=== PATIENT | female | born 1940 | race Caucasian/White ===

== ENCOUNTER 2017-02-22 19:09 | Inpatient (IN) | payer MEDICARE, MEDICAID ==
[~2017-02-22] VITALS: Ht 152.4 cm; Wt 56.7 kg
[2017-02-22 19:16] VITALS: BP 152/67
[2017-02-22 20:19] LABS: MEAN CORPUSCULAR HEMOGLOBIN 19.6 PG (27.0-31.0); MEAN CORPUSCULAR HGB CONC 28.9 G/DL (32.0-36.0); MEAN CORPUSCULAR VOLUME 68 FL (80-99); MEAN PLATELET VOLUME 5.4 FL (6.5-10.1); PLATELET COUNT 325 K/UL (150-450); RED BLOOD COUNT 2.85 M/UL (4.20-5.40); RED CELL DISTRIBUTION WIDTH 17.4 % (11.6-14.8)
[2017-02-22 21:02] LABS: INR 1.1 (0.9-1.1); PROTHROMBIN TIME 11.1 SEC (9.30-11.50); TROPONIN I < 0.30 ng/mL (<=0.30)
[2017-02-22 21:05] LABS: ALANINE AMINOTRANSFERASE 6 U/L (3-33); ANION GAP 14 (5-15); ASPARTATE AMINO TRANSFERASE 25 U/L (5-40); CALCIUM 8.6 mg/dL (8.6-10.2); CARBON DIOXIDE 26 mEQ/L (20-30); CHLORIDE 94 mEQ/L (98-107); HEMOLYSIS 37; POTASSIUM 4.4 mEQ/L (3.4-4.9); SODIUM 134 mEQ/L (135-145)
[2017-02-22 21:34] VITALS: BP 149/63
--- NOTE | 2017-02-22 21:37 | Emergency Room Report ---
History of Present Illness General Chief Complaint: Abnormal Labs Source: Medical Record, EMS Present Illness HPI 76-year-old female presents ED for evaluation. Patient was sent from [facility] for low hemoglobin. There have hemoglobin of 4.6. Patient states she feels okay but feels a little tired. Patient states she has had multiple transfusions in the past. Patient states she had a stomach surgery many years ago to fix the problem. Denies any fevers or chills. Denies any chest pain or shortness of breath. Denies any hematemesis. Denies any blood in the stool. No aggravating or relieving factors. Denies any other associated symptoms Allergies: Coded Allergies: LEVOFLOXACIN (Verified Allergy, Unknown, 02/22/17) PENICILLINS (Verified Allergy, Unknown, 02/22/17) SULFA (SULFONAMIDE ANTIBIOTICS) (Verified Allergy, Unknown, 02/22/17) Patient History Past Medical History: HTN, COPD, GERD Past Surgical History: none Pertinent Family History: none Social History: Denies: alcohol use, drug use, smoking Last Menstrual Period: na Now: No Immunizations: UTD Reviewed Nursing Documentation: PMH: Agreed, PSxH: Agreed Nursing Documentation-PMH Past Medical History: No History, Except For Hx Cardiac Problems: Yes - AFIB, CHF Hx Hypertension: Yes Hx COPD: Yes Hx Gastrointestinal Problems: Yes - GERD Hx Neurological Problems: Yes - ENCEPHALOPATHY Review of Systems All Other Systems: negative except mentioned in HPI Physical Exam Vital Signs Date Time Temp Pulse Resp B/P Pulse Ox O2 Delivery O2 Flow Rate FiO2 02/22/17 19:04 98.6 99 20 152/67 99 Room Air Sp02 EP Interpretation: reviewed, normal General Appearance: no apparent distress, alert, GCS 15, non-toxic Head: normocephalic, atraumatic Eyes: bilateral eye PERRL, bilateral eye normal inspection ENT: hearing grossly normal, normal pharynx, no angioedema, normal voice Neck: full range of motion, supple/symm/no masses Respiratory: chest non-tender, lungs clear, normal breath sounds, speaking full sentences Cardiovascular #1: regular rate, rhythm, no edema Cardiovascular #2: 2+ carotid (R), 2+ carotid (L), 2+ radial (R), 2+ radial (L) , 2+ dorsalis pedis (R), 2+ dorsalis pedis (L) Gastrointestinal: normal bowel sounds, non tender, soft, non-distended, no guarding, no rebound Rectal: deferred Genitourinary: normal inspection, no CVA tenderness Musculoskeletal: back normal, gait/station normal, normal range of motion, non- tender Neurologic: alert, oriented x3, responsive, motor strength/tone normal, sensory intact, speech normal Psychiatric: judgement/insight normal, memory normal, mood/affect normal, no suicidal/homicidal ideation Reflexes: 3+ bicep (R), 3+ bicep (L), 3+ tricep (R), 3+ tricep (L), 3+ knee (R) , 3+ knee (L) Skin: normal color, no rash, warm/dry, well hydrated Lymphatic: no adenopathy Medical Decision Making Diagnostic Impression: Primary Impression: Anemia Qualified Codes: D64.9 - Anemia, unspecified ER Course Hospital Course 76-year-old female presents to ED for evaluation of possible anemia, with possible transfusion Differential diagnoses include: anemia requiring transfusion, microcytic anemia , macrocytic anemia, heavy blood loss Clinical course Patient placed on stretcher. After initial history and physical I ordered labs including CBC and type and screen. Labs- hemoglobin/hematocrit 5.6/19.4. Electrolytes okay, no leukocytosis EKG-normal sinus rhythm no acute ischemic changes PRBCs ordered. Case discussed with Dr. Dumont and he agreed to admit the patient to his service Diagnosis - anemia Admitted to telemetry in serious condition Labs Test 02/22/17 19:47 White Blood Count 6.0 K/UL (4.8-10.8) Red Blood Count 2.85 M/UL (4.20-5.40) Hemoglobin 5.6 G/DL (12.0-16.0) Hematocrit 19.4 % (37.0-47.0) Mean Corpuscular Volume 68 FL (80-99) Mean Corpuscular Hemoglobin 19.6 PG (27.0-31.0) Mean Corpuscular Hemoglobin Concent 28.9 G/DL (32.0-36.0) Red Cell Distribution Width 17.4 % (11.6-14.8) Platelet Count 325 K/UL (150-450) Mean Platelet Volume 5.4 FL (6.5-10.1) Neutrophils (%) (Auto) % (45.0-75.0) Lymphocytes (%) (Auto) % (20.0-45.0) Monocytes (%) (Auto) % (1.0-10.0) Eosinophils (%) (Auto) % (0.0-3.0) Basophils (%) (Auto) % (0.0-2.0) Prothrombin Time 11.1 SEC (9.30-11.50) Prothromb Time International Ratio 1.1 (0.9-1.1) Activated Partial Thromboplast Time 27 SEC (23-33) Sodium Level 134 mEQ/L (135-145) Potassium Level 4.4 mEQ/L (3.4-4.9) Chloride Level 94 mEQ/L (98-107) Carbon Dioxide Level 26 mEQ/L (20-30) Anion Gap 14 (5-15) Blood Urea Nitrogen 16 mg/dL (7-23) Creatinine 1.0 mg/dL (0.5-0.9) Estimat Glomerular Filtration Rate mL/min (>60) Glucose Level 116 mg/dL (74-106) Calcium Level 8.6 mg/dL (8.6-10.2) Total Bilirubin 0.2 mg/dL (0.0-1.2) Aspartate Amino Transf (AST/SGOT) 25 U/L (5-40) Alanine Aminotransferase (ALT/SGPT) 6 U/L (3-33) Alkaline Phosphatase 68 U/L (35-104) Creatine Kinase MB 2.0 ng/mL (< 3.8) Troponin I < 0.30 ng/mL (<=0.30) Total Protein 7.0 g/dL (6.6-8.7) Albumin 3.5 g/dL (3.5-5.2) Globulin 3.5 g/dL Albumin/Globulin Ratio 1.0 (1.0-2.7) EKG Diagnostic Results Rate: normal Rhythm: NSR ST Segments: no acute changes ASA given to the pt in ED: No Rhythm Strip Diag. Results EP Interpretation: yes Rhythm: NSR, no PVC's, no ectopy Last Vital Signs Date Time Temp Pulse Resp B/P Pulse Ox O2 Delivery O2 Flow Rate FiO2 02/22/17 19:04 98.6 99 20 152/67 99 Room Air Status: improved Disposition: ADMITTED INPATIENT Condition: Serious Referrals: JA DUMONT (PCP) ZHANG BUITRAGO M.D. February 22, 2017 21:37
[2017-02-22 21:44] LABS: ANISOCYTOSIS 3+; BAND NEUTROPHILS % (MANUAL) 1 % (0-8); BASOPHILS % (MANUAL) 2 % (0-2); EOSINOPHILS % (MANUAL) 2 % (0-3); HYPOCHROMASIA 3+; LYMPHOCYTES % (MANUAL) 39 % (20-45); MICROCYTES 3+; NEUTROPHILS % (MANUAL) 46 % (45-75); PLATELET ESTIMATE ADEQUATE; PLATELET MORPHOLOGY NORMAL; TOTAL CELLS COUNTED 100
[2017-02-22] MEDS ORDERED: PANTOPRAZOLE SO40 MG ORAL (22:38)
[2017-02-22] MEDS ORDERED: CATAPRES0.1 MG ORAL (22:38)
[2017-02-22] MEDS ORDERED: CARAFATE1 G1 ORAL (22:38)
[2017-02-22] MEDS ORDERED: ATROVENT HFA12.9 GM IH (22:38)
[2017-02-22] MEDS ORDERED: PRAVASTATIN SOD40 M1 ORAL (22:38)
[2017-02-22] MEDS ORDERED: Miralax 17gm pkt ORAL PRN (23:15)
[2017-02-22] MEDS ORDERED: DuoNeb 0.5-3(2.5)mg/3ml neb HHN PRN (23:15)
[2017-02-23] VITALS (7 sets, daily range): BP systolic 123–157; BP diastolic 62–73
[2017-02-23] MEDS ORDERED: DiphenhydrAMINE 50mg/ml Inj IVP ONE (00:30)
[2017-02-23] MEDS ORDERED: CARDIZEM60 MG ORAL (01:07)
[2017-02-23] MEDS ORDERED: ASPIR 8181 MG ORAL (01:07)
[2017-02-23] MEDS ORDERED: CLARITIN10 M2 ORAL (01:07)
[2017-02-23] MEDS ORDERED: MUCINEX100 MG PO (01:07)
[2017-02-23] MEDS ORDERED: SPIRIVA18 MCG INH (01:07)
[2017-02-23] MEDS: DuoNeb 0.5-3(2.5)mg/3ml neb HHN SCH ×4 (01:29→20:07)
[2017-02-23] MEDS ORDERED: doxycycline PO (02:15)
[2017-02-23] MEDS ORDERED: DOCUSATE SODIU100 MG ORAL (02:15)
[2017-02-23] MEDS ORDERED: TRAZODONE HCL150 MG ORAL (02:15)
[2017-02-23] MEDS ORDERED: MILK OF MA400 MG/51 ORAL (02:15)
[2017-02-23] MEDS ORDERED: DEPAKOTE125 MG PO (02:15)
[2017-02-23 08:10] LABS: BASOPHILS % (AUTO) 0.7 % (0.0-2.0); EOSINOPHILS % (AUTO) 1.2 % (0.0-3.0); LYMPHOCYTES % (AUTO) 23.8 % (20.0-45.0); MEAN CORPUSCULAR HEMOGLOBIN 24.4 PG (27.0-31.0); MEAN CORPUSCULAR HGB CONC 32.2 G/DL (32.0-36.0); MEAN CORPUSCULAR VOLUME 76 FL (80-99); MEAN PLATELET VOLUME 5.4 FL (6.5-10.1); MONOCYTES % (AUTO) 18.5 % (1.0-10.0); NEUTROPHILS % (AUTO) 55.8 % (45.0-75.0); PLATELET COUNT 307 K/UL (150-450); RED BLOOD COUNT 3.57 M/UL (4.20-5.40); RED CELL DISTRIBUTION WIDTH 21.5 % (11.6-14.8); WHITE BLOOD COUNT 5.9 K/UL (4.8-10.8)
[2017-02-23 08:16] LABS: ANION GAP 9 (5-15); CALCIUM 8.5 mg/dL (8.6-10.2); CARBON DIOXIDE 29 mEQ/L (20-30); CHLORIDE 101 mEQ/L (98-107); HEMOLYSIS 0; LACTATE DEHYDROGENASE 166 U/L (135-230); POTASSIUM 4.2 mEQ/L (3.4-4.9); SODIUM 139 mEQ/L (135-145)
[2017-02-23 08:28] LABS: HEMOLYSIS 2; IRON 25 ug/dL (37-145); TOTAL IRON BINDING CAPACITY 375 ug/dL (250-400)
[2017-02-23 08:48] LABS: FERRITIN 8 ng/mL (13-150)
[2017-02-23] MEDS ORDERED: Docusate 100mg tablet ORAL SCH (09:00)
[2017-02-23] MEDS ORDERED: Sucralfate 1gm tab ORAL SCH (09:00)
[2017-02-23] MEDS: Docusate 100mg cap ORAL SCH ×2 (09:26→21:09)
--- NOTE | 2017-02-23 10:24 | History and Physical ---
History of Present Illness General Date patient seen: February 23, 2017 Time patient seen: 10:24 Reason for Hospitalization: Abnormal Labs Present Illness HPI 76y/o female with pmh of COPD, HTN, GERD, HLD, bipolar d/o who presents with acute anemia. Pt noted to have hgb 4.6 at SNF. Pt feels fatigued, slightly more SOB. Pt has required transfusions in past. She does not think she has a h/o GI bleed. She does not think she has ever had an EGD or colonoscopy before. She has not noted any melena, BRPBR, hematemesis, hematuria, vaginal bleeding. Denies f/c, n/v, d/c, chest pain, abd pain. In ED, pt's hgb 5.6. 2U pRBCs ordered to be transfused. Allergies: Coded Allergies: LEVOFLOXACIN (Verified Allergy, Unknown, 02/22/17) PENICILLINS (Verified Allergy, Unknown, 02/22/17) SULFA (SULFONAMIDE ANTIBIOTICS) (Verified Allergy, Unknown, 02/22/17) Medication History Scheduled Aspirin* (Aspir 81*), 81 MG ORAL DAILY, (Reported) Diltiazem Hcl* (Cardizem*), 60 MG ORAL EVERY 8 HOURS, (Reported) Divalproex Sodium (Depakote), 250 MG PO TID, (Reported) Ferrous Sulfate (Ferrous Sulfate), 325 MG ORAL BID Pantoprazole* (Pantoprazole*), 40 MG ORAL DAILY, (Reported) Pravastatin Sod (Pravastatin Sod), 40 MG ORAL QHS, (Reported) Sucralfate* (Carafate*), 1 GM ORAL THREE TIMES A DAY, (Reported) Tiotropium [place]* (Spiriva*), 2 PUFF INH DAILY, (Reported) Scheduled PRN Clonidine Hcl* (Catapres*), 0.1 MG ORAL EVERY 6 HOURS PRN for For High Blood Pressure, (Reported) Docusate Sodium* (Docusate Sodium*), 100 MG ORAL DAILY PRN for Constipation, ( Reported) Guaifenesin (Mucinex), 600 MG PO Q12HR PRN for congestion, (Reported) Ipratropium [place] (Atrovent Hfa), 1 PUFF IH Q6HR PRN for Shortness of Breath, (Reported) Loratadine (Claritin), 10 MG ORAL DAILY PRN for Itching, (Reported) Magnesium Hydroxide* (Milk Of Magnesia*), 30 ML ORAL DAILY PRN for Constipation, (Reported) Trazodone* (Trazodone*), 25 MG ORAL BEDTIME PRN for insomnia, (Reported) Discontinued Medications [doxycycline], 500 MG PO BID, (Reported) Discontinued Reason: MD discontinued med Patient History History Provided By: Patient, Medical Record, PMD Healthcare decision maker Resuscitation status Advanced Directive on File Past Medical/Surgical History Past Medical/Surgical History: (1) COPD (chronic obstructive pulmonary disease) (2) HLD (hyperlipidemia) (3) GERD (gastroesophageal reflux disease) (4) HTN (hypertension) Family History Family History: Patient reports no known family medical history. Social History Social History: (1) Lives in detention Review of Systems Constitutional: Reports: malaise, weakness Eye: Reports: no symptoms ENT: Reports: no symptoms Respiratory: Reports: shortness of breath Cardiovascular: Reports: no symptoms Gastrointestinal: Reports: no symptoms Genitourinary: Reports: no symptoms Musculoskeletal: Reports: no symptoms Skin: Reports: no symptoms Psychiatric: Reports: no symptoms Neurological: Reports: no symptoms Endocrine: Reports: no symptoms Hematologic/Lymphatic: Reports: no symptoms All Other Systems: negative except mentioned in HPI Physical Exam Physical Exam Narrative General: alert, cooperative, no distress, appears stated age Head: normocephalic, without obvious abnormality, atraumatic Eyes: conjunctivae/corneas clear. PERRL, EOM's intact Throat: lips, mucosa, and tongue normal. MMM Neck: supple, symmetrical, trachea midline, and no JVD Lungs: clear to auscultation bilaterally Heart: regular rate and rhythm, S1, S2 normal, no murmur, click, rub or gallop Abdomen: soft, non-tender, non-distended, bowel sounds normal; no masses or organomegaly Extremities: extremities normal, atraumatic, no cyanosis or edema Pulses: 2+ and symmetric Skin: skin color, texture, turgor normal; no rashes or lesions Neurologic: grossly normal, no focal deficits Last 24 Hour Vital Signs Date Time Temp Pulse Resp B/P Pulse Ox O2 Delivery O2 Flow Rate FiO2 02/23/17 08:00 90 02/23/17 07:42 97.9 98 18 138/73 97 Nasal Cannula 2.0 02/23/17 07:39 78 20 99 Nasal Cannula 2.0 02/23/17 07:33 Nasal Cannula 2.0 02/23/17 07:31 96 Nasal Cannula 2.0 02/23/17 07:29 89 20 96 Nasal Cannula 2.0 02/23/17 06:03 144/63 02/23/17 04:12 97.5 101 20 123/62 98 Room Air 02/23/17 04:00 101 02/23/17 01:38 98 18 99 Nasal Cannula 2.0 02/23/17 01:35 97.0 24 157/65 99 Nasal Cannula 2.0 02/23/17 01:29 103 18 98 Nasal Cannula 2.0 02/23/17 01:28 98 Nasal Cannula 2.0 02/23/17 01:28 Nasal Cannula 2.0 02/23/17 01:28 103 18 Nasal Cannula 2.0 02/23/17 00:52 97.9 94 20 155/68 99 Nasal Cannula 2.0 02/23/17 00:51 97.9 94 20 155/68 99 Nasal Cannula 2.0 02/22/17 21:34 98.6 87 20 149/63 99 Room Air 02/22/17 19:16 98.6 89 20 152/67 99 Room Air 02/22/17 19:04 98.6 99 20 152/67 99 Room Air Intake and Output 02/22/17 02/23/17 19:00 07:00 Intake Total 575 ml Balance 575 ml IV Total 75 ml Blood Product 500 ml # Voids 2 Laboratory Tests Test 02/22/17 19:47 02/23/17 07:15 White Blood Count 6.0 K/UL (4.8-10.8) 5.9 K/UL (4.8-10.8) Red Blood Count 2.85 M/UL (4.20-5.40) L 3.57 M/UL (4.20-5.40) L Hemoglobin 5.6 G/DL (12.0-16.0) *L 8.7 G/DL (12.0-16.0) #L Hematocrit 19.4 % (37.0-47.0) L 27.0 % (37.0-47.0) #L Mean Corpuscular Volume 68 FL (80-99) L 76 FL (80-99) #L Mean Corpuscular Hemoglobin 19.6 PG (27.0-31.0) L 24.4 PG (27.0-31.0) L Mean Corpuscular Hemoglobin Concent 28.9 G/DL (32.0-36.0) L 32.2 G/DL (32.0-36.0) Red Cell Distribution Width 17.4 % (11.6-14.8) H 21.5 % (11.6-14.8) H Platelet Count 325 K/UL (150-450) 307 K/UL (150-450) Mean Platelet Volume 5.4 FL (6.5-10.1) L 5.4 FL (6.5-10.1) L Neutrophils (%) (Auto) % (45.0-75.0) 55.8 % (45.0-75.0) Lymphocytes (%) (Auto) % (20.0-45.0) 23.8 % (20.0-45.0) Monocytes (%) (Auto) % (1.0-10.0) 18.5 % (1.0-10.0) H Eosinophils (%) (Auto) % (0.0-3.0) 1.2 % (0.0-3.0) Basophils (%) (Auto) % (0.0-2.0) 0.7 % (0.0-2.0) Differential Total Cells Counted 100 Neutrophils % (Manual) 46 % (45-75) Lymphocytes % (Manual) 39 % (20-45) Monocytes % (Manual) 10 % (1-10) Eosinophils % (Manual) 2 % (0-3) Basophils % (Manual) 2 % (0-2) Band Neutrophils 1 % (0-8) Platelet Estimate Adequate Platelet Morphology Normal Hypochromasia 3+ Anisocytosis 3+ Microcytosis 3+ Prothrombin Time 11.1 SEC (9.30-11.50) Prothromb Time International Ratio 1.1 (0.9-1.1) Activated Partial Thromboplast Time 27 SEC (23-33) Sodium Level 134 mEQ/L (135-145) L 139 mEQ/L (135-145) Potassium Level 4.4 mEQ/L (3.4-4.9) 4.2 mEQ/L (3.4-4.9) Chloride Level 94 mEQ/L (98-107) L 101 mEQ/L (98-107) Carbon Dioxide Level 26 mEQ/L (20-30) 29 mEQ/L (20-30) Anion Gap 14 (5-15) 9 (5-15) Blood Urea Nitrogen 16 mg/dL (7-23) 18 mg/dL (7-23) Creatinine 1.0 mg/dL (0.5-0.9) H 1.0 mg/dL (0.5-0.9) H Estimat Glomerular Filtration Rate mL/min (>60) mL/min (>60) Glucose Level 116 mg/dL (74-106) H 86 mg/dL (74-106) Calcium Level 8.6 mg/dL (8.6-10.2) 8.5 mg/dL (8.6-10.2) L Total Bilirubin 0.2 mg/dL (0.0-1.2) Aspartate Amino Transf (AST/SGOT) 25 U/L (5-40) Alanine Aminotransferase (ALT/SGPT) 6 U/L (3-33) Alkaline Phosphatase 68 U/L (35-104) Creatine Kinase MB 2.0 ng/mL (< 3.8) Troponin I < 0.30 ng/mL (<=0.30) Total Protein 7.0 g/dL (6.6-8.7) Albumin 3.5 g/dL (3.5-5.2) Globulin 3.5 g/dL Albumin/Globulin Ratio 1.0 (1.0-2.7) Reticulocyte Count Pending Haptoglobin 173 mg/dL (30-200) Magnesium Level 2.0 mg/dL (1.7-2.5) Iron Level 25 ug/dL (37-145) L Total Iron Binding Capacity 375 ug/dL (250-400) Percent Iron Saturation 7 % (15-50) L Unsaturated Iron Binding 350 ug/dL (112-346) H Ferritin 8 ng/mL (13-150) L Lactate Dehydrogenase 166 U/L (135-230) Vitamin B12 Level 983 pg/mL (211-946) H Folate Pending Thyroid Stimulating Hormone (TSH) 3.990 uIU/mL (0.300-4.500) Height (Feet): 5 Height (Inches): 2.00 Weight (Pounds): 125 Medications Current Medications Medications (Trade) Dose Ordered Sig/Oralia Route PRN Reason Start Time Stop Time Status Last Admin Dose Admin Acetaminophen (Tylenol) 650 mg Q4H PRN ORAL Mild Pain (Pain Scale 1-3) 02/22/17 23:15 03/24/17 23:14 Albuterol/ Ipratropium (DuoNeb 0.5-3(2.5)mg/3ml) 3 ml Q4H PRN HHN Shortness of Breath 02/22/17 23:15 02/27/17 23:14 Albuterol/ Ipratropium (DuoNeb 0.5-3(2.5)mg/3ml) 3 ml Q6HRT HHN 02/23/17 01:00 02/28/17 00:59 02/23/17 07:35 Bisacodyl (Dulcolax) 10 mg DAILYPRN PRN RECTAL Constipation 02/22/17 23:15 03/24/17 23:14 Clonidine HCl (Catapres) 0.1 mg EVERY 6 HOURS ORAL 02/23/17 00:00 03/25/17 00:00 02/23/17 06:03 Dextrose (Dextrose 50%) STAT PRN IV Hypoglycemia 02/22/17 23:15 03/24/17 23:14 Docusate Sodium (Colace) 100 mg Q12HR ORAL 02/23/17 09:30 03/25/17 12:59 02/23/17 09:26 Ondansetron HCl (Zofran) 4 mg Q6H PRN IVP Nausea & Vomiting 02/22/17 23:15 03/24/17 23:14 Pantoprazole (Protonix) 40 mg BIAC ORAL 02/23/17 06:30 03/25/17 06:29 02/23/17 06:03 Polyethylene Glycol (Miralax) 17 gm DAILYPRN PRN ORAL Constipation 02/22/17 23:15 03/24/17 23:14 Pravastatin Sodium (Pravachol) 40 mg BEDTIME ORAL 02/23/17 21:00 03/25/17 20:59 Sodium Chloride (0.45% NS 1000ml) 1,000 ml @ 75 mls/hr [id number] IV 02/23/17 00:10 03/25/17 00:09 02/23/17 06:02 Sucralfate (Carafate) 1 gm TWICE A DAY ORAL 02/23/17 09:00 03/25/17 08:59 02/23/17 09:26 Assessment/Plan Problem List: (1) Severe anemia ICD Codes: D64.9 - Anemia, unspecified SNOMED: 162826313 (2) Iron deficiency anemia ICD Codes: D50.9 - Iron deficiency anemia, unspecified SNOMED: 05367733 (3) COPD (chronic obstructive pulmonary disease) ICD Codes: J44.9 - Chronic obstructive pulmonary disease, unspecified SNOMED: 57049693 (4) HTN (hypertension) ICD Codes: I10 - Essential (primary) hypertension SNOMED: 29479344 (5) HLD (hyperlipidemia) ICD Codes: E78.5 - Hyperlipidemia, unspecified SNOMED: 73040401 (6) GERD (gastroesophageal reflux disease) ICD Codes: K21.9 - Gastro-esophageal reflux disease without esophagitis SNOMED: 516571698 Status: stable Assessment/Plan Concern for occult GI bleed Admit inpt Transfuse 2U pRBCs Trend CBC q12h Check FOBT GI consulted, appreciate rec's Plan for EGD/[facility] and then NPO at [facility] Golyteyl prep ordered Start IV venofer given Fe def anemia F/u other anemia labs Cont home meds Pain control, supportive care, bowel regimen DVT Prophylaxis: SCD Code Status: DNR/DNI per [facility] Classification Declaration: Based on this initial evaluation, and depending on the patient's clinical course, I anticipate that this patient will require hospitalization for 2-3 days for severe anemia and close respiratory/ hemodynamic monitoring. Disposition: Once the patient is stable to leave the hospital, I anticipate the patient will likely be discharged to the following environment: back to SNF I spent 70 minutes on this patient's case, and 39 minutes were dedicated to counseling and/or care coordination. Discussed with patient/family, nursing staff, SW/CM, GI regarding clinical status, treatment course, and disposition planning. Time of note may not reflect time of encounter. William Lazar M.D. February 23, 2017 10:24
[2017-02-23 10:30] LABS: PATH BLOOD SMEAR/OMC SENT TO PATHOLOGIST; RETICULOCYTE COUNT 1.3 % (0.0-2.0)
[2017-02-23] MEDS ORDERED: guaiFENesin 600mg tab ORAL PRN (10:30)
--- NOTE | 2017-02-23 11:04 | GI Initial Consult Note ---
Annabelle Ellington NLakshmiPLakshmi 02/23/17 1104: History of Present Illness General Date patient seen: February 23, 2017 Time patient seen: 10:00 Reason for Hospitalization: Abnormal Labs Referring physician: JA DUMONT Reason for Consultation: ANEMIA Present Illness HPI 76-year-old female presents ED for evaluation. Patient was sent from retirement for low hemoglobin. There have hemoglobin of 4.6. Patient states she feels okay but feels a little tired. Patient states she has had multiple transfusions in the past. Patient states she had a stomach surgery many years ago to fix the problem. Denies any fevers or chills. Denies any chest pain or shortness of breath. Denies any hematemesis. Denies any blood in the stool. No aggravating or relieving factors. Denies any other associated symptoms GI CONSULT: HPI noted above. GI consulted for anemia. Pt seen on floor, awake A&Ox3 NAD with no active s/sx of hematemesis or LGIB. Pt presents today with low hemoglobin s/p blood transfusion and iron deficiency. Patient states she's been hospitalized prior for the same reason. Denies any history of colonoscopy, however, states she may of had an upper endoscopy performed. Home Meds Reported Medications [doxycycline] No Conflict Check, 500 MG PO BID 02/23/17 Magnesium Hydroxide* (MILK OF MAGNESIA*) 400 Mg/5 Ml Oral.susp, 30 ML ORAL DAILY Y for Constipation, ML 02/23/17 Docusate Sodium* (DOCUSATE SODIUM*) 100 Mg Capsule, 100 MG ORAL DAILY Y for Constipation, CAP 02/23/17 Trazodone* (TRAZODONE*) 150 Mg Tablet, 25 MG ORAL BEDTIME Y for insomnia, TAB 02/23/17 Divalproex Sodium (DEPAKOTE) 125 Mg Tablet.dr, 250 MG PO TID, TAB 02/23/17 Guaifenesin (MUCINEX) 100 Mg Gran.pack, 600 MG PO Q12HR Y for congestion 02/23/17 Tiotropium Knox* (SPIRIVA*) 18 Mcg Cap.w.dev, 2 PUFF INH DAILY, EA 02/23/17 Diltiazem Hcl* (CARDIZEM*) 60 Mg Tablet, 60 MG ORAL EVERY 8 HOURS, TAB 02/23/17 Loratadine (CLARITIN) 10 Mg Capsule, 10 MG ORAL DAILY Y for Itching, CAP 02/23/17 Aspirin* (ASPIR 81*) 81 Mg Tablet.dr, 81 MG ORAL DAILY, TAB 02/23/17 Pravastatin Sod (PRAVASTATIN SOD) 40 Mg Tablet, 40 MG ORAL QHS, TAB 02/22/17 Pantoprazole* (PANTOPRAZOLE*) 40 Mg Tablet.dr, 40 MG ORAL DAILY, TAB 02/22/17 Clonidine Hcl* (CATAPRES*) 0.1 Mg Tablet, 0.1 MG ORAL EVERY 6 HOURS Y for For High Blood Pressure, TAB SBP >170 02/22/17 Ipratropium Knox (ATROVENT HFA) 12.9 Gm Hfa.aer.ad, 1 PUFF IH Q6HR Y for Shortness of Breath 02/22/17 Sucralfate* (CARAFATE*) 1 Gm Tablet, 1 GM ORAL THREE TIMES A DAY, TAB 02/22/17 Med list reviewed/reconciled: Yes Allergies: Coded Allergies: LEVOFLOXACIN (Verified Allergy, Unknown, 02/22/17) PENICILLINS (Verified Allergy, Unknown, 02/22/17) SULFA (SULFONAMIDE ANTIBIOTICS) (Verified Allergy, Unknown, 02/22/17) Patient History History Provided By: Patient, Medical Record PMH Narrative Past Medical History: HTN, COPD, GERD Past Surgical History: none Pertinent Family History: none Social History: Denies: alcohol use, drug use, smoking Last Menstrual Period: na Now: No Immunizations: UTD Reviewed Nursing Documentation: PMH: Agreed, PSxH: Agreed Nursing Documentation-PMH Past Medical History: No History, Except For Hx Cardiac Problems: Yes - AFIB, CHF Hx Hypertension: Yes Hx COPD: Yes Hx Gastrointestinal Problems: Yes - GERD Hx Neurological Problems: Yes - ENCEPHALOPATHY Social History: Denies: alcohol use, drug use, other, smoking Review of Systems All Other Systems: negative except mentioned in HPI Physical Exam Vital Signs Date Time Temp Pulse Resp B/P Pulse Ox O2 Delivery O2 Flow Rate FiO2 02/22/17 19:04 98.6 99 20 152/67 99 Room Air 02/23/17 00:51 2.0 02/23/17 01:28 28 Sp02 EP Interpretation: reviewed Labs Laboratory Tests Test 02/22/17 19:47 02/23/17 07:15 White Blood Count 6.0 K/UL (4.8-10.8) 5.9 K/UL (4.8-10.8) Red Blood Count 2.85 M/UL (4.20-5.40) L 3.57 M/UL (4.20-5.40) L Hemoglobin 5.6 G/DL (12.0-16.0) *L 8.7 G/DL (12.0-16.0) #L Hematocrit 19.4 % (37.0-47.0) L 27.0 % (37.0-47.0) #L Mean Corpuscular Volume 68 FL (80-99) L 76 FL (80-99) #L Mean Corpuscular Hemoglobin 19.6 PG (27.0-31.0) L 24.4 PG (27.0-31.0) L Mean Corpuscular Hemoglobin Concent 28.9 G/DL (32.0-36.0) L 32.2 G/DL (32.0-36.0) Red Cell Distribution Width 17.4 % (11.6-14.8) H 21.5 % (11.6-14.8) H Platelet Count 325 K/UL (150-450) 307 K/UL (150-450) Mean Platelet Volume 5.4 FL (6.5-10.1) L 5.4 FL (6.5-10.1) L Neutrophils (%) (Auto) % (45.0-75.0) 55.8 % (45.0-75.0) Lymphocytes (%) (Auto) % (20.0-45.0) 23.8 % (20.0-45.0) Monocytes (%) (Auto) % (1.0-10.0) 18.5 % (1.0-10.0) H Eosinophils (%) (Auto) % (0.0-3.0) 1.2 % (0.0-3.0) Basophils (%) (Auto) % (0.0-2.0) 0.7 % (0.0-2.0) Differential Total Cells Counted 100 Neutrophils % (Manual) 46 % (45-75) Lymphocytes % (Manual) 39 % (20-45) Monocytes % (Manual) 10 % (1-10) Eosinophils % (Manual) 2 % (0-3) Basophils % (Manual) 2 % (0-2) Band Neutrophils 1 % (0-8) Platelet Estimate Adequate Platelet Morphology Normal Hypochromasia 3+ Anisocytosis 3+ Microcytosis 3+ Prothrombin Time 11.1 SEC (9.30-11.50) Prothromb Time International Ratio 1.1 (0.9-1.1) Activated Partial Thromboplast Time 27 SEC (23-33) Sodium Level 134 mEQ/L (135-145) L 139 mEQ/L (135-145) Potassium Level 4.4 mEQ/L (3.4-4.9) 4.2 mEQ/L (3.4-4.9) Chloride Level 94 mEQ/L (98-107) L 101 mEQ/L (98-107) Carbon Dioxide Level 26 mEQ/L (20-30) 29 mEQ/L (20-30) Anion Gap 14 (5-15) 9 (5-15) Blood Urea Nitrogen 16 mg/dL (7-23) 18 mg/dL (7-23) Creatinine 1.0 mg/dL (0.5-0.9) H 1.0 mg/dL (0.5-0.9) H Estimat Glomerular Filtration Rate mL/min (>60) mL/min (>60) Glucose Level 116 mg/dL (74-106) H 86 mg/dL (74-106) Calcium Level 8.6 mg/dL (8.6-10.2) 8.5 mg/dL (8.6-10.2) L Total Bilirubin 0.2 mg/dL (0.0-1.2) Aspartate Amino Transf (AST/SGOT) 25 U/L (5-40) Alanine Aminotransferase (ALT/SGPT) 6 U/L (3-33) Alkaline Phosphatase 68 U/L (35-104) Creatine Kinase MB 2.0 ng/mL (< 3.8) Troponin I < 0.30 ng/mL (<=0.30) Total Protein 7.0 g/dL (6.6-8.7) Albumin 3.5 g/dL (3.5-5.2) Globulin 3.5 g/dL Albumin/Globulin Ratio 1.0 (1.0-2.7) Reticulocyte Count 1.3 % (0.0-2.0) Haptoglobin 173 mg/dL (30-200) Magnesium Level 2.0 mg/dL (1.7-2.5) Iron Level 25 ug/dL (37-145) L Total Iron Binding Capacity 375 ug/dL (250-400) Percent Iron Saturation 7 % (15-50) L Unsaturated Iron Binding 350 ug/dL (112-346) H Ferritin 8 ng/mL (13-150) L Lactate Dehydrogenase 166 U/L (135-230) Vitamin B12 Level 983 pg/mL (211-946) H Folate Pending Thyroid Stimulating Hormone (TSH) 3.990 uIU/mL (0.300-4.500) General Appearance: well appearing, no apparent distress, alert Head: normocephalic EENT: normal ENT inspection Neck: supple Respiratory: normal breath sounds, no respiratory distress Cardiovascular: normal peripheral pulses, normal rate, regular rhythm Gastrointestinal: normal inspection, non tender, soft Rectal: deferred Neurologic: normal inspection, alert, oriented x3, responsive Psychiatric: normal inspection, judgement/insight normal, memory normal Skin: normal inspection, normal color, no rash Lymphatic: normal inspection, no adenopathy Current Medications Current Medications Medications (Trade) Dose Ordered Sig/Oralia Route PRN Reason Start Time Stop Time Status Last Admin Dose Admin Acetaminophen (Tylenol) 650 mg Q4H PRN ORAL Mild Pain (Pain Scale 1-3) 02/22/17 23:15 03/24/17 23:14 Albuterol/ Ipratropium (DuoNeb 0.5-3(2.5)mg/3ml) 3 ml Q4H PRN HHN Shortness of Breath 02/22/17 23:15 02/27/17 23:14 Albuterol/ Ipratropium (DuoNeb 0.5-3(2.5)mg/3ml) 3 ml Q6HRT HHN 02/23/17 01:00 02/28/17 00:59 02/23/17 07:35 Aspirin (Ecotrin) 81 mg DAILY ORAL 02/23/17 10:30 03/25/17 10:29 Bisacodyl (Dulcolax) 10 mg DAILYPRN PRN RECTAL Constipation 02/22/17 23:15 03/24/17 23:14 Bisacodyl (Dulcolax) 10 mg ONCE ONCE ORAL 02/23/17 16:00 02/23/17 16:01 UNV Clonidine HCl (Catapres) 0.1 mg EVERY 6 HOURS ORAL 02/23/17 00:00 03/25/17 00:00 02/23/17 06:03 Dextrose (Dextrose 50%) STAT PRN IV Hypoglycemia 02/22/17 23:15 03/24/17 23:14 Diltiazem HCl (Cardizem) 60 mg EVERY 8 HOURS ORAL 02/23/17 14:00 03/25/17 13:59 Divalproex Sodium (Depakote) 250 mg Q8HR ORAL 02/23/17 14:00 03/25/17 13:59 Docusate Sodium (Colace) 100 mg Q12HR ORAL 02/23/17 09:30 03/25/17 12:59 02/23/17 09:26 Guaifenesin (Mucinex) 600 mg BIDPRN PRN ORAL cough, congestion 02/23/17 10:30 03/25/17 10:29 Iron Sucrose/ Sodium Chloride (Venofer/Sodium Chloride) 60 ml @ 240 mls/hr BEDTIME IVPB 02/23/17 21:00 02/27/17 21:14 UNV Ondansetron HCl (Zofran) 4 mg Q6H PRN IVP Nausea & Vomiting 02/22/17 23:15 03/24/17 23:14 Pantoprazole (Protonix) 40 mg BIAC ORAL 02/23/17 06:30 03/25/17 06:29 02/23/17 06:03 Polyethylene Glycol (Miralax) 17 gm DAILYPRN PRN ORAL Constipation 02/22/17 23:15 03/24/17 23:14 Polyethylene Glycol (Miralax) 238 gm ONCE ONCE ORAL 02/23/17 16:00 02/23/17 16:01 UNV Pravastatin Sodium (Pravachol) 40 mg BEDTIME ORAL 02/23/17 21:00 03/25/17 20:59 Sodium Chloride (0.45% NS 1000ml) 1,000 ml @ 75 mls/hr [id number] IV 02/23/17 00:10 03/25/17 00:09 02/23/17 06:02 Sodium Phosphate 133 ml 133 ml ONCE ONCE RECTAL 02/23/17 23:00 02/23/17 23:01 UNV Tiotropium Knox (Spiriva Inhaler) 2 puff DAILY INH 02/23/17 12:00 03/25/17 11:59 Trazodone HCl (Desyrel) 25 mg BEDTIME PRN ORAL insomnia 02/23/17 21:00 03/25/17 20:59 GI: Plan Problems: (1) Iron deficiency (2) Anemia (3) GERD (gastroesophageal reflux disease) (4) CHF (congestive heart failure) (5) HTN (hypertension) Plan EGD/Colonoscopy scheduled for tomorrow. - CLD, NPO @ CT. iron deficiency >> venofer colace cont ppi + carafate Discussed with Dr. Whitehead. Thank you for referring this patient, we will follow. FATUMA WHITEHEAD 02/24/17 1154: History of Present Illness General Reason for Hospitalization: Abnormal Labs Present Illness Home Meds Reported Medications [doxycycline] No Conflict Check, 500 MG PO BID 02/23/17 Magnesium Hydroxide* (MILK OF MAGNESIA*) 400 Mg/5 Ml Oral.susp, 30 ML ORAL DAILY Y for Constipation, ML 02/23/17 Docusate Sodium* (DOCUSATE SODIUM*) 100 Mg Capsule, 100 MG ORAL DAILY Y for Constipation, CAP 02/23/17 Trazodone* (TRAZODONE*) 150 Mg Tablet, 25 MG ORAL BEDTIME Y for insomnia, TAB 02/23/17 Divalproex Sodium (DEPAKOTE) 125 Mg Tablet.dr, 250 MG PO TID, TAB 02/23/17 Guaifenesin (MUCINEX) 100 Mg Gran.pack, 600 MG PO Q12HR Y for congestion 02/23/17 Tiotropium Knox* (SPIRIVA*) 18 Mcg Cap.w.dev, 2 PUFF INH DAILY, EA 02/23/17 Diltiazem Hcl* (CARDIZEM*) 60 Mg Tablet, 60 MG ORAL EVERY 8 HOURS, TAB 02/23/17 Loratadine (CLARITIN) 10 Mg Capsule, 10 MG ORAL DAILY Y for Itching, CAP 02/23/17 Aspirin* (ASPIR 81*) 81 Mg Tablet.dr, 81 MG ORAL DAILY, TAB 02/23/17 Pravastatin Sod (PRAVASTATIN SOD) 40 Mg Tablet, 40 MG ORAL QHS, TAB 02/22/17 Pantoprazole* (PANTOPRAZOLE*) 40 Mg Tablet.dr, 40 MG ORAL DAILY, TAB 02/22/17 Clonidine Hcl* (CATAPRES*) 0.1 Mg Tablet, 0.1 MG ORAL EVERY 6 HOURS Y for For High Blood Pressure, TAB SBP >170 02/22/17 Ipratropium Knox (ATROVENT HFA) 12.9 Gm Hfa.aer.ad, 1 PUFF IH Q6HR Y for Shortness of Breath 02/22/17 Sucralfate* (CARAFATE*) 1 Gm Tablet, 1 GM ORAL THREE TIMES A DAY, TAB 02/22/17 Allergies: Coded Allergies: LEVOFLOXACIN (Verified Allergy, Unknown, 02/22/17) PENICILLINS (Verified Allergy, Unknown, 02/22/17) SULFA (SULFONAMIDE ANTIBIOTICS) (Verified Allergy, Unknown, 02/22/17) GI: Plan Plan The patient was seen and examined at bedside and all new and available data was reviewed in the patients chart. I agree with the above findings, impression and plan. (Patient seen earlier today. Signature stamp does not reflect patient encounter time.). -Annabelle Pressley MD, N.P. February 23, 2017 11:04 FATUMA WHITEHEAD February 24, 2017 11:54
[2017-02-23] MEDS: Aspirin EC 81mg tab ORAL SCH (11:36)
--- NOTE | 2017-02-23 12:38 | Diagnostic Imaging Report ---
Indications: COUGH Technique: PA and lateral chest Findings: Comparison: None Lung symmetrically, but hyperinflated with flattening of the diaphragm. Mildly increased interstitial markings are present throughout both lungs, most prominent in the bases. Linear density right lung base. Cardiac silhouette enlarged. Pulmonary vasculature within normal limits. Mild blunting of both posterior costophrenic sulci. Aortic arch calcified and mildly elongated. Osteophytes lower thoracic spine. Surgical clips upper abdomen. IMPRESSION: Bilateral interstitial prominence, nonspecific, acuity indeterminate. This may all be chronic. An element of pulmonary edema in the setting of congestive heart failure cannot be excluded. Subsegmental atelectasis versus scarring right lung base Cardiomegaly Aortosclerosis and probable chronic hypertensive change Small bibasal pleural effusions not excludable Previous upper abdominal surgery
--- NOTE | 2017-02-23 15:59 | Cardiology Report ---
APPROVED REPORT EKG Measurement Heart [id number] Sinus rhythm with premature supraventricular complexes Otherwise normal ECG
[2017-02-23] MEDS ORDERED: Polyethylene Glycol 238gm bottle ORAL ONE (16:00)
[2017-02-23] MEDS ORDERED: Bisacodyl EC 5mg tab ORAL ONE (16:00)
[2017-02-23] MEDS ORDERED: 1/2 NS 1000ml IV ONE (16:22)
[2017-02-23] MEDS ORDERED: TraZODone HCl 25 mg tablet ORAL PRN (21:00)
[2017-02-23] MEDS: Iron Sucrose 100 MG in NS 55 ML IVPB SCH (21:09)
[2017-02-23] MEDS ORDERED: Fleet's Enema 133ml RECTAL ONE (23:00)
[2017-02-24] VITALS (10 sets, daily range): BP systolic 108–145; BP diastolic 50–72
[2017-02-24] MEDS: DuoNeb 0.5-3(2.5)mg/3ml neb HHN SCH ×4 (01:00→19:29)
[2017-02-24 08:05] LABS: BASOPHILS % (AUTO) 1.9 % (0.0-2.0); EOSINOPHILS % (AUTO) 2.7 % (0.0-3.0); LYMPHOCYTES % (AUTO) 31.9 % (20.0-45.0); MEAN CORPUSCULAR HEMOGLOBIN 21.9 PG (27.0-31.0); MEAN CORPUSCULAR HGB CONC 30.2 G/DL (32.0-36.0); MEAN CORPUSCULAR VOLUME 72 FL (80-99); MEAN PLATELET VOLUME 5.8 FL (6.5-10.1); NEUTROPHILS % (AUTO) 50.5 % (45.0-75.0); PLATELET COUNT 345 K/UL (150-450); RED BLOOD COUNT 3.83 M/UL (4.20-5.40); RED CELL DISTRIBUTION WIDTH 21.8 % (11.6-14.8); WHITE BLOOD COUNT 6.1 K/UL (4.8-10.8)
[2017-02-24 08:33] LABS: ALANINE AMINOTRANSFERASE 6 U/L (3-33); ANION GAP 12 (5-15); ASPARTATE AMINO TRANSFERASE 19 U/L (5-40); CALCIUM 8.5 mg/dL (8.6-10.2); CARBON DIOXIDE 27 mEQ/L (20-30); CHLORIDE 101 mEQ/L (98-107); CREATININE 0.9 mg/dL (0.5-0.9); HEMOLYSIS 3; POTASSIUM 3.9 mEQ/L (3.4-4.9); SODIUM 140 mEQ/L (135-145); TOTAL PROTEIN 6.8 g/dL (6.6-8.7)
[2017-02-24 08:40] LABS: INR 1.1 (0.9-1.1); PROTHROMBIN TIME 10.8 SEC (9.30-11.50)
[2017-02-24] MEDS ORDERED: Propofol 10mg/ml 20ml IV ONE (09:00)
[2017-02-24] MEDS ORDERED: Lidocaine 1% MPF 10mg/ml 5ml ONE (09:00)
[2017-02-24] MEDS: Docusate 100mg cap ORAL SCH ×2 (09:00→21:56)
[2017-02-24] MEDS ORDERED: NS 110ml ONE (09:00)
--- NOTE | 2017-02-24 09:03 | Pre-Procedure Note/Attestation ---
Pre-Procedure Note/Attestation Complete Prior to Procedure Planned Procedure: not applicable Procedure Narrative: egd/colon Indications for Procedure Pre-Operative Diagnosis: anemia Attestation I attest that I discussed the nature of the procedure; its benefits; risks and complications; and alternatives (and the risks and benefits of such alternatives ), prior to the procedure, with the patient (or the patient's legal sales account representative). I attest that, if there was a reasonable possibility of needing a blood transfusion, the patient (or the patient's legal sales account representative) was given the [facility] standardized written summary, pursuant to the [place] Blood Safety Act ([place] Health and Safety Code # 1645, as amended). I attest that I re-evaluated the patient just prior to the surgery and that there has been no change in the patient's H&P, except as documented below: FATUMA WHITEHEAD February 24, 2017 09:03
[2017-02-24] MEDS ORDERED: NS 550ML IV ONE (09:10)
--- NOTE | 2017-02-24 09:30 | Endoscopy Procedure Note ---
Endoscopy Procedure Note Indication for Procedure: anemia Procedures Performed: EGD, colonoscopy Operative Findings/Diagnosis: esophagitis, gastritis, hemorrhoids Specimen: yes Pt Tolerated Procedure Well: Yes Estimated Blood Loss: none Anesthesiologist: emma Anesthesia: MAC Implant(s) used?: No 50 yrs or older w/o bx or poly: Not Applicable 10yrs. F/U not recommended: Not Applicable FATUMA WHITEHEAD February 24, 2017 09:30
--- NOTE | 2017-02-24 10:07 | Anethesia Preoperative Eval ---
Anesthesia Pre-op PMH/ROS General Date of Evaluation: February 24, 2017 Time of Evaluation: 09:00 Anesthesiologist: maria de jesus ASA Score: ASA 3 Mallampati Score Class I : Soft palate, uvula, fauces, pillars visible Class II: Soft palate, uvula, fauces visible Class III: Soft palate, base of uvula visible Class IV: Only hard plate visible Mallampati Classification: Class III Surgeon: alanna Diagnosis: gi bleed Surgical Procedure: egd/colonoscopy Anesthesia History: none Family History: no anesthesia problems Allergies: Coded Allergies: LEVOFLOXACIN (Verified Allergy, Unknown, 02/22/17) PENICILLINS (Verified Allergy, Unknown, 02/22/17) SULFA (SULFONAMIDE ANTIBIOTICS) (Verified Allergy, Unknown, 02/22/17) Medications: see eMAR Past Medical History Cardiovascular: Reports: CAD, HTN, arrhythmia, other - chf Pulmonary: Reports: COPD Gastrointestinal/Genitourinary: Reports: GERD Neurologic/Psychiatric: Denies: CVA, TIA, dementia, depression/anxiety, other Endocrine: Denies: DM, hypothyroidism, other, steroids HEENT: Denies: [place] (L), [place] (R), cataract (L), cataract (R), glaucoma, other Hematology/Immune: Reports: anemia Musculoskeletal/Integumentary: Denies: DDD, DJD, OA, RA, edema, other Anesthesia Pre-op Phys. Exam Physician Exam Last Vital Signs Date Time Temp Pulse Resp B/P Pulse Ox O2 Delivery O2 Flow Rate FiO2 02/24/17 09:50 97.3 74 22 138/64 96 Nasal Cannula 3.0 02/23/17 01:38 28 Constitutional: NAD Neurologic: CN 2-12 intact Cardiovascular: RRR Respiratory: CTA Gastrointestinal: S/NT/ND Airway Exam MO: full ROM: full Teeth: missing Dentures: no lower, no upper Anesthesia Pre-op A/P Labs Hematology Test 02/24/17 06:59 White Blood Count 6.1 K/UL (4.8-10.8) Red Blood Count 3.83 M/UL (4.20-5.40) L Hemoglobin 8.4 G/DL (12.0-16.0) L Hematocrit 27.8 % (37.0-47.0) L Mean Corpuscular Volume 72 FL (80-99) L Mean Corpuscular Hemoglobin 21.9 PG (27.0-31.0) L Mean Corpuscular Hemoglobin Concent 30.2 G/DL (32.0-36.0) L Red Cell Distribution Width 21.8 % (11.6-14.8) H Platelet Count 345 K/UL (150-450) Mean Platelet Volume 5.8 FL (6.5-10.1) L Neutrophils (%) (Auto) 50.5 % (45.0-75.0) Lymphocytes (%) (Auto) 31.9 % (20.0-45.0) Monocytes (%) (Auto) 13.0 % (1.0-10.0) H Eosinophils (%) (Auto) 2.7 % (0.0-3.0) Basophils (%) (Auto) 1.9 % (0.0-2.0) Coagulation Test 02/24/17 06:59 Prothrombin Time 10.8 SEC (9.30-11.50) Prothromb Time International Ratio 1.1 (0.9-1.1) Activated Partial Thromboplast Time 26 SEC (23-33) Chemistry Test 02/24/17 06:59 Sodium Level 140 mEQ/L (135-145) Potassium Level 3.9 mEQ/L (3.4-4.9) Chloride Level 101 mEQ/L (98-107) Carbon Dioxide Level 27 mEQ/L (20-30) Anion Gap 12 (5-15) Blood Urea Nitrogen 11 mg/dL (7-23) Creatinine 0.9 mg/dL (0.5-0.9) Estimat Glomerular Filtration Rate mL/min (>60) Glucose Level 82 mg/dL (74-106) Calcium Level 8.5 mg/dL (8.6-10.2) L Total Bilirubin 0.3 mg/dL (0.0-1.2) Aspartate Amino Transf (AST/SGOT) 19 U/L (5-40) Alanine Aminotransferase (ALT/SGPT) 6 U/L (3-33) Alkaline Phosphatase 68 U/L (35-104) Total Protein 6.8 g/dL (6.6-8.7) Albumin 3.4 g/dL (3.5-5.2) L Globulin 3.4 g/dL Albumin/Globulin Ratio 1.0 (1.0-2.7) Carcinoembryonic Antigen 1.8 ng/mL Studies Pre-op Studies: EKG - sr Risk Assessment & Plan Plan: mac Status Change Before Surgery: No Pre-Antibiotics Drug: none Given Within 1 Hr of Incision: YAQUELIN Covington CRNA February 24, 2017 10:06
--- NOTE | 2017-02-24 10:11 | Immediate Post-Op Evaluation ---
Immediate Post-Op Evalulation Immediate Post-Op Evalulation Procedure: egd/colon Date of Evaluation: February 24, 2017 Time of Evaluation: 09:40 IV Fluids: 300 Blood Pressure Systolic: 130 Blood Pressure Diastolic: 60 Pulse Rate: 78 Respiratory Rate: 14 O2 Sat by Pulse Oximetry: 100 Temperature (Fahrenheit): 97.5 Nausea: No Vomiting: No Complications none Patient Status: awake, reacts Hydration Status: adequate Drug: none Given Within 1 Hr of Incision: YAQUELIN Covington CRNA February 24, 2017 10:11
--- NOTE | 2017-02-24 10:14 | 48 Hour Post Anesthesia Eval ---
Post Anesthesia Evaluation Procedure: egd/colon Date of Evaluation: February 24, 2017 Time of Evaluation: 10:14 Blood Pressure Systolic: 138 0: 68 Pulse Rate: 74 Respiratory Rate: 14 O2 Sat by Pulse Oximetry: 100 Airway: patent Nausea: No Vomiting: No Hydration Status: adequate Mental Status/LOC: patient returned to baseline Post-Anesthesia Complications: none Follow-up care needed: N/A YAQUELIN LIVINGSTON CRNA February 24, 2017 10:14
[2017-02-24] MEDS: Aspirin EC 81mg tab ORAL SCH (10:26)
[2017-02-24] MEDS ORDERED: FERROUS SULFAT325 M2 ORAL (15:22)
[2017-02-24] MEDS ORDERED: 1/2 NS 1000ml IV ONE (15:26)
[2017-02-24] MEDS ORDERED: Tubing IV Secondary IV ONE (15:26)
--- NOTE | 2017-02-24 15:27 | Discharge Summary ---
Discharge Summary Hospital Course Date of Admission February 22, 2017 at 21:29 Date of Discharge 02/24/17 Admitting Diagnosis ANEMIA Reason for Hospitalization: Severe anemia HPI 76y/o female with pmh of COPD, HTN, GERD, HLD, bipolar d/o who presents with acute anemia. Pt noted to have hgb 4.6 at SNF. Pt feels fatigued, slightly more SOB. Pt has required transfusions in past. She does not think she has a h/o GI bleed. She does not think she has ever had an EGD or colonoscopy before. She has not noted any melena, BRPBR, hematemesis, hematuria, vaginal bleeding. Denies f/c, n/v, d/c, chest pain, abd pain. In ED, pt's hgb 5.6. 2U pRBCs ordered to be transfused. Consultations Gastroenterology Procedures EGD and colonoscopy on 02/24/17 - esophagitis, gastritis, hemorrhoids Hospital Course Pt was admitted and given 2U pRBCs. Hgb responded appropriately. Pt was seen by GI and given Fe def anemia there was concern for occult GI bleed. Pt underwent EGD and colonoscopy on 02/24/17 which showed esophagitis, gastritis, and hemorrhoids. Pt should be on PPI daily per GI. Her hgb remained stable. She was treated w/ IV venofer while in hospital and then transitioned on PO iron on discharge. Discharge Medications New Medications: Ferrous Sulfate (Ferrous Sulfate) 325 Mg Tablet. 325 MG ORAL BID for 30 Days, #60 TAB 0 Refills Continued Medications: Aspirin* (Aspir 81*) 81 Mg Tablet. 81 MG ORAL DAILY, TAB Clonidine Hcl* (Catapres*) 0.1 Mg Tablet 0.1 MG ORAL EVERY 6 HOURS PRN for For High Blood Pressure, TAB SBP >170 Diltiazem Hcl* (Cardizem*) 60 Mg Tablet 60 MG ORAL EVERY 8 HOURS, TAB Divalproex Sodium (Depakote) 125 Mg Tablet. 250 MG PO TID, TAB Docusate Sodium* (Docusate Sodium*) 100 Mg Capsule 100 MG ORAL DAILY PRN for Constipation, CAP Guaifenesin (Mucinex) 100 Mg Gran.pack 600 MG PO Q12HR PRN for congestion Ipratropium Harold (Atrovent Hfa) 12.9 Gm Hfa.aer.ad 1 PUFF IH Q6HR PRN for Shortness of Breath Loratadine (Claritin) 10 Mg Capsule 10 MG ORAL DAILY PRN for Itching, CAP Magnesium Hydroxide* (Milk Of Magnesia*) 400 Mg/5 Ml Oral.susp 30 ML ORAL DAILY PRN for Constipation, ML Pantoprazole* (Pantoprazole*) 40 Mg Tablet.dr 40 MG ORAL DAILY, TAB Pravastatin Sod (Pravastatin Sod) 40 Mg Tablet 40 MG ORAL QHS, TAB Sucralfate* (Carafate*) 1 Gm Tablet 1 GM ORAL THREE TIMES A DAY, TAB Tiotropium Harold* (Spiriva*) 18 Mcg Cap.w.dev 2 PUFF INH DAILY, EA Trazodone* (Trazodone*) 150 Mg Tablet 25 MG ORAL BEDTIME PRN for insomnia, TAB Discontinued Medications: [doxycycline] () 500 MG PO BID Discharge Condition Upon Discharge: stable Discharge Disposition Patient was discharged to SNF Discharge Diagnoses: (1) Esophagitis (2) Gastritis (3) Hemorrhoids (4) Severe anemia (5) Iron deficiency anemia William Lazar M.D. February 24, 2017 15:27
--- NOTE | 2017-02-24 19:48 | Procedure Note ---
DATE OF PROCEDURE: 02/24/2017 SURGEON: Karsten Gomez M.D. PROCEDURE: Upper endoscopy with biopsy and colonoscopy. ANESTHESIA: Per Ulysses DELACRUZris. INSTRUMENT: Olympus adult flexible upper endoscope and colonoscope. INDICATION: Anemia. REASON FOR PROCEDURE: The procedure, risks, benefits, and possible consequences, including hemorrhage, aspiration, perforation and infection, and alternative treatments, were explained to the patient/legal guardian by Dr. Karsten Gomez and the patient/legal guardian understood and accepted these risks. PROCEDURE: After informed consent was obtained and the patient was adequately sedated, Olympus upper endoscope was advanced from mouth into the second portion of duodenum and retroflexion was performed in the stomach. The patient has evidence of gastritis. Random biopsy from antrum was obtained to rule out H. pylori infection. The patient also had evidence of peeling of the mucosa in the distal esophagus suggestive of esophagitis. The patient also had evidence of medium-sized hiatal hernia. At this time, the upper endoscope was retrieved and the patient was turned over for colonoscopy. First, rectal exam was performed, which was positive for external and internal hemorrhoids. Then, the scope was advanced from the rectum into the cecum, then subsequently to terminal ileum. Quality of prep was good. The patient had a normal colonoscopy examination. There was no obvious mass, polyp, diverticulosis, or any other pathology seen in this colonoscopy examination. Retroflexion of rectum showed evidence of large internal hemorrhoids. SUMMARY FINDINGS: 1. Gastritis. 2. Hiatal hernia. 3. Esophagitis. 4. Internal and external hemorrhoids. RECOMMENDATIONS: Follow up biopsy and treat accordingly. Plan will be to send the stool for occult blood. If the stool comes back positive, the patient would need a capsule endoscopy, either as inpatient or outpatient. Otherwise follow biopsy results and treat accordingly. I want to thank Dr. Alberts, for this kind referral. Karsten Gomez M.D. DR: EULALIA JOB#: [id number] CC: Zaida Alberts M.D.
[2017-02-24] MEDS: Iron Sucrose 100 MG in NS 55 ML IVPB SCH (21:56)
[2017-02-25] MEDS: DuoNeb 0.5-3(2.5)mg/3ml neb HHN SCH ×3 (01:30→13:03)
[2017-02-25 03:52] VITALS: BP 147/67
[2017-02-25 08:00] VITALS: BP 133/68
[2017-02-25 08:37] LABS: BASOPHILS % (AUTO) 0.7 % (0.0-2.0); EOSINOPHILS % (AUTO) 3.8 % (0.0-3.0); LYMPHOCYTES % (AUTO) 21.6 % (20.0-45.0); MEAN CORPUSCULAR HEMOGLOBIN 22.6 PG (27.0-31.0); MEAN CORPUSCULAR HGB CONC 30.4 G/DL (32.0-36.0); MEAN CORPUSCULAR VOLUME 74 FL (80-99); MONOCYTES % (AUTO) 16.8 % (1.0-10.0); NEUTROPHILS % (AUTO) 57.2 % (45.0-75.0); PLATELET COUNT 329 K/UL (150-450); RED BLOOD COUNT 3.61 M/UL (4.20-5.40); RED CELL DISTRIBUTION WIDTH 22.5 % (11.6-14.8); WHITE BLOOD COUNT 6.4 K/UL (4.8-10.8)
[2017-02-25 08:55] LABS: ANION GAP 11 (5-15); CALCIUM 8.4 mg/dL (8.6-10.2); CARBON DIOXIDE 28 mEQ/L (20-30); CHLORIDE 102 mEQ/L (98-107); CREATININE 0.9 mg/dL (0.5-0.9); HEMOLYSIS 3; POTASSIUM 3.8 mEQ/L (3.4-4.9); SODIUM 141 mEQ/L (135-145)
[2017-02-25] MEDS: Aspirin EC 81mg tab ORAL SCH ×2 (09:21→09:27)
[2017-02-25] MEDS: Docusate 100mg cap ORAL SCH ×2 (09:21→09:27)
[2017-02-25 12:00] VITALS: BP 139/72
[2017-02-25 12:33] VITALS: BP 139/72
--- NOTE | 2017-02-25 14:58 | General Progress Note ---
Assessment/Plan Assessment/Plan GI: Plan Problems: (1) Iron deficiency (2) Anemia (3) GERD (gastroesophageal reflux disease) (4) CHF (congestive heart failure) (5) HTN (hypertension) Plan EGD/Colonoscopy --> gastritis, esophagitis, hemorrhoids iron deficiency >> venofer colace cont ppi + carafate Subjective Allergies: Coded Allergies: LEVOFLOXACIN (Verified Allergy, Unknown, 02/22/17) PENICILLINS (Verified Allergy, Unknown, 02/22/17) SULFA (SULFONAMIDE ANTIBIOTICS) (Verified Allergy, Unknown, 02/22/17) Subjective feels OK no abdominal pain tolerating PO d/w RN Objective Last 24 Hour Vital Signs Date Time Temp Pulse Resp B/P Pulse Ox O2 Delivery O2 Flow Rate FiO2 02/25/17 13:05 86 18 100 Nasal Cannula 3.0 32 02/25/17 13:00 82 18 96 Nasal Cannula 3.0 02/25/17 12:33 139/72 02/25/17 12:00 97.9 71 20 139/72 100 Nasal Cannula 3.0 02/25/17 11:48 75 02/25/17 08:10 90 18 100 Nasal Cannula 3.0 32 02/25/17 08:00 97 Nasal Cannula 3.0 02/25/17 08:00 98.1 82 20 133/68 96 Nasal Cannula 3.0 02/25/17 08:00 Nasal Cannula 3.0 32 02/25/17 08:00 90 18 96 Nasal Cannula 3.0 02/25/17 07:55 85 02/25/17 05:19 85 147/67 02/25/17 05:14 147/67 02/25/17 04:00 85 02/25/17 03:52 98.5 85 18 147/67 94 Room Air 02/25/17 01:30 89 18 100 Nasal Cannula 2.0 02/25/17 01:20 92 18 96 Nasal Cannula 3.0 02/25/17 00:00 70 02/24/17 23:58 108/50 02/24/17 23:52 98.1 68 18 108/50 98 Room Air 02/24/17 21:55 78 143/61 02/24/17 20:17 98.3 78 17 143/61 95 Room Air 02/24/17 20:00 75 02/24/17 19:40 80 18 100 Nasal Cannula 2.0 02/24/17 19:30 85 18 95 Nasal Cannula 3.0 02/24/17 19:29 96 Nasal Cannula 3.0 02/24/17 19:29 Nasal Cannula 3.0 02/24/17 17:33 145/72 02/24/17 16:00 98.2 106 21 145/72 96 Nasal Cannula 2.0 02/24/17 16:00 95 Intake and Output 02/24/17 02/25/17 19:00 07:00 Intake Total 845 ml 788 ml Output Total 500 ml Balance 345 ml 788 ml Intake Oral 520 ml IV Total 325 ml 788 ml Output Urine Total 500 ml Estimated Blood Loss 0 ml # Voids 3 # Bowel Movements 2 Laboratory Tests 02/25/17 06:17: White Blood Count 6.4, Red Blood Count 3.61L, Hemoglobin 8.2L, Hematocrit 26.8L , Mean Corpuscular Volume 74L, Mean Corpuscular Hemoglobin 22.6L, Mean Corpuscular Hemoglobin Concent 30.4L, Red Cell Distribution Width 22.5H, Platelet Count 329, Mean Platelet Volume 6.0L, Neutrophils (%) (Auto) 57.2, Lymphocytes (%) (Auto) 21.6, Monocytes (%) (Auto) 16.8H, Eosinophils (%) (Auto) 3.8H, Basophils (%) (Auto) 0.7, Sodium Level 141, Potassium Level 3.8, Chloride Level 102, Carbon Dioxide Level 28, Anion Gap 11, Blood Urea Nitrogen 16, Creatinine 0.9, Estimat Glomerular Filtration Rate , Glucose Level 87, Calcium Level 8.4L Height (Feet): 5 Height (Inches): 2.00 Weight (Pounds): 125 Objective WDWN NCAT supple CTA RRR Soft ND NT no edema non focal WANDA BARNES February 25, 2017 14:58
== END 2017-02-25 13:33 | disposition home or self-care (01) | DRG 812 ==
LOC: EDBD 19:09 → EMR 19:40 → 2E 21:29 → EDBEDREQ 21:53
PROC: 30233N1 Transfusion of Nonautologous Red Blood Cells into Peripheral Vein, Percutaneous Approach (ICD-10-PCS; principal; 2017-02-23)
PROC: 0DJD8ZZ Inspection of Lower Intestinal Tract, Via Natural or Artificial Opening Endoscopic (ICD-10-PCS; 2017-02-24 09:09)
PROC: 0DB68ZX Excision of Stomach, Via Natural or Artificial Opening Endoscopic, Diagnostic (ICD-10-PCS; 2017-02-24 09:09)
DX: D50.9 Iron deficiency anemia, unspecified (principal); I50.9 Heart failure, unspecified; K20.9 Esophagitis, unspecified; K29.70 Gastritis, unspecified, without bleeding; Z88.1 Allergy status to other antibiotic agents; Z88.0 Allergy status to penicillin; Z88.2 Allergy status to sulfonamides; K21.9 Gastro-esophageal reflux disease without esophagitis; K44.9 Diaphragmatic hernia without obstruction or gangrene; K64.8 Other hemorrhoids; K64.4 Residual hemorrhoidal skin tags; Z66 Do not resuscitate
CPT/HCPCS: 36415; 71020; 80048; 80053; 82378; 82553; 82607; 82728; 82746; 83010; 83540; 83550; 83615; 83735; 84443; 84484; 85007; 85025; 85044; 85060; 85610; 85730; 86850; 86900; 86901; 86920; 93005; 94003; 94150; 94640; 94664; 94760; J7620

== ENCOUNTER 2018-01-08 11:45 | Inpatient (IN) | payer MEDICARE, MEDICAID ==
[~2018-01-08] VITALS: Ht 162.6 cm; Wt 65.8 kg
[~2018-01-08 11:45] MED LIST: ASPIR 8181 MG ORAL; ATROVENT HFA12.9 GM IH; CARAFATE1 G1 ORAL; CARDIZEM60 MG ORAL; CATAPRES0.1 MG ORAL; CLARITIN10 M2 ORAL; DEPAKOTE125 MG PO; DOCUSATE SODIU100 MG ORAL; FERROUS SULFAT325 M2 ORAL; MILK OF MA400 MG/51 ORAL; MUCINEX100 MG PO; PANTOPRAZOLE SO40 MG ORAL; PRAVASTATIN SOD40 M1 ORAL; SPIRIVA18 MCG INH; TRAZODONE HCL150 MG ORAL; doxycycline PO
[2018-01-08] MEDS ORDERED: Vancomycin 1.5gm/D5W 250ml 250 ML IVPB ONE (12:15)
[2018-01-08] MEDS ORDERED: Azithromycin 500 MG in D5W 275 ML IVPB ONE (12:15)
[2018-01-08 12:45] VITALS: BP 125/55
[2018-01-08] MEDS ORDERED: Azithromycin 500mg Inj IV ONE (13:14)
[2018-01-08 13:30] LABS: BASOPHILS % (AUTO) 1.1 % (0.0-2.0); EOSINOPHILS % (AUTO) 2.4 % (0.0-3.0); HEMATOCRIT 34.4 % (37.0-47.0); LYMPHOCYTES % (AUTO) 28.9 % (20.0-45.0); MEAN CORPUSCULAR VOLUME 88 FL (80-99); MONOCYTES % (AUTO) 13.4 % (1.0-10.0); NEUTROPHILS % (AUTO) 54.1 % (45.0-75.0); PLATELET COUNT 248 K/UL (150-450); RED CELL DISTRIBUTION WIDTH 20.2 % (11.6-14.8); WHITE BLOOD COUNT 7.6 K/UL (4.8-10.8)
[2018-01-08 13:40] LABS: ANION GAP 5 mmol/L (5-15); BLOOD UREA NITROGEN 21 mg/dL (7-18); CALCIUM 8.6 MG/DL (8.5-10.1); CARBON DIOXIDE 31 MMOL/L (21-32); CHLORIDE 100 MMOL/L (98-107); CREATININE 0.9 MG/DL (0.55-1.30); SODIUM 136 MMOL/L (136-145)
[2018-01-08 13:45] VITALS: BP 130/76
[2018-01-08 13:56] LABS: ALANINE AMINOTRANSFERASE 16 U/L (12-78); ALBUMIN 2.7 G/DL (3.4-5.0); ALBUMIN/GLOBULIN RATIO 0.5 (1.0-2.7); ALKALINE PHOSPHATASE 86 U/L (46-116); ASPARTATE AMINO TRANSFERASE 21 U/L (15-37); BILIRUBIN,TOTAL 0.4 MG/DL (0.2-1.0); CKMB 0.5 NG/ML (0.0-3.6); CREATINE KINASE 48 U/L (26-308)
[2018-01-08] MEDS ORDERED: ATORVASTATIN CA40 MG ORAL (14:11)
--- NOTE | 2018-01-08 16:04 | Diagnostic Imaging Report ---
Indication: Shortness of breath Technique: One view of the chest Comparison: 02/23/2017 Findings: 3.3 x 3.3 cm mass is now evident in the left lung apex. The remainder the lungs and pleural spaces are clear. Semilunar opacities over both hemidiaphragms probably represent lobulation of the hemidiaphragms, although retrodiaphragmatic masses are not completely excludable on either side. Heart size is normal. The remainder the lungs and pleural spaces are clear. Incidentally noted are cholecystectomy clips Impression: 3.3 x 3.3 cm mass in the left lung apex. Possibility of neoplasm should be considered. Further evaluation with chest CT is recommended. Bilateral basilar semilunar opacities, probably just represent lobulations of either diaphragm, but as these are not visible on the previous study this also raises concern for tumor. No acute process otherwise Findings discussed by phone with Dr. Harris in the emergency room at the time of interpretation
[2018-01-08 16:21] VITALS: BP 101/72
--- NOTE | 2018-01-08 16:53 | Emergency Room Report ---
History of Present Illness General Chief Complaint: Skin Rash/Abscess Source: Patient Present Illness HPI Patient is a 77-year-old female who presented after increased left buttock pain and swelling. Patient gradual onset of symptoms over the past few days. Patient had prior history of diabetes. Patient was noted to be somewhat confused. Patient was sent from group home. Patient states that she stays in a homeless snf. Allergies: Coded Allergies: LEVOFLOXACIN (Verified Allergy, Unknown, 02/22/17) PENICILLINS (Verified Allergy, Unknown, 02/22/17) SULFA (SULFONAMIDE ANTIBIOTICS) (Verified Allergy, Unknown, 02/22/17) Patient History Past Medical History: see triage record Reviewed Nursing Documentation: PMH: Agreed, PSxH: Agreed Nursing Documentation-PMH Hx Cardiac Problems: Yes - AFIB Hx Hypertension: Yes Hx COPD: Yes Hx Cancer: No Hx Gastrointestinal Problems: Yes Hx Neurological Problems: Yes - ENCEPHALOPATHY Review of Systems All Other Systems: limited - by mental status Physical Exam Vital Signs Date Time Temp Pulse Resp B/P (MAP) Pulse Ox O2 Delivery O2 Flow Rate FiO2 01/08/18 11:51 18 125/55 01/08/18 12:45 98.1 98.1 Sp02 EP Interpretation: reviewed, normal General Appearance: normal inspection, well appearing, no apparent distress, alert, Chronically Ill Head: atraumatic ENT: normal ENT inspection, hearing grossly normal, normal voice Neck: normal inspection, full range of motion, supple, no bony tend Respiratory: normal inspection, lungs clear, normal breath sounds, no respiratory distress, no retraction, no wheezing Cardiovascular #1: regular rate, rhythm, no edema Gastrointestinal: normal inspection, normal bowel sounds, non tender, soft, no guarding, no hernia Genitourinary: no CVA tenderness Musculoskeletal: normal inspection, back normal, normal range of motion Neurologic: normal inspection, alert, responsive, speech normal Psychiatric: normal inspection, judgement/insight normal, mood/affect normal Skin: other - fluctuance area to left buttock and perineum Medical Decision Making Diagnostic Impression: Primary Impression: Left buttock abscess ER Course Patient presented for skin rash. Differential diagnosis included was not limited to abscess, cellulitis, folliculitis, Fourniere's gangrene. Because of complexity of patient's case laboratory testing and imaging studies were ordered. A testing showed normal white blood count. Chest x-ray one view read by radiology showed right upper lobe nodular lesion and possible nodular lesions near the right lower diaphragm. Dr. Donnelly was contacted for for inpatient management. was contacted for general surgery consult. Labs Test 01/08/18 13:06 White Blood Count 7.6 K/UL (4.8-10.8) Red Blood Count 3.90 M/UL (4.20-5.40) Hemoglobin 11.0 G/DL (12.0-16.0) Hematocrit 34.4 % (37.0-47.0) Mean Corpuscular Volume 88 FL (80-99) Mean Corpuscular Hemoglobin 28.1 PG (27.0-31.0) Mean Corpuscular Hemoglobin Concent 31.9 G/DL (32.0-36.0) Red Cell Distribution Width 20.2 % (11.6-14.8) Platelet Count 248 K/UL (150-450) Mean Platelet Volume 6.4 FL (6.5-10.1) Neutrophils (%) (Auto) 54.1 % (45.0-75.0) Lymphocytes (%) (Auto) 28.9 % (20.0-45.0) Monocytes (%) (Auto) 13.4 % (1.0-10.0) Eosinophils (%) (Auto) 2.4 % (0.0-3.0) Basophils (%) (Auto) 1.1 % (0.0-2.0) Prothrombin Time 10.4 SEC (9.30-11.50) Prothromb Time International Ratio 1.0 (0.9-1.1) Activated Partial Thromboplast Time 32 SEC (23-33) Sodium Level 136 MMOL/L (136-145) Potassium Level 4.0 MMOL/L (3.5-5.1) Chloride Level 100 MMOL/L (98-107) Carbon Dioxide Level 31 MMOL/L (21-32) Anion Gap 5 mmol/L (5-15) Blood Urea Nitrogen 21 mg/dL (7-18) Creatinine 0.9 MG/DL (0.55-1.30) Estimat Glomerular Filtration Rate mL/min (>60) Glucose Level 84 MG/DL (74-106) Lactic Acid Level 0.70 mmol/L (0.66-2.22) Calcium Level 8.6 MG/DL (8.5-10.1) Total Bilirubin 0.4 MG/DL (0.2-1.0) Aspartate Amino Transf (AST/SGOT) 21 U/L (15-37) Alanine Aminotransferase (ALT/SGPT) 16 U/L (12-78) Alkaline Phosphatase 86 U/L (46-116) Total Creatine Kinase 48 U/L (26-308) Creatine Kinase MB 0.5 NG/ML (0.0-3.6) Creatine Kinase MB Relative Index 1.0 Troponin I 0.040 ng/mL (0.000-0.056) Total Protein 8.0 G/DL (6.4-8.2) Albumin 2.7 G/DL (3.4-5.0) Globulin 5.3 g/dL Albumin/Globulin Ratio 0.5 (1.0-2.7) Last Vital Signs Date Time Temp Pulse Resp B/P (MAP) Pulse Ox O2 Delivery O2 Flow Rate FiO2 01/08/18 16:21 98.1 18 101/72 98.1 Status: unchanged Disposition: ADMITTED INPATIENT Condition: Serious Referrals: JA DUMONT (PCP) Ritchie Harris Jan 08, 2018 16:53
[2018-01-08] MEDS ORDERED: TraZODone 50mg tab ORAL PRN (18:15)
[2018-01-08] MEDS ORDERED: Acetaminophen 650 MG SUPP RECTAL PRN ×2 (18:15)
--- NOTE | 2018-01-08 18:17 | History and Physical ---
History of Present Illness General Date patient seen: Jan 08, 2018 Time patient seen: 18:17 Reason for Hospitalization: Abscess Present Illness HPI 77y/o male with pmh of HTN, HLD, GERD, COPD, bipolar d/o, dementia who presents with increased L buttock pain, swelling and drainage. Pt with gradual onset of symptoms over the past few days. Pt is poor historian. She states she first noticed itching to area and then pain. Pt resides in SNF. She states normally able to ambulate with FWW. Notes some subjective fevers/chills. Denies n/v, d/c , chest pain, SOB, abd pain, dysuria. In ED, surgery was consulted given concern for abscess. Pt was given vanco and ampicillin in ED. CXR showed incidiental 3.3 x 3.3 cm mass in the left lung apex. Allergies: Coded Allergies: LEVOFLOXACIN (Verified Allergy, Unknown, 02/22/17) PENICILLINS (Verified Allergy, Unknown, 02/22/17) SULFA (SULFONAMIDE ANTIBIOTICS) (Verified Allergy, Unknown, 02/22/17) Medication History Scheduled Aspirin* (Aspir 81*), 81 MG ORAL DAILY, (Reported) Atorvastatin Calcium* (Atorvastatin Calcium*), 80 MG ORAL BEDTIME, (Reported) Diltiazem Hcl* (Cardizem*), 60 MG ORAL EVERY 8 HOURS, (Reported) Divalproex Sodium (Depakote), 250 MG PO TID, (Reported) Ferrous Sulfate (Ferrous Sulfate), 325 MG ORAL BID Pantoprazole* (Pantoprazole*), 40 MG ORAL DAILY, (Reported) Pravastatin Sod (Pravastatin Sod), 40 MG ORAL QHS, (Reported) Sucralfate* (Carafate*), 1 GM ORAL THREE TIMES A DAY, (Reported) Tiotropium [place]* (Spiriva*), 2 PUFF INH DAILY, (Reported) Scheduled PRN Clonidine Hcl* (Catapres*), 0.1 MG ORAL EVERY 6 HOURS PRN for For High Blood Pressure, (Reported) Docusate Sodium* (Docusate Sodium*), 100 MG ORAL DAILY PRN for Constipation, ( Reported) Guaifenesin (Mucinex), 600 MG PO Q12HR PRN for congestion, (Reported) Ipratropium [place] (Atrovent Hfa), 1 PUFF IH Q6HR PRN for Shortness of Breath, (Reported) Loratadine (Claritin), 10 MG ORAL DAILY PRN for Itching, (Reported) Magnesium Hydroxide* (Milk Of Magnesia*), 30 ML ORAL DAILY PRN for Constipation, (Reported) Trazodone* (Trazodone*), 25 MG ORAL BEDTIME PRN for insomnia, (Reported) Patient History History Provided By: Patient, Medical Record, PMD Healthcare decision maker Resuscitation status Advanced Directive on File Past Medical/Surgical History Past Medical/Surgical History: (1) Bipolar disorder (2) Dementia (3) HTN (hypertension) (4) Gastritis (5) Esophagitis (6) CHF (congestive heart failure) (7) GERD (gastroesophageal reflux disease) (8) Hemorrhoids (9) HLD (hyperlipidemia) Family History Family History: Patient reports no known family medical history. Social History Social History: (1) Lives in detention Review of Systems Constitutional: Reports: chills, fever, weakness Eye: Reports: no symptoms ENT: Reports: no symptoms Respiratory: Reports: no symptoms Cardiovascular: Reports: no symptoms Gastrointestinal: Reports: no symptoms Genitourinary: Reports: pain Musculoskeletal: Reports: no symptoms Skin: Reports: no symptoms Psychiatric: Reports: no symptoms Neurological: Reports: no symptoms Endocrine: Reports: no symptoms Hematologic/Lymphatic: Reports: no symptoms Physical Exam Physical Exam Narrative General: alert, cooperative, no distress, appears stated age Head: normocephalic, without obvious abnormality, atraumatic Eyes: conjunctivae/corneas clear. PERRL, EOM's intact Throat: lips, mucosa, and tongue normal. MMM Neck: supple, symmetrical, trachea midline, and no JVD Lungs: clear to auscultation bilaterally Heart: regular rate and rhythm, S1, S2 normal, no murmur, click, rub or gallop Abdomen: soft, non-tender, non-distended, bowel sounds normal Extremities: extremities normal, atraumatic, no cyanosis or edema Pulses: 2+ and symmetric Skin: +cellulitis and possible abscess on the left side of the perineum anterior to the anus and the inferior to the labia major. Neurologic: grossly normal, no focal deficits Last 24 Hour Vital Signs Date Time Temp Pulse Resp B/P (MAP) Pulse Ox O2 Delivery O2 Flow Rate FiO2 01/08/18 16:21 98.1 18 101/72 98.1 01/08/18 13:45 98.1 18 130/76 98.1 01/08/18 12:45 98.1 18 125/55 98.1 01/08/18 11:51 18 125/55 Laboratory Tests Test 01/08/18 13:06 White Blood Count 7.6 K/UL (4.8-10.8) Red Blood Count 3.90 M/UL (4.20-5.40) L Hemoglobin 11.0 G/DL (12.0-16.0) L Hematocrit 34.4 % (37.0-47.0) L Mean Corpuscular Volume 88 FL (80-99) Mean Corpuscular Hemoglobin 28.1 PG (27.0-31.0) Mean Corpuscular Hemoglobin Concent 31.9 G/DL (32.0-36.0) L Red Cell Distribution Width 20.2 % (11.6-14.8) H Platelet Count 248 K/UL (150-450) Mean Platelet Volume 6.4 FL (6.5-10.1) L Neutrophils (%) (Auto) 54.1 % (45.0-75.0) Lymphocytes (%) (Auto) 28.9 % (20.0-45.0) Monocytes (%) (Auto) 13.4 % (1.0-10.0) H Eosinophils (%) (Auto) 2.4 % (0.0-3.0) Basophils (%) (Auto) 1.1 % (0.0-2.0) Prothrombin Time 10.4 SEC (9.30-11.50) Prothromb Time International Ratio 1.0 (0.9-1.1) Activated Partial Thromboplast Time 32 SEC (23-33) Sodium Level 136 MMOL/L (136-145) Potassium Level 4.0 MMOL/L (3.5-5.1) Chloride Level 100 MMOL/L (98-107) Carbon Dioxide Level 31 MMOL/L (21-32) Anion Gap 5 mmol/L (5-15) Blood Urea Nitrogen 21 mg/dL (7-18) H Creatinine 0.9 MG/DL (0.55-1.30) Estimat Glomerular Filtration Rate mL/min (>60) Glucose Level 84 MG/DL (74-106) Lactic Acid Level 0.70 mmol/L (0.66-2.22) Calcium Level 8.6 MG/DL (8.5-10.1) Total Bilirubin 0.4 MG/DL (0.2-1.0) Aspartate Amino Transf (AST/SGOT) 21 U/L (15-37) Alanine Aminotransferase (ALT/SGPT) 16 U/L (12-78) Alkaline Phosphatase 86 U/L (46-116) Total Creatine Kinase 48 U/L (26-308) Creatine Kinase MB 0.5 NG/ML (0.0-3.6) Creatine Kinase MB Relative Index 1.0 Troponin I 0.040 ng/mL (0.000-0.056) Total Protein 8.0 G/DL (6.4-8.2) Albumin 2.7 G/DL (3.4-5.0) L Globulin 5.3 g/dL Albumin/Globulin Ratio 0.5 (1.0-2.7) L Height (Feet): 5 Height (Inches): 4.00 Weight (Pounds): 145 Assessment/Plan Problem List: (1) Left buttock abscess ICD Codes: L02.31 - Cutaneous abscess of buttock SNOMED: 65492912 (2) Lung mass ICD Codes: R91.8 - Other nonspecific abnormal finding of lung field SNOMED: 309182110 (3) COPD (chronic obstructive pulmonary disease) ICD Codes: J44.9 - Chronic obstructive pulmonary disease, unspecified SNOMED: 62333979 (4) HLD (hyperlipidemia) ICD Codes: E78.5 - Hyperlipidemia, unspecified SNOMED: 83049856 (5) Anemia of chronic disease ICD Codes: D63.8 - Anemia in other chronic diseases classified elsewhere SNOMED: 452661573 (6) Bipolar disorder ICD Codes: F31.9 - Bipolar disorder, unspecified SNOMED: 21983820 (7) Dementia ICD Codes: F03.90 - Unspecified dementia without behavioral disturbance SNOMED: 93345344 Status: stable Assessment/Plan Admit inpt Surgery and ID consulted Empiric vanco, aztreonam, flagyl for broad-coverage per ID F/u cultures Will likely need I&D Pulm consulted given lung mass on CXR Check CT chest w/ contrast Cont SNF meds Pain control, bowel regimen Supportive care DVT Prophylaxis: SCD, HSQ Code Status: DNR/DNI Hospital Classification Declaration: Based on this initial evaluation, and depending on the patient's clinical course, I anticipate that this patient will require hospitalization for 2-3 days for abscess, lung mass and close respiratory/hemodynamic monitoring. Disposition: Once the patient is stable to leave the hospital, I anticipate the patient will likely be discharged to the following environment: back to SNF I spent 71 minutes on this patient's case, and >50% was dedicated to counseling and/or care coordination. Discussed with patient/family, nursing staff, SW/CM, ID, surgery, pulm regarding clinical status, treatment course, and disposition planning. Time of note may not reflect time of encounter. William Lazar M.D. Jan 08, 2018 18:17
[2018-01-08] MEDS ORDERED: Albuterol/Ipratropium 3ml neb HHN PRN (18:45)
[2018-01-08 20:00] VITALS: BP 132/65
--- NOTE | 2018-01-08 20:30 | Consultation ---
DATE OF CONSULTATION: 01/08/2018 REQUESTING PHYSICIAN: ER physician. REASON FOR CONSULTATION: Rule out abscess, left perineum. HISTORY OF PRESENTING ILLNESS: This is a 77-year-old female who was transferred from [facility] for pain and swelling at the left side of the perineum, apparently it has been going on for a few days. She stated that she had mainly itching and she had a low-grade fever but no chills. She denies any previous history of similar episodes. PAST MEDICAL HISTORY: She denies asthma but she has a history of COPD and she uses an inhaler. She denies diabetes and even high blood pressure. She has a history of coronary artery disease. She has stated that she has had angioplasty with stent placement. PAST SURGICAL HISTORY: 1. Angioplasty with stent placement. 2. Cholecystectomy. 3. Hysterectomy. MEDICATIONS: Please see the medicine reconciliation form. ALLERGIES: She claims to be allergic to penicillin, Levaquin, and sulfa. SOCIAL HISTORY: The patient is a 77-year-old female, , mother of one child. She claims that she quit smoking and drinking a few years ago. She has been in the [facility]. REVIEW OF SYSTEMS: Noncontributory. PHYSICAL EXAMINATION: GENERAL: The patient appeared to be a well-developed and well-nourished, 77-year-old, white female, in no acute distress. HEENT: Head is normocephalic and atraumatic. Eyes, pupils are equal, round, and reactive to light. Mouth is clear. NECK: There is no palpable thyromegaly or adenopathy. CHEST: Clear to auscultation and percussion. HEART: There is no gallop or murmur. S1 and S2 are within normal limits. ABDOMEN: She has a scar of the long right subcostal incision. She has a scar of the transverse suprapubic incision. Abdomen is soft and flat, not tender. There is no palpable organomegaly. Bowel sounds are audible. Perineum, she has a cellulitis and possible abscess on the left side of the perineum anterior to the anus and the inferior to the labia major. EXTREMITIES: Within normal limits. ASSESSMENT: Cellulitis of the perineum, rule out abscess. PLAN: At this time, the patient requires IV antibiotics and I took liberty of ordering an ultrasound of the perineum and if the condition does not improve she will required incision and drainage of the area. Frank Lim M.D. DR: Dieter JOB#: [id number] CC:
[2018-01-08] MEDS ORDERED: Miralax 17gm pkt ORAL PRN (21:00)
[2018-01-08] MEDS: Heparin 5000 units/ml inj SUBQ SCH (21:55)
[2018-01-08] MEDS: dilTIAZem HCl 60mg tab ORAL SCH (21:57)
--- NOTE | 2018-01-08 21:57 | Infectious Diseases Prog Note ---
Assessment/Plan Assessment/Plan Full consult to followL A) 1) left perineum/buttock cellulitis abscess 2) pmh noted 3) multiple abx allergies noted P) 1) vancomycin, aztreonam and flagyl - patient at risk for anaerobes based on location of cellulitis/?abscess 2) check ultrasound, surgery f/u 3) continue tx per Dr. Thomas 4) thank you Subjective Allergies: Coded Allergies: LEVOFLOXACIN (Verified Allergy, Unknown, 02/22/17) PENICILLINS (Verified Allergy, Unknown, 02/22/17) SULFA (SULFONAMIDE ANTIBIOTICS) (Verified Allergy, Unknown, 02/22/17) Objective Vital Signs Last 24 Hour Vital Signs Date Time Temp Pulse Resp B/P (MAP) Pulse Ox O2 Delivery O2 Flow Rate FiO2 01/08/18 19:32 98.1 18 101/72 98.1 01/08/18 16:21 98.1 18 101/72 98.1 01/08/18 13:45 98.1 18 130/76 98.1 01/08/18 12:45 98.1 18 125/55 98.1 01/08/18 11:51 18 125/55 Height (Feet): 5 Height (Inches): 4.00 Weight (Pounds): 145 Laboratory Tests Test 01/08/18 13:06 White Blood Count 7.6 K/UL (4.8-10.8) Red Blood Count 3.90 M/UL (4.20-5.40) L Hemoglobin 11.0 G/DL (12.0-16.0) L Hematocrit 34.4 % (37.0-47.0) L Mean Corpuscular Volume 88 FL (80-99) Mean Corpuscular Hemoglobin 28.1 PG (27.0-31.0) Mean Corpuscular Hemoglobin Concent 31.9 G/DL (32.0-36.0) L Red Cell Distribution Width 20.2 % (11.6-14.8) H Platelet Count 248 K/UL (150-450) Mean Platelet Volume 6.4 FL (6.5-10.1) L Neutrophils (%) (Auto) 54.1 % (45.0-75.0) Lymphocytes (%) (Auto) 28.9 % (20.0-45.0) Monocytes (%) (Auto) 13.4 % (1.0-10.0) H Eosinophils (%) (Auto) 2.4 % (0.0-3.0) Basophils (%) (Auto) 1.1 % (0.0-2.0) Prothrombin Time 10.4 SEC (9.30-11.50) Prothromb Time International Ratio 1.0 (0.9-1.1) Activated Partial Thromboplast Time 32 SEC (23-33) Sodium Level 136 MMOL/L (136-145) Potassium Level 4.0 MMOL/L (3.5-5.1) Chloride Level 100 MMOL/L (98-107) Carbon Dioxide Level 31 MMOL/L (21-32) Anion Gap 5 mmol/L (5-15) Blood Urea Nitrogen 21 mg/dL (7-18) H Creatinine 0.9 MG/DL (0.55-1.30) Estimat Glomerular Filtration Rate mL/min (>60) Glucose Level 84 MG/DL (74-106) Lactic Acid Level 0.70 mmol/L (0.66-2.22) Calcium Level 8.6 MG/DL (8.5-10.1) Total Bilirubin 0.4 MG/DL (0.2-1.0) Aspartate Amino Transf (AST/SGOT) 21 U/L (15-37) Alanine Aminotransferase (ALT/SGPT) 16 U/L (12-78) Alkaline Phosphatase 86 U/L (46-116) Total Creatine Kinase 48 U/L (26-308) Creatine Kinase MB 0.5 NG/ML (0.0-3.6) Creatine Kinase MB Relative Index 1.0 Troponin I 0.040 ng/mL (0.000-0.056) Total Protein 8.0 G/DL (6.4-8.2) Albumin 2.7 G/DL (3.4-5.0) L Globulin 5.3 g/dL Albumin/Globulin Ratio 0.5 (1.0-2.7) L Current Medications Medications (Trade) Dose Ordered Sig/Oralia Route PRN Reason Start Time Stop Time Status Last Admin Dose Admin Acetaminophen (Tylenol) 650 mg Q4H PRN ORAL Mild Pain (Pain Scale 1-3) 01/08/18 18:15 02/07/18 18:14 Acetaminophen (Tylenol) 650 mg Q4H PRN ORAL T>100.5 01/08/18 18:15 02/07/18 18:14 Acetaminophen (Tylenol) 650 mg Q4H PRN RECTAL Mild Pain (Pain Scale 1-3) 01/08/18 18:15 02/07/18 18:14 Acetaminophen (Tylenol) 650 mg Q4H PRN RECTAL fever 01/08/18 18:15 02/07/18 18:14 Albuterol/ Ipratropium (Albuterol/ Ipratropium) 3 ml Q4H PRN HHN sob, wheezing 01/08/18 18:45 01/13/18 18:44 Aspirin (Ecotrin) 81 mg DAILY ORAL 01/09/18 09:00 02/08/18 08:59 Atorvastatin Calcium (Lipitor) 80 mg BEDTIME ORAL 01/08/18 21:00 02/07/18 20:59 Bisacodyl (Dulcolax) 10 mg HSPRN PRN RECTAL Constipation 01/08/18 21:00 02/07/18 20:59 Clonidine HCl (Catapres Tab) 0.1 mg Q6H PRN ORAL SBP > 160mmHg 01/08/18 18:15 02/07/18 18:14 Dextrose (Dextrose 50%) STAT PRN IV Hypoglycemia 01/08/18 18:15 02/07/18 18:14 Diltiazem HCl (Cardizem) 60 mg EVERY 8 HOURS ORAL 01/08/18 22:00 02/07/18 21:59 Divalproex Sodium (Depakote) 250 mg Q8HR ORAL 01/08/18 22:00 02/07/18 21:59 Docusate Sodium (Colace) 100 mg EVERY 12 HOURS ORAL 01/08/18 21:00 02/07/18 20:59 Heparin Sodium (Porcine) (Heparin 5000 units/ml) 5,000 units EVERY 12 HOURS SUBQ 01/08/18 21:00 02/07/18 20:59 Ondansetron HCl (Zofran) 4 mg Q6H PRN IVP Nausea & Vomiting 01/08/18 18:15 02/07/18 18:14 Pantoprazole (Protonix) 40 mg DAILY ORAL 01/09/18 09:00 02/08/18 08:59 Polyethylene Glycol (Miralax) 17 gm HSPRN PRN ORAL Constipation 01/08/18 21:00 02/07/18 20:59 Pravastatin Sodium (Pravachol) 40 mg QHS ORAL 01/08/18 21:00 02/07/18 20:59 Sucralfate (Carafate) 1 gm THREE TIMES A DAY ORAL 01/09/18 09:00 02/08/18 08:59 Tiotropium [place] (Spiriva Inhaler) 2 puff DAILY INH 01/09/18 09:00 02/08/18 08:59 Trazodone HCl (Desyrel) 25 mg HSPRN PRN ORAL insomnia 01/08/18 18:15 02/07/18 18:14 Vancomycin HCl (Vanco rx to dose) 1 ea DAILY PRN MISC Per rx protocol 01/08/18 18:15 02/07/18 18:14 Vancomycin HCl 500 mg/Dextrose 110 ml @ 110 mls/hr Q12H IVPB 01/08/18 23:00 01/13/18 22:59 HIREN VAZ Jan 08, 2018 21:57
[2018-01-08] MEDS: Atorvastatin 80mg tab ORAL SCH (22:00)
[2018-01-08] MEDS: Docusate 100mg cap ORAL SCH (22:00)
[2018-01-08] MEDS: Vancomycin 500mg/D5W 110ml IVPB SCH ×2 (23:00)
[2018-01-08] MEDS: Aztreonam Inj 1 GM in D5W 55 ML IVPB SCH (23:46)
[2018-01-09] VITALS: BP 143/89
[2018-01-09 04:00] VITALS: BP 112/59
[2018-01-09] MEDS: Aztreonam Inj 1 GM in D5W 55 ML IVPB SCH ×3 (05:17→22:00)
[2018-01-09] MEDS: dilTIAZem HCl 60mg tab ORAL SCH ×3 (06:53→21:14)
[2018-01-09] MEDS: Docusate 100mg cap ORAL SCH ×2 (07:52→21:13)
[2018-01-09] MEDS: Aspirin EC 81mg tab ORAL SCH (07:52)
[2018-01-09] MEDS: Heparin 5000 units/ml inj SUBQ SCH ×2 (07:55→21:17)
[2018-01-09 08:09] LABS: BASOPHILS % (AUTO) 1.3 % (0.0-2.0); EOSINOPHILS % (AUTO) 4.1 % (0.0-3.0); HEMATOCRIT 32.9 % (37.0-47.0); HEMOGLOBIN 10.6 G/DL (12.0-16.0); LYMPHOCYTES % (AUTO) 37.5 % (20.0-45.0); MEAN CORPUSCULAR VOLUME 88 FL (80-99); MONOCYTES % (AUTO) 14.7 % (1.0-10.0); NEUTROPHILS % (AUTO) 42.4 % (45.0-75.0); PLATELET COUNT 240 K/UL (150-450); RED BLOOD COUNT 3.76 M/UL (4.20-5.40); RED CELL DISTRIBUTION WIDTH 19.7 % (11.6-14.8)
[2018-01-09 08:23] LABS: ANION GAP 5 mmol/L (5-15); BLOOD UREA NITROGEN 21 mg/dL (7-18); CALCIUM 8.5 MG/DL (8.5-10.1); CARBON DIOXIDE 32 MMOL/L (21-32); CHLORIDE 106 MMOL/L (98-107); CREATININE 0.9 MG/DL (0.55-1.30); POTASSIUM 3.9 MMOL/L (3.5-5.1); SODIUM 143 MMOL/L (136-145)
[2018-01-09 08:45] VITALS: BP 138/78
[2018-01-09] MEDS: Sucralfate 1gm tab ORAL SCH ×3 (09:00→17:39)
[2018-01-09] MEDS: Vancomycin 500mg/D5W 110ml IVPB SCH ×4 (11:49→23:00)
[2018-01-09 12:15] VITALS: BP 139/67
--- NOTE | 2018-01-09 12:30 | Diagnostic Imaging Report ---
Clinical Indication: Shortness of breath, left lung mass on recent chest radiograph Technique: IV administration nonionic contrast. Spiral acquisition obtained through the chest. Multiplanar reconstructions generated. Total dose length product 593.1 mGycm. CTDIvol(s) 17.67 mGy. Dose reduction achieved using automated exposure control Comparison: Reference made to chest radiograph dated 01/08/2018 Findings: In the left lung apex, there is a spiculated mass with lobulated margins which measures 3.4 cm transverse by 2.4 cm AP by 2.9 cm craniocaudad. The superior aspect of this abuts the pleural surface. No basilar masses to correspond to abnormalities described on recent chest radiograph demonstrated. However, there is a 6 mm soft tissue nodule at the right lung base immediately adjacent to the basilar pleural surface, image 43 series 7. There are faint 2 mm subpleural opacity is seen in the anterolateral right upper lobe, image 16 series 7. Irregular 4 mm opacity is seen in the left costophrenic sulcus, image 44 series 7. No other masses, nodules demonstrated. No infiltrates. No effusions. Lungs are diffusely mildly hyperinflated. There are scattered faint bullae. Ill-defined soft tissue fullness in the left hilar region may indicate adenopathy. There is mediastinal adenopathy, mainly in the form of conglomerate aortopulmonary window nodes. The aggregate of nodes measures 5.4 x 1.5 cm, and individual discrete nodes cannot demonstrated. No paratracheal adenopathy is demonstrated. A 13 mm low-attenuation nodule is seen in the right thyroid lower pole. No axillary or chest wall mass or adenopathy. The bones are unremarkable except for degenerative changes of the thoracic spine. Limited views of the upper abdomen demonstrate cholecystectomy clips. There is bilateral adrenal fullness without discrete nodule. Impression: 3.4 x 2.4 x 2.9 cm spiculated mass in the left lung apex, abutting the pleural surface superiorly. Appearance highly suspicious for primary pulmonary malignancy, corresponds to finding described on recent chest radiograph Soft tissue fullness in the left hilar region is nonspecific, could indicate metastatic adenopathy. Mediastinal adenopathy, predominantly in the form of aortopulmonary window/prevascular space nodes, is suspicious for metastatic adenopathy 6 mm soft tissue nodule at the right lung base is nonspecific, could represent primary metastatic neoplasm or could be a benign postinflammatory or other nodule Other small subpleural opacities as described, most likely postinflammatory Evidence of COPD Limited findings as noted, including degenerative spondylosis, evidence of prior cholecystectomy The CT scanner at [facility] is accredited by the [employer] and the scans are performed using protocols designed to limit radiation exposure to as low as reasonably achievable to attain images of sufficient resolution adequate for diagnostic evaluation.
--- NOTE | 2018-01-09 12:53 | Consultation ---
History of Present Illness General Date patient seen: Jan 09, 2018 Chief Complaint: Skin Rash/Abscess Present Illness HPI 77-year-old female who presented after increased left buttock pain and swelling. Patient was sent from [facility]. she had an abnormal cxr with RUL mass. I was asked to evaluate this finding. I ordered a CT of chest, which showed a mass in RUL with hilar nodes. Pt agreed with CT guided biopsy. Allergies: Coded Allergies: LEVOFLOXACIN (Verified Allergy, Unknown, 02/22/17) PENICILLINS (Verified Allergy, Unknown, 02/22/17) SULFA (SULFONAMIDE ANTIBIOTICS) (Verified Allergy, Unknown, 02/22/17) Medication History Scheduled Aspirin* (Aspir 81*), 81 MG ORAL DAILY, (Reported) Atorvastatin Calcium* (Atorvastatin Calcium*), 80 MG ORAL BEDTIME, (Reported) Diltiazem Hcl* (Cardizem*), 60 MG ORAL EVERY 8 HOURS, (Reported) Divalproex Sodium (Depakote), 250 MG PO TID, (Reported) Ferrous Sulfate (Ferrous Sulfate), 325 MG ORAL BID Pantoprazole* (Pantoprazole*), 40 MG ORAL DAILY, (Reported) Pravastatin Sod (Pravastatin Sod), 40 MG ORAL QHS, (Reported) Sucralfate* (Carafate*), 1 GM ORAL THREE TIMES A DAY, (Reported) Tiotropium Jackson* (Spiriva*), 2 PUFF INH DAILY, (Reported) Scheduled PRN Clonidine Hcl* (Catapres*), 0.1 MG ORAL EVERY 6 HOURS PRN for For High Blood Pressure, (Reported) Docusate Sodium* (Docusate Sodium*), 100 MG ORAL DAILY PRN for Constipation, ( Reported) Guaifenesin (Mucinex), 600 MG PO Q12HR PRN for congestion, (Reported) Ipratropium Jackson (Atrovent Hfa), 1 PUFF IH Q6HR PRN for Shortness of Breath, (Reported) Loratadine (Claritin), 10 MG ORAL DAILY PRN for Itching, (Reported) Magnesium Hydroxide* (Milk Of Magnesia*), 30 ML ORAL DAILY PRN for Constipation, (Reported) Trazodone* (Trazodone*), 25 MG ORAL BEDTIME PRN for insomnia, (Reported) Patient History Healthcare decision maker Resuscitation status Advanced Directive on File No Past Medical/Surgical History Past Medical/Surgical History: (1) Advanced dementia (2) Lives in halfway (3) Iron deficiency anemia (4) COPD (chronic obstructive pulmonary disease) Review of Systems All Other Systems: negative except mentioned in HPI Physical Exam General Appearance: WD/WN Lines, tubes and drains: peripheral HEENT: normocephalic, atraumatic, mucous membranes moist Neck: non-tender, supple, abnormal alignment Respiratory/Chest: chest wall non-tender, lungs clear, normal breath sounds Cardiovascular/Chest: normal peripheral pulses, normal rate, no JVD Abdomen: normal bowel sounds, non tender, no organomegaly Genitourinary/Rectal: normal genital exam Extremities: normal range of motion, normal inspection Skin Exam: normal pigmentation 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 II-XII grossly normal Lymphatic: anterior cervical Last 24 Hour Vital Signs Date Time Temp Pulse Resp B/P (MAP) Pulse Ox O2 Delivery O2 Flow Rate FiO2 01/09/18 12:15 98.0 97 20 139/67 94 Room Air 98.0 01/09/18 10:19 80 16 97 Room Air 21 01/09/18 10:19 80 16 Room Air 21 01/09/18 08:45 98.0 105 20 138/78 94 Room Air 98.0 01/09/18 07:40 102 01/09/18 06:53 98 112/59 01/09/18 04:00 121 01/09/18 04:00 98.0 98 20 112/59 94 Room Air 98.0 01/09/18 00:00 114 01/09/18 00:00 97.2 118 20 143/89 98 Room Air 97.2 01/08/18 21:57 118 142/77 01/08/18 20:00 104 01/08/18 20:00 98.6 114 20 132/65 98 Room Air 98.6 01/08/18 19:32 98.1 18 101/72 98.1 01/08/18 16:21 98.1 18 101/72 98.1 01/08/18 13:45 98.1 18 130/76 98.1 01/08/18 12:45 98.1 18 125/55 98.1 Intake and Output 01/08/18 01/09/18 19:00 07:00 Intake Total 0 ml Balance 0 ml Intake Oral 0 ml # Voids 6 Laboratory Tests Test 01/08/18 13:06 01/09/18 07:10 White Blood Count 7.6 K/UL (4.8-10.8) 6.0 K/UL (4.8-10.8) Red Blood Count 3.90 M/UL (4.20-5.40) L 3.76 M/UL (4.20-5.40) L Hemoglobin 11.0 G/DL (12.0-16.0) L 10.6 G/DL (12.0-16.0) L Hematocrit 34.4 % (37.0-47.0) L 32.9 % (37.0-47.0) L Mean Corpuscular Volume 88 FL (80-99) 88 FL (80-99) Mean Corpuscular Hemoglobin 28.1 PG (27.0-31.0) 28.1 PG (27.0-31.0) Mean Corpuscular Hemoglobin Concent 31.9 G/DL (32.0-36.0) L 32.1 G/DL (32.0-36.0) Red Cell Distribution Width 20.2 % (11.6-14.8) H 19.7 % (11.6-14.8) H Platelet Count 248 K/UL (150-450) 240 K/UL (150-450) Mean Platelet Volume 6.4 FL (6.5-10.1) L 6.5 FL (6.5-10.1) Neutrophils (%) (Auto) 54.1 % (45.0-75.0) 42.4 % (45.0-75.0) L Lymphocytes (%) (Auto) 28.9 % (20.0-45.0) 37.5 % (20.0-45.0) Monocytes (%) (Auto) 13.4 % (1.0-10.0) H 14.7 % (1.0-10.0) H Eosinophils (%) (Auto) 2.4 % (0.0-3.0) 4.1 % (0.0-3.0) H Basophils (%) (Auto) 1.1 % (0.0-2.0) 1.3 % (0.0-2.0) Prothrombin Time 10.4 SEC (9.30-11.50) Prothromb Time International Ratio 1.0 (0.9-1.1) Activated Partial Thromboplast Time 32 SEC (23-33) Sodium Level 136 MMOL/L (136-145) 143 MMOL/L (136-145) Potassium Level 4.0 MMOL/L (3.5-5.1) 3.9 MMOL/L (3.5-5.1) Chloride Level 100 MMOL/L (98-107) 106 MMOL/L (98-107) Carbon Dioxide Level 31 MMOL/L (21-32) 32 MMOL/L (21-32) Anion Gap 5 mmol/L (5-15) 5 mmol/L (5-15) Blood Urea Nitrogen 21 mg/dL (7-18) H 21 mg/dL (7-18) H Creatinine 0.9 MG/DL (0.55-1.30) 0.9 MG/DL (0.55-1.30) Estimat Glomerular Filtration Rate mL/min (>60) mL/min (>60) Glucose Level 84 MG/DL (74-106) 93 MG/DL (74-106) Lactic Acid Level 0.70 mmol/L (0.66-2.22) Calcium Level 8.6 MG/DL (8.5-10.1) 8.5 MG/DL (8.5-10.1) Total Bilirubin 0.4 MG/DL (0.2-1.0) Aspartate Amino Transf (AST/SGOT) 21 U/L (15-37) Alanine Aminotransferase (ALT/SGPT) 16 U/L (12-78) Alkaline Phosphatase 86 U/L (46-116) Total Creatine Kinase 48 U/L (26-308) Creatine Kinase MB 0.5 NG/ML (0.0-3.6) Creatine Kinase MB Relative Index 1.0 Troponin I 0.040 ng/mL (0.000-0.056) Total Protein 8.0 G/DL (6.4-8.2) Albumin 2.7 G/DL (3.4-5.0) L Globulin 5.3 g/dL Albumin/Globulin Ratio 0.5 (1.0-2.7) L Height (Feet): 5 Height (Inches): 4.00 Weight (Pounds): 145 Medications Current Medications Medications (Trade) Dose Ordered Sig/Oralia Route PRN Reason Start Time Stop Time Status Last Admin Dose Admin Acetaminophen (Tylenol) 650 mg Q4H PRN ORAL Mild Pain (Pain Scale 1-3) 01/08/18 18:15 02/07/18 18:14 Acetaminophen (Tylenol) 650 mg Q4H PRN ORAL T>100.5 01/08/18 18:15 02/07/18 18:14 Acetaminophen (Tylenol) 650 mg Q4H PRN RECTAL Mild Pain (Pain Scale 1-3) 01/08/18 18:15 02/07/18 18:14 Acetaminophen (Tylenol) 650 mg Q4H PRN RECTAL fever 01/08/18 18:15 02/07/18 18:14 Albuterol/ Ipratropium (Albuterol/ Ipratropium) 3 ml Q4H PRN HHN sob, wheezing 01/08/18 18:45 01/13/18 18:44 Aspirin (Ecotrin) 81 mg DAILY ORAL 01/09/18 09:00 02/08/18 08:59 01/09/18 07:52 Atorvastatin Calcium (Lipitor) 80 mg BEDTIME ORAL 01/08/18 21:00 02/07/18 20:59 01/08/18 22:00 Aztreonam 1 gm/ Dextrose 55 ml @ 110 mls/hr Q8HR IVPB 01/08/18 23:00 01/15/18 22:59 01/09/18 05:17 Bisacodyl (Dulcolax) 10 mg HSPRN PRN RECTAL Constipation 01/08/18 21:00 02/07/18 20:59 Clonidine HCl (Catapres Tab) 0.1 mg Q6H PRN ORAL SBP > 160mmHg 01/08/18 18:15 02/07/18 18:14 Dextrose (Dextrose 50%) STAT PRN IV Hypoglycemia 01/08/18 18:15 02/07/18 18:14 Diltiazem HCl (Cardizem) 60 mg EVERY 8 HOURS ORAL 01/08/18 22:00 02/07/18 21:59 01/09/18 06:53 Divalproex Sodium (Depakote) 250 mg Q8HR ORAL 01/08/18 22:00 02/07/18 21:59 01/09/18 06:52 Docusate Sodium (Colace) 100 mg EVERY 12 HOURS ORAL 01/08/18 21:00 02/07/18 20:59 01/09/18 07:52 Heparin Sodium (Porcine) (Heparin 5000 units/ml) 5,000 units EVERY 12 HOURS SUBQ 01/08/18 21:00 02/07/18 20:59 01/08/18 21:55 Metronidazole 100 ml @ 100 mls/hr Q8HR IVPB 01/08/18 23:30 01/15/18 23:29 01/09/18 06:21 Ondansetron HCl (Zofran) 4 mg Q6H PRN IVP Nausea & Vomiting 01/08/18 18:15 02/07/18 18:14 Pantoprazole (Protonix) 40 mg DAILY ORAL 01/09/18 09:00 02/08/18 08:59 01/09/18 07:52 Polyethylene Glycol (Miralax) 17 gm HSPRN PRN ORAL Constipation 01/08/18 21:00 02/07/18 20:59 Pravastatin Sodium (Pravachol) 40 mg QHS ORAL 01/08/18 21:00 02/07/18 20:59 01/08/18 21:59 Sucralfate (Carafate) 1 gm THREE TIMES A DAY ORAL 01/09/18 09:00 02/08/18 08:59 01/09/18 09:00 Tiotropium Jackson (Spiriva Inhaler) 2 puff DAILY INH 01/09/18 09:00 02/08/18 08:59 01/09/18 10:19 Trazodone HCl (Desyrel) 25 mg HSPRN PRN ORAL insomnia 01/08/18 18:15 02/07/18 18:14 Vancomycin HCl (Vanco rx to dose) 1 ea DAILY PRN MISC Per rx protocol 01/08/18 18:15 02/07/18 18:14 Vancomycin HCl 500 mg/Dextrose 110 ml @ 110 mls/hr Q12H IVPB 01/08/18 23:00 01/13/18 22:59 01/09/18 11:49 Assessment/Plan Problem List: (1) Lung mass ICD Codes: R91.8 - Other nonspecific abnormal finding of lung field SNOMED: 774964609 (2) HTN (hypertension) ICD Codes: I10 - Essential (primary) hypertension SNOMED: 31365598 (3) Left buttock abscess ICD Codes: L02.31 - Cutaneous abscess of buttock SNOMED: 56281944 (4) COPD (chronic obstructive pulmonary disease) ICD Codes: J44.9 - Chronic obstructive pulmonary disease, unspecified SNOMED: 28348640 Assessment/Plan ct guided biopsy respiratory Rx symptomatic treatment monitor BP Radha Strong MD Jan 09, 2018 12:53
--- NOTE | 2018-01-09 13:49 | Diagnostic Imaging Report ---
Indication: Pain, palpable abnormality left inner buttock/perineal area Technique: Grayscale and duplex images of area of clinical concern in the right buttock Comparison: none Findings: Superficial irregular hypoechoic collection is seen in the left inner buttock inferiorly, measures 3 x 1.4 x 1.4 cm. It is avascular centrally, demonstrates only minimal if any peripheral hypervascularity. There is edema of the surrounding fat. Impression: Hypoechoic 3 x 1.4 x 1.4 cm collection within the superficial fat of the left inner buttock/perineal region. This most likely represents a small superficial abscess
[2018-01-09 16:00] VITALS: BP 120/72
--- NOTE | 2018-01-09 16:52 | Infectious Diseases Prog Note ---
Assessment/Plan Assessment/Plan Full consult to followL A) 1) left perineum/buttock cellulitis and abscess, abscess seen on us 2) ? lung ca, pmh noted 3) multiple abx allergies noted P) 1) vancomycin, aztreonam and flagyl - patient at risk for anaerobes based on location of cellulitis/?abscess 2) surgery f/u 3) continue tx per Dr. Thomas 4) watch labs Subjective Constitutional: Reports: fatigue, Denies: fever Respiratory: Denies: shortness of breath Cardiovascular: Denies: chest pain Gastrointestinal/Abdominal: Denies: nausea, vomiting, diarrhea Allergies: Coded Allergies: LEVOFLOXACIN (Verified Allergy, Unknown, 02/22/17) PENICILLINS (Verified Allergy, Unknown, 02/22/17) SULFA (SULFONAMIDE ANTIBIOTICS) (Verified Allergy, Unknown, 02/22/17) Objective Vital Signs Last 24 Hour Vital Signs Date Time Temp Pulse Resp B/P (MAP) Pulse Ox O2 Delivery O2 Flow Rate FiO2 01/09/18 13:32 97 139/67 01/09/18 12:15 98.0 97 20 139/67 94 Room Air 98.0 01/09/18 10:19 80 16 97 Room Air 21 01/09/18 10:19 80 16 Room Air 21 01/09/18 08:45 98.0 105 20 138/78 94 Room Air 98.0 01/09/18 07:40 102 01/09/18 06:53 98 112/59 01/09/18 04:00 121 01/09/18 04:00 98.0 98 20 112/59 94 Room Air 98.0 01/09/18 00:00 114 01/09/18 00:00 97.2 118 20 143/89 98 Room Air 97.2 01/08/18 21:57 118 142/77 01/08/18 20:00 104 01/08/18 20:00 98.6 114 20 132/65 98 Room Air 98.6 01/08/18 19:32 98.1 18 101/72 98.1 Height (Feet): 5 Height (Inches): 4.00 Weight (Pounds): 145 HEENT: normocephalic, atraumatic, anicteric Respiratory/Chest: lungs clear, normal breath sounds, no respiratory distress Cardiovascular: normal rate, regular rhythm Abdomen: soft, non tender, no organomegaly, non distended Laboratory Tests Test 01/09/18 07:10 White Blood Count 6.0 K/UL (4.8-10.8) Red Blood Count 3.76 M/UL (4.20-5.40) L Hemoglobin 10.6 G/DL (12.0-16.0) L Hematocrit 32.9 % (37.0-47.0) L Mean Corpuscular Volume 88 FL (80-99) Mean Corpuscular Hemoglobin 28.1 PG (27.0-31.0) Mean Corpuscular Hemoglobin Concent 32.1 G/DL (32.0-36.0) Red Cell Distribution Width 19.7 % (11.6-14.8) H Platelet Count 240 K/UL (150-450) Mean Platelet Volume 6.5 FL (6.5-10.1) Neutrophils (%) (Auto) 42.4 % (45.0-75.0) L Lymphocytes (%) (Auto) 37.5 % (20.0-45.0) Monocytes (%) (Auto) 14.7 % (1.0-10.0) H Eosinophils (%) (Auto) 4.1 % (0.0-3.0) H Basophils (%) (Auto) 1.3 % (0.0-2.0) Sodium Level 143 MMOL/L (136-145) Potassium Level 3.9 MMOL/L (3.5-5.1) Chloride Level 106 MMOL/L (98-107) Carbon Dioxide Level 32 MMOL/L (21-32) Anion Gap 5 mmol/L (5-15) Blood Urea Nitrogen 21 mg/dL (7-18) H Creatinine 0.9 MG/DL (0.55-1.30) Estimat Glomerular Filtration Rate mL/min (>60) Glucose Level 93 MG/DL (74-106) Calcium Level 8.5 MG/DL (8.5-10.1) Current Medications Medications (Trade) Dose Ordered Sig/Oralia Route PRN Reason Start Time Stop Time Status Last Admin Dose Admin Acetaminophen (Tylenol) 650 mg Q4H PRN ORAL Mild Pain (Pain Scale 1-3) 01/08/18 18:15 02/07/18 18:14 Acetaminophen (Tylenol) 650 mg Q4H PRN ORAL T>100.5 01/08/18 18:15 02/07/18 18:14 Acetaminophen (Tylenol) 650 mg Q4H PRN RECTAL Mild Pain (Pain Scale 1-3) 01/08/18 18:15 02/07/18 18:14 Acetaminophen (Tylenol) 650 mg Q4H PRN RECTAL fever 01/08/18 18:15 02/07/18 18:14 Albuterol/ Ipratropium (Albuterol/ Ipratropium) 3 ml Q4H PRN HHN sob, wheezing 01/08/18 18:45 01/13/18 18:44 Aspirin (Ecotrin) 81 mg DAILY ORAL 01/09/18 09:00 02/08/18 08:59 01/09/18 07:52 Atorvastatin Calcium (Lipitor) 80 mg BEDTIME ORAL 01/08/18 21:00 02/07/18 20:59 01/08/18 22:00 Aztreonam 1 gm/ Dextrose 55 ml @ 110 mls/hr Q8HR IVPB 01/08/18 23:00 01/15/18 22:59 01/09/18 14:48 Bisacodyl (Dulcolax) 10 mg HSPRN PRN RECTAL Constipation 01/08/18 21:00 02/07/18 20:59 Clonidine HCl (Catapres Tab) 0.1 mg Q6H PRN ORAL SBP > 160mmHg 01/08/18 18:15 02/07/18 18:14 Dextrose (Dextrose 50%) STAT PRN IV Hypoglycemia 01/08/18 18:15 02/07/18 18:14 Diltiazem HCl (Cardizem) 60 mg EVERY 8 HOURS ORAL 01/08/18 22:00 02/07/18 21:59 01/09/18 13:32 Divalproex Sodium (Depakote) 250 mg Q8HR ORAL 01/08/18 22:00 02/07/18 21:59 01/09/18 13:32 Docusate Sodium (Colace) 100 mg EVERY 12 HOURS ORAL 01/08/18 21:00 02/07/18 20:59 01/09/18 07:52 Heparin Sodium (Porcine) (Heparin 5000 units/ml) 5,000 units EVERY 12 HOURS SUBQ 01/08/18 21:00 02/07/18 20:59 01/08/18 21:55 Metronidazole 100 ml @ 100 mls/hr Q8HR IVPB 01/08/18 23:30 01/15/18 23:29 01/09/18 13:32 Ondansetron HCl (Zofran) 4 mg Q6H PRN IVP Nausea & Vomiting 01/08/18 18:15 02/07/18 18:14 Pantoprazole (Protonix) 40 mg DAILY ORAL 01/09/18 09:00 02/08/18 08:59 01/09/18 07:52 Polyethylene Glycol (Miralax) 17 gm HSPRN PRN ORAL Constipation 01/08/18 21:00 02/07/18 20:59 Pravastatin Sodium (Pravachol) 40 mg QHS ORAL 01/08/18 21:00 02/07/18 20:59 01/08/18 21:59 Sucralfate (Carafate) 1 gm THREE TIMES A DAY ORAL 01/09/18 09:00 02/08/18 08:59 01/09/18 13:32 Tiotropium Reading (Spiriva Inhaler) 2 puff DAILY INH 01/09/18 09:00 02/08/18 08:59 01/09/18 10:19 Trazodone HCl (Desyrel) 25 mg HSPRN PRN ORAL insomnia 01/08/18 18:15 02/07/18 18:14 Vancomycin HCl (Vanco rx to dose) 1 ea DAILY PRN MISC Per rx protocol 01/08/18 18:15 02/07/18 18:14 Vancomycin HCl 500 mg/Dextrose 110 ml @ 110 mls/hr Q12H IVPB 01/08/18 23:00 01/13/18 22:59 01/09/18 11:49 HIREN VAZ 20, 2018 16:51
--- NOTE | 2018-01-09 16:58 | General Surgery Progress Note ---
General Surgery-Progress Note Subjective Symptoms: pain same Objective Last 24 Hour Vital Signs Date Time Temp Pulse Resp B/P (MAP) Pulse Ox O2 Delivery O2 Flow Rate FiO2 01/09/18 13:32 97 139/67 01/09/18 12:15 98.0 97 20 139/67 94 Room Air 98.0 01/09/18 10:19 80 16 97 Room Air 21 01/09/18 10:19 80 16 Room Air 21 01/09/18 08:45 98.0 105 20 138/78 94 Room Air 98.0 01/09/18 07:40 102 01/09/18 06:53 98 112/59 01/09/18 04:00 121 01/09/18 04:00 98.0 98 20 112/59 94 Room Air 98.0 01/09/18 00:00 114 01/09/18 00:00 97.2 118 20 143/89 98 Room Air 97.2 01/08/18 21:57 118 142/77 01/08/18 20:00 104 01/08/18 20:00 98.6 114 20 132/65 98 Room Air 98.6 01/08/18 19:32 98.1 18 101/72 98.1 I&O Intake and Output 01/08/18 01/09/18 19:00 07:00 Intake Total 0 ml Balance 0 ml Intake Oral 0 ml # Voids 6 Respiratory: clear Abdomen: soft, flat Extremities: other - left perineum abscess has localized more Laboratory Tests Test 01/09/18 07:10 White Blood Count 6.0 K/UL (4.8-10.8) Red Blood Count 3.76 M/UL (4.20-5.40) L Hemoglobin 10.6 G/DL (12.0-16.0) L Hematocrit 32.9 % (37.0-47.0) L Mean Corpuscular Volume 88 FL (80-99) Mean Corpuscular Hemoglobin 28.1 PG (27.0-31.0) Mean Corpuscular Hemoglobin Concent 32.1 G/DL (32.0-36.0) Red Cell Distribution Width 19.7 % (11.6-14.8) H Platelet Count 240 K/UL (150-450) Mean Platelet Volume 6.5 FL (6.5-10.1) Neutrophils (%) (Auto) 42.4 % (45.0-75.0) L Lymphocytes (%) (Auto) 37.5 % (20.0-45.0) Monocytes (%) (Auto) 14.7 % (1.0-10.0) H Eosinophils (%) (Auto) 4.1 % (0.0-3.0) H Basophils (%) (Auto) 1.3 % (0.0-2.0) Sodium Level 143 MMOL/L (136-145) Potassium Level 3.9 MMOL/L (3.5-5.1) Chloride Level 106 MMOL/L (98-107) Carbon Dioxide Level 32 MMOL/L (21-32) Anion Gap 5 mmol/L (5-15) Blood Urea Nitrogen 21 mg/dL (7-18) H Creatinine 0.9 MG/DL (0.55-1.30) Estimat Glomerular Filtration Rate mL/min (>60) Glucose Level 93 MG/DL (74-106) Calcium Level 8.5 MG/DL (8.5-10.1) Assessment Additional Comments abscess of left perineum Plan Additional Comments scheduled for I&D tomorrow L[facility] Jan 09, 2018 16:58
--- NOTE | 2018-01-09 18:38 | Cardiology Report ---
APPROVED REPORT EKG Measurement Heart [id number] Normal sinus rhythm Minimal voltage criteria for LVH, may be normal variant Borderline ECG
[2018-01-09 20:03] VITALS: BP 146/80
--- NOTE | 2018-01-09 20:21 | Consultation ---
History of Present Illness General Date patient seen: Jan 08, 2018 Chief Complaint: Skin Rash/Abscess Present Illness HPI 77-year-old female with hx of mdd and mmp who presented after increased left buttock pain and swelling. the pt is having depressed mood and has been taking trazadone and depakote. the pt has cognitive impairment the pt has no si/hi Allergies: Coded Allergies: LEVOFLOXACIN (Verified Allergy, Unknown, 02/22/17) PENICILLINS (Verified Allergy, Unknown, 02/22/17) SULFA (SULFONAMIDE ANTIBIOTICS) (Verified Allergy, Unknown, 02/22/17) Medication History Scheduled Aspirin* (Aspir 81*), 81 MG ORAL DAILY, (Reported) Atorvastatin Calcium* (Atorvastatin Calcium*), 80 MG ORAL BEDTIME, (Reported) Diltiazem Hcl* (Cardizem*), 60 MG ORAL EVERY 8 HOURS, (Reported) Divalproex Sodium (Depakote), 250 MG PO TID, (Reported) Ferrous Sulfate (Ferrous Sulfate), 325 MG ORAL BID Pantoprazole* (Pantoprazole*), 40 MG ORAL DAILY, (Reported) Pravastatin Sod (Pravastatin Sod), 40 MG ORAL QHS, (Reported) Sucralfate* (Carafate*), 1 GM ORAL THREE TIMES A DAY, (Reported) Tiotropium [facility]* (Spiriva*), 2 PUFF INH DAILY, (Reported) Scheduled PRN Clonidine Hcl* (Catapres*), 0.1 MG ORAL EVERY 6 HOURS PRN for For High Blood Pressure, (Reported) Docusate Sodium* (Docusate Sodium*), 100 MG ORAL DAILY PRN for Constipation, ( Reported) Guaifenesin (Mucinex), 600 MG PO Q12HR PRN for congestion, (Reported) Ipratropium [facility] (Atrovent Hfa), 1 PUFF IH Q6HR PRN for Shortness of Breath, (Reported) Loratadine (Claritin), 10 MG ORAL DAILY PRN for Itching, (Reported) Magnesium Hydroxide* (Milk Of Magnesia*), 30 ML ORAL DAILY PRN for Constipation, (Reported) Trazodone* (Trazodone*), 25 MG ORAL BEDTIME PRN for insomnia, (Reported) Patient History Limited by: medical condition History Provided By: Patient, Medical Record, PMD Healthcare decision maker Resuscitation status Advanced Directive on File No Past Medical/Surgical History Past Medical/Surgical History: (1) Iron deficiency (2) CHF (congestive heart failure) (3) GERD (gastroesophageal reflux disease) (4) HLD (hyperlipidemia) (5) Acute on chronic anemia (6) Severe anemia (7) Esophagitis (8) Gastritis (9) Hemorrhoids (10) COPD (chronic obstructive pulmonary disease) (11) Iron deficiency anemia (12) Advanced dementia (13) Lung mass (14) HTN (hypertension) (15) Left buttock abscess Review of Systems Psychiatric: Reports: prior hx, anxiety, depressed feelings, emotional problems Physical Exam General Appearance: no apparent distress, alert Neurologic: alert, oriented x 3, depressed affect Last 24 Hour Vital Signs Date Time Temp Pulse Resp B/P (MAP) Pulse Ox O2 Delivery O2 Flow Rate FiO2 01/09/18 20:03 97.2 116 20 146/80 95 97.2 01/09/18 19:59 88 16 Room Air 21 01/09/18 16:20 97 01/09/18 16:00 98.0 90 20 120/72 94 Room Air 98.0 01/09/18 13:32 97 139/67 01/09/18 12:15 98.0 97 20 139/67 94 Room Air 98.0 01/09/18 11:42 85 01/09/18 10:19 80 16 97 Room Air 21 01/09/18 10:19 80 16 Room Air 21 01/09/18 08:45 98.0 105 20 138/78 94 Room Air 98.0 01/09/18 07:40 102 01/09/18 06:53 98 112/59 01/09/18 04:00 121 01/09/18 04:00 98.0 98 20 112/59 94 Room Air 98.0 01/09/18 00:00 114 01/09/18 00:00 97.2 118 20 143/89 98 Room Air 97.2 01/08/18 21:57 118 142/77 Intake and Output 01/08/18 01/09/18 19:00 07:00 Intake Total 0 ml Balance 0 ml Intake Oral 0 ml # Voids 6 Laboratory Tests Test 01/09/18 07:10 White Blood Count 6.0 K/UL (4.8-10.8) Red Blood Count 3.76 M/UL (4.20-5.40) L Hemoglobin 10.6 G/DL (12.0-16.0) L Hematocrit 32.9 % (37.0-47.0) L Mean Corpuscular Volume 88 FL (80-99) Mean Corpuscular Hemoglobin 28.1 PG (27.0-31.0) Mean Corpuscular Hemoglobin Concent 32.1 G/DL (32.0-36.0) Red Cell Distribution Width 19.7 % (11.6-14.8) H Platelet Count 240 K/UL (150-450) Mean Platelet Volume 6.5 FL (6.5-10.1) Neutrophils (%) (Auto) 42.4 % (45.0-75.0) L Lymphocytes (%) (Auto) 37.5 % (20.0-45.0) Monocytes (%) (Auto) 14.7 % (1.0-10.0) H Eosinophils (%) (Auto) 4.1 % (0.0-3.0) H Basophils (%) (Auto) 1.3 % (0.0-2.0) Sodium Level 143 MMOL/L (136-145) Potassium Level 3.9 MMOL/L (3.5-5.1) Chloride Level 106 MMOL/L (98-107) Carbon Dioxide Level 32 MMOL/L (21-32) Anion Gap 5 mmol/L (5-15) Blood Urea Nitrogen 21 mg/dL (7-18) H Creatinine 0.9 MG/DL (0.55-1.30) Estimat Glomerular Filtration Rate mL/min (>60) Glucose Level 93 MG/DL (74-106) Calcium Level 8.5 MG/DL (8.5-10.1) Height (Feet): 5 Height (Inches): 4.00 Weight (Pounds): 145 Medications Current Medications Medications (Trade) Dose Ordered Sig/Oralia Route PRN Reason Start Time Stop Time Status Last Admin Dose Admin Acetaminophen (Tylenol) 650 mg Q4H PRN ORAL Mild Pain (Pain Scale 1-3) 01/08/18 18:15 02/07/18 18:14 Acetaminophen (Tylenol) 650 mg Q4H PRN ORAL T>100.5 01/08/18 18:15 02/07/18 18:14 Acetaminophen (Tylenol) 650 mg Q4H PRN RECTAL Mild Pain (Pain Scale 1-3) 01/08/18 18:15 02/07/18 18:14 Acetaminophen (Tylenol) 650 mg Q4H PRN RECTAL fever 01/08/18 18:15 02/07/18 18:14 Albuterol/ Ipratropium (Albuterol/ Ipratropium) 3 ml Q4H PRN HHN sob, wheezing 01/08/18 18:45 01/13/18 18:44 Aspirin (Ecotrin) 81 mg DAILY ORAL 01/09/18 09:00 02/08/18 08:59 01/09/18 07:52 Atorvastatin Calcium (Lipitor) 80 mg BEDTIME ORAL 01/08/18 21:00 02/07/18 20:59 01/08/18 22:00 Aztreonam 1 gm/ Dextrose 55 ml @ 110 mls/hr Q8HR IVPB 01/08/18 23:00 01/15/18 22:59 01/09/18 14:48 Bisacodyl (Dulcolax) 10 mg HSPRN PRN RECTAL Constipation 01/08/18 21:00 02/07/18 20:59 Clonidine HCl (Catapres Tab) 0.1 mg Q6H PRN ORAL SBP > 160mmHg 01/08/18 18:15 02/07/18 18:14 Dextrose (Dextrose 50%) STAT PRN IV Hypoglycemia 01/08/18 18:15 02/07/18 18:14 Diltiazem HCl (Cardizem) 60 mg EVERY 8 HOURS ORAL 01/08/18 22:00 02/07/18 21:59 01/09/18 13:32 Divalproex Sodium (Depakote) 250 mg Q8HR ORAL 01/08/18 22:00 02/07/18 21:59 01/09/18 13:32 Docusate Sodium (Colace) 100 mg EVERY 12 HOURS ORAL 01/08/18 21:00 02/07/18 20:59 01/09/18 07:52 Heparin Sodium (Porcine) (Heparin 5000 units/ml) 5,000 units EVERY 12 HOURS SUBQ 01/08/18 21:00 02/07/18 20:59 01/08/18 21:55 Metronidazole 100 ml @ 100 mls/hr Q8HR IVPB 01/08/18 23:30 01/15/18 23:29 01/09/18 13:32 Ondansetron HCl (Zofran) 4 mg Q6H PRN IVP Nausea & Vomiting 01/08/18 18:15 02/07/18 18:14 Pantoprazole (Protonix) 40 mg DAILY ORAL 01/09/18 09:00 02/08/18 08:59 01/09/18 07:52 Polyethylene Glycol (Miralax) 17 gm HSPRN PRN ORAL Constipation 01/08/18 21:00 02/07/18 20:59 Pravastatin Sodium (Pravachol) 40 mg QHS ORAL 01/08/18 21:00 02/07/18 20:59 01/08/18 21:59 Sucralfate (Carafate) 1 gm THREE TIMES A DAY ORAL 01/09/18 09:00 02/08/18 08:59 01/09/18 17:39 Tiotropium [facility] (Spiriva Inhaler) 2 puff DAILY INH 01/09/18 09:00 02/08/18 08:59 01/09/18 10:19 Trazodone HCl (Desyrel) 25 mg HSPRN PRN ORAL insomnia 01/08/18 18:15 02/07/18 18:14 Vancomycin HCl (Vanco rx to dose) 1 ea DAILY PRN MISC Per rx protocol 01/08/18 18:15 02/07/18 18:14 Vancomycin HCl 500 mg/Dextrose 110 ml @ 110 mls/hr Q12H IVPB 01/08/18 23:00 01/13/18 22:59 01/09/18 11:49 Assessment/Plan Status: stable Assessment/Plan mdd anxiety cont trazodone cont Mar Levine M.D. Jan 09, 2018 20:21
--- NOTE | 2018-01-09 20:22 | General Progress Note ---
Assessment/Plan Status: stable Assessment/Plan mdd -cont trazodone -cont Depakote Subjective Date patient seen: Jan 09, 2018 Neurologic/Psychiatric: Reports: anxiety, depressed, emotional problems Allergies: Coded Allergies: LEVOFLOXACIN (Verified Allergy, Unknown, 02/22/17) PENICILLINS (Verified Allergy, Unknown, 02/22/17) SULFA (SULFONAMIDE ANTIBIOTICS) (Verified Allergy, Unknown, 02/22/17) Objective Last 24 Hour Vital Signs Date Time Temp Pulse Resp B/P (MAP) Pulse Ox O2 Delivery O2 Flow Rate FiO2 01/09/18 20:03 97.2 116 20 146/80 95 97.2 01/09/18 19:59 88 16 Room Air 21 01/09/18 16:20 97 01/09/18 16:00 98.0 90 20 120/72 94 Room Air 98.0 01/09/18 13:32 97 139/67 01/09/18 12:15 98.0 97 20 139/67 94 Room Air 98.0 01/09/18 11:42 85 01/09/18 10:19 80 16 97 Room Air 21 01/09/18 10:19 80 16 Room Air 21 01/09/18 08:45 98.0 105 20 138/78 94 Room Air 98.0 01/09/18 07:40 102 01/09/18 06:53 98 112/59 01/09/18 04:00 121 01/09/18 04:00 98.0 98 20 112/59 94 Room Air 98.0 01/09/18 00:00 114 01/09/18 00:00 97.2 118 20 143/89 98 Room Air 97.2 01/08/18 21:57 118 142/77 Intake and Output 01/08/18 01/09/18 19:00 07:00 Intake Total 0 ml Balance 0 ml Intake Oral 0 ml # Voids 6 Laboratory Tests 01/09/18 07:10: White Blood Count 6.0, Red Blood Count 3.76L, Hemoglobin 10.6L, Hematocrit 32.9L , Mean Corpuscular Volume 88, Mean Corpuscular Hemoglobin 28.1, Mean Corpuscular Hemoglobin Concent 32.1, Red Cell Distribution Width 19.7H, Platelet Count 240, Mean Platelet Volume 6.5, Neutrophils (%) (Auto) 42.4L, Lymphocytes (%) (Auto) 37.5, Monocytes (%) (Auto) 14.7H, Eosinophils (%) (Auto) 4.1H, Basophils (%) (Auto) 1.3, Sodium Level 143, Potassium Level 3.9, Chloride Level 106, Carbon Dioxide Level 32, Anion Gap 5, Blood Urea Nitrogen 21H, Creatinine 0.9, Estimat Glomerular Filtration Rate , Glucose Level 93, Calcium Level 8.5 Height (Feet): 5 Height (Inches): 4.00 Weight (Pounds): 145 General Appearance: no apparent distress, alert Neurologic: alert, oriented x 3, responsive, depressed affect Mar Fernandez M.D. Jan 09, 2018 20:22
[2018-01-09] MEDS: Atorvastatin 80mg tab ORAL SCH (21:13)
--- NOTE | 2018-01-09 21:46 | Consultation ---
DATE OF CONSULTATION: 01/09/2018 INFECTIOUS DISEASE CONSULTATION CONSULTING PHYSICIAN: Yoseph Mcnally M.D. ATTENDING PHYSICIAN: Zaida Alberts M.D. REFERRING PHYSICIAN: William Lazar M.D. REASON FOR CONSULTATION: Left buttock/perineal abscess, cellulitis. CHIEF COMPLAINT: The patient's chief complaint coming into the hospital is left buttock pain, abscess, cellulitis. HISTORY OF PRESENT ILLNESS: This is a very pleasant 77-year-old female, who comes in to [facility] with left buttock pain. The patient has multiple drug allergies. The patient ultrasound shows left peroneal/buttock abscess. An Infectious Disease consultation was requested for antibiotic management. The patient was placed on vancomycin, aztreonam, and Flagyl. The patient at risk for both Gram negatives, anaerobes, Streptococcus, and Staph aureus infection. Case was discussed with Dr. Thomas. The patient was seen by Surgery. MAR was noted. Orders were noted. Notes were reviewed. The patient has had symptoms for at least several days. REVIEW OF SYSTEMS: CONSTITUTIONAL: The patient has generalized weakness and fatigue. No fevers, chills, night sweats, or weight loss. HEAD AND NECK: No thrush, dysphagia, sinus tenderness, or change in vision. CARDIAC: No chest pain. GASTROINTESTINAL: No nausea, vomiting, or diarrhea. GENITOURINARY: No dysuria, frequency. PULMONARY: No congestion, shortness of breath, hemoptysis, or secretions. SKIN: No rash or itching. EXTREMITIES: No extremity pain. NEUROLOGIC: No seizures. She came in with left buttock/perineal pain that was severe. No mention of weight loss or night sweats. PAST MEDICAL HISTORY: The patient's past medical history includes history of following. The patient has a past medical history of atrial fibrillation. She has history of hypertension, COPD, history of GI disease, and encephalopathy. The patient is also anemic. She has history of angioplasty and stent placement, history of cholecystectomy, hysterectomy, and history of coronary artery disease. History of hyperlipidemia. ALLERGIES: Include Levaquin, penicillin, and sulfa. SOCIAL HISTORY: Negative for smoking, alcohol, or drug abuse at this time. FAMILY HISTORY: Noncontributory. Negative for exposure to tuberculosis or cancer. MEDICATIONS: Upon reviewing the MAR, she is on the following medications, aspirin, pantoprazole, , vancomycin, aztreonam, Flagyl, diltiazem, Depakote, heparin, Colace, Dulcolax, MiraLAX, Lipitor, albuterol treatments, acetaminophen, Zofran, and trazodone. Outside medication noted and reconciliated. PHYSICAL EXAMINATION: VITAL SIGNS: Temperature is 98.0, pulse rate 70, respiratory rate 20, blood pressure 139/67, and saturation 94%. GENERAL: The patient is alert, no acute distress. HEAD AND NECK: Oral exam, no thrush. Eye exam, no icterus. Normocephalic. No facial droop. No neck stiffness. Neck is supple. HEART: Regular. No obvious gallop or murmur. ABDOMEN: Soft. Positive bowel sounds. Nontender. LUNGS: Clear bilaterally. No rhonchi or rales. SKIN: No rash. MUSCULOSKELETAL: No effusion. Legs are without cellulitis. PERIPHERAL VASCULAR: No cyanosis or gangrene. GENITOURINARY: No [place]. No CVA tenderness. LINES: Line sites without phlebitis. NEUROLOGIC: Intact. Nonfocal. Alert and oriented x3. BUTTOCKS: She had redness, swelling, warmth, and fluctuance. LABORATORY AND DIAGNOSTIC DATA: Laboratory data is as follows, white count 6.0, hemoglobin 10.6. Creatinine is 0.9. Chest x-ray showed lung mass. CT scan of the chest showed lung mass suspicious for speculated highly suspicious for primary pulmonary malignancy. Ultrasound of the hips showed fluid collection in the inner buttock perineal region likely representing abscess. ASSESSMENT AND PLAN: 1. The patient has left buttock/perineal abscess and cellulitis. Continue vancomycin, aztreonam, and Flagyl. Await Surgery followup for possible incision and drainage versus observation on antibiotics. Watch laboratories. Watch creatinine. 2. Possible lung malignancy, primary. 3. Anemia. 4. Atrial fibrillation. 5. Hypertension. 6. CAD. 7. Gastrointestinal disease. 8. Encephalopathy. 9. History of angioplasty and stents. 10. History of cholecystectomy and hysterectomy. 11. Allergies to Levaquin, penicillin, and sulfa. 12. Family history is noncontributory. 13. Social history is negative. 14. Case was discussed with RN. 15. MAR was noted. 16. Continue treatment with primary including Dr. Thomas and consultants. 17. Case was discussed with Dr. Thomas. Yoseph Mcnally M.D. DR: NURIS JOB#: [id number] CC:
--- NOTE | 2018-01-09 22:53 | General Progress Note ---
Assessment/Plan Problem List: (1) Left buttock abscess ICD Codes: L02.31 - Cutaneous abscess of buttock SNOMED: 44950116 (2) Lung mass ICD Codes: R91.8 - Other nonspecific abnormal finding of lung field SNOMED: 707698118 (3) COPD (chronic obstructive pulmonary disease) ICD Codes: J44.9 - Chronic obstructive pulmonary disease, unspecified SNOMED: 58978708 (4) HLD (hyperlipidemia) ICD Codes: E78.5 - Hyperlipidemia, unspecified SNOMED: 50168474 (5) Anemia of chronic disease ICD Codes: D63.8 - Anemia in other chronic diseases classified elsewhere SNOMED: 899672666 (6) Bipolar disorder ICD Codes: F31.9 - Bipolar disorder, unspecified SNOMED: 67315955 (7) Dementia ICD Codes: F03.90 - Unspecified dementia without behavioral disturbance SNOMED: 91637083 Status: stable Assessment/Plan Surgery and ID consulted Plan for I&D tomorrow per surgery, NPO at [facility] Empiric vanco, aztreonam, flagyl for broad-coverage per ID F/u cultures Pulm consulted given lung mass on CXR Check CT chest w/ contrast --> 3.4 x 2.4 x 2.9 cm spiculated mass in the left lung apex, abutting the pleural surface superiorly. Appearance highly suspicious for primary pulmonary malignancy CT guided lung biopsy ordered Heme/onc consulted Cont [facility] meds Pain control, bowel regimen Supportive care DVT Prophylaxis: SCD, HSQ Code Status: DNR/DNI Hospital Classification Declaration: Based on this initial evaluation, and depending on the patient's clinical course, I anticipate that this patient will require hospitalization for 1-2 days for abscess, lung mass and close respiratory/hemodynamic monitoring. Disposition: Once the patient is stable to leave the hospital, I anticipate the patient will likely be discharged to the following environment: back to SNF Discussed with patient/family, nursing staff, SW/CM, ID, surgery, pulm regarding clinical status, treatment course, and disposition planning. D/w pulm re lung mass on CT chest, plan for biopsy. D/w surgery re plan for OR for I&D Time of note may not reflect time of encounter. Subjective Date patient seen: Jan 09, 2018 Time patient seen: 15:00 ROS Limited/Unobtainable: No Constitutional: Reports: no symptoms HEENT: Reports: no symptoms Cardiovascular: Reports: no symptoms Respiratory: Reports: no symptoms Gastrointestinal/Abdominal: Reports: no symptoms Genitourinary: Reports: no symptoms Neurologic/Psychiatric: Reports: no symptoms Endocrine: Reports: no symptoms Allergies: Coded Allergies: LEVOFLOXACIN (Verified Allergy, Unknown, 02/22/17) PENICILLINS (Verified Allergy, Unknown, 02/22/17) SULFA (SULFONAMIDE ANTIBIOTICS) (Verified Allergy, Unknown, 02/22/17) All Systems: reviewed and negative except above Subjective No acute o/n events Afebrile, HDS Pain controlled. Seen by surgery w/ plan for OR tomorrow Objective Last 24 Hour Vital Signs Date Time Temp Pulse Resp B/P (MAP) Pulse Ox O2 Delivery O2 Flow Rate FiO2 01/09/18 21:14 116 146/80 01/09/18 20:03 97.2 116 20 146/80 95 97.2 01/09/18 19:59 88 16 Room Air 21 01/09/18 16:20 97 01/09/18 16:00 98.0 90 20 120/72 94 Room Air 98.0 01/09/18 13:32 97 139/67 01/09/18 12:15 98.0 97 20 139/67 94 Room Air 98.0 01/09/18 11:42 85 01/09/18 10:19 80 16 97 Room Air 21 01/09/18 10:19 80 16 Room Air 21 01/09/18 08:45 98.0 105 20 138/78 94 Room Air 98.0 01/09/18 07:40 102 01/09/18 06:53 98 112/59 01/09/18 04:00 121 01/09/18 04:00 98.0 98 20 112/59 94 Room Air 98.0 01/09/18 00:00 114 01/09/18 00:00 97.2 118 20 143/89 98 Room Air 97.2 Intake and Output 01/08/18 01/09/18 19:00 07:00 Intake Total 0 ml Balance 0 ml Intake Oral 0 ml # Voids 6 Laboratory Tests 01/09/18 07:10: White Blood Count 6.0, Red Blood Count 3.76L, Hemoglobin 10.6L, Hematocrit 32.9L , Mean Corpuscular Volume 88, Mean Corpuscular Hemoglobin 28.1, Mean Corpuscular Hemoglobin Concent 32.1, Red Cell Distribution Width 19.7H, Platelet Count 240, Mean Platelet Volume 6.5, Neutrophils (%) (Auto) 42.4L, Lymphocytes (%) (Auto) 37.5, Monocytes (%) (Auto) 14.7H, Eosinophils (%) (Auto) 4.1H, Basophils (%) (Auto) 1.3, Sodium Level 143, Potassium Level 3.9, Chloride Level 106, Carbon Dioxide Level 32, Anion Gap 5, Blood Urea Nitrogen 21H, Creatinine 0.9, Estimat Glomerular Filtration Rate , Glucose Level 93, Calcium Level 8.5 Height (Feet): 5 Height (Inches): 4.00 Weight (Pounds): 145 Objective General: alert, cooperative, no distress, appears stated age Head: normocephalic, without obvious abnormality, atraumatic Eyes: conjunctivae/corneas clear. PERRL, EOM's intact Throat: lips, mucosa, and tongue normal. MMM Neck: supple, symmetrical, trachea midline, and no JVD Lungs: clear to auscultation bilaterally Heart: regular rate and rhythm, S1, S2 normal, no murmur, click, rub or gallop Abdomen: soft, non-tender, non-distended, bowel sounds normal Extremities: extremities normal, atraumatic, no cyanosis or edema Pulses: 2+ and symmetric Skin: +cellulitis and possible abscess on the left side of the perineum anterior to the anus and the inferior to the labia major. Neurologic: grossly normal, no focal deficits William Lazar M.D. Jan 09, 2018 22:53
[2018-01-10] VITALS (20 sets, daily range): BP systolic 113–148; BP diastolic 56–78
[2018-01-10] MEDS ORDERED: Midazolam 2mg/2ml Inj ONE ×2 (06:00→10:20)
[2018-01-10] MEDS ORDERED: LR 1000ml ONE (06:00)
[2018-01-10] MEDS ORDERED: NS Irrig 1000ml ONE (06:00)
[2018-01-10] MEDS ORDERED: Sterile Water Irrig 1000ml IRRIG ONE (06:00)
[2018-01-10] MEDS ORDERED: fentaNYL 100 mcg/2 mL IV ONE ×2 (06:00→10:20)
[2018-01-10] MEDS ORDERED: Propofol 200mg/20ml IV ONE (06:00)
[2018-01-10] MEDS: Aztreonam Inj 1 GM in D5W 55 ML IVPB SCH ×3 (06:15→15:46)
[2018-01-10] MEDS: dilTIAZem HCl 60mg tab ORAL SCH ×2 (06:39→15:48)
[2018-01-10] MEDS: Docusate 100mg cap ORAL SCH ×2 (08:40→22:14)
[2018-01-10] MEDS: Aspirin EC 81mg tab ORAL SCH (08:40)
[2018-01-10] MEDS: Sucralfate 1gm tab ORAL SCH ×3 (08:40→17:34)
[2018-01-10] MEDS: Heparin 5000 units/ml inj SUBQ SCH ×2 (08:47→22:15)
[2018-01-10 08:48] LABS: BASOPHILS % (AUTO) 0.7 % (0.0-2.0); EOSINOPHILS % (AUTO) 6.8 % (0.0-3.0); HEMOGLOBIN 11.1 G/DL (12.0-16.0); LYMPHOCYTES % (AUTO) 43.4 % (20.0-45.0); MEAN CORPUSCULAR VOLUME 87 FL (80-99); MONOCYTES % (AUTO) 12.4 % (1.0-10.0); NEUTROPHILS % (AUTO) 36.7 % (45.0-75.0); PLATELET COUNT 270 K/UL (150-450); RED BLOOD COUNT 3.89 M/UL (4.20-5.40); RED CELL DISTRIBUTION WIDTH 19.8 % (11.6-14.8); WHITE BLOOD COUNT 5.3 K/UL (4.8-10.8)
[2018-01-10 08:58] LABS: ANION GAP 8 mmol/L (5-15); BLOOD UREA NITROGEN 15 mg/dL (7-18); CARBON DIOXIDE 29 MMOL/L (21-32); CHLORIDE 102 MMOL/L (98-107); CREATININE 0.9 MG/DL (0.55-1.30); POTASSIUM 3.5 MMOL/L (3.5-5.1); SODIUM 139 MMOL/L (136-145)
[2018-01-10 09:23] LABS: CALCIUM 8.6 MG/DL (8.5-10.1)
[2018-01-10] MEDS ORDERED: Lidocaine 1% Plain 30 ml INJ ONE (10:15)
[2018-01-10] MEDS ORDERED: Clindamycin 600mg 0 ML IV ONE (10:20)
--- NOTE | 2018-01-10 11:09 | Anethesia Preoperative Eval ---
Anesthesia Pre-op PMH/ROS General Date of Evaluation: Jan 10, 2018 Anesthesiologist: Ricky ASA Score: ASA 3 Mallampati Score Class I : Soft palate, uvula, fauces, pillars visible Class II: Soft palate, uvula, fauces visible Class III: Soft palate, base of uvula visible Class IV: Only hard plate visible Mallampati Classification: Class III Surgeon: Carina Diagnosis: Left buttocks abscess Surgical Procedure: I&D Left buttocks abscess Anesthesia History: none Family History: no anesthesia problems Allergies: Coded Allergies: LEVOFLOXACIN (Verified Allergy, Unknown, 02/22/17) PENICILLINS (Verified Allergy, Unknown, 02/22/17) SULFA (SULFONAMIDE ANTIBIOTICS) (Verified Allergy, Unknown, 02/22/17) Medications: see eMAR Past Medical History Cardiovascular: Reports: HTN, CAD - s/p stent placement, arrhythmia - afib, other - CHF, Denies: [place], valve dz Pulmonary: Reports: COPD, other - possible lung malignancy, Denies: asthma, MALINI Gastrointestinal/Genitourinary: Reports: GERD, Denies: CRI, ESRD, other Neurologic/Psychiatric: Reports: other - Bipolar, Denies: dementia, CVA, depression/anxiety, TIA Endocrine: Denies: DM, hypothyroidism, steroids, other HEENT: Denies: cataract (L), cataract (R), glaucoma, NOORVIK (L), NOORVIK (R), other Hematology/Immune: Reports: anemia, Denies: DVT, bleeding disorder, other Musculoskeletal/Integumentary: Denies: OA, RA, DJD, DDD, edema, other PSxH Narrative: kody, TERI Anesthesia Pre-op Phys. Exam Physician Exam Last Vital Signs Date Time Temp Pulse Resp B/P (MAP) Pulse Ox O2 Delivery O2 Flow Rate FiO2 01/10/18 08:58 89 20 96 Nasal Cannula 2.0 28 01/10/18 08:00 97.2 114/66 97.2 Constitutional: NAD Cardiovascular: RRR Respiratory: CTA Airway Exam Mallampati Score: Class III MO: limited ROM: full Teeth: missing, intact Anesthesia Pre-op A/P Labs Hematology Test 01/10/18 07:00 White Blood Count 5.3 K/UL (4.8-10.8) Red Blood Count 3.89 M/UL (4.20-5.40) L Hemoglobin 11.1 G/DL (12.0-16.0) L Hematocrit 34.0 % (37.0-47.0) L Mean Corpuscular Volume 87 FL (80-99) Mean Corpuscular Hemoglobin 28.4 PG (27.0-31.0) Mean Corpuscular Hemoglobin Concent 32.6 G/DL (32.0-36.0) Red Cell Distribution Width 19.8 % (11.6-14.8) H Platelet Count 270 K/UL (150-450) Mean Platelet Volume 6.4 FL (6.5-10.1) L Neutrophils (%) (Auto) 36.7 % (45.0-75.0) L Lymphocytes (%) (Auto) 43.4 % (20.0-45.0) Monocytes (%) (Auto) 12.4 % (1.0-10.0) H Eosinophils (%) (Auto) 6.8 % (0.0-3.0) H Basophils (%) (Auto) 0.7 % (0.0-2.0) Chemistry Test 01/10/18 07:00 Sodium Level 139 MMOL/L (136-145) Potassium Level 3.5 MMOL/L (3.5-5.1) Chloride Level 102 MMOL/L (98-107) Carbon Dioxide Level 29 MMOL/L (21-32) Anion Gap 8 mmol/L (5-15) Blood Urea Nitrogen 15 mg/dL (7-18) Creatinine 0.9 MG/DL (0.55-1.30) Estimat Glomerular Filtration Rate mL/min (>60) Glucose Level 84 MG/DL (74-106) Calcium Level 8.6 MG/DL (8.5-10.1) Studies Pre-op Studies: EKG - nsr Risk Assessment & Plan Assessment: ASA IV Plan: GA Status Change Before Surgery: No Pre-Antibiotics Drug: DARLIN ELLIS M.D. Jan 10, 2018 11:09
--- NOTE | 2018-01-10 11:40 | Pre-Procedure Note/Attestation ---
Pre-Procedure Note/Attestation Complete Prior to Procedure Planned Procedure: left Procedure Narrative: CT guided lung biopsy Indications for Procedure Pre-Operative Diagnosis: L lung mass Attestation I attest that I discussed the nature of the procedure; its benefits; risks and complications; and alternatives (and the risks and benefits of such alternatives ), prior to the procedure, with the patient (or the patient's legal dermatology sales representative). I attest that, if there was a reasonable possibility of needing a blood transfusion, the patient (or the patient's legal dermatology sales representative) was given the [facility] standardized written summary, pursuant to the Duy Adore Blood Safety Act ([place] Health and Safety Code # 1645, as amended). I attest that I re-evaluated the patient just prior to the surgery and that there has been no change in the patient's H&P, except as documented below: DANA DIAMOND M.D. Jan 10, 2018 11:40
--- NOTE | 2018-01-10 11:45 | Brief Operative Note ---
Immediate Post Operative Note Operative Note Pre-op Diagnosis: L lung mass Procedure: CT guided lung bx Post-op Diagnosis: same as pre-op Findings: consistent w/pre-op dx studies Surgeon: Wen DIAMOND Anesthesia: local Specimen: yes - 2 18 G cores Complications: none Condition: stable Fluids: none Implant(s) used?: No DANA DIAMOND M.D. Jan 10, 2018 11:45
[2018-01-10] MEDS ORDERED: Bupivacaine 0.25% Inj 30ml INJ ONE (12:34)
[2018-01-10] MEDS ORDERED: Bupivacaine 0.5% Inj 30 ml vial INJ ONE (12:34)
[2018-01-10] MEDS ORDERED: Bacitracin 50000 Units Vial ONE (12:34)
[2018-01-10] MEDS ORDERED: NeoSporin Gu Irrig 1ml Amp IRRIG ONE (12:34)
[2018-01-10] MEDS ORDERED: Lidocaine 1% 10mg/ml/Epi 0.005mg/ml 30ml vial INJ ONE (12:35)
--- NOTE | 2018-01-10 12:37 | Pre-Procedure Note/Attestation ---
Pre-Procedure Note/Attestation Complete Prior to Procedure Planned Procedure: left Procedure Narrative: I&D Abscess left perineum Indications for Procedure Pre-Operative Diagnosis: Abscess of left perineum Attestation I attest that I discussed the nature of the procedure; its benefits; risks and complications; and alternatives (and the risks and benefits of such alternatives ), prior to the procedure, with the patient (or the patient's legal architectural representative). I attest that, if there was a reasonable possibility of needing a blood transfusion, the patient (or the patient's legal architectural representative) was given the [facility] standardized written summary, pursuant to the Duy Adore Blood Safety Act ([place] Health and Safety Code # 1645, as amended). I attest that I re-evaluated the patient just prior to the surgery and that there has been no change in the patient's H&P, except as documented below: LANE MAYNARD Jan 10, 2018 12:36
--- NOTE | 2018-01-10 12:54 | Brief Operative Note ---
Immediate Post Operative Note Operative Note Pre-op Diagnosis: Abscess of left perineum Post-op Diagnosis: the same Post-op Diagnosis: same as pre-op Surgeon: MD Trung Bss Solution Architect: none Anesthesiologist: Dr. García Anesthesia: MAC Specimen: none Complications: none Condition: stable Fluids: Per anesthesiologist Estimated Blood Loss: minimal Packing: betadine soaked sponge Implant(s) used?: No LANE MAYNARD Jan 10, 2018 12:54
--- NOTE | 2018-01-10 12:58 | Diagnostic Imaging Report ---
Indication: Status post lung biopsy, cough Technique: One view of the chest Comparison: 01/08/2018 Findings: Left apical lung mass is again demonstrated. There is questionably a small lucency at the lung apex outlined by slightly denser lung which could indicate a tiny apical pneumothorax. The remainder the left lung is well-expanded. No new infiltrates. The heart is borderline enlarged. The pleural spaces are clear. Impression: Equivocal tiny apical left pneumothorax status post lung biopsy. Patient is scheduled for repeat imaging in 4 hours Other findings as noted
--- NOTE | 2018-01-10 13:08 | Immediate Post-Op Evaluation ---
Immediate Post-Op Evalulation Immediate Post-Op Evalulation Procedure: I&D Perineum Date of Evaluation: Jan 10, 2018 Time of Evaluation: 13:08 IV Fluids: 200 Blood Products: 0 Estimated Blood Loss: 0 Urinary Output: 0 Blood Pressure Systolic: 121 Blood Pressure Diastolic: 62 Pulse Rate: 74 Respiratory Rate: 16 O2 Sat by Pulse Oximetry: 100 Temperature (Fahrenheit): 97.5 Pain Score (1-10): 0 Nausea: No Vomiting: No Complications 0 Patient Status: awake, reacts, patent, none Hydration Status: adequate Drug: On floor Given Within 1 Hr of Incision: Yes DARLIN EVANS M.D. Jan 10, 2018 13:07
--- NOTE | 2018-01-10 13:59 | Diagnostic Imaging Report ---
Indication: Status post lung biopsy Technique: One view of the chest Comparison: One half hours earlier Findings: Left apical lung mass again demonstrated. Equivocal apical lucency could represent a tiny pneumothorax, if real. This is unchanged from previous exam. The left hemidiaphragm is somewhat obscured, and there may be some atelectasis at the left lung base. There are lungs and pleural spaces are clear. Heart size is normal. The aorta is tortuous and ectatic Impression: Equivocal tiny left apical pneumothorax; unchanged over one and a half hours if real
--- NOTE | 2018-01-10 14:18 | Pulmonology Progress Note ---
Assessment/Plan Problems: (1) Lung mass (2) HTN (hypertension) (3) Left buttock abscess (4) COPD (chronic obstructive pulmonary disease) Assessment/Plan s/p lung biopsy small pneumothorax f/u biopsy results symptomatic treatment respiratory treatment med/surg DNR is appropriate. Subjective ROS Limited/Unobtainable: No Constitutional: Reports: no symptoms HEENT: Repors: no symptoms Allergies: Coded Allergies: LEVOFLOXACIN (Verified Allergy, Unknown, 02/22/17) PENICILLINS (Verified Allergy, Unknown, 02/22/17) SULFA (SULFONAMIDE ANTIBIOTICS) (Verified Allergy, Unknown, 02/22/17) Objective Last 24 Hour Vital Signs Date Time Temp Pulse Resp B/P (MAP) Pulse Ox O2 Delivery O2 Flow Rate FiO2 01/10/18 13:15 75 18 128/62 100 Simple Mask 6.0 01/10/18 13:10 76 15 113/61 100 Simple Mask 6.0 01/10/18 13:07 207.5 74 16 100 01/10/18 13:03 97.5 74 16 121/62 99 Simple Mask 6.0 97.5 01/10/18 11:35 82 18 133/78 99 Nasal Cannula 2.0 01/10/18 11:30 85 18 148/75 99 Nasal Cannula 2.0 01/10/18 11:25 80 18 143/67 100 Nasal Cannula 2.0 01/10/18 10:29 81 16 01/10/18 08:58 89 20 96 Nasal Cannula 2.0 28 01/10/18 08:55 89 20 95 Nasal Cannula 2.0 28 01/10/18 08:00 97.2 87 20 114/66 97 Room Air 97.2 01/10/18 08:00 79 01/10/18 07:29 Nasal Cannula 2.0 28 01/10/18 07:29 96 Nasal Cannula 2.0 28 01/10/18 07:27 68 18 Nasal Cannula 2.0 28 01/10/18 06:39 85 119/58 01/10/18 04:00 97.7 83 16 119/58 99 Room Air 97.7 01/10/18 04:00 85 01/10/18 00:00 97.9 85 20 121/56 98 Room Air 97.9 01/10/18 00:00 83 01/09/18 21:14 116 146/80 01/09/18 20:03 97.2 116 20 146/80 95 97.2 01/09/18 20:00 94 01/09/18 19:59 88 16 Room Air 21 01/09/18 16:20 97 01/09/18 16:00 98.0 90 20 120/72 94 Room Air 98.0 Intake and Output 01/09/18 01/10/18 19:00 07:00 Intake Total 1050 ml 240 ml Balance 1050 ml 240 ml Intake Oral 740 ml 240 ml IV Total 310 ml # Voids 2 2 # Bowel Movements 2 General Appearance: WD/WN HEENT: normocephalic Respiratory/Chest: chest wall non-tender, no respiratory distress Breasts: no masses Cardiovascular: normal rate Abdomen: normal bowel sounds, soft, non tender Extremities: no clubbing Skin: no rash Neurologic/Psychiatric: doctor of chiropractic II-XII grossly normal Microbiology Date/Time Source Procedure Growth Status 01/08/18 13:10 Blood Blood Culture - Preliminary NO GROWTH AFTER 24 HOURS Resulted 01/08/18 13:06 Blood Blood Culture - Preliminary NO GROWTH AFTER 24 HOURS Resulted Laboratory Tests 01/10/18 07:00: White Blood Count 5.3, Red Blood Count 3.89L, Hemoglobin 11.1L, Hematocrit 34.0L , Mean Corpuscular Volume 87, Mean Corpuscular Hemoglobin 28.4, Mean Corpuscular Hemoglobin Concent 32.6, Red Cell Distribution Width 19.8H, Platelet Count 270, Mean Platelet Volume 6.4L, Neutrophils (%) (Auto) 36.7L, Lymphocytes (%) (Auto) 43.4, Monocytes (%) (Auto) 12.4H, Eosinophils (%) (Auto) 6.8H, Basophils (%) (Auto) 0.7, Sodium Level 139, Potassium Level 3.5, Chloride Level 102, Carbon Dioxide Level 29, Anion Gap 8, Blood Urea Nitrogen 15, Creatinine 0.9, Estimat Glomerular Filtration Rate , Glucose Level 84, Calcium Level 8.6 Current Medications Medications (Trade) Dose Ordered Sig/Oralia Route PRN Reason Start Time Stop Time Status Last Admin Dose Admin Acetaminophen (Tylenol) 650 mg Q4H PRN ORAL Mild Pain (Pain Scale 1-3) 01/08/18 18:15 02/07/18 18:14 Acetaminophen (Tylenol) 650 mg Q4H PRN ORAL T>100.5 01/08/18 18:15 02/07/18 18:14 Acetaminophen (Tylenol) 650 mg Q4H PRN RECTAL Mild Pain (Pain Scale 1-3) 01/08/18 18:15 02/07/18 18:14 Acetaminophen (Tylenol) 650 mg Q4H PRN RECTAL fever 01/08/18 18:15 02/07/18 18:14 Albuterol/ Ipratropium (Albuterol/ Ipratropium) 3 ml Q4H PRN HHN sob, wheezing 01/08/18 18:45 01/13/18 18:44 Aspirin (Ecotrin) 81 mg DAILY ORAL 01/09/18 09:00 02/08/18 08:59 01/10/18 08:40 Atorvastatin Calcium (Lipitor) 80 mg BEDTIME ORAL 01/08/18 21:00 02/07/18 20:59 01/09/18 21:13 Aztreonam 1 gm/ Dextrose 55 ml @ 110 mls/hr Q8HR IVPB 01/08/18 23:00 01/15/18 22:59 01/10/18 06:15 Bisacodyl (Dulcolax) 10 mg HSPRN PRN RECTAL Constipation 01/08/18 21:00 02/07/18 20:59 Clonidine HCl (Catapres Tab) 0.1 mg Q6H PRN ORAL SBP > 160mmHg 01/08/18 18:15 02/07/18 18:14 Dextrose (Dextrose 50%) STAT PRN IV Hypoglycemia 01/08/18 18:15 02/07/18 18:14 Diltiazem HCl (Cardizem) 60 mg EVERY 8 HOURS ORAL 01/08/18 22:00 02/07/18 21:59 01/10/18 06:39 Divalproex Sodium (Depakote) 250 mg Q8HR ORAL 01/08/18 22:00 02/07/18 21:59 01/10/18 06:39 Docusate Sodium (Colace) 100 mg EVERY 12 HOURS ORAL 01/08/18 21:00 02/07/18 20:59 01/10/18 08:40 Heparin Sodium (Porcine) (Heparin 5000 units/ml) 5,000 units EVERY 12 HOURS SUBQ 01/08/18 21:00 02/07/18 20:59 01/09/18 21:17 Metronidazole 100 ml @ 100 mls/hr Q8HR IVPB 01/08/18 23:30 01/15/18 23:29 01/09/18 22:00 Ondansetron HCl (Zofran) 4 mg Q6H PRN IVP Nausea & Vomiting 01/08/18 18:15 02/07/18 18:14 Pantoprazole (Protonix) 40 mg DAILY ORAL 01/09/18 09:00 02/08/18 08:59 01/10/18 08:39 Polyethylene Glycol (Miralax) 17 gm HSPRN PRN ORAL Constipation 01/08/18 21:00 02/07/18 20:59 Pravastatin Sodium (Pravachol) 40 mg QHS ORAL 01/08/18 21:00 02/07/18 20:59 01/09/18 21:14 Sucralfate (Carafate) 1 gm THREE TIMES A DAY ORAL 01/09/18 09:00 02/08/18 08:59 01/10/18 08:40 Tiotropium Spencer (Spiriva Inhaler) 2 puff DAILY INH 01/09/18 09:00 02/08/18 08:59 01/10/18 08:55 Trazodone HCl (Desyrel) 25 mg HSPRN PRN ORAL insomnia 01/08/18 18:15 02/07/18 18:14 Vancomycin HCl (Vanco rx to dose) 1 ea DAILY PRN MISC Per rx protocol 01/08/18 18:15 02/07/18 18:14 Vancomycin HCl 500 mg/Dextrose 110 ml @ 110 mls/hr Q12H IVPB 01/08/18 23:00 01/13/18 22:59 01/09/18 23:00 Radha Strong MD Jan 10, 2018 14:18
[2018-01-10] MEDS ORDERED: metroNIDAZOLE 500mg tab ORAL SCH (15:00)
--- NOTE | 2018-01-10 16:27 | General Progress Note ---
Assessment/Plan Problem List: (1) Left buttock abscess ICD Codes: L02.31 - Cutaneous abscess of buttock SNOMED: 27867771 (2) Lung mass ICD Codes: R91.8 - Other nonspecific abnormal finding of lung field SNOMED: 391746548 (3) Small left apical pneumothorax Assessment & Plan: following CT guided lung biopsy on 01/10/18 (4) COPD (chronic obstructive pulmonary disease) ICD Codes: J44.9 - Chronic obstructive pulmonary disease, unspecified SNOMED: 86619795 (5) HLD (hyperlipidemia) ICD Codes: E78.5 - Hyperlipidemia, unspecified SNOMED: 22383853 (6) Anemia of chronic disease ICD Codes: D63.8 - Anemia in other chronic diseases classified elsewhere SNOMED: 620215302 (7) Bipolar disorder ICD Codes: F31.9 - Bipolar disorder, unspecified SNOMED: 17550519 (8) Dementia ICD Codes: F03.90 - Unspecified dementia without behavioral disturbance SNOMED: 72495401 Status: stable Assessment/Plan Surgery and ID consulted Plan for I&D tomorrow per surgery, NPO at [place] Empiric vanco, aztreonam, flagyl for broad-coverage per ID F/u cultures Pulm consulted given lung mass on CXR Check CT chest w/ contrast --> 3.4 x 2.4 x 2.9 cm spiculated mass in the left lung apex, abutting the pleural surface superiorly. Appearance highly suspicious for primary pulmonary malignancy s/p CT guided lung biopsy on 01/10/18 --> procedure complicated by small L apical pneumothorax Monitor CXR O2 as needed F/u pathology from biopsy Pt states if cancer has spread, would want comfort measures Heme/onc consulted Cont SNF meds Pain control, bowel regimen Supportive care DVT Prophylaxis: SCD, HSQ Code Status: DNR/DNI Hospital Classification Declaration: Based on this initial evaluation, and depending on the patient's clinical course, I anticipate that this patient will require hospitalization for 1-2 days for abscess, lung mass and close respiratory/hemodynamic monitoring. Disposition: Once the patient is stable to leave the hospital, I anticipate the patient will likely be discharged to the following environment: back to SNF Discussed with patient/family, nursing staff, SW/CM, ID, surgery, pulm regarding clinical status, treatment course, and disposition planning. D/w pulm re lung mass on CT chest, biopsy, pneumothorax. D/w surgery re I&D of abscess today Time of note may not reflect time of encounter. Subjective Date patient seen: Jan 10, 2018 Time patient seen: 16:22 ROS Limited/Unobtainable: No Constitutional: Reports: no symptoms HEENT: Reports: no symptoms Cardiovascular: Reports: no symptoms Respiratory: Reports: no symptoms Gastrointestinal/Abdominal: Reports: no symptoms Genitourinary: Reports: no symptoms Neurologic/Psychiatric: Reports: no symptoms Endocrine: Reports: no symptoms Hematologic/Lymphatic: Reports: no symptoms Allergies: Coded Allergies: LEVOFLOXACIN (Verified Allergy, Unknown, 02/22/17) PENICILLINS (Verified Allergy, Unknown, 02/22/17) SULFA (SULFONAMIDE ANTIBIOTICS) (Verified Allergy, Unknown, 02/22/17) Subjective No acute o/n events Afebrile, HDS s/p CT guided lung biopsy today s/p I&D of abscess of L perineum today POD#0 Pain controlled. Objective Last 24 Hour Vital Signs Date Time Temp Pulse Resp B/P (MAP) Pulse Ox O2 Delivery O2 Flow Rate FiO2 01/10/18 15:49 73 15 136/63 96 Nasal Cannula 3.0 01/10/18 15:48 79 145/65 01/10/18 15:00 97.5 71 17 134/59 98 Nasal Cannula 3.0 97.5 01/10/18 14:30 97.8 70 18 123/63 100 Nasal Cannula 3.0 97.8 01/10/18 14:28 74 18 138/58 100 Nasal Cannula 3.0 01/10/18 14:15 69 17 144/64 100 Nasal Cannula 3.0 01/10/18 14:00 70 14 126/62 100 Nasal Cannula 3.0 01/10/18 13:45 68 16 127/64 100 Simple Mask 6.0 01/10/18 13:30 70 15 122/63 100 Simple Mask 6.0 01/10/18 13:15 75 18 128/62 100 Simple Mask 6.0 01/10/18 13:10 76 15 113/61 100 Simple Mask 6.0 01/10/18 13:07 207.5 74 16 100 01/10/18 13:03 97.5 74 16 121/62 99 Simple Mask 6.0 97.5 01/10/18 11:35 82 18 133/78 99 Nasal Cannula 2.0 01/10/18 11:30 85 18 148/75 99 Nasal Cannula 2.0 01/10/18 11:25 80 18 143/67 100 Nasal Cannula 2.0 01/10/18 10:29 81 16 01/10/18 08:58 89 20 96 Nasal Cannula 2.0 28 01/10/18 08:55 89 20 95 Nasal Cannula 2.0 28 01/10/18 08:00 97.2 87 20 114/66 97 Room Air 97.2 01/10/18 08:00 79 01/10/18 07:29 Nasal Cannula 2.0 28 01/10/18 07:29 96 Nasal Cannula 2.0 28 01/10/18 07:27 68 18 Nasal Cannula 2.0 28 01/10/18 06:39 85 119/58 01/10/18 04:00 97.7 83 16 119/58 99 Room Air 97.7 01/10/18 04:00 85 01/10/18 00:00 97.9 85 20 121/56 98 Room Air 97.9 01/10/18 00:00 83 01/09/18 21:14 116 146/80 01/09/18 20:03 97.2 116 20 146/80 95 97.2 01/09/18 20:00 94 01/09/18 19:59 88 16 Room Air 21 Intake and Output 01/09/18 01/10/18 19:00 07:00 Intake Total 1050 ml 240 ml Balance 1050 ml 240 ml Intake Oral 740 ml 240 ml IV Total 310 ml # Voids 2 2 # Bowel Movements 2 Laboratory Tests 01/10/18 07:00: White Blood Count 5.3, Red Blood Count 3.89L, Hemoglobin 11.1L, Hematocrit 34.0L , Mean Corpuscular Volume 87, Mean Corpuscular Hemoglobin 28.4, Mean Corpuscular Hemoglobin Concent 32.6, Red Cell Distribution Width 19.8H, Platelet Count 270, Mean Platelet Volume 6.4L, Neutrophils (%) (Auto) 36.7L, Lymphocytes (%) (Auto) 43.4, Monocytes (%) (Auto) 12.4H, Eosinophils (%) (Auto) 6.8H, Basophils (%) (Auto) 0.7, Sodium Level 139, Potassium Level 3.5, Chloride Level 102, Carbon Dioxide Level 29, Anion Gap 8, Blood Urea Nitrogen 15, Creatinine 0.9, Estimat Glomerular Filtration Rate , Glucose Level 84, Calcium Level 8.6 Height (Feet): 5 Height (Inches): 4.00 Weight (Pounds): 145 Objective General: alert, cooperative, no distress, appears stated age Head: normocephalic, without obvious abnormality, atraumatic Eyes: conjunctivae/corneas clear. PERRL, EOM's intact Throat: lips, mucosa, and tongue normal. MMM Neck: supple, symmetrical, trachea midline, and no JVD Lungs: clear to auscultation bilaterally Heart: regular rate and rhythm, S1, S2 normal, no murmur, click, rub or gallop Abdomen: soft, non-tender, non-distended, bowel sounds normal Extremities: extremities normal, atraumatic, no cyanosis or edema Pulses: 2+ and symmetric Skin: Dressing c/d/i Neurologic: grossly normal, no focal deficits William Lazar M.D. Jan 10, 2018 16:27
[2018-01-10] MEDS ORDERED: Vancomycin 500mg/D5W 110ml IVPB SCH ×2 (17:00)
--- NOTE | 2018-01-10 19:46 | Operative Note - Dictated ---
DATE OF OPERATION: 01/10/2018 PREOPERATIVE DIAGNOSIS: Abscess of the left perineum. POSTOPERATIVE DIAGNOSIS: Abscess of the left perineum. OPERATION: Incision and drainage of the abscess. COMPLICATIONS: None. SURGEON: Frank Lim M.D. TANNING DRUM OPERATOR: None. ANESTHESIA: Local with MAC. ANESTHESIOLOGIST: Allyn García MD INDICATION: This is a 77-year-old female, who presented with pain and swelling on the left side of perineum for about a week. Physical examination showed severe erythema, swelling, and tenderness at the left perineum. Ultrasound showed small abscess in this area. The patient was admitted to the hospital and was started on IV antibiotics. The condition gradually improved and apparently, it has drained spontaneously. At this time, she has been scheduled for I and D of this abscess. DESCRIPTION OF PROCEDURE: The patient was placed supine on the operating table, and after IV sedation, the perineum was properly prepped and draped. The opening of the abscess at the left of the perineum was probed with a clamp. A large cavity was entered. There was a very small amount of pus left, which was drained. The cavity was incised and then, it was unroofed with removing the skin and subcutaneous tissue. The bleeding points were controlled. The cavity was irrigated with antibiotic solution and then it was packed with a Betadine-soaked sponge. The patient tolerated the procedure very well and was transferred to recovery room in stable condition. The sponge and needle count correct. Estimated blood loss 2 mL. Condition of the patient at the end of the procedure is stable. Frank Lim M.D. DR: ALESHIA JOB#: [id number] CC:
[2018-01-10] MEDS: Atorvastatin 80mg tab ORAL SCH (22:14)
--- NOTE | 2018-01-10 22:50 | General Progress Note ---
Assessment/Plan Assessment/Plan mdd -cont trazodone -cont Depakote Subjective Date patient seen: Jan 10, 2018 Neurologic/Psychiatric: Reports: anxiety, depressed, emotional problems Allergies: Coded Allergies: LEVOFLOXACIN (Verified Allergy, Unknown, 02/22/17) PENICILLINS (Verified Allergy, Unknown, 02/22/17) SULFA (SULFONAMIDE ANTIBIOTICS) (Verified Allergy, Unknown, 02/22/17) Objective Last 24 Hour Vital Signs Date Time Temp Pulse Resp B/P (MAP) Pulse Ox O2 Delivery O2 Flow Rate FiO2 01/10/18 21:16 Nasal Cannula 2.0 28 01/10/18 21:15 69 18 Nasal Cannula 2.0 28 01/10/18 21:15 97 Nasal Cannula 2.0 28 01/10/18 20:00 97.9 82 21 146/65 99 Nasal Cannula 3.0 97.9 01/10/18 16:00 97.3 79 17 145/68 100 Nasal Cannula 3.0 97.3 01/10/18 15:49 73 15 136/63 96 Nasal Cannula 3.0 01/10/18 15:48 79 145/65 01/10/18 15:00 97.5 71 17 134/59 98 Nasal Cannula 3.0 97.5 01/10/18 14:30 97.8 70 18 123/63 100 Nasal Cannula 3.0 97.8 01/10/18 14:28 74 18 138/58 100 Nasal Cannula 3.0 01/10/18 14:15 69 17 144/64 100 Nasal Cannula 3.0 01/10/18 14:00 70 14 126/62 100 Nasal Cannula 3.0 01/10/18 13:45 68 16 127/64 100 Simple Mask 6.0 01/10/18 13:30 70 15 122/63 100 Simple Mask 6.0 01/10/18 13:15 75 18 128/62 100 Simple Mask 6.0 01/10/18 13:10 76 15 113/61 100 Simple Mask 6.0 01/10/18 13:07 207.5 74 16 100 01/10/18 13:03 97.5 74 16 121/62 99 Simple Mask 6.0 97.5 01/10/18 11:35 82 18 133/78 99 Nasal Cannula 2.0 01/10/18 11:30 85 18 148/75 99 Nasal Cannula 2.0 01/10/18 11:25 80 18 143/67 100 Nasal Cannula 2.0 01/10/18 10:29 81 16 01/10/18 08:58 89 20 96 Nasal Cannula 2.0 28 01/10/18 08:55 89 20 95 Nasal Cannula 2.0 28 01/10/18 08:00 97.2 87 20 114/66 97 Room Air 97.2 01/10/18 08:00 79 01/10/18 07:29 Nasal Cannula 2.0 28 01/10/18 07:29 96 Nasal Cannula 2.0 28 01/10/18 07:27 68 18 Nasal Cannula 2.0 28 01/10/18 06:39 85 119/58 01/10/18 04:00 97.7 83 16 119/58 99 Room Air 97.7 01/10/18 04:00 85 01/10/18 00:00 97.9 85 20 121/56 98 Room Air 97.9 01/10/18 00:00 83 Intake and Output 01/09/18 01/10/18 19:00 07:00 Intake Total 1050 ml 240 ml Balance 1050 ml 240 ml Intake Oral 740 ml 240 ml IV Total 310 ml # Voids 2 2 # Bowel Movements 2 Laboratory Tests 01/10/18 07:00: White Blood Count 5.3, Red Blood Count 3.89L, Hemoglobin 11.1L, Hematocrit 34.0L , Mean Corpuscular Volume 87, Mean Corpuscular Hemoglobin 28.4, Mean Corpuscular Hemoglobin Concent 32.6, Red Cell Distribution Width 19.8H, Platelet Count 270, Mean Platelet Volume 6.4L, Neutrophils (%) (Auto) 36.7L, Lymphocytes (%) (Auto) 43.4, Monocytes (%) (Auto) 12.4H, Eosinophils (%) (Auto) 6.8H, Basophils (%) (Auto) 0.7, Sodium Level 139, Potassium Level 3.5, Chloride Level 102, Carbon Dioxide Level 29, Anion Gap 8, Blood Urea Nitrogen 15, Creatinine 0.9, Estimat Glomerular Filtration Rate , Glucose Level 84, Calcium Level 8.6 Height (Feet): 5 Height (Inches): 4.00 Weight (Pounds): 145 General Appearance: no apparent distress, alert Mar Fernandez M.D. Jan 10, 2018 22:50
[2018-01-11] VITALS: BP 133/52
--- NOTE | 2018-01-11 01:01 | Consultation ---
DATE OF CONSULTATION: 01/10/2018 HEMATOLOGY/ONCOLOGY CONSULTATION CONSULTING PHYSICIAN: Cleveland Guan M.D. REQUESTING PHYSICIANS: 1. William Lazar M.D. 2. Zaida Alberts M.D. REASON FOR CONSULTATION: Evaluation of lung mass. IDENTIFICATION DATA: Dear Dr. Thomas and Dr. Alberts, The patient is a pleasant 77-year-old female with past medical history significant for schizophrenia as well as left buttock and perineal abscess, at this time presents to the hospital complaining of cellulitis. She has multiple drug allergies. Ultrasound showed perineum and buttocks abscess. She has been started on broad-spectrum antibiotics with aztreonam and Flagyl, at risk for gram negatives, noted to have a 3 x 4 cm mass in the lungs. Hematology/Oncology Service was consulted for potential evaluation and treatment and further care. PAST MEDICAL HISTORY: , hypertension, COPD, GERD, dementia, and bipolar. PAST SURGICAL HISTORY: None reported. MEDICATIONS: Aspirin, diltiazem, valproic acid, ferrous sulfate . ALLERGIES: Levofloxacin, penicillin, and sulfa. SOCIAL HISTORY: She lives in a half-way. No alcohol, tobacco, or illicit drug use. REVIEW OF SYSTEMS: CONSTITUTIONAL: No fevers, chills, or night sweats. SKIN: No rashes, bumps, or itching. HEENT: No headache, hearing or vision changes. BREASTS: No lumps, pain, or discharge. PULMONARY: No cough, sputum, or shortness of breath. GASTROINTESTINAL: No nausea, vomiting, or diarrhea. GENITOURINARY: No dysuria, frequency, or urgency. MUSCULOSKELETAL: No joint swelling, muscle pain, or trauma. PHYSICAL EXAMINATION: VITAL SIGNS: Reviewed. GENERAL: No distress. PULMONARY: Decreased breath sounds. CARDIOVASCULAR: Regular rate. No S3 or S4. ABDOMEN: Soft, nontender, and nondistended. EXTREMITIES: No cyanosis, swelling, or edema noted. LABORATORY DATA: WBC 5.3, hemoglobin 11.1, hematocrit 34, and platelet count 270,000. BUN 15 and creatinine 0.9. Albumin 2.7. Pathology from 02/28/2017 gastric antrum biopsy showed gastritis. From 02/23/2017, peripheral blood smear showed severe microcytic hypochromic anemia. ASSESSMENT AND RECOMMENDATIONS: 1. A 3.4 x 3 x 3 spiculated left lung mass abutting the pleural superior surface, highly suspicious for malignancy. 2. Potential soft tissue fullness in the left hilar region. At this time, the patient is status post lung biopsy with a small pneumothorax, has been seen by Dr. Strong. Procedure performed today. 3. Anemia of chronic disease. Continue to closely monitor for improvement. Currently stable. Hemoglobin at approximately 10 to 11. 4. Right buttocks abscess. Currently is on antibiotics, broad spectrum. Monitor per surgical team. 5. Bipolar disorder. Psychiatry Service evaluation. 6. Multiple antibiotic allergies have been noted. I appreciate the consultation. Cleveland Guan M.D. DR: RAJ JOB#: [id number] CC:
[2018-01-11] MEDS ORDERED: Acetaminophen 650 MG SUPP RECTAL PRN ×2 (02:15)
[2018-01-11] MEDS ORDERED: Albuterol/Ipratropium 3ml neb HHN PRN (02:45)
[2018-01-11 04:00] VITALS: BP 141/80
[2018-01-11] MEDS: Vancomycin 500 MG in D5W 110 ML IVPB SCH ×2 (05:00→20:25)
[2018-01-11] MEDS: metroNIDAZOLE 500mg tab ORAL SCH ×3 (06:00→21:11)
[2018-01-11] MEDS: dilTIAZem HCl 60mg tab ORAL SCH ×3 (06:00→21:10)
[2018-01-11] MEDS: Aztreonam Inj 1 GM in D5W 55 ML IVPB SCH ×4 (06:00→22:23)
[2018-01-11 08:09] LABS: BASOPHILS % (AUTO) 0.7 % (0.0-2.0); EOSINOPHILS % (AUTO) 4.7 % (0.0-3.0); HEMATOCRIT 36.4 % (37.0-47.0); HEMOGLOBIN 11.6 G/DL (12.0-16.0); LYMPHOCYTES % (AUTO) 29.6 % (20.0-45.0); MEAN CORPUSCULAR VOLUME 88 FL (80-99); NEUTROPHILS % (AUTO) 53.9 % (45.0-75.0); PLATELET COUNT 284 K/UL (150-450); RED BLOOD COUNT 4.14 M/UL (4.20-5.40); RED CELL DISTRIBUTION WIDTH 19.5 % (11.6-14.8); WHITE BLOOD COUNT 4.6 K/UL (4.8-10.8)
[2018-01-11 08:15] VITALS: BP 151/86
[2018-01-11 08:57] LABS: ALANINE AMINOTRANSFERASE 18 U/L (12-78); ALBUMIN 2.5 G/DL (3.4-5.0); ALBUMIN/GLOBULIN RATIO 0.5 (1.0-2.7); ALKALINE PHOSPHATASE 80 U/L (46-116); ANION GAP 9 mmol/L (5-15); ASPARTATE AMINO TRANSFERASE 31 U/L (15-37); BILIRUBIN,TOTAL 0.3 MG/DL (0.2-1.0); BLOOD UREA NITROGEN 18 mg/dL (7-18); CALCIUM 8.4 MG/DL (8.5-10.1); CARBON DIOXIDE 27 MMOL/L (21-32); CHLORIDE 102 MMOL/L (98-107); POTASSIUM 3.5 MMOL/L (3.5-5.1); SODIUM 138 MMOL/L (136-145)
[2018-01-11] MEDS: Aspirin EC 81mg tab ORAL SCH (09:57)
[2018-01-11] MEDS: Sucralfate 1gm tab ORAL SCH ×3 (09:57→18:29)
[2018-01-11] MEDS: Docusate 100mg cap ORAL SCH ×2 (09:58→20:26)
[2018-01-11] MEDS: Heparin 5000 units/ml inj SUBQ SCH ×2 (09:59→20:30)
[2018-01-11 11:40] VITALS: BP 135/70
--- NOTE | 2018-01-11 11:42 | Diagnostic Imaging Report ---
Indication: Dyspnea Technique: One view of the chest Comparison: 01/10/2018 Findings: Interim increase in size of previously suspected left apical pneumothorax, although still small. No new infiltrates. Lungs and pleural spaces remain clear other than the left upper lobe mass. Impression: Interim increase in size of previously suspected left apical post-biopsy pneumothorax. Recommend short interval follow-up radiographs Findings discussed by phone with Dr. Thomas at the time of interpretation
--- NOTE | 2018-01-11 14:03 | Diagnostic Imaging Report ---
Indication: Cough Technique: One view of the chest Comparison: 5 hours earlier Findings: Small left apical pneumothorax is somewhat more clearly delineated on the current exam as compared to prior exam. Allowing for differences slight differences in positioning degree of inspiration, pneumothorax is probably unchanged in size. Left apical lung nodule is again demonstrated. The remaining lungs and pleural spaces are clear Impression: Probably unchanged small left apical pneumothorax. Recommend follow-up radiograph in the morning Findings discussed by phone with Dr. Thomas at the time of interpretation
--- NOTE | 2018-01-11 14:28 | Infectious Diseases Prog Note ---
Assessment/Plan Assessment/Plan ASSESSMENT AND PLAN: 1. The patient has left buttock/perineal abscess and cellulitis. - s/p I/D - check wound culture - vancomycin, aztreonam and flagyl 2. Possible lung malignancy, primary, pneumothorax on chest x-ray - per primary and hem/onc 3. Anemia. 4. Atrial fibrillation. 5. Hypertension. 6. CAD. 7. Gastrointestinal disease. 8. Encephalopathy. 9. History of angioplasty and stents. 10. History of cholecystectomy and hysterectomy. 11. Allergies to Levaquin, penicillin, and sulfa. 12. Family history is noncontributory. 13. Social history is negative. 14. Case was discussed with RN. 15. MAR was noted. 16. Continue treatment with primary including Dr. Thomas and consultants. 17. Case was discussed with Dr. Thomas. Subjective Constitutional: Denies: fever HEENT: Denies: congestion Respiratory: Denies: shortness of breath Cardiovascular: Denies: chest pain Gastrointestinal/Abdominal: Denies: nausea, vomiting, diarrhea Genitourinary: Reports: other - no garrett; Denies: dysuria, hematuria, frequency Neurologic: Denies: headache Psychiatric: Denies: depression Skin: Denies: rash Hematologic: Denies: bleeding Musculoskeletal: Denies: pain Allergies: Coded Allergies: LEVOFLOXACIN (Verified Allergy, Unknown, 02/22/17) PENICILLINS (Verified Allergy, Unknown, 02/22/17) SULFA (SULFONAMIDE ANTIBIOTICS) (Verified Allergy, Unknown, 02/22/17) Objective Vital Signs Last 24 Hour Vital Signs Date Time Temp Pulse Resp B/P (MAP) Pulse Ox O2 Delivery O2 Flow Rate FiO2 01/11/18 13:30 86 20 96 Nasal Cannula 2.0 28 01/11/18 13:30 86 15 96 Nasal Cannula 2.0 28 01/11/18 11:40 98.4 91 18 135/70 97 Room Air 98.4 01/11/18 09:00 Nasal Cannula 01/11/18 09:00 Nasal Cannula 01/11/18 08:15 98.0 99 19 151/86 97 Room Air 98.0 01/11/18 07:42 86 19 Nasal Cannula 2.0 28 01/11/18 07:42 96 2.0 28 01/11/18 07:42 Nasal Cannula 2.0 28 01/11/18 04:00 98.4 104 20 141/80 92 Nasal Cannula 2.0 98.4 01/11/18 00:00 96.8 82 19 133/52 98 Nasal Cannula 96.8 01/10/18 21:16 Nasal Cannula 2.0 28 01/10/18 21:15 69 18 Nasal Cannula 2.0 28 01/10/18 21:15 97 Nasal Cannula 2.0 28 01/10/18 20:00 97.9 82 21 146/65 99 Nasal Cannula 3.0 97.9 01/10/18 16:00 97.3 79 17 145/68 100 Nasal Cannula 3.0 97.3 01/10/18 15:49 73 15 136/63 96 Nasal Cannula 3.0 01/10/18 15:48 79 145/65 01/10/18 15:00 97.5 71 17 134/59 98 Nasal Cannula 3.0 97.5 01/10/18 14:30 97.8 70 18 123/63 100 Nasal Cannula 3.0 97.8 01/10/18 14:28 74 18 138/58 100 Nasal Cannula 3.0 Height (Feet): 5 Height (Inches): 4.00 Weight (Pounds): 145 General Appearance: no acute distress HEENT: normocephalic, atraumatic, anicteric, mucous membranes moist Respiratory/Chest: lungs clear, normal breath sounds, no respiratory distress, no accessory muscle use Cardiovascular: normal rate, regular rhythm, no gallop/murmur, no JVD Abdomen: normal bowel sounds, soft, non tender, no organomegaly, non distended Genitourinary: other - no garrett, no cva pain Extremities: no cyanosis Skin: no rash 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 Recommend follow- up radiograph in the morning Findings discussed by phone with Dr. Thomas at the time of interpretation Microbiology Date/Time Source Procedure Growth Status 01/08/18 13:10 Blood Blood Culture - Preliminary NO GROWTH AFTER 48 HOURS Resulted Laboratory Tests Test 01/11/18 06:30 White Blood Count 4.6 K/UL (4.8-10.8) L Red Blood Count 4.14 M/UL (4.20-5.40) L Hemoglobin 11.6 G/DL (12.0-16.0) L Hematocrit 36.4 % (37.0-47.0) L Mean Corpuscular Volume 88 FL (80-99) Mean Corpuscular Hemoglobin 28.0 PG (27.0-31.0) Mean Corpuscular Hemoglobin Concent 31.9 G/DL (32.0-36.0) L Red Cell Distribution Width 19.5 % (11.6-14.8) H Platelet Count 284 K/UL (150-450) Mean Platelet Volume 6.1 FL (6.5-10.1) L Neutrophils (%) (Auto) 53.9 % (45.0-75.0) Lymphocytes (%) (Auto) 29.6 % (20.0-45.0) Monocytes (%) (Auto) 11.0 % (1.0-10.0) H Eosinophils (%) (Auto) 4.7 % (0.0-3.0) H Basophils (%) (Auto) 0.7 % (0.0-2.0) Sodium Level 138 MMOL/L (136-145) Potassium Level 3.5 MMOL/L (3.5-5.1) Chloride Level 102 MMOL/L (98-107) Carbon Dioxide Level 27 MMOL/L (21-32) Anion Gap 9 mmol/L (5-15) Blood Urea Nitrogen 18 mg/dL (7-18) Creatinine 1.0 MG/DL (0.55-1.30) Estimat Glomerular Filtration Rate mL/min (>60) Glucose Level 96 MG/DL (74-106) Calcium Level 8.4 MG/DL (8.5-10.1) L Total Bilirubin 0.3 MG/DL (0.2-1.0) Aspartate Amino Transf (AST/SGOT) 31 U/L (15-37) Alanine Aminotransferase (ALT/SGPT) 18 U/L (12-78) Alkaline Phosphatase 80 U/L (46-116) Pro-B-Type Natriuretic Peptide 1470 pg/mL (0-125) H Total Protein 7.8 G/DL (6.4-8.2) Albumin 2.5 G/DL (3.4-5.0) L Globulin 5.3 g/dL Albumin/Globulin Ratio 0.5 (1.0-2.7) L Current Medications Medications (Trade) Dose Ordered Sig/Oralia Route PRN Reason Start Time Stop Time Status Last Admin Dose Admin Acetaminophen (Tylenol) 650 mg Q4H PRN ORAL Mild Pain (Pain Scale 1-3) 01/11/18 02:15 02/07/18 18:14 Acetaminophen (Tylenol) 650 mg Q4H PRN ORAL T>100.5 01/11/18 02:15 02/07/18 18:14 Acetaminophen (Tylenol) 650 mg Q4H PRN RECTAL Mild Pain (Pain Scale 1-3) 01/11/18 02:15 02/07/18 18:14 Acetaminophen (Tylenol) 650 mg Q4H PRN RECTAL fever 01/11/18 02:15 02/07/18 18:14 Albuterol/ Ipratropium (Albuterol/ Ipratropium) 3 ml Q4H PRN HHN sob, wheezing 01/11/18 02:45 01/13/18 18:44 Aspirin (Ecotrin) 81 mg DAILY ORAL 01/11/18 09:00 02/08/18 08:59 01/11/18 09:57 Atorvastatin Calcium (Lipitor) 80 mg BEDTIME ORAL 01/11/18 21:00 02/07/18 20:59 Aztreonam 1 gm/ Dextrose 55 ml @ 110 mls/hr Q8HR IVPB 01/11/18 06:00 01/15/18 22:59 Bisacodyl (Dulcolax) 10 mg HSPRN PRN RECTAL Constipation 01/11/18 21:00 02/07/18 20:59 Clonidine HCl (Catapres Tab) 0.1 mg Q6H PRN ORAL SBP > 160mmHg 01/11/18 00:15 02/07/18 18:14 Dextrose (Dextrose 50%) STAT PRN IV Hypoglycemia 01/11/18 18:15 02/07/18 18:14 Diltiazem HCl (Cardizem) 60 mg EVERY 8 HOURS ORAL 01/11/18 06:00 02/07/18 21:59 Divalproex Sodium (Depakote) 250 mg Q8HR ORAL 01/11/18 06:00 02/07/18 21:59 Docusate Sodium (Colace) 100 mg EVERY 12 HOURS ORAL 01/11/18 09:00 02/07/18 20:59 01/11/18 09:58 Heparin Sodium (Porcine) (Heparin 5000 units/ml) 5,000 units EVERY 12 HOURS SUBQ 01/11/18 09:00 02/07/18 20:59 01/11/18 09:59 Metronidazole (Flagyl) 500 mg Q8HR ORAL 01/11/18 06:00 01/17/18 14:59 Ondansetron HCl (Zofran) 4 mg Q6H PRN IVP Nausea & Vomiting 01/11/18 00:15 02/07/18 18:14 Pantoprazole (Protonix) 40 mg DAILY ORAL 01/11/18 09:00 02/08/18 08:59 01/11/18 09:57 Polyethylene Glycol (Miralax) 17 gm HSPRN PRN ORAL Constipation 01/11/18 21:00 02/07/18 20:59 Pravastatin Sodium (Pravachol) 40 mg QHS ORAL 01/11/18 21:00 02/07/18 20:59 Sucralfate (Carafate) 1 gm THREE TIMES A DAY ORAL 01/11/18 09:00 02/08/18 08:59 01/11/18 09:57 Tiotropium [place] (Spiriva Inhaler) 2 puff DAILY INH 01/11/18 09:00 02/08/18 08:59 01/11/18 13:30 Trazodone HCl (Desyrel) 25 mg HSPRN PRN ORAL insomnia 01/11/18 18:15 02/07/18 18:14 Vancomycin HCl (Vanco rx to dose) 1 ea DAILY PRN MISC Per rx protocol 01/11/18 09:00 02/07/18 18:14 Vancomycin HCl 500 mg/Dextrose 110 ml @ 110 mls/hr Q12H IVPB 01/11/18 05:00 01/15/18 16:59 HIREN VAZ Jan 11, 2018 14:28
--- NOTE | 2018-01-11 16:10 | General Progress Note ---
Assessment/Plan Problem List: (1) Left buttock abscess ICD Codes: L02.31 - Cutaneous abscess of buttock SNOMED: 16794896 (2) Pneumothorax after biopsy Assessment & Plan: Small apical L pneumothorax after CT guided lung biopsy on ICD Codes: J95.811 - Postprocedural pneumothorax SNOMED: 70884910, 41208329 (3) Lung mass ICD Codes: R91.8 - Other nonspecific abnormal finding of lung field SNOMED: 521662119 (4) COPD (chronic obstructive pulmonary disease) ICD Codes: J44.9 - Chronic obstructive pulmonary disease, unspecified SNOMED: 60486290 (5) HLD (hyperlipidemia) ICD Codes: E78.5 - Hyperlipidemia, unspecified SNOMED: 58975802 (6) Anemia of chronic disease ICD Codes: D63.8 - Anemia in other chronic diseases classified elsewhere SNOMED: 002134485 (7) Bipolar disorder ICD Codes: F31.9 - Bipolar disorder, unspecified SNOMED: 71141532 (8) Dementia ICD Codes: F03.90 - Unspecified dementia without behavioral disturbance SNOMED: 21320167 Status: stable Assessment/Plan Surgery and ID consulted s/p I&D on 01/10/18 F/u OR cultures Empiric vanco, aztreonam, flagyl for broad-coverage per ID Pulm consulted given lung mass on CXR Check CT chest w/ contrast --> 3.4 x 2.4 x 2.9 cm spiculated mass in the left lung apex, abutting the pleural surface superiorly. Appearance highly suspicious for primary pulmonary malignancy s/p CT guided lung biopsy on 01/10/18 --> procedure complicated by small L apical pneumothorax Monitor CXR --> slightly worsening of pneumothorax on CXR this AM. Repeat CXR later this afternoon and again in AM. Per radiologist, it is not big enough for chest tube. Monitor O2 requirements O2 as needed F/u pathology from lug biopsy Pt states if cancer has spread, would want comfort measures Heme/onc consulted Cont SNF meds Pain control, bowel regimen Supportive care DVT Prophylaxis: SCD, HSQ Code Status: DNR/DNI Hospital Classification Declaration: Based on this initial evaluation, and depending on the patient's clinical course, I anticipate that this patient will require hospitalization for 1-2 days for abscess, lung mass and close respiratory/hemodynamic monitoring. Disposition: Once the patient is stable to leave the hospital, I anticipate the patient will likely be discharged to the following environment: back to SNF Discussed with patient/family, nursing staff, SW/CM, ID, surgery, pulm regarding clinical status, treatment course, and disposition planning. D/w pulm re lung mass on CT chest, biopsy, pneumothorax. D/w ID re abx. D/w pulm re worsening CXR, pneumothorax Time of note may not reflect time of encounter. Subjective Date patient seen: Jan 11, 2018 Time patient seen: 16:05 ROS Limited/Unobtainable: No Constitutional: Reports: no symptoms HEENT: Reports: no symptoms Cardiovascular: Reports: no symptoms Respiratory: Reports: no symptoms Gastrointestinal/Abdominal: Reports: no symptoms Genitourinary: Reports: no symptoms Neurologic/Psychiatric: Reports: no symptoms Endocrine: Reports: no symptoms Hematologic/Lymphatic: Reports: no symptoms Allergies: Coded Allergies: LEVOFLOXACIN (Verified Allergy, Unknown, 02/22/17) PENICILLINS (Verified Allergy, Unknown, 02/22/17) SULFA (SULFONAMIDE ANTIBIOTICS) (Verified Allergy, Unknown, 02/22/17) Subjective No acute o/n events Afebrile, HDS s/p CT guided lung biopsy yesterday --> complicated by small L apical pneumothorax s/p I&D of abscess of L perineum yesterday POD#1 CXR this AM shows slight worsening of pneumothorax O2 requirements stable, on 2L O2 Pain controlled. Denies f/c, n/v, d/c, chest pain, SOB, abd pain Objective Last 24 Hour Vital Signs Date Time Temp Pulse Resp B/P (MAP) Pulse Ox O2 Delivery O2 Flow Rate FiO2 01/11/18 15:36 86 135/70 01/11/18 13:30 86 20 96 Nasal Cannula 2.0 28 01/11/18 13:30 86 15 96 Nasal Cannula 2.0 28 01/11/18 11:40 98.4 91 18 135/70 97 Room Air 98.4 01/11/18 09:00 Nasal Cannula 01/11/18 09:00 Nasal Cannula 01/11/18 08:15 98.0 99 19 151/86 97 Room Air 98.0 01/11/18 07:42 86 19 Nasal Cannula 2.0 28 01/11/18 07:42 96 2.0 28 01/11/18 07:42 Nasal Cannula 2.0 28 01/11/18 04:00 98.4 104 20 141/80 92 Nasal Cannula 2.0 98.4 01/11/18 00:00 96.8 82 19 133/52 98 Nasal Cannula 96.8 01/10/18 21:16 Nasal Cannula 2.0 28 01/10/18 21:15 69 18 Nasal Cannula 2.0 28 01/10/18 21:15 97 Nasal Cannula 2.0 28 01/10/18 20:00 97.9 82 21 146/65 99 Nasal Cannula 3.0 97.9 Intake and Output 01/10/18 01/11/18 19:00 07:00 Intake Total 380 ml 150 ml Balance 380 ml 150 ml Intake Oral 180 ml IV Total 200 ml Tube Feeding 150 ml # Voids 1 2 Laboratory Tests 01/11/18 06:30: White Blood Count 4.6L, Red Blood Count 4.14L, Hemoglobin 11.6L, Hematocrit 36.4L, Mean Corpuscular Volume 88, Mean Corpuscular Hemoglobin 28.0, Mean Corpuscular Hemoglobin Concent 31.9L, Red Cell Distribution Width 19.5H, Platelet Count 284, Mean Platelet Volume 6.1L, Neutrophils (%) (Auto) 53.9, Lymphocytes (%) (Auto) 29.6, Monocytes (%) (Auto) 11.0H, Eosinophils (%) (Auto) 4.7H, Basophils (%) (Auto) 0.7, Sodium Level 138, Potassium Level 3.5, Chloride Level 102, Carbon Dioxide Level 27, Anion Gap 9, Blood Urea Nitrogen 18, Creatinine 1.0, Estimat Glomerular Filtration Rate , Glucose Level 96, Calcium Level 8.4L, Total Bilirubin 0.3, Aspartate Amino Transf (AST/SGOT) 31, Alanine Aminotransferase (ALT/SGPT) 18, Alkaline Phosphatase 80, Pro-B-Type Natriuretic Peptide 1470H, Total Protein 7.8, Albumin 2.5L, Globulin 5.3, Albumin/Globulin Ratio 0.5L Height (Feet): 5 Height (Inches): 4.00 Weight (Pounds): 145 Objective General: alert, cooperative, no distress, appears stated age Head: normocephalic, without obvious abnormality, atraumatic Eyes: conjunctivae/corneas clear. PERRL, EOM's intact Throat: lips, mucosa, and tongue normal. MMM Neck: supple, symmetrical, trachea midline, and no JVD Lungs: clear to auscultation bilaterally Heart: regular rate and rhythm, S1, S2 normal, no murmur, click, rub or gallop Abdomen: soft, non-tender, non-distended, bowel sounds normal Extremities: extremities normal, atraumatic, no cyanosis or edema Pulses: 2+ and symmetric Skin: Dressing c/d/i Neurologic: grossly normal, no focal deficits William Lazar M.D. Jan 11, 2018 16:10
[2018-01-11 16:13] VITALS: BP 130/84
--- NOTE | 2018-01-11 16:16 | Pulmonology Progress Note ---
Assessment/Plan Problems: (1) Lung mass (2) HTN (hypertension) (3) Left buttock abscess (4) COPD (chronic obstructive pulmonary disease) Assessment/Plan s/p lung biopsy small pneumothorax f/u biopsy results symptomatic treatment respiratory treatment med/surg DNR is appropriate. Subjective ROS Limited/Unobtainable: Yes Allergies: Coded Allergies: LEVOFLOXACIN (Verified Allergy, Unknown, 02/22/17) PENICILLINS (Verified Allergy, Unknown, 02/22/17) SULFA (SULFONAMIDE ANTIBIOTICS) (Verified Allergy, Unknown, 02/22/17) Objective Last 24 Hour Vital Signs Date Time Temp Pulse Resp B/P (MAP) Pulse Ox O2 Delivery O2 Flow Rate FiO2 01/11/18 16:13 98.6 74 19 130/84 Room Air 98.6 01/11/18 15:36 86 135/70 01/11/18 13:30 86 20 96 Nasal Cannula 2.0 28 01/11/18 13:30 86 15 96 Nasal Cannula 2.0 28 01/11/18 11:40 98.4 91 18 135/70 97 Room Air 98.4 01/11/18 09:00 Nasal Cannula 01/11/18 09:00 Nasal Cannula 01/11/18 08:15 98.0 99 19 151/86 97 Room Air 98.0 01/11/18 07:42 86 19 Nasal Cannula 2.0 28 01/11/18 07:42 96 2.0 28 01/11/18 07:42 Nasal Cannula 2.0 28 01/11/18 04:00 98.4 104 20 141/80 92 Nasal Cannula 2.0 98.4 01/11/18 00:00 96.8 82 19 133/52 98 Nasal Cannula 96.8 01/10/18 21:16 Nasal Cannula 2.0 28 01/10/18 21:15 69 18 Nasal Cannula 2.0 28 01/10/18 21:15 97 Nasal Cannula 2.0 28 01/10/18 20:00 97.9 82 21 146/65 99 Nasal Cannula 3.0 97.9 Intake and Output 01/10/18 01/11/18 19:00 07:00 Intake Total 380 ml 150 ml Balance 380 ml 150 ml Intake Oral 180 ml IV Total 200 ml Tube Feeding 150 ml # Voids 1 2 Objective General Appearance: WD/WN Lines, tubes and drains: peripheral HEENT: normocephalic, atraumatic Neck: non-tender, normal alignment Respiratory/Chest: chest wall non-tender, lungs clear, normal breath sounds Breasts: no masses Cardiovascular/Chest: normal peripheral pulses, normal rate, no JVD Abdomen: normal bowel sounds, non tender Genitourinary/Rectal: normal genital exam Extremities: normal range of motion, non-tender Skin Exam: normal pigmentation, warm/dry Laboratory Tests 01/11/18 06:30: White Blood Count 4.6L, Red Blood Count 4.14L, Hemoglobin 11.6L, Hematocrit 36.4L, Mean Corpuscular Volume 88, Mean Corpuscular Hemoglobin 28.0, Mean Corpuscular Hemoglobin Concent 31.9L, Red Cell Distribution Width 19.5H, Platelet Count 284, Mean Platelet Volume 6.1L, Neutrophils (%) (Auto) 53.9, Lymphocytes (%) (Auto) 29.6, Monocytes (%) (Auto) 11.0H, Eosinophils (%) (Auto) 4.7H, Basophils (%) (Auto) 0.7, Sodium Level 138, Potassium Level 3.5, Chloride Level 102, Carbon Dioxide Level 27, Anion Gap 9, Blood Urea Nitrogen 18, Creatinine 1.0, Estimat Glomerular Filtration Rate , Glucose Level 96, Calcium Level 8.4L, Total Bilirubin 0.3, Aspartate Amino Transf (AST/SGOT) 31, Alanine Aminotransferase (ALT/SGPT) 18, Alkaline Phosphatase 80, Pro-B-Type Natriuretic Peptide 1470H, Total Protein 7.8, Albumin 2.5L, Globulin 5.3, Albumin/Globulin Ratio 0.5L Current Medications Medications (Trade) Dose Ordered Sig/Oralia Route PRN Reason Start Time Stop Time Status Last Admin Dose Admin Acetaminophen (Tylenol) 650 mg Q4H PRN ORAL Mild Pain (Pain Scale 1-3) 01/11/18 02:15 02/07/18 18:14 Acetaminophen (Tylenol) 650 mg Q4H PRN ORAL T>100.5 01/11/18 02:15 02/07/18 18:14 Acetaminophen (Tylenol) 650 mg Q4H PRN RECTAL Mild Pain (Pain Scale 1-3) 01/11/18 02:15 02/07/18 18:14 Acetaminophen (Tylenol) 650 mg Q4H PRN RECTAL fever 01/11/18 02:15 02/07/18 18:14 Albuterol/ Ipratropium (Albuterol/ Ipratropium) 3 ml Q4H PRN HHN sob, wheezing 01/11/18 02:45 01/13/18 18:44 Aspirin (Ecotrin) 81 mg DAILY ORAL 01/11/18 09:00 02/08/18 08:59 01/11/18 09:57 Atorvastatin Calcium (Lipitor) 80 mg BEDTIME ORAL 01/11/18 21:00 02/07/18 20:59 Aztreonam 1 gm/ Dextrose 55 ml @ 110 mls/hr Q8HR IVPB 01/11/18 06:00 01/15/18 22:59 01/11/18 15:33 Bisacodyl (Dulcolax) 10 mg HSPRN PRN RECTAL Constipation 01/11/18 21:00 02/07/18 20:59 Clonidine HCl (Catapres Tab) 0.1 mg Q6H PRN ORAL SBP > 160mmHg 01/11/18 00:15 02/07/18 18:14 Dextrose (Dextrose 50%) STAT PRN IV Hypoglycemia 01/11/18 18:15 02/07/18 18:14 Diltiazem HCl (Cardizem) 60 mg EVERY 8 HOURS ORAL 01/11/18 06:00 02/07/18 21:59 01/11/18 15:36 Divalproex Sodium (Depakote) 250 mg Q8HR ORAL 01/11/18 06:00 02/07/18 21:59 01/11/18 15:32 Docusate Sodium (Colace) 100 mg EVERY 12 HOURS ORAL 01/11/18 09:00 02/07/18 20:59 01/11/18 09:58 Heparin Sodium (Porcine) (Heparin 5000 units/ml) 5,000 units EVERY 12 HOURS SUBQ 01/11/18 09:00 02/07/18 20:59 01/11/18 09:59 Metronidazole (Flagyl) 500 mg Q8HR ORAL 01/11/18 06:00 01/17/18 14:59 01/11/18 15:32 Ondansetron HCl (Zofran) 4 mg Q6H PRN IVP Nausea & Vomiting 01/11/18 00:15 02/07/18 18:14 Pantoprazole (Protonix) 40 mg DAILY ORAL 01/11/18 09:00 02/08/18 08:59 01/11/18 09:57 Polyethylene Glycol (Miralax) 17 gm HSPRN PRN ORAL Constipation 01/11/18 21:00 02/07/18 20:59 Pravastatin Sodium (Pravachol) 40 mg QHS ORAL 01/11/18 21:00 02/07/18 20:59 Sucralfate (Carafate) 1 gm THREE TIMES A DAY ORAL 01/11/18 09:00 02/08/18 08:59 01/11/18 15:32 Tiotropium [place] (Spiriva Inhaler) 2 puff DAILY INH 01/11/18 09:00 02/08/18 08:59 01/11/18 13:30 Trazodone HCl (Desyrel) 25 mg HSPRN PRN ORAL insomnia 01/11/18 18:15 02/07/18 18:14 Vancomycin HCl (Vanco rx to dose) 1 ea DAILY PRN MISC Per rx protocol 01/11/18 09:00 02/07/18 18:14 Vancomycin HCl 500 mg/Dextrose 110 ml @ 110 mls/hr Q12H IVPB 01/11/18 05:00 01/15/18 16:59 Radha Strong MD Jan 11, 2018 16:16
[2018-01-11] MEDS ORDERED: TraZODone 50mg tab ORAL PRN (18:15)
[2018-01-11] MEDS ORDERED: Morphine Sulfate 2mg/ml Inj IVP PRN (19:15)
[2018-01-11 20:00] VITALS: BP 132/53
[2018-01-11] MEDS: Betadine 4oz Bottle TOPIC SCH (20:00)
[2018-01-11] MEDS: Atorvastatin 80mg tab ORAL SCH (20:28)
[2018-01-11] MEDS ORDERED: Miralax 17gm pkt ORAL PRN (21:00)
--- NOTE | 2018-01-11 21:37 | General Progress Note ---
Assessment/Plan Assessment/Plan mdd -cont trazodone -cont Depakote Subjective Allergies: Coded Allergies: LEVOFLOXACIN (Verified Allergy, Unknown, 02/22/17) PENICILLINS (Verified Allergy, Unknown, 02/22/17) SULFA (SULFONAMIDE ANTIBIOTICS) (Verified Allergy, Unknown, 02/22/17) Objective Last 24 Hour Vital Signs Date Time Temp Pulse Resp B/P (MAP) Pulse Ox O2 Delivery O2 Flow Rate FiO2 01/11/18 21:10 84 132/53 01/11/18 20:11 98 2.0 28 01/11/18 20:11 84 18 Nasal Cannula 2.0 28 01/11/18 20:11 Nasal Cannula 2.0 28 01/11/18 20:00 98.1 88 20 132/53 98 98.1 01/11/18 16:13 98.6 74 19 130/84 Room Air 98.6 01/11/18 15:36 86 135/70 01/11/18 13:30 86 20 96 Nasal Cannula 2.0 28 01/11/18 13:30 86 15 96 Nasal Cannula 2.0 28 01/11/18 11:40 98.4 91 18 135/70 97 Room Air 98.4 01/11/18 09:00 Nasal Cannula 01/11/18 09:00 Nasal Cannula 01/11/18 08:15 98.0 99 19 151/86 97 Room Air 98.0 01/11/18 07:42 86 19 Nasal Cannula 2.0 28 01/11/18 07:42 96 2.0 28 01/11/18 07:42 Nasal Cannula 2.0 28 01/11/18 04:00 98.4 104 20 141/80 92 Nasal Cannula 2.0 98.4 01/11/18 00:00 96.8 82 19 133/52 98 Nasal Cannula 96.8 Intake and Output 01/10/18 01/11/18 19:00 07:00 Intake Total 380 ml 150 ml Balance 380 ml 150 ml Intake Oral 180 ml IV Total 200 ml Tube Feeding 150 ml # Voids 1 2 Laboratory Tests 01/11/18 06:30: White Blood Count 4.6L, Red Blood Count 4.14L, Hemoglobin 11.6L, Hematocrit 36.4L, Mean Corpuscular Volume 88, Mean Corpuscular Hemoglobin 28.0, Mean Corpuscular Hemoglobin Concent 31.9L, Red Cell Distribution Width 19.5H, Platelet Count 284, Mean Platelet Volume 6.1L, Neutrophils (%) (Auto) 53.9, Lymphocytes (%) (Auto) 29.6, Monocytes (%) (Auto) 11.0H, Eosinophils (%) (Auto) 4.7H, Basophils (%) (Auto) 0.7, Sodium Level 138, Potassium Level 3.5, Chloride Level 102, Carbon Dioxide Level 27, Anion Gap 9, Blood Urea Nitrogen 18, Creatinine 1.0, Estimat Glomerular Filtration Rate , Glucose Level 96, Calcium Level 8.4L, Total Bilirubin 0.3, Aspartate Amino Transf (AST/SGOT) 31, Alanine Aminotransferase (ALT/SGPT) 18, Alkaline Phosphatase 80, Pro-B-Type Natriuretic Peptide 1470H, Total Protein 7.8, Albumin 2.5L, Globulin 5.3, Albumin/Globulin Ratio 0.5L 01/11/18 16:55: Vancomycin Level Trough 11.7 Height (Feet): 5 Height (Inches): 4.00 Weight (Pounds): 145 Mar Fernandez M.D. Jan 11, 2018 21:37
[2018-01-12] VITALS: BP 139/72
[2018-01-12 04:00] VITALS: BP 120/54
[2018-01-12] MEDS: Vancomycin 500 MG in D5W 110 ML IVPB SCH ×2 (04:35→17:41)
[2018-01-12] MEDS: dilTIAZem HCl 60mg tab ORAL SCH ×3 (05:35→21:22)
[2018-01-12] MEDS: Aztreonam Inj 1 GM in D5W 55 ML IVPB SCH ×3 (05:36→21:21)
[2018-01-12] MEDS: metroNIDAZOLE 500mg tab ORAL SCH ×3 (05:36→21:21)
[2018-01-12 07:52] LABS: BASOPHILS % (AUTO) 0.7 % (0.0-2.0); EOSINOPHILS % (AUTO) 4.5 % (0.0-3.0); HEMATOCRIT 32.2 % (37.0-47.0); HEMOGLOBIN 10.4 G/DL (12.0-16.0); LYMPHOCYTES % (AUTO) 42.9 % (20.0-45.0); MEAN CORPUSCULAR VOLUME 88 FL (80-99); MONOCYTES % (AUTO) 14.2 % (1.0-10.0); NEUTROPHILS % (AUTO) 37.8 % (45.0-75.0); PLATELET COUNT 266 K/UL (150-450); RED BLOOD COUNT 3.68 M/UL (4.20-5.40); RED CELL DISTRIBUTION WIDTH 19.5 % (11.6-14.8); WHITE BLOOD COUNT 5.2 K/UL (4.8-10.8)
[2018-01-12 08:00] VITALS: BP 118/41
[2018-01-12 08:19] LABS: ALANINE AMINOTRANSFERASE 20 U/L (12-78); ALBUMIN 2.4 G/DL (3.4-5.0); ALBUMIN/GLOBULIN RATIO 0.5 (1.0-2.7); ALKALINE PHOSPHATASE 75 U/L (46-116); ANION GAP 7 mmol/L (5-15); ASPARTATE AMINO TRANSFERASE 37 U/L (15-37); BILIRUBIN,TOTAL 0.3 MG/DL (0.2-1.0); BLOOD UREA NITROGEN 17 mg/dL (7-18); CALCIUM 8.4 MG/DL (8.5-10.1); CARBON DIOXIDE 29 MMOL/L (21-32); CHLORIDE 103 MMOL/L (98-107); CREATININE 1.1 MG/DL (0.55-1.30); POTASSIUM 4.1 MMOL/L (3.5-5.1); SODIUM 139 MMOL/L (136-145)
--- NOTE | 2018-01-12 08:26 | Pulmonology Progress Note ---
Assessment/Plan Assessment/Plan ASSESSMENT Lung mass s/p lung biopsy small PNT COPD L perineum abscess s/p I&D L perineum abscess 01/10 HTN MDD anemia of chronic disease PLAN OF CARE [facility] floor CT chest + speculated mass L lung apex, highly suspicious for malignancy s/p lung biopsy CXR postbiopsy with small PNT fup wit daily CXR, CXR today , 01/12, with decrease in size of previously demonstrated small left apical post biopsy pneumothorax, over one day O2 HHN prn Fup with biopsy results onco follows Abx ID and surgery follow wound care BP management with Cardizem continue ASA statin bowel regimen pain management supportive care DVT GI prophylaxis DNR/DNI status case discussed and evaluated by supervising physician Subjective Allergies: Coded Allergies: LEVOFLOXACIN (Verified Allergy, Unknown, 02/22/17) PENICILLINS (Verified Allergy, Unknown, 02/22/17) SULFA (SULFONAMIDE ANTIBIOTICS) (Verified Allergy, Unknown, 02/22/17) Subjective no signs of resp distress on O2 via NC sat stable Objective Last 24 Hour Vital Signs Date Time Temp Pulse Resp B/P (MAP) Pulse Ox O2 Delivery O2 Flow Rate FiO2 01/12/18 05:35 86 120/54 01/12/18 04:00 97.7 86 20 120/54 89 97.7 01/12/18 00:00 98.1 91 18 139/72 93 98.1 01/11/18 21:10 84 132/53 01/11/18 20:11 98 2.0 28 01/11/18 20:11 84 18 Nasal Cannula 2.0 28 01/11/18 20:11 Nasal Cannula 2.0 28 01/11/18 20:00 98.1 88 20 132/53 98 98.1 01/11/18 16:13 98.6 74 19 130/84 Room Air 98.6 01/11/18 15:36 86 135/70 01/11/18 13:30 86 20 96 Nasal Cannula 2.0 28 01/11/18 13:30 86 15 96 Nasal Cannula 2.0 28 01/11/18 11:40 98.4 91 18 135/70 97 Room Air 98.4 01/11/18 09:00 Nasal Cannula 01/11/18 09:00 Nasal Cannula Intake and Output 01/11/18 01/12/18 19:00 07:00 # Voids 5 3 # Bowel Movements 3 General Appearance: no acute distress HEENT: normocephalic, atraumatic, anicteric, mucous membranes moist Respiratory/Chest: no respiratory distress, no accessory muscle use, decreased breath sounds Cardiovascular: normal rate, no JVD Abdomen: normal bowel sounds, soft, non tender, non distended Extremities: no edema, pedal pulses normal Skin: other - left perineum dressing C/D/I Neurologic/Psychiatric: alert, responsive Musculoskeletal: atrophy - BLE Laboratory Tests 01/11/18 16:55: Vancomycin Level Trough 11.7 01/12/18 06:15: White Blood Count 5.2, Red Blood Count 3.68L, Hemoglobin 10.4L, Hematocrit 32.2L , Mean Corpuscular Volume 88, Mean Corpuscular Hemoglobin 28.3, Mean Corpuscular Hemoglobin Concent 32.3, Red Cell Distribution Width 19.5H, Platelet Count 266, Mean Platelet Volume 6.1L, Neutrophils (%) (Auto) 37.8L, Lymphocytes (%) (Auto) 42.9, Monocytes (%) (Auto) 14.2H, Eosinophils (%) (Auto) 4.5H, Basophils (%) (Auto) 0.7, Sodium Level 139, Potassium Level 4.1, Chloride Level 103, Carbon Dioxide Level 29, Anion Gap 7, Blood Urea Nitrogen 17, Creatinine 1.1, Estimat Glomerular Filtration Rate , Glucose Level 86, Calcium Level 8.4L, Total Bilirubin 0.3, Aspartate Amino Transf (AST/SGOT) 37, Alanine Aminotransferase (ALT/SGPT) 20, Alkaline Phosphatase 75, Pro-B-Type Natriuretic Peptide 2361H, Total Protein 7.6, Albumin 2.4L, Globulin 5.2, Albumin/Globulin Ratio 0.5L Current Medications Medications (Trade) Dose Ordered Sig/Oralia Route PRN Reason Start Time Stop Time Status Last Admin Dose Admin Acetaminophen (Tylenol) 650 mg Q4H PRN ORAL Mild Pain (Pain Scale 1-3) 01/11/18 02:15 02/07/18 18:14 Acetaminophen (Tylenol) 650 mg Q4H PRN ORAL T>100.5 01/11/18 02:15 02/07/18 18:14 Acetaminophen (Tylenol) 650 mg Q4H PRN RECTAL Mild Pain (Pain Scale 1-3) 01/11/18 02:15 02/07/18 18:14 Acetaminophen (Tylenol) 650 mg Q4H PRN RECTAL fever 01/11/18 02:15 02/07/18 18:14 Albuterol/ Ipratropium (Albuterol/ Ipratropium) 3 ml Q4H PRN HHN sob, wheezing 01/11/18 02:45 01/13/18 18:44 Aspirin (Ecotrin) 81 mg DAILY ORAL 01/11/18 09:00 02/08/18 08:59 01/11/18 09:57 Atorvastatin Calcium (Lipitor) 80 mg BEDTIME ORAL 01/11/18 21:00 02/07/18 20:59 01/11/18 20:28 Aztreonam 1 gm/ Dextrose 55 ml @ 110 mls/hr Q8HR IVPB 01/11/18 06:00 01/15/18 22:59 01/12/18 05:36 Bisacodyl (Dulcolax) 10 mg HSPRN PRN RECTAL Constipation 01/11/18 21:00 02/07/18 20:59 Clonidine HCl (Catapres Tab) 0.1 mg Q6H PRN ORAL SBP > 160mmHg 01/11/18 00:15 02/07/18 18:14 Dextrose (Dextrose 50%) STAT PRN IV Hypoglycemia 01/11/18 18:15 02/07/18 18:14 Diltiazem HCl (Cardizem) 60 mg EVERY 8 HOURS ORAL 01/11/18 06:00 02/07/18 21:59 01/12/18 05:35 Divalproex Sodium (Depakote) 250 mg Q8HR ORAL 01/11/18 06:00 02/07/18 21:59 01/12/18 05:36 Docusate Sodium (Colace) 100 mg EVERY 12 HOURS ORAL 01/11/18 09:00 02/07/18 20:59 01/11/18 20:26 Heparin Sodium (Porcine) (Heparin 5000 units/ml) 5,000 units EVERY 12 HOURS SUBQ 01/11/18 09:00 02/07/18 20:59 01/11/18 20:30 Metronidazole (Flagyl) 500 mg Q8HR ORAL 01/11/18 06:00 01/17/18 14:59 01/12/18 05:36 Morphine Sulfate (Morphine Sulfate) 2 mg DAILYPRN PRN IVP Severe Pain due to Dressing Ch 01/11/18 19:15 01/18/18 19:14 Ondansetron HCl (Zofran) 4 mg Q6H PRN IVP Nausea & Vomiting 01/11/18 00:15 02/07/18 18:14 Pantoprazole (Protonix) 40 mg DAILY ORAL 01/11/18 09:00 02/08/18 08:59 01/11/18 09:57 Polyethylene Glycol (Miralax) 17 gm HSPRN PRN ORAL Constipation 01/11/18 21:00 02/07/18 20:59 Povidone Iodine (Betadine Sofiya) 1 applic DAILY@2000 TOPIC 01/11/18 20:00 02/10/18 19:59 Pravastatin Sodium (Pravachol) 40 mg QHS ORAL 01/11/18 21:00 02/07/18 20:59 01/11/18 21:10 Sucralfate (Carafate) 1 gm THREE TIMES A DAY ORAL 01/11/18 09:00 02/08/18 08:59 01/11/18 18:29 Tiotropium [place] (Spiriva Inhaler) 2 puff DAILY INH 01/11/18 09:00 02/08/18 08:59 01/11/18 13:30 Trazodone HCl (Desyrel) 25 mg HSPRN PRN ORAL insomnia 01/11/18 18:15 02/07/18 18:14 Vancomycin HCl (Vanco rx to dose) 1 ea DAILY PRN MISC Per rx protocol 01/11/18 09:00 02/07/18 18:14 Vancomycin HCl 500 mg/Dextrose 110 ml @ 110 mls/hr Q12H IVPB 01/11/18 05:00 01/15/18 16:59 01/12/18 04:35 Abdirizak Ding)Dunia NP Jan 12, 2018 08:26
[2018-01-12] MEDS: Sucralfate 1gm tab ORAL SCH ×3 (08:44→17:43)
[2018-01-12] MEDS: Docusate 100mg cap ORAL SCH ×2 (08:44→20:07)
[2018-01-12] MEDS: Aspirin EC 81mg tab ORAL SCH (08:44)
[2018-01-12] MEDS: Heparin 5000 units/ml inj SUBQ SCH ×2 (08:45→20:09)
--- NOTE | 2018-01-12 09:56 | Diagnostic Imaging Report ---
Indication: Dyspnea Technique: One view of the chest Comparison: 01/11/2018 Findings: Previously demonstrated left apical pneumothorax appears smaller. Left upper lobe lung mass remains. The remainder the lungs and pleural spaces are clear. The heart size is upper limits of normal Impression: Interim decrease in size of previously demonstrated small left apical post biopsy pneumothorax, over one day Other findings as noted
[2018-01-12 12:00] VITALS: BP 131/68
[2018-01-12] MEDS ORDERED: Albuterol/Ipratropium 3ml neb HHN PRN (14:45)
--- NOTE | 2018-01-12 15:03 | General Progress Note ---
Assessment/Plan Problem List: (1) Left buttock abscess ICD Codes: L02.31 - Cutaneous abscess of buttock SNOMED: 35334454 (2) Pneumothorax after biopsy Assessment & Plan: Small apical L pneumothorax after CT guided lung biopsy on ICD Codes: J95.811 - Postprocedural pneumothorax SNOMED: 32312041, 34556826 (3) Lung mass ICD Codes: R91.8 - Other nonspecific abnormal finding of lung field SNOMED: 515895183 (4) COPD (chronic obstructive pulmonary disease) ICD Codes: J44.9 - Chronic obstructive pulmonary disease, unspecified SNOMED: 83437745 (5) HLD (hyperlipidemia) ICD Codes: E78.5 - Hyperlipidemia, unspecified SNOMED: 39653312 (6) Anemia of chronic disease ICD Codes: D63.8 - Anemia in other chronic diseases classified elsewhere SNOMED: 572728297 (7) Bipolar disorder ICD Codes: F31.9 - Bipolar disorder, unspecified SNOMED: 43524555 (8) Dementia ICD Codes: F03.90 - Unspecified dementia without behavioral disturbance SNOMED: 26040579 Status: stable Assessment/Plan Surgery and ID consulted s/p I&D on 01/10/18 F/u OR cultures Empiric vanco, aztreonam, flagyl for broad-coverage per ID --> clindamycin 300mg QID on d/c to complete 7d course Pulm consulted given lung mass on CXR Check CT chest w/ contrast --> 3.4 x 2.4 x 2.9 cm spiculated mass in the left lung apex, abutting the pleural surface superiorly. Appearance highly suspicious for primary pulmonary malignancy s/p CT guided lung biopsy on 01/10/18 --> procedure complicated by small L apical pneumothorax Monitor CXR --> slightly worsening of pneumothorax on CXR this AM. Repeat CXR later this afternoon and again in AM. Per radiologist, it is not big enough for chest tube. Monitor O2 requirements O2 as needed F/u pathology from lug biopsy Pt states if cancer has spread, would want comfort measures Heme/onc consulted Cont SNF meds Pain control, bowel regimen Supportive care DC likely tomorrow per pulm if CXR stable or w/ continued improvement DVT Prophylaxis: SCD, HSQ Code Status: DNR/DNI Hospital Classification Declaration: Based on this initial evaluation, and depending on the patient's clinical course, I anticipate that this patient will require hospitalization for 1-2 days for abscess, lung mass and close respiratory/hemodynamic monitoring. Disposition: Once the patient is stable to leave the hospital, I anticipate the patient will likely be discharged to the following environment: back to SNF Discussed with patient/family, nursing staff, SW/CM, ID, surgery, pulm regarding clinical status, treatment course, and disposition planning. D/w pulm re lung mass on CT chest, biopsy, pneumothorax. D/w ID re abx. D/w pulm re CXR, pneumothorax Time of note may not reflect time of encounter. Subjective Date patient seen: Jan 12, 2018 Time patient seen: 15:03 ROS Limited/Unobtainable: No Constitutional: Reports: no symptoms HEENT: Reports: no symptoms Cardiovascular: Reports: no symptoms Respiratory: Reports: no symptoms Gastrointestinal/Abdominal: Reports: no symptoms Genitourinary: Reports: no symptoms Neurologic/Psychiatric: Reports: no symptoms Endocrine: Reports: no symptoms Hematologic/Lymphatic: Reports: no symptoms Allergies: Coded Allergies: LEVOFLOXACIN (Verified Allergy, Unknown, 02/22/17) PENICILLINS (Verified Allergy, Unknown, 02/22/17) SULFA (SULFONAMIDE ANTIBIOTICS) (Verified Allergy, Unknown, 02/22/17) Subjective No acute o/n events Afebrile, HDS s/p CT guided lung biopsy on 01/10 --> complicated by small L apical pneumothorax s/p I&D of abscess of L perineum POD#2 CXR this AM shows decrease in size of pneumothorax Pain controlled. Denies f/c, n/v, d/c, chest pain, SOB, abd pain Objective Last 24 Hour Vital Signs Date Time Temp Pulse Resp B/P (MAP) Pulse Ox O2 Delivery O2 Flow Rate FiO2 01/12/18 14:09 84 135/90 01/12/18 12:00 97.9 85 18 131/68 97 Nasal Cannula 2.0 97.9 01/12/18 09:16 84 16 97 Nasal Cannula 2.0 28 01/12/18 09:15 Nasal Cannula 2.0 28 01/12/18 09:15 84 16 Nasal Cannula 2.0 28 01/12/18 09:15 97 2.0 28 01/12/18 09:14 84 16 97 Nasal Cannula 2.0 28 01/12/18 08:00 98.2 75 18 118/41 95 Nasal Cannula 2.0 98.2 01/12/18 05:35 86 120/54 01/12/18 04:00 97.7 86 20 120/54 89 97.7 01/12/18 00:00 98.1 91 18 139/72 93 98.1 01/11/18 21:10 84 132/53 01/11/18 20:11 98 2.0 28 01/11/18 20:11 84 18 Nasal Cannula 2.0 28 01/11/18 20:11 Nasal Cannula 2.0 28 01/11/18 20:00 98.1 88 20 132/53 98 98.1 01/11/18 16:13 98.6 74 19 130/84 Room Air 98.6 01/11/18 15:36 86 135/70 Intake and Output 01/11/18 01/12/18 19:00 07:00 # Voids 5 3 # Bowel Movements 3 Laboratory Tests 01/11/18 16:55: Vancomycin Level Trough 11.7 01/12/18 06:15: White Blood Count 5.2, Red Blood Count 3.68L, Hemoglobin 10.4L, Hematocrit 32.2L , Mean Corpuscular Volume 88, Mean Corpuscular Hemoglobin 28.3, Mean Corpuscular Hemoglobin Concent 32.3, Red Cell Distribution Width 19.5H, Platelet Count 266, Mean Platelet Volume 6.1L, Neutrophils (%) (Auto) 37.8L, Lymphocytes (%) (Auto) 42.9, Monocytes (%) (Auto) 14.2H, Eosinophils (%) (Auto) 4.5H, Basophils (%) (Auto) 0.7, Sodium Level 139, Potassium Level 4.1, Chloride Level 103, Carbon Dioxide Level 29, Anion Gap 7, Blood Urea Nitrogen 17, Creatinine 1.1, Estimat Glomerular Filtration Rate , Glucose Level 86, Calcium Level 8.4L, Total Bilirubin 0.3, Aspartate Amino Transf (AST/SGOT) 37, Alanine Aminotransferase (ALT/SGPT) 20, Alkaline Phosphatase 75, Pro-B-Type Natriuretic Peptide 2361H, Total Protein 7.6, Albumin 2.4L, Globulin 5.2, Albumin/Globulin Ratio 0.5L Height (Feet): 5 Height (Inches): 4.00 Weight (Pounds): 145 Objective General: alert, cooperative, no distress, appears stated age Head: normocephalic, without obvious abnormality, atraumatic Eyes: conjunctivae/corneas clear. PERRL, EOM's intact Throat: lips, mucosa, and tongue normal. MMM Neck: supple, symmetrical, trachea midline, and no JVD Lungs: clear to auscultation bilaterally Heart: regular rate and rhythm, S1, S2 normal, no murmur, click, rub or gallop Abdomen: soft, non-tender, non-distended, bowel sounds normal Extremities: extremities normal, atraumatic, no cyanosis or edema Pulses: 2+ and symmetric Skin: Dressing c/d/i Neurologic: grossly normal, no focal deficits William Lazar M.D. Jan 12, 2018 15:03
--- NOTE | 2018-01-12 15:08 | General Progress Note ---
Assessment/Plan Assessment/Plan mdd -cont trazodone -cont Depakote Subjective Neurologic/Psychiatric: Reports: anxiety, depressed, emotional problems Allergies: Coded Allergies: LEVOFLOXACIN (Verified Allergy, Unknown, 02/22/17) PENICILLINS (Verified Allergy, Unknown, 02/22/17) SULFA (SULFONAMIDE ANTIBIOTICS) (Verified Allergy, Unknown, 02/22/17) Objective Last 24 Hour Vital Signs Date Time Temp Pulse Resp B/P (MAP) Pulse Ox O2 Delivery O2 Flow Rate FiO2 01/12/18 14:09 84 135/90 01/12/18 12:00 97.9 85 18 131/68 97 Nasal Cannula 2.0 97.9 01/12/18 09:16 84 16 97 Nasal Cannula 2.0 28 01/12/18 09:15 Nasal Cannula 2.0 28 01/12/18 09:15 84 16 Nasal Cannula 2.0 28 01/12/18 09:15 97 2.0 28 01/12/18 09:14 84 16 97 Nasal Cannula 2.0 28 01/12/18 08:00 98.2 75 18 118/41 95 Nasal Cannula 2.0 98.2 01/12/18 05:35 86 120/54 01/12/18 04:00 97.7 86 20 120/54 89 97.7 01/12/18 00:00 98.1 91 18 139/72 93 98.1 01/11/18 21:10 84 132/53 01/11/18 20:11 98 2.0 28 01/11/18 20:11 84 18 Nasal Cannula 2.0 28 01/11/18 20:11 Nasal Cannula 2.0 28 01/11/18 20:00 98.1 88 20 132/53 98 98.1 01/11/18 16:13 98.6 74 19 130/84 Room Air 98.6 01/11/18 15:36 86 135/70 Intake and Output 01/11/18 01/12/18 19:00 07:00 # Voids 5 3 # Bowel Movements 3 Laboratory Tests 01/11/18 16:55: Vancomycin Level Trough 11.7 01/12/18 06:15: White Blood Count 5.2, Red Blood Count 3.68L, Hemoglobin 10.4L, Hematocrit 32.2L , Mean Corpuscular Volume 88, Mean Corpuscular Hemoglobin 28.3, Mean Corpuscular Hemoglobin Concent 32.3, Red Cell Distribution Width 19.5H, Platelet Count 266, Mean Platelet Volume 6.1L, Neutrophils (%) (Auto) 37.8L, Lymphocytes (%) (Auto) 42.9, Monocytes (%) (Auto) 14.2H, Eosinophils (%) (Auto) 4.5H, Basophils (%) (Auto) 0.7, Sodium Level 139, Potassium Level 4.1, Chloride Level 103, Carbon Dioxide Level 29, Anion Gap 7, Blood Urea Nitrogen 17, Creatinine 1.1, Estimat Glomerular Filtration Rate , Glucose Level 86, Calcium Level 8.4L, Total Bilirubin 0.3, Aspartate Amino Transf (AST/SGOT) 37, Alanine Aminotransferase (ALT/SGPT) 20, Alkaline Phosphatase 75, Pro-B-Type Natriuretic Peptide 2361H, Total Protein 7.6, Albumin 2.4L, Globulin 5.2, Albumin/Globulin Ratio 0.5L Height (Feet): 5 Height (Inches): 4.00 Weight (Pounds): 145 General Appearance: WD/WN, no apparent distress Mar Fernandez M.D. Jan 12, 2018 15:08
--- NOTE | 2018-01-12 15:39 | Infectious Diseases Prog Note ---
Assessment/Plan Assessment/Plan ASSESSMENT AND PLAN: 1. The patient has left buttock/perineal abscess and cellulitis. - s/p I/D, clinically stable - check wound culture - vancomycin, aztreonam and flagyl - can discharge on oral clindamycin 300 mg po qid x 4 days - d/w Dr. Thomas 2. Possible lung malignancy, primary, pneumothorax on chest x-ray - per primary and hem/onc 3. Anemia. 4. Atrial fibrillation. 5. Hypertension. 6. CAD. 7. Gastrointestinal disease. 8. Encephalopathy. 9. History of angioplasty and stents. 10. History of cholecystectomy and hysterectomy. 11. Allergies to Levaquin, penicillin, and sulfa. 12. Family history is noncontributory. 13. Social history is negative. 14. Case was discussed with RN. 15. MAR was noted. 16. Continue treatment with primary including Dr. Thomas and consultants. 17. Case was discussed with Dr. Thomas. Subjective Constitutional: Denies: fever HEENT: Denies: congestion Respiratory: Denies: shortness of breath Cardiovascular: Denies: chest pain Gastrointestinal/Abdominal: Denies: nausea, vomiting, diarrhea Genitourinary: Reports: other - no garrett Neurologic: Denies: headache Psychiatric: Denies: depression Skin: Denies: rash Hematologic: Denies: bleeding Musculoskeletal: Denies: pain Allergies: Coded Allergies: LEVOFLOXACIN (Verified Allergy, Unknown, 02/22/17) PENICILLINS (Verified Allergy, Unknown, 02/22/17) SULFA (SULFONAMIDE ANTIBIOTICS) (Verified Allergy, Unknown, 02/22/17) Objective Vital Signs Last 24 Hour Vital Signs Date Time Temp Pulse Resp B/P (MAP) Pulse Ox O2 Delivery O2 Flow Rate FiO2 01/12/18 14:09 84 135/90 01/12/18 12:00 97.9 85 18 131/68 97 Nasal Cannula 2.0 97.9 01/12/18 09:16 84 16 97 Nasal Cannula 2.0 28 01/12/18 09:15 Nasal Cannula 2.0 28 01/12/18 09:15 84 16 Nasal Cannula 2.0 28 01/12/18 09:15 97 2.0 28 01/12/18 09:14 84 16 97 Nasal Cannula 2.0 28 01/12/18 08:00 98.2 75 18 118/41 95 Nasal Cannula 2.0 98.2 01/12/18 05:35 86 120/54 01/12/18 04:00 97.7 86 20 120/54 89 97.7 01/12/18 00:00 98.1 91 18 139/72 93 98.1 01/11/18 21:10 84 132/53 01/11/18 20:11 98 2.0 28 01/11/18 20:11 84 18 Nasal Cannula 2.0 28 01/11/18 20:11 Nasal Cannula 2.0 28 01/11/18 20:00 98.1 88 20 132/53 98 98.1 01/11/18 16:13 98.6 74 19 130/84 Room Air 98.6 Height (Feet): 5 Height (Inches): 4.00 Weight (Pounds): 145 General Appearance: no acute distress HEENT: normocephalic, atraumatic, anicteric, mucous membranes moist Respiratory/Chest: lungs clear, normal breath sounds, no respiratory distress, no accessory muscle use Cardiovascular: normal rate, regular rhythm, no gallop/murmur, no JVD Abdomen: normal bowel sounds, soft, non tender, no organomegaly, non distended Genitourinary: other - no garrett Extremities: no cyanosis Skin: no rash, other - left buttock abscess/wound drained, no cellulitis 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 Recommend follow- up radiograph in the morning Findings discussed by phone with Dr. Thomas at the time of interpretation Microbiology Date/Time Source Procedure Growth Status 01/08/18 13:10 Blood Blood Culture - Preliminary NO GROWTH AFTER 72 HOURS Resulted Laboratory Tests Test 01/11/18 16:55 01/12/18 06:15 Vancomycin Level Trough 11.7 ug/mL (5.0-12.0) White Blood Count 5.2 K/UL (4.8-10.8) Red Blood Count 3.68 M/UL (4.20-5.40) L Hemoglobin 10.4 G/DL (12.0-16.0) L Hematocrit 32.2 % (37.0-47.0) L Mean Corpuscular Volume 88 FL (80-99) Mean Corpuscular Hemoglobin 28.3 PG (27.0-31.0) Mean Corpuscular Hemoglobin Concent 32.3 G/DL (32.0-36.0) Red Cell Distribution Width 19.5 % (11.6-14.8) H Platelet Count 266 K/UL (150-450) Mean Platelet Volume 6.1 FL (6.5-10.1) L Neutrophils (%) (Auto) 37.8 % (45.0-75.0) L Lymphocytes (%) (Auto) 42.9 % (20.0-45.0) Monocytes (%) (Auto) 14.2 % (1.0-10.0) H Eosinophils (%) (Auto) 4.5 % (0.0-3.0) H Basophils (%) (Auto) 0.7 % (0.0-2.0) Sodium Level 139 MMOL/L (136-145) Potassium Level 4.1 MMOL/L (3.5-5.1) Chloride Level 103 MMOL/L (98-107) Carbon Dioxide Level 29 MMOL/L (21-32) Anion Gap 7 mmol/L (5-15) Blood Urea Nitrogen 17 mg/dL (7-18) Creatinine 1.1 MG/DL (0.55-1.30) Estimat Glomerular Filtration Rate mL/min (>60) Glucose Level 86 MG/DL (74-106) Calcium Level 8.4 MG/DL (8.5-10.1) L Total Bilirubin 0.3 MG/DL (0.2-1.0) Aspartate Amino Transf (AST/SGOT) 37 U/L (15-37) Alanine Aminotransferase (ALT/SGPT) 20 U/L (12-78) Alkaline Phosphatase 75 U/L (46-116) Pro-B-Type Natriuretic Peptide 2361 pg/mL (0-125) H Total Protein 7.6 G/DL (6.4-8.2) Albumin 2.4 G/DL (3.4-5.0) L Globulin 5.2 g/dL Albumin/Globulin Ratio 0.5 (1.0-2.7) L Current Medications Medications (Trade) Dose Ordered Sig/Oralia Route PRN Reason Start Time Stop Time Status Last Admin Dose Admin Acetaminophen (Tylenol) 650 mg Q4H PRN ORAL Mild Pain (Pain Scale 1-3) 01/11/18 02:15 02/07/18 18:14 Acetaminophen (Tylenol) 650 mg Q4H PRN ORAL T>100.5 01/11/18 02:15 02/07/18 18:14 Acetaminophen (Tylenol) 650 mg Q4H PRN RECTAL Mild Pain (Pain Scale 1-3) 01/11/18 02:15 02/07/18 18:14 Acetaminophen (Tylenol) 650 mg Q4H PRN RECTAL fever 01/11/18 02:15 02/07/18 18:14 Albuterol/ Ipratropium (Albuterol/ Ipratropium) 3 ml Q4H PRN HHN sob, wheezing 01/12/18 14:45 01/14/18 14:45 Aspirin (Ecotrin) 81 mg DAILY ORAL 01/11/18 09:00 02/08/18 08:59 01/12/18 08:44 Atorvastatin Calcium (Lipitor) 80 mg BEDTIME ORAL 01/11/18 21:00 02/07/18 20:59 01/11/18 20:28 Aztreonam 1 gm/ Dextrose 55 ml @ 110 mls/hr Q8HR IVPB 01/11/18 06:00 01/15/18 22:59 01/12/18 14:11 Bisacodyl (Dulcolax) 10 mg HSPRN PRN RECTAL Constipation 01/11/18 21:00 02/07/18 20:59 Clonidine HCl (Catapres Tab) 0.1 mg Q6H PRN ORAL SBP > 160mmHg 01/11/18 00:15 02/07/18 18:14 Dextrose (Dextrose 50%) STAT PRN IV Hypoglycemia 01/11/18 18:15 02/07/18 18:14 Diltiazem HCl (Cardizem) 60 mg EVERY 8 HOURS ORAL 01/11/18 06:00 02/07/18 21:59 01/12/18 14:09 Divalproex Sodium (Depakote) 250 mg Q8HR ORAL 01/11/18 06:00 02/07/18 21:59 01/12/18 14:09 Docusate Sodium (Colace) 100 mg EVERY 12 HOURS ORAL 01/11/18 09:00 02/07/18 20:59 01/12/18 08:44 Heparin Sodium (Porcine) (Heparin 5000 units/ml) 5,000 units EVERY 12 HOURS SUBQ 01/11/18 09:00 02/07/18 20:59 01/12/18 08:45 Metronidazole (Flagyl) 500 mg Q8HR ORAL 01/11/18 06:00 01/17/18 14:59 01/12/18 14:09 Morphine Sulfate (Morphine Sulfate) 2 mg DAILYPRN PRN IVP Severe Pain due to Dressing Ch 01/11/18 19:15 01/18/18 19:14 Ondansetron HCl (Zofran) 4 mg Q6H PRN IVP Nausea & Vomiting 01/11/18 00:15 02/07/18 18:14 Pantoprazole (Protonix) 40 mg DAILY ORAL 01/11/18 09:00 02/08/18 08:59 01/12/18 08:44 Polyethylene Glycol (Miralax) 17 gm HSPRN PRN ORAL Constipation 01/11/18 21:00 02/07/18 20:59 Povidone Iodine (Betadine Sofiya) 1 applic DAILY@2000 TOPIC 01/11/18 20:00 02/10/18 19:59 Pravastatin Sodium (Pravachol) 40 mg QHS ORAL 01/11/18 21:00 02/07/18 20:59 01/11/18 21:10 Sucralfate (Carafate) 1 gm THREE TIMES A DAY ORAL 01/11/18 09:00 02/08/18 08:59 01/12/18 14:09 Tiotropium [place] (Spiriva Inhaler) 2 puff DAILY INH 01/11/18 09:00 02/08/18 08:59 01/12/18 09:13 Trazodone HCl (Desyrel) 25 mg HSPRN PRN ORAL insomnia 01/11/18 18:15 02/07/18 18:14 Vancomycin HCl (Vanco rx to dose) 1 ea DAILY PRN MISC Per rx protocol 01/11/18 09:00 02/07/18 18:14 Vancomycin HCl 500 mg/Dextrose 110 ml @ 110 mls/hr Q12H IVPB 01/11/18 05:00 01/15/18 16:59 01/12/18 04:35 HIREN VAZ Jan 12, 2018 15:39
[2018-01-12 16:00] VITALS: BP 139/79
[2018-01-12] MEDS ORDERED: CLINDAMYCIN HC300 MG ORAL (17:51)
[2018-01-12 20:00] VITALS: BP 149/74
[2018-01-12] MEDS: Atorvastatin 80mg tab ORAL SCH (20:05)
[2018-01-12] MEDS: Betadine 4oz Bottle TOPIC SCH (20:08)
--- NOTE | 2018-01-12 23:56 | General Progress Note ---
Assessment/Plan Assessment/Plan 1. A 3.4 x 3 x 3 spiculated left lung mass abutting the pleural superior surface , highly suspicious for malignancy. 2. Potential soft tissue fullness in the left hilar region. --> At this time, the patient is status post lung biopsy with a small pneumothorax, has been seen by Dr. Strong. --> Procedure performed today. 3. Anemia of chronic disease. --> Continue to closely monitor for improvement. --> Currently stable. Hemoglobin at approximately 10 to 11. 4. Right buttocks abscess. --> Currently is on antibiotics, broad spectrum. --> Monitor per surgical team. 5. Bipolar disorder. Psychiatry Service evaluation. 6. Multiple antibiotic allergies have been noted. Subjective Date patient seen: Jan 11, 2018 Constitutional: Denies: no symptoms, chills, diaphoresis, fever, malaise, weakness, other HEENT: Denies: no symptoms, eye pain, blurred vision, tearing, double vision, ear pain, ear discharge, nose pain, nose congestion, throat pain, throat swelling, mouth pain, mouth swelling, other Cardiovascular: Denies: no symptoms, chest pain, edema, irregular heart rate, lightheadedness, palpitations, syncope, other Respiratory: Denies: no symptoms, cough, orthopnea, shortness of breath, SOB with excertion, SOB at rest, sputum, stridor, wheezing, other Gastrointestinal/Abdominal: Denies: no symptoms, abdomen distended, abdominal pain, black stools, tarry stools, blood in stool, constipated, diarrhea, difficulty swallowing, nausea, poor appetite, poor fluid intake, rectal bleeding , vomiting, other Genitourinary: Denies: no symptoms, burning, discharge, frequency, flank pain, hematuria, incontinence, pain, urgency, other Neurologic/Psychiatric: Denies: no symptoms, anxiety, depressed, emotional problems, headache, numbness, paresthesia, pre-existing deficit, seizure, tingling, tremors, weakness, other Hematologic/Lymphatic: Reports: anemia Allergies: Coded Allergies: LEVOFLOXACIN (Verified Allergy, Unknown, 02/22/17) PENICILLINS (Verified Allergy, Unknown, 02/22/17) SULFA (SULFONAMIDE ANTIBIOTICS) (Verified Allergy, Unknown, 02/22/17) Subjective On antibiotics. H/H stable Objective Last 24 Hour Vital Signs Date Time Temp Pulse Resp B/P (MAP) Pulse Ox O2 Delivery O2 Flow Rate FiO2 01/12/18 21:22 78 149/74 01/12/18 20:00 98.1 78 21 149/74 97 Nasal Cannula 2.0 98.1 01/12/18 19:41 97 2.0 28 01/12/18 19:41 Nasal Cannula 2.0 28 01/12/18 19:41 75 18 Nasal Cannula 2.0 28 01/12/18 16:00 97.7 93 18 139/79 95 Nasal Cannula 2.0 97.7 01/12/18 14:09 84 135/90 01/12/18 12:00 97.9 85 18 131/68 97 Nasal Cannula 2.0 97.9 01/12/18 09:16 84 16 97 Nasal Cannula 2.0 28 01/12/18 09:15 Nasal Cannula 2.0 28 01/12/18 09:15 84 16 Nasal Cannula 2.0 28 01/12/18 09:15 97 2.0 28 01/12/18 09:14 84 16 97 Nasal Cannula 2.0 28 01/12/18 08:00 98.2 75 18 118/41 95 Nasal Cannula 2.0 98.2 01/12/18 05:35 86 120/54 01/12/18 04:00 97.7 86 20 120/54 89 97.7 01/12/18 00:00 98.1 91 18 139/72 93 98.1 Intake and Output 01/11/18 01/12/18 19:00 07:00 # Voids 5 3 # Bowel Movements 3 Laboratory Tests 01/12/18 06:15: White Blood Count 5.2, Red Blood Count 3.68L, Hemoglobin 10.4L, Hematocrit 32.2L , Mean Corpuscular Volume 88, Mean Corpuscular Hemoglobin 28.3, Mean Corpuscular Hemoglobin Concent 32.3, Red Cell Distribution Width 19.5H, Platelet Count 266, Mean Platelet Volume 6.1L, Neutrophils (%) (Auto) 37.8L, Lymphocytes (%) (Auto) 42.9, Monocytes (%) (Auto) 14.2H, Eosinophils (%) (Auto) 4.5H, Basophils (%) (Auto) 0.7, Sodium Level 139, Potassium Level 4.1, Chloride Level 103, Carbon Dioxide Level 29, Anion Gap 7, Blood Urea Nitrogen 17, Creatinine 1.1, Estimat Glomerular Filtration Rate , Glucose Level 86, Calcium Level 8.4L, Total Bilirubin 0.3, Aspartate Amino Transf (AST/SGOT) 37, Alanine Aminotransferase (ALT/SGPT) 20, Alkaline Phosphatase 75, Pro-B-Type Natriuretic Peptide 2361H, Total Protein 7.6, Albumin 2.4L, Globulin 5.2, Albumin/Globulin Ratio 0.5L Height (Feet): 5 Height (Inches): 4.00 Weight (Pounds): 145 Respiratory/Chest: decreased breath sounds Abdomen: soft Edema: trace edema Clevelnad Guan MD Jan 12, 2018 23:56
--- NOTE | 2018-01-12 23:58 | General Progress Note ---
Assessment/Plan Assessment/Plan 1. A 3.4 x 3 x 3 spiculated left lung mass abutting the pleural superior surface , highly suspicious for malignancy. 2. Potential soft tissue fullness in the left hilar region. --> At this time, the patient is status post lung biopsy with a small pneumothorax, has been seen by Dr. Strong. --> Procedure performed today. 3. Anemia of chronic disease. --> Continue to closely monitor for improvement. --> Currently stable. Hemoglobin at approximately 10 to 11. --> Blood transfusion not required at this time 4. Right buttocks abscess. --> Currently is on antibiotics, broad spectrum. --> Monitor per surgical team. 5. Bipolar disorder. Psychiatry Service evaluation. 6. Multiple antibiotic allergies have been noted. Subjective Date patient seen: Jan 12, 2018 Constitutional: Denies: no symptoms, chills, diaphoresis, fever, malaise, weakness, other HEENT: Denies: no symptoms, eye pain, blurred vision, tearing, double vision, ear pain, ear discharge, nose pain, nose congestion, throat pain, throat swelling, mouth pain, mouth swelling, other Cardiovascular: Denies: no symptoms, chest pain, edema, irregular heart rate, lightheadedness, palpitations, syncope, other Respiratory: Denies: no symptoms, cough, orthopnea, shortness of breath, SOB with excertion, SOB at rest, sputum, stridor, wheezing, other Gastrointestinal/Abdominal: Denies: no symptoms, abdomen distended, abdominal pain, black stools, tarry stools, blood in stool, constipated, diarrhea, difficulty swallowing, nausea, poor appetite, poor fluid intake, rectal bleeding , vomiting, other Genitourinary: Denies: no symptoms, burning, discharge, frequency, flank pain, hematuria, incontinence, pain, urgency, other Neurologic/Psychiatric: Denies: no symptoms, anxiety, depressed, emotional problems, headache, numbness, paresthesia, pre-existing deficit, seizure, tingling, tremors, weakness, other Hematologic/Lymphatic: Reports: anemia Allergies: Coded Allergies: LEVOFLOXACIN (Verified Allergy, Unknown, 02/22/17) PENICILLINS (Verified Allergy, Unknown, 02/22/17) SULFA (SULFONAMIDE ANTIBIOTICS) (Verified Allergy, Unknown, 02/22/17) Subjective On antibiotics. H/H stable. NAD. No fever Objective Last 24 Hour Vital Signs Date Time Temp Pulse Resp B/P (MAP) Pulse Ox O2 Delivery O2 Flow Rate FiO2 01/12/18 21:22 78 149/74 01/12/18 20:00 98.1 78 21 149/74 97 Nasal Cannula 2.0 98.1 01/12/18 19:41 97 2.0 28 01/12/18 19:41 Nasal Cannula 2.0 28 01/12/18 19:41 75 18 Nasal Cannula 2.0 28 01/12/18 16:00 97.7 93 18 139/79 95 Nasal Cannula 2.0 97.7 01/12/18 14:09 84 135/90 01/12/18 12:00 97.9 85 18 131/68 97 Nasal Cannula 2.0 97.9 01/12/18 09:16 84 16 97 Nasal Cannula 2.0 28 01/12/18 09:15 Nasal Cannula 2.0 28 01/12/18 09:15 84 16 Nasal Cannula 2.0 28 01/12/18 09:15 97 2.0 28 01/12/18 09:14 84 16 97 Nasal Cannula 2.0 28 01/12/18 08:00 98.2 75 18 118/41 95 Nasal Cannula 2.0 98.2 01/12/18 05:35 86 120/54 01/12/18 04:00 97.7 86 20 120/54 89 97.7 01/12/18 00:00 98.1 91 18 139/72 93 98.1 Intake and Output 01/11/18 01/12/18 19:00 07:00 # Voids 5 3 # Bowel Movements 3 Laboratory Tests 01/12/18 06:15: White Blood Count 5.2, Red Blood Count 3.68L, Hemoglobin 10.4L, Hematocrit 32.2L , Mean Corpuscular Volume 88, Mean Corpuscular Hemoglobin 28.3, Mean Corpuscular Hemoglobin Concent 32.3, Red Cell Distribution Width 19.5H, Platelet Count 266, Mean Platelet Volume 6.1L, Neutrophils (%) (Auto) 37.8L, Lymphocytes (%) (Auto) 42.9, Monocytes (%) (Auto) 14.2H, Eosinophils (%) (Auto) 4.5H, Basophils (%) (Auto) 0.7, Sodium Level 139, Potassium Level 4.1, Chloride Level 103, Carbon Dioxide Level 29, Anion Gap 7, Blood Urea Nitrogen 17, Creatinine 1.1, Estimat Glomerular Filtration Rate , Glucose Level 86, Calcium Level 8.4L, Total Bilirubin 0.3, Aspartate Amino Transf (AST/SGOT) 37, Alanine Aminotransferase (ALT/SGPT) 20, Alkaline Phosphatase 75, Pro-B-Type Natriuretic Peptide 2361H, Total Protein 7.6, Albumin 2.4L, Globulin 5.2, Albumin/Globulin Ratio 0.5L Height (Feet): 5 Height (Inches): 4.00 Weight (Pounds): 145 General Appearance: no apparent distress Respiratory/Chest: decreased breath sounds Abdomen: soft [place] Guan MD Jan 12, 2018 23:58
[2018-01-13] VITALS: BP 138/77
[2018-01-13 04:00] VITALS: BP 133/68
[2018-01-13] MEDS: Vancomycin 500 MG in D5W 110 ML IVPB SCH (04:48)
[2018-01-13] MEDS: Aztreonam Inj 1 GM in D5W 55 ML IVPB SCH ×2 (05:50→13:50)
[2018-01-13] MEDS: dilTIAZem HCl 60mg tab ORAL SCH ×2 (05:50→13:49)
[2018-01-13] MEDS: metroNIDAZOLE 500mg tab ORAL SCH ×2 (05:51→13:49)
[2018-01-13 07:57] LABS: BASOPHILS % (AUTO) 0.9 % (0.0-2.0); EOSINOPHILS % (AUTO) 5.3 % (0.0-3.0); HEMATOCRIT 30.1 % (37.0-47.0); HEMOGLOBIN 9.6 G/DL (12.0-16.0); MEAN CORPUSCULAR VOLUME 88 FL (80-99); MONOCYTES % (AUTO) 16.2 % (1.0-10.0); NEUTROPHILS % (AUTO) 39.7 % (45.0-75.0); PLATELET COUNT 261 K/UL (150-450); RED BLOOD COUNT 3.41 M/UL (4.20-5.40); RED CELL DISTRIBUTION WIDTH 19.3 % (11.6-14.8); WHITE BLOOD COUNT 5.1 K/UL (4.8-10.8)
[2018-01-13 08:00] VITALS: BP 117/69
[2018-01-13 08:12] LABS: ANION GAP 4 mmol/L (5-15); BLOOD UREA NITROGEN 21 mg/dL (7-18); CALCIUM 8.1 MG/DL (8.5-10.1); CARBON DIOXIDE 32 MMOL/L (21-32); CHLORIDE 106 MMOL/L (98-107); CREATININE 1.1 MG/DL (0.55-1.30); POTASSIUM 3.9 MMOL/L (3.5-5.1); SODIUM 141 MMOL/L (136-145)
[2018-01-13] MEDS: Aspirin EC 81mg tab ORAL SCH (09:27)
[2018-01-13] MEDS: Sucralfate 1gm tab ORAL SCH ×2 (09:27→13:49)
[2018-01-13] MEDS: Docusate 100mg cap ORAL SCH (09:27)
[2018-01-13] MEDS: Heparin 5000 units/ml inj SUBQ SCH (09:29)
--- NOTE | 2018-01-13 10:18 | Diagnostic Imaging Report ---
Indication: Shortness of breath Technique: XRAY Chest 1v Comparison: 01/12/2018 Findings: Cardiomediastinal silhouette is stable. There is again a mass in the left apex with small left apical pneumothorax. Osseous structures are stable. Impression: Stable small left apical pneumothorax. Stable left upper lobe mass.
--- NOTE | 2018-01-13 11:55 | Pulmonology Progress Note ---
Assessment/Plan Assessment/Plan ASSESSMENT Lung mass s/p lung biopsy small PNT COPD L perineum abscess s/p I&D L perineum abscess 01/10 HTN MDD anemia of chronic disease PLAN OF CARE MS floor CT chest + speculated mass L lung apex, highly suspicious for malignancy s/p lung biopsy CXR post biopsy with small PNT fup wit daily CXR, CXR 01/12, with decrease in size of previously demonstrated small left apical post biopsy pneumothorax, over one day CXR 01/13 with stable small left apical pneumothorax. Stable left upper lobe mass. O2 HHN prn Fup with biopsy results onco follows Abx ID and surgery follow wound care BP management with Cardizem continue ASA statin bowel regimen pain management supportive care DVT GI prophylaxis DNR/DNI status patient can be dc from pulm standpoint today no signs of resp distress CXR stable fup with lung biopsy results case discussed and evaluated by supervising physician Subjective Allergies: Coded Allergies: LEVOFLOXACIN (Verified Allergy, Unknown, 02/22/17) PENICILLINS (Verified Allergy, Unknown, 02/22/17) SULFA (SULFONAMIDE ANTIBIOTICS) (Verified Allergy, Unknown, 02/22/17) Subjective no signs of resp distress on O2 via NC sat stable Objective Last 24 Hour Vital Signs Date Time Temp Pulse Resp B/P (MAP) Pulse Ox O2 Delivery O2 Flow Rate FiO2 01/13/18 09:16 73 16 97 Nasal Cannula 2.0 28 01/13/18 09:10 75 18 Nasal Cannula 2.0 28 01/13/18 09:10 98 2.0 28 01/13/18 09:10 75 16 98 Nasal Cannula 2.0 28 01/13/18 09:10 Nasal Cannula 2.0 28 01/13/18 08:00 98.2 83 20 117/69 95 Nasal Cannula 2.0 98.2 01/13/18 05:50 81 133/68 01/13/18 04:00 98.2 81 20 133/68 96 Nasal Cannula 2.0 98.2 01/13/18 00:00 97.7 81 18 138/77 95 Nasal Cannula 2.0 97.7 01/12/18 21:22 78 149/74 01/12/18 20:00 98.1 78 21 149/74 97 Nasal Cannula 2.0 98.1 01/12/18 19:41 97 2.0 28 01/12/18 19:41 Nasal Cannula 2.0 28 01/12/18 19:41 75 18 Nasal Cannula 2.0 28 01/12/18 16:00 97.7 93 18 139/79 95 Nasal Cannula 2.0 97.7 01/12/18 14:09 84 135/90 01/12/18 12:00 97.9 85 18 131/68 97 Nasal Cannula 2.0 97.9 Intake and Output 01/12/18 01/13/18 19:00 07:00 Intake Total 1040 ml 420 ml Balance 1040 ml 420 ml Intake Oral 1040 ml 200 ml IV Total 220 ml # Voids 2 2 Objective General Appearance: no acute distress HEENT: normocephalic, atraumatic, anicteric, mucous membranes moist Respiratory/Chest: no respiratory distress, no accessory muscle use, decreased breath sounds Cardiovascular: normal rate, no JVD Abdomen: normal bowel sounds, soft, non tender, non distended Extremities: no edema, pedal pulses normal Skin: other - left perineum dressing C/D/I Neurologic/Psychiatric: alert, responsive Musculoskeletal: atrophy - BLE Laboratory Tests 01/13/18 06:22: White Blood Count 5.1, Red Blood Count 3.41L, Hemoglobin 9.6L, Hematocrit 30.1L , Mean Corpuscular Volume 88, Mean Corpuscular Hemoglobin 28.3, Mean Corpuscular Hemoglobin Concent 32.1, Red Cell Distribution Width 19.3H, Platelet Count 261, Mean Platelet Volume 6.5, Neutrophils (%) (Auto) 39.7L, Lymphocytes (%) (Auto) 38.0, Monocytes (%) (Auto) 16.2H, Eosinophils (%) (Auto) 5.3H, Basophils (%) (Auto) 0.9, Sodium Level 141, Potassium Level 3.9, Chloride Level 106, Carbon Dioxide Level 32, Anion Gap 4L, Blood Urea Nitrogen 21H, Creatinine 1.1, Estimat Glomerular Filtration Rate , Glucose Level 100, Calcium Level 8.1L Current Medications Medications (Trade) Dose Ordered Sig/Oralia Route PRN Reason Start Time Stop Time Status Last Admin Dose Admin Acetaminophen (Tylenol) 650 mg Q4H PRN ORAL Mild Pain (Pain Scale 1-3) 01/11/18 02:15 02/07/18 18:14 Acetaminophen (Tylenol) 650 mg Q4H PRN ORAL T>100.5 01/11/18 02:15 02/07/18 18:14 Acetaminophen (Tylenol) 650 mg Q4H PRN RECTAL Mild Pain (Pain Scale 1-3) 01/11/18 02:15 02/07/18 18:14 Acetaminophen (Tylenol) 650 mg Q4H PRN RECTAL fever 01/11/18 02:15 02/07/18 18:14 Albuterol/ Ipratropium (Albuterol/ Ipratropium) 3 ml Q4H PRN HHN sob, wheezing 01/12/18 14:45 01/14/18 14:45 Aspirin (Ecotrin) 81 mg DAILY ORAL 01/11/18 09:00 02/08/18 08:59 01/13/18 09:27 Atorvastatin Calcium (Lipitor) 80 mg BEDTIME ORAL 01/11/18 21:00 02/07/18 20:59 01/12/18 20:05 Aztreonam 1 gm/ Dextrose 55 ml @ 110 mls/hr Q8HR IVPB 01/11/18 06:00 01/15/18 22:59 01/13/18 05:50 Bisacodyl (Dulcolax) 10 mg HSPRN PRN RECTAL Constipation 01/11/18 21:00 02/07/18 20:59 Clonidine HCl (Catapres Tab) 0.1 mg Q6H PRN ORAL SBP > 160mmHg 01/11/18 00:15 02/07/18 18:14 Dextrose (Dextrose 50%) STAT PRN IV Hypoglycemia 01/11/18 18:15 02/07/18 18:14 Diltiazem HCl (Cardizem) 60 mg EVERY 8 HOURS ORAL 01/11/18 06:00 02/07/18 21:59 01/13/18 05:50 Divalproex Sodium (Depakote) 250 mg Q8HR ORAL 01/11/18 06:00 02/07/18 21:59 01/13/18 05:50 Docusate Sodium (Colace) 100 mg EVERY 12 HOURS ORAL 01/11/18 09:00 02/07/18 20:59 01/13/18 09:27 Heparin Sodium (Porcine) (Heparin 5000 units/ml) 5,000 units EVERY 12 HOURS SUBQ 01/11/18 09:00 02/07/18 20:59 01/13/18 09:29 Metronidazole (Flagyl) 500 mg Q8HR ORAL 01/11/18 06:00 01/17/18 14:59 01/13/18 05:51 Morphine Sulfate (Morphine Sulfate) 2 mg DAILYPRN PRN IVP Severe Pain due to Dressing Ch 01/11/18 19:15 01/18/18 19:14 Ondansetron HCl (Zofran) 4 mg Q6H PRN IVP Nausea & Vomiting 01/11/18 00:15 02/07/18 18:14 Pantoprazole (Protonix) 40 mg DAILY ORAL 01/11/18 09:00 02/08/18 08:59 01/13/18 09:27 Polyethylene Glycol (Miralax) 17 gm HSPRN PRN ORAL Constipation 01/11/18 21:00 02/07/18 20:59 Povidone Iodine (Betadine Sofiya) 1 applic DAILY@2000 TOPIC 01/11/18 20:00 02/10/18 19:59 01/12/18 20:08 Pravastatin Sodium (Pravachol) 40 mg QHS ORAL 01/11/18 21:00 02/07/18 20:59 01/12/18 20:06 Sucralfate (Carafate) 1 gm THREE TIMES A DAY ORAL 01/11/18 09:00 02/08/18 08:59 01/13/18 09:27 Tiotropium [place] (Spiriva Inhaler) 2 puff DAILY INH 01/11/18 09:00 02/08/18 08:59 01/13/18 09:28 Trazodone HCl (Desyrel) 25 mg HSPRN PRN ORAL insomnia 01/11/18 18:15 02/07/18 18:14 Vancomycin HCl (Vanco rx to dose) 1 ea DAILY PRN MISC Per rx protocol 01/11/18 09:00 02/07/18 18:14 Vancomycin HCl 500 mg/Dextrose 110 ml @ 110 mls/hr Q12H IVPB 01/11/18 05:00 01/15/18 16:59 01/13/18 04:48 Dunia Reveles NP ([facility]) Jan 13, 2018 11:55
[2018-01-13 12:00] VITALS: BP 157/76
--- NOTE | 2018-01-13 13:17 | Discharge Instructions ---
Discharge Instructions Discharge Instructions Follow up with: F/u with electrical electronics engineers, Dr. Strong, and oncologist, Dr. Guan, in 2 wk For Congestive Heart Failure Reminder Report to your physician any weight gain of 5 pounds or more in one week. Priya Grace N.P. Jan 13, 2018 13:17
[2018-01-13 16:00] VITALS: BP 135/75
--- NOTE | 2018-01-13 16:47 | Infectious Diseases Prog Note ---
Assessment/Plan Assessment/Plan ASSESSMENT AND PLAN: 1. The patient has left buttock/perineal abscess and cellulitis. - s/p I/D, clinically stable - check wound culture - not done - vancomycin, aztreonam and flagyl - can discharge on oral clindamycin 300 mg po qid x 3 days - d/w Dr. Thomas 2. Possible lung malignancy, primary, pneumothorax on chest x-ray - per primary and hem/onc 3. Anemia. 4. Atrial fibrillation. 5. Hypertension. 6. CAD. 7. Gastrointestinal disease. 8. Encephalopathy. 9. History of angioplasty and stents. 10. History of cholecystectomy and hysterectomy. 11. Allergies to Levaquin, penicillin, and sulfa. 12. Family history is noncontributory. 13. Social history is negative. 14. Case was discussed with RN. 15. MAR was noted. 16. Continue treatment with primary including Dr. Thomas and consultants. 17. Case was discussed with Dr. Thomas. Subjective Constitutional: Denies: fever HEENT: Denies: congestion Respiratory: Denies: shortness of breath Cardiovascular: Denies: chest pain Gastrointestinal/Abdominal: Denies: nausea, vomiting, diarrhea Genitourinary: Denies: hematuria, other Neurologic: Denies: headache Psychiatric: Denies: depression Skin: Denies: rash Hematologic: Denies: bleeding Musculoskeletal: Denies: pain Allergies: Coded Allergies: LEVOFLOXACIN (Verified Allergy, Unknown, 02/22/17) PENICILLINS (Verified Allergy, Unknown, 02/22/17) SULFA (SULFONAMIDE ANTIBIOTICS) (Verified Allergy, Unknown, 02/22/17) Objective Vital Signs Last 24 Hour Vital Signs Date Time Temp Pulse Resp B/P (MAP) Pulse Ox O2 Delivery O2 Flow Rate FiO2 01/13/18 13:49 116 157/76 01/13/18 12:00 97.3 116 19 157/76 95 Nasal Cannula 2.0 97.3 01/13/18 09:16 73 16 97 Nasal Cannula 2.0 28 01/13/18 09:10 75 18 Nasal Cannula 2.0 28 01/13/18 09:10 98 2.0 28 01/13/18 09:10 75 16 98 Nasal Cannula 2.0 28 01/13/18 09:10 Nasal Cannula 2.0 28 01/13/18 08:00 98.2 83 20 117/69 95 Nasal Cannula 2.0 98.2 01/13/18 05:50 81 133/68 01/13/18 04:00 98.2 81 20 133/68 96 Nasal Cannula 2.0 98.2 01/13/18 00:00 97.7 81 18 138/77 95 Nasal Cannula 2.0 97.7 01/12/18 21:22 78 149/74 01/12/18 20:00 98.1 78 21 149/74 97 Nasal Cannula 2.0 98.1 01/12/18 19:41 97 2.0 28 01/12/18 19:41 Nasal Cannula 2.0 28 01/12/18 19:41 75 18 Nasal Cannula 2.0 28 Height (Feet): 5 Height (Inches): 4.00 Weight (Pounds): 145 General Appearance: no acute distress HEENT: normocephalic, atraumatic, anicteric, mucous membranes moist Respiratory/Chest: lungs clear, normal breath sounds, no respiratory distress, no accessory muscle use Cardiovascular: normal rate, regular rhythm, no gallop/murmur, no JVD Abdomen: normal bowel sounds, soft, non tender, no organomegaly, non distended Genitourinary: other - no garrett Extremities: no cyanosis Skin: no rash Neurologic/Psychiatric: shochet II-XII grossly normal, alert, oriented x 3, responsive Lymphatic: no neck adenopathy Musculoskeletal: no effusion Objective chest x-ray - 12/14 - Impression: Probably unchanged small left apical pneumothorax. Recommend follow- up radiograph in the morning Findings discussed by phone with Dr. Thomas at the time of interpretation Microbiology Date/Time Source Procedure Growth Status 01/08/18 13:10 Blood Blood Culture - Preliminary NO GROWTH AFTER 4 DAYS Resulted Laboratory Tests Test 01/13/18 06:22 White Blood Count 5.1 K/UL (4.8-10.8) Red Blood Count 3.41 M/UL (4.20-5.40) L Hemoglobin 9.6 G/DL (12.0-16.0) L Hematocrit 30.1 % (37.0-47.0) L Mean Corpuscular Volume 88 FL (80-99) Mean Corpuscular Hemoglobin 28.3 PG (27.0-31.0) Mean Corpuscular Hemoglobin Concent 32.1 G/DL (32.0-36.0) Red Cell Distribution Width 19.3 % (11.6-14.8) H Platelet Count 261 K/UL (150-450) Mean Platelet Volume 6.5 FL (6.5-10.1) Neutrophils (%) (Auto) 39.7 % (45.0-75.0) L Lymphocytes (%) (Auto) 38.0 % (20.0-45.0) Monocytes (%) (Auto) 16.2 % (1.0-10.0) H Eosinophils (%) (Auto) 5.3 % (0.0-3.0) H Basophils (%) (Auto) 0.9 % (0.0-2.0) Sodium Level 141 MMOL/L (136-145) Potassium Level 3.9 MMOL/L (3.5-5.1) Chloride Level 106 MMOL/L (98-107) Carbon Dioxide Level 32 MMOL/L (21-32) Anion Gap 4 mmol/L (5-15) L Blood Urea Nitrogen 21 mg/dL (7-18) H Creatinine 1.1 MG/DL (0.55-1.30) Estimat Glomerular Filtration Rate mL/min (>60) Glucose Level 100 MG/DL (74-106) Calcium Level 8.1 MG/DL (8.5-10.1) L Current Medications Medications (Trade) Dose Ordered Sig/Oralia Route PRN Reason Start Time Stop Time Status Last Admin Dose Admin Acetaminophen (Tylenol) 650 mg Q4H PRN ORAL Mild Pain (Pain Scale 1-3) 01/11/18 02:15 02/07/18 18:14 Acetaminophen (Tylenol) 650 mg Q4H PRN ORAL T>100.5 01/11/18 02:15 02/07/18 18:14 Acetaminophen (Tylenol) 650 mg Q4H PRN RECTAL Mild Pain (Pain Scale 1-3) 01/11/18 02:15 02/07/18 18:14 Acetaminophen (Tylenol) 650 mg Q4H PRN RECTAL fever 01/11/18 02:15 02/07/18 18:14 Albuterol/ Ipratropium (Albuterol/ Ipratropium) 3 ml Q4H PRN HHN sob, wheezing 01/12/18 14:45 01/14/18 14:45 Aspirin (Ecotrin) 81 mg DAILY ORAL 01/11/18 09:00 02/08/18 08:59 01/13/18 09:27 Atorvastatin Calcium (Lipitor) 80 mg BEDTIME ORAL 01/11/18 21:00 02/07/18 20:59 01/12/18 20:05 Aztreonam 1 gm/ Dextrose 55 ml @ 110 mls/hr Q8HR IVPB 01/11/18 06:00 01/15/18 22:59 01/13/18 13:50 Bisacodyl (Dulcolax) 10 mg HSPRN PRN RECTAL Constipation 01/11/18 21:00 02/07/18 20:59 Clonidine HCl (Catapres Tab) 0.1 mg Q6H PRN ORAL SBP > 160mmHg 01/11/18 00:15 02/07/18 18:14 Dextrose (Dextrose 50%) STAT PRN IV Hypoglycemia 01/11/18 18:15 02/07/18 18:14 Diltiazem HCl (Cardizem) 60 mg EVERY 8 HOURS ORAL 01/11/18 06:00 02/07/18 21:59 01/13/18 13:49 Divalproex Sodium (Depakote) 250 mg Q8HR ORAL 01/11/18 06:00 02/07/18 21:59 01/13/18 13:49 Docusate Sodium (Colace) 100 mg EVERY 12 HOURS ORAL 01/11/18 09:00 02/07/18 20:59 01/13/18 09:27 Heparin Sodium (Porcine) (Heparin 5000 units/ml) 5,000 units EVERY 12 HOURS SUBQ 01/11/18 09:00 02/07/18 20:59 01/13/18 09:29 Metronidazole (Flagyl) 500 mg Q8HR ORAL 01/11/18 06:00 01/17/18 14:59 01/13/18 13:49 Morphine Sulfate (Morphine Sulfate) 2 mg DAILYPRN PRN IVP Severe Pain due to Dressing Ch 01/11/18 19:15 01/18/18 19:14 Ondansetron HCl (Zofran) 4 mg Q6H PRN IVP Nausea & Vomiting 01/11/18 00:15 02/07/18 18:14 Pantoprazole (Protonix) 40 mg DAILY ORAL 01/11/18 09:00 02/08/18 08:59 01/13/18 09:27 Polyethylene Glycol (Miralax) 17 gm HSPRN PRN ORAL Constipation 01/11/18 21:00 02/07/18 20:59 Povidone Iodine (Betadine Sofiya) 1 applic DAILY@2000 TOPIC 01/11/18 20:00 02/10/18 19:59 01/12/18 20:08 Pravastatin Sodium (Pravachol) 40 mg QHS ORAL 01/11/18 21:00 02/07/18 20:59 01/12/18 20:06 Sucralfate (Carafate) 1 gm THREE TIMES A DAY ORAL 01/11/18 09:00 02/08/18 08:59 01/13/18 13:49 Tiotropium [place] (Spiriva Inhaler) 2 puff DAILY INH 01/11/18 09:00 02/08/18 08:59 01/13/18 09:28 Trazodone HCl (Desyrel) 25 mg HSPRN PRN ORAL insomnia 01/11/18 18:15 02/07/18 18:14 Vancomycin HCl (Vanco rx to dose) 1 ea DAILY PRN MISC Per rx protocol 01/11/18 09:00 02/07/18 18:14 Vancomycin HCl 500 mg/Dextrose 110 ml @ 110 mls/hr Q12H IVPB 01/11/18 05:00 01/15/18 16:59 01/13/18 04:48 HIREN VAZ Jan 13, 2018 16:47
[2018-01-13] MEDS ORDERED: Tubing IV Secondary IV ONE (17:07)
[2018-01-13] MEDS ORDERED: NS 500ML ONE (17:07)
--- NOTE | 2018-01-13 23:24 | General Progress Note ---
Assessment/Plan Assessment/Plan 1. A 3.4 x 3 x 3 spiculated left lung mass abutting the pleural superior surface , highly suspicious for malignancy. 2. Potential soft tissue fullness in the left hilar region. --> At this time, the patient is status post lung biopsy with a small pneumothorax, has been seen by Dr. Strong. --> Procedure performed today. 3. Anemia of chronic disease. --> Continue to closely monitor for improvement. --> Currently stable. Hemoglobin at approximately 10 to 11. --> Blood transfusion not required at this time 4. Right buttocks abscess. --> Currently is on antibiotics, broad spectrum. --> Monitor per surgical team. 5. Bipolar disorder. Psychiatry Service evaluation. 6. Multiple antibiotic allergies have been noted. Subjective Date patient seen: Jan 13, 2018 Constitutional: Denies: no symptoms, chills, diaphoresis, fever, malaise, weakness, other HEENT: Denies: no symptoms, eye pain, blurred vision, tearing, double vision, ear pain, ear discharge, nose pain, nose congestion, throat pain, throat swelling, mouth pain, mouth swelling, other Cardiovascular: Denies: no symptoms, chest pain, edema, irregular heart rate, lightheadedness, palpitations, syncope, other Respiratory: Denies: no symptoms, cough, orthopnea, shortness of breath, SOB with excertion, SOB at rest, sputum, stridor, wheezing, other Gastrointestinal/Abdominal: Denies: no symptoms, abdomen distended, abdominal pain, black stools, tarry stools, blood in stool, constipated, diarrhea, difficulty swallowing, nausea, poor appetite, poor fluid intake, rectal bleeding , vomiting, other Genitourinary: Denies: no symptoms, burning, discharge, frequency, flank pain, hematuria, incontinence, pain, urgency, other Neurologic/Psychiatric: Denies: no symptoms, anxiety, depressed, emotional problems, headache, numbness, paresthesia, pre-existing deficit, seizure, tingling, tremors, weakness, other Hematologic/Lymphatic: Reports: anemia Allergies: Coded Allergies: LEVOFLOXACIN (Verified Allergy, Unknown, 02/22/17) PENICILLINS (Verified Allergy, Unknown, 02/22/17) SULFA (SULFONAMIDE ANTIBIOTICS) (Verified Allergy, Unknown, 02/22/17) Subjective On antibiotics. H/H stable. Pending discharge. Objective Last 24 Hour Vital Signs Date Time Temp Pulse Resp B/P (MAP) Pulse Ox O2 Delivery O2 Flow Rate FiO2 01/13/18 16:00 98.6 82 20 135/75 96 Nasal Cannula 2.0 98.6 01/13/18 13:49 116 157/76 01/13/18 12:00 97.3 116 19 157/76 95 Nasal Cannula 2.0 97.3 01/13/18 09:16 73 16 97 Nasal Cannula 2.0 28 01/13/18 09:10 75 18 Nasal Cannula 2.0 28 01/13/18 09:10 98 2.0 28 01/13/18 09:10 75 16 98 Nasal Cannula 2.0 28 01/13/18 09:10 Nasal Cannula 2.0 28 01/13/18 08:00 98.2 83 20 117/69 95 Nasal Cannula 2.0 98.2 01/13/18 05:50 81 133/68 01/13/18 04:00 98.2 81 20 133/68 96 Nasal Cannula 2.0 98.2 01/13/18 00:00 97.7 81 18 138/77 95 Nasal Cannula 2.0 97.7 Intake and Output 01/12/18 01/13/18 19:00 07:00 Intake Total 1040 ml 420 ml Balance 1040 ml 420 ml Intake Oral 1040 ml 200 ml IV Total 220 ml # Voids 2 2 Laboratory Tests 01/13/18 06:22: White Blood Count 5.1, Red Blood Count 3.41L, Hemoglobin 9.6L, Hematocrit 30.1L , Mean Corpuscular Volume 88, Mean Corpuscular Hemoglobin 28.3, Mean Corpuscular Hemoglobin Concent 32.1, Red Cell Distribution Width 19.3H, Platelet Count 261, Mean Platelet Volume 6.5, Neutrophils (%) (Auto) 39.7L, Lymphocytes (%) (Auto) 38.0, Monocytes (%) (Auto) 16.2H, Eosinophils (%) (Auto) 5.3H, Basophils (%) (Auto) 0.9, Sodium Level 141, Potassium Level 3.9, Chloride Level 106, Carbon Dioxide Level 32, Anion Gap 4L, Blood Urea Nitrogen 21H, Creatinine 1.1, Estimat Glomerular Filtration Rate , Glucose Level 100, Calcium Level 8.1L Height (Feet): 5 Height (Inches): 4.00 Weight (Pounds): 145 General Appearance: no apparent distress Respiratory/Chest: lungs clear Abdomen: soft Cleveland Guan MD Jan 13, 2018 23:24
--- NOTE | 2018-01-15 00:15 | Discharge Summary ---
Discharge Summary Hospital Course Date of Admission Jan 08, 2018 at 13:20 Date of Discharge Jan 13, 2018 at 17:08 Admitting Diagnosis L buttock abscess Reason for Hospitalization: left buttock abscess and lung mass HPI Caroline Pereira is a 77 year old female who was admitted on Jan 08, 2018 at 13: 20 for Left Buttock Abcess 77y/o male with pmh of HTN, HLD, GERD, COPD, bipolar d/o, dementia who presents with increased L buttock pain, swelling and drainage. Pt with gradual onset of symptoms over the past few days. Pt is poor historian. She states she first noticed itching to area and then pain. Pt resides in SNF. She states normally able to ambulate with FWW. Notes some subjective fevers/chills. Denies n/v, d/c, chest pain, SOB, abd pain, dysuria. In ED, surgery was consulted given concern for abscess. Pt was given vanco and ampicillin in ED. CXR showed incidiental 3.3 x 3.3 cm mass in the left lung apex. Consultations General surgery Infectious diseases Pulmonology Oncology Procedures s/p I&D Hospital Course Patient was admitted for left buttock abscess. General surgery was consulted and patient underwent an I&D on 01/10/18. Cultures were followed up on and ID was consulted. Patient was started on empiric vancomycin, aztreonam, flagyl for broad coverage. Patient was subsequently switched to clindamycin 300mg PO QID. on CXR, lung mass to the left lung apex was seen. Pulmonology and oncology were consulted. CT chest with contrast showed a 3.4 X 2.4 X 2.9 cm spiculated mass in the left lung apex, abutting the pleural surface superiorly. Appearance is highly suspicious for primary pulmonary malignancy. Patient then underwent a CT guided lung biopsy on 01/10/18 and procedure was complicated by a small left apical pneumothorax. Repeat CXR the next day did show worsening of pneumothorax but per radiologist, it was not big enough for a chest tube. Another CXR showed stable, small pneumothorax and a subsequent CXR showed stable, small pneumothorax. Patient did not require more oxygen than her usual and patient was afebrile and hemodynamically stable prior to discharge. Patient was advised to follow up with oncologist and pulmonology within 1 week. Pathology will be followed up on as outpatient per oncologist. Patient was discharged on clindamycin 300mg PO QID for another 4 days. Discharge Medications New Medications: Clindamycin Hcl (Clindamycin Hcl) 300 Mg Capsule 300 MG ORAL FOUR TIMES A DAY for 4 Days, #16 CAP Continued Medications: Aspirin* (Aspir 81*) 81 Mg Tablet.dr 81 MG ORAL DAILY, TAB (This prescription has been renewed) Atorvastatin Calcium* (Atorvastatin Calcium*) 40 Mg Tablet 80 MG ORAL BEDTIME, TAB (This prescription has been renewed) Clonidine Hcl* (Catapres*) 0.1 Mg Tablet 0.1 MG ORAL EVERY 6 HOURS PRN for For High Blood Pressure, TAB SBP >170 Diltiazem Hcl* (Cardizem*) 60 Mg Tablet 60 MG ORAL EVERY 8 HOURS, TAB Divalproex Sodium (Depakote) 125 Mg Tablet.dr 250 MG PO TID, TAB (This prescription has been renewed) Docusate Sodium* (Docusate Sodium*) 100 Mg Capsule 100 MG ORAL DAILY PRN for Constipation, CAP (This prescription has been renewed) Ferrous Sulfate (Ferrous Sulfate) 325 Mg Tablet.dr 325 MG ORAL BID for 30 Days, #60 TAB 0 Refills Guaifenesin (Mucinex) 100 Mg Gran.pack 600 MG PO Q12HR PRN for congestion Ipratropium Omro (Atrovent Hfa) 12.9 Gm Hfa.aer.ad 1 PUFF IH Q6HR PRN for Shortness of Breath Loratadine (Claritin) 10 Mg Capsule 10 MG ORAL DAILY PRN for Itching, CAP Magnesium Hydroxide* (Milk Of Magnesia*) 400 Mg/5 Ml Oral.susp 30 ML ORAL DAILY PRN for Constipation, ML (This prescription has been renewed) Pantoprazole* (Pantoprazole*) 40 Mg Tablet.dr 40 MG ORAL DAILY, TAB (This prescription has been renewed) Pravastatin Sod (Pravastatin Sod) 40 Mg Tablet 40 MG ORAL QHS, TAB Sucralfate* (Carafate*) 1 Gm Tablet 1 GM ORAL THREE TIMES A DAY, TAB Tiotropium Omro* (Spiriva*) 18 Mcg Cap.w.dev 2 PUFF INH DAILY, EA Trazodone* (Trazodone*) 150 Mg Tablet 25 MG ORAL BEDTIME PRN for insomnia, TAB (This prescription has been renewed) Discharge Condition Upon Discharge: stable Discharge Disposition Patient was discharged to SNF Discharge Diagnoses: (1) COPD (chronic obstructive pulmonary disease) (2) Iron deficiency anemia (3) Advanced dementia (4) Lung mass (5) HTN (hypertension) (6) Esophagitis (7) Iron deficiency (8) Gastritis (9) CHF (congestive heart failure) (10) HLD (hyperlipidemia) (11) GERD (gastroesophageal reflux disease) (12) Pneumothorax after biopsy (13) Small left apical pneumothorax (14) Anemia of chronic disease (15) Dementia (16) Bipolar disorder (17) Severe anemia (18) Acute on chronic anemia (19) Hemorrhoids Discharge Instructions Discharge Instructions Follow up with: F/u with server engineer, Dr. Strong, and oncologist, Dr. Guan, in 2 wk Priya Grace N.P. Jan 15, 2018 00:15
--- NOTE | 2018-01-15 08:09 | Diagnostic Imaging Report ---
Indication: Left lung mass Technique: Informed consent obtained prior to commencement of the procedure. Prior imaging studies reviewed. Procedure timeout performed. Localizing acquisitions obtained through the chest with the patient prone. Multiplanar reconstructions were generated. Intended puncture site was sterilely prepped and draped. Local anesthesia with lidocaine. Under CT guidance, a 17-gauge guide needle was directed to the periphery of the targeted mass. Adequate position confirmed with CT. Subsequently, 2 needle passes made into the targeted mass using a 20-gauge automated biopsy gun. Specimens placed in formalin, sent to pathology for analysis. Patient immediately turned supine in order to prevent pneumothorax, and a completion image obtained through the chest. The patient tolerated the procedure well, without immediate complication. Total dose length product 1542 mGycm. CTDIvol(s) 25, 18, 19, 21, 21, 22, 17 mGy. Radiation dose was minimized using automated exposure control Comparison: 01/09/2018 Findings: As above. Completion image demonstrates a small amount of parenchymal hemorrhage anterior to the targeted lesion, but no pneumothorax Impression: Biopsy of left apical lung mass, as described Per discussion with pathologist, pathologic findings reveal squamous cell carcinoma. This is concordant with imaging findings The CT scanner at [facility] is accredited by the [employer] and the scans are performed using protocols designed to limit radiation exposure to as low as reasonably achievable to attain images of sufficient resolution adequate for diagnostic evaluation.
--- NOTE | 2018-01-15 18:28 | General Progress Note ---
Assessment/Plan Assessment/Plan mdd -cont trazodone -cont Depakote Subjective Date patient seen: Jan 15, 2018 Neurologic/Psychiatric: Reports: depressed, emotional problems Allergies: Coded Allergies: LEVOFLOXACIN (Verified Allergy, Unknown, 02/22/17) PENICILLINS (Verified Allergy, Unknown, 02/22/17) SULFA (SULFONAMIDE ANTIBIOTICS) (Verified Allergy, Unknown, 02/22/17) Objective Height (Feet): 5 Height (Inches): 4.00 Weight (Pounds): 145 General Appearance: no apparent distress, alert Neurologic: depressed affect Mar Fernandez M.D. Jan 15, 2018 18:28
== END 2018-01-13 17:08 | DRG 580 ==
LOC: EDUNIT# 11:45 → EDBD 11:45 → EDBEDREQ 12:16 → EMR 12:19 → 2E 13:20 → EDBEDREQ 18:15 → 2E 19:06 → 4E 01-10 22:51
PROC: 0J9B0ZZ Drainage of Perineum Subcutaneous Tissue and Fascia, Open Approach (ICD-10-PCS; principal; 2018-01-08)
PROC: 0BBL3ZX Excision of Left Lung, Percutaneous Approach, Diagnostic (ICD-10-PCS; 2018-01-10)
DX: L02.215 Cutaneous abscess of perineum (principal); J93.83 Other pneumothorax; F03.90 Unspecified dementia, unspecified severity, without behavioral disturbance, psychotic disturbance, mood disturbance, and anxiety; C34.92 Malignant neoplasm of unspecified part of left bronchus or lung; J44.9 Chronic obstructive pulmonary disease, unspecified; I10 Essential (primary) hypertension; D63.8 Anemia in other chronic diseases classified elsewhere; F31.9 Bipolar disorder, unspecified; D50.9 Iron deficiency anemia, unspecified; K20.9 Esophagitis, unspecified; K64.9 Unspecified hemorrhoids; I25.10 Atherosclerotic heart disease of native coronary artery without angina pectoris; Z95.5 Presence of coronary angioplasty implant and graft; Z88.1 Allergy status to other antibiotic agents; Z88.0 Allergy status to penicillin; Z88.2 Allergy status to sulfonamides; E78.5 Hyperlipidemia, unspecified; Z90.49 Acquired absence of other specified parts of digestive tract
CPT/HCPCS: 36415; 71045; 71260; 80048; 80053; 80202; 82550; 82553; 83605; 83880; 84484; 85025; 85610; 85730; 87040; 93005; 94003; 94150; 94640; 94664; 94760; 99285; A4246; J2250; S0077

== ENCOUNTER 2018-05-01 11:12 | Outpatient (CLI) | payer MEDICARE, MEDICAID ==
[~2018-05-01 11:12] MED LIST changes: +ATORVASTATIN CA40 MG ORAL; +CLINDAMYCIN HC300 MG ORAL
--- NOTE | 2018-05-02 09:13 | GI Initial Consult Note ---
History of Present Illness General Date patient seen: May 01, 2018 Time patient seen: 08:47 Referring physician: CARLOS Reason for Consultation: ANEMIA Present Illness HPI 78-year-old female referred by Dr. Alberts for evaluation of anemia and FOBT positive. The patient has a history of chronic anemia. She had a previous admission to [facility] last year for severe anemia with low hemoglobin of 4.6 with multiople transfusions in the past. States she had a stomach surgery many years ago to fix the problem, possible partial colectomy. Denies any fevers or chills. Denies any chest pain or shortness of breath. Denies any hematemesis. Denies any blood in the stool. No aggravating or relieving factors. Denies any other associated symptoms. Patient denies any s/sx of active bleed. Also has history of iron deficiency. The patient had EGD/colonoscopy performed here last year, see summary below. Home Meds Active Scripts Clindamycin Hcl (CLINDAMYCIN HCL) 300 Mg Capsule, 300 MG ORAL FOUR TIMES A DAY for 4 Days, #16 CAP Prov:William Lazar M.D. 01/12/18 Ferrous Sulfate (FERROUS SULFATE) 325 Mg Tablet., 325 MG ORAL BID for 30 Days , #60 TAB 0 Refills Prov:William Lazar M.D. 02/24/17 Reported Medications Atorvastatin Calcium* (ATORVASTATIN CALCIUM*) 40 Mg Tablet, 80 MG ORAL BEDTIME, TAB 01/08/18 Magnesium Hydroxide* (MILK OF MAGNESIA*) 400 Mg/5 Ml Oral.susp, 30 ML ORAL DAILY PRN for Constipation, ML 02/23/17 Docusate Sodium* (DOCUSATE SODIUM*) 100 Mg Capsule, 100 MG ORAL DAILY PRN for Constipation, CAP 02/23/17 Trazodone* (TRAZODONE*) 150 Mg Tablet, 25 MG ORAL BEDTIME PRN for insomnia, TAB 02/23/17 Divalproex Sodium (DEPAKOTE) 125 Mg Tablet.dr, 250 MG PO TID, TAB 02/23/17 Guaifenesin (MUCINEX) 100 Mg Gran.pack, 600 MG PO Q12HR PRN for congestion 02/23/17 Tiotropium Crescent* (SPIRIVA*) 18 Mcg Cap.w.dev, 2 PUFF INH DAILY, EA 02/23/17 Diltiazem Hcl* (CARDIZEM*) 60 Mg Tablet, 60 MG ORAL EVERY 8 HOURS, TAB 02/23/17 Loratadine (CLARITIN) 10 Mg Capsule, 10 MG ORAL DAILY PRN for Itching, CAP 02/23/17 Aspirin* (ASPIR 81*) 81 Mg Tablet.dr, 81 MG ORAL DAILY, TAB 02/23/17 Pravastatin Sod (PRAVASTATIN SOD) 40 Mg Tablet, 40 MG ORAL QHS, TAB 02/22/17 Pantoprazole* (PANTOPRAZOLE*) 40 Mg Tablet.dr, 40 MG ORAL DAILY, TAB 02/22/17 Clonidine Hcl* (CATAPRES*) 0.1 Mg Tablet, 0.1 MG ORAL EVERY 6 HOURS PRN for For High Blood Pressure, TAB SBP >170 02/22/17 Ipratropium Crescent (ATROVENT HFA) 12.9 Gm Hfa.aer.ad, 1 PUFF IH Q6HR PRN for Shortness of Breath 02/22/17 Sucralfate* (CARAFATE*) 1 Gm Tablet, 1 GM ORAL THREE TIMES A DAY, TAB 02/22/17 Med list reviewed/reconciled: Yes Allergies: Coded Allergies: LEVOFLOXACIN (Verified Allergy, Unknown, 02/22/17) PENICILLINS (Verified Allergy, Unknown, 02/22/17) SULFA (SULFONAMIDE ANTIBIOTICS) (Verified Allergy, Unknown, 02/22/17) Patient History History Provided By: Patient, Medical Record PMH Narrative History Provided By: Patient, Medical Record PMH Narrative Past Medical History: HTN, COPD, GERD Past Surgical History: none Pertinent Family History: none Social History: Denies: alcohol use, drug use, smoking Last Menstrual Period: na Now: No Immunizations: UTD Reviewed Nursing Documentation: PMH: Agreed, PSxH: Agreed Nursing Documentation-PMH Past Medical History: No History, Except For Hx Cardiac Problems: Yes - AFIB, CHF Hx Hypertension: Yes Hx COPD: Yes Hx Gastrointestinal Problems: Yes - GERD Hx Neurological Problems: Yes - ENCEPHALOPATHY Social History: Denies: alcohol use, drug use, other, smoking DATE OF PROCEDURE: 02/24/2017 SURGEON: Karsten Gomez M.D. SUMMARY FINDINGS: 1. Gastritis. 2. Hiatal hernia. 3. Esophagitis. 4. Internal and external hemorrhoids. Social History: Denies: smoking, alcohol use, drug use, other Review of Systems All Other Systems: negative except mentioned in HPI Physical Exam T 97.9 BP 139/59 P 84 92 RA WT 133 lbs Sp02 EP Interpretation: reviewed, normal General Appearance: well appearing, no apparent distress, alert Head: normocephalic EENT: PERRL/EOMI, normal ENT inspection Neck: supple Respiratory: normal breath sounds, no respiratory distress Cardiovascular: normal rate Gastrointestinal: normal inspection, non tender, soft, normal bowel sounds, non -distended Rectal: deferred Genitourinary: no CVA tenderness Musculoskeletal: normal inspection, back normal Neurologic: normal inspection, alert, oriented x3, responsive Psychiatric: normal inspection, judgement/insight normal, memory normal Skin: normal inspection, normal color, no rash, warm/dry, palpation normal, well hydrated Lymphatic: normal inspection, no adenopathy GI: Plan Problems: (1) Hemorrhoids (2) Anemia of chronic disease (3) Iron deficiency anemia (4) Esophagitis (5) Gastritis Plan DATE OF PROCEDURE: 02/24/2017 SURGEON: Karsten Gomez M.D. SUMMARY FINDINGS: 1. Gastritis. 2. Hiatal hernia. 3. Esophagitis. 4. Internal and external hemorrhoids. defer EGD/colonoscopy given recent procedure, SBCE scheduled for 05/08/18. - Miralax prep, CLD, NPO @ [facility] instructions given to halfway. Seen with Dr. Gomez. Thank you for this patient referral. The patient was seen and examined at bedside and all new and available data was reviewed in the patients chart. I agree with the above findings, impression and plan. (Patient seen earlier today. Signature stamp does not reflect patient encounter time.). - MD Rakel Tan,[facility] LASER TECHNICIAN May 02, 2018 09:13
[2018-05-03 14:59] VITALS: BP 139/59
== END 2018-05-01 13:12 | disposition home or self-care (01) ==
LOC: PAN 11:12
DX: D64.9 Anemia, unspecified (principal); K64.9 Unspecified hemorrhoids; K29.70 Gastritis, unspecified, without bleeding; K44.9 Diaphragmatic hernia without obstruction or gangrene; Z79.82 Long term (current) use of aspirin; Z88.0 Allergy status to penicillin; Z88.2 Allergy status to sulfonamides; I10 Essential (primary) hypertension; J44.9 Chronic obstructive pulmonary disease, unspecified; K21.0 Gastro-esophageal reflux disease with esophagitis; I50.9 Heart failure, unspecified
CPT/HCPCS: 99213

== ENCOUNTER 2018-05-08 11:00 | Outpatient (CLI) | payer MEDICARE, MEDICAID ==
[2018-05-08 13:20] VITALS: BP 151/64
--- NOTE | 2018-05-09 08:57 | GI Progress Note ---
Assessment/Plan Problems: (1) Lives in correction ICD Codes: Z59.3 - Problems related to living in residential institution SNOMED: 717283275 (2) Hemorrhoids ICD Codes: K64.9 - Unspecified hemorrhoids SNOMED: 39342541 (3) Iron deficiency anemia ICD Codes: D50.9 - Iron deficiency anemia, unspecified SNOMED: 02385310 (4) Gastritis ICD Codes: K29.70 - Gastritis, unspecified, without bleeding SNOMED: 2497038 (5) Anemia of chronic disease ICD Codes: D63.8 - Anemia in other chronic diseases classified elsewhere SNOMED: 807453103 Status: stable Status Narrative Discussed with Dr. Gomez. Assessment/Plan SBCE today. RTC tomorrow for equipment return. Subjective Gastrointestinal/Abdominal: Reports: no symptoms Objective Last 24 Hour Vital Signs Date Time Temp Pulse Resp B/P (MAP) Pulse Ox O2 Delivery O2 Flow Rate FiO2 05/08/18 13:20 97.6 61 16 151/64 99 97.6 General Appearance: WD/WN, no apparent distress, alert Cardiovascular: normal rate Respiratory/Chest: normal breath sounds, no respiratory distress Abdominal Exam: normal bowel sounds, non tender, soft Extremities: normal range of motion, non-tender Opal Ellington WORKING SUPERVISOR May 09, 2018 08:57
--- NOTE | 2018-06-13 16:47 | Procedure Note ---
DATE OF PROCEDURE: 05/08/2018 SURGEON: Karsten Gomez M.D. PROCEDURE: Capsule endoscopy. INDICATION: Anemia. The procedure, risks, benefits, and possible consequences, including hemorrhage, aspiration, perforation and infection, and alternative treatments, were explained to the patient/legal guardian by Dr. Karsten Gomez and the patient/legal guardian understood and accepted these risks. DESCRIPTION OF PROCEDURE: The patient swallowed the capsule. Capsule spent roughly about over 2 hours in the small intestine. There is no evidence of any active small intestinal bleeding or source for anemia. There may be one or two very scattered small AVMs, but I doubt that is not the source for anemia. The patient had one area at about 23 minutes and 13 seconds that seems to might be a tattoo in that area because the submucosa looks blue and somebody had injection of a tattoo. We have to ask the patient if she had an enteroscopy in the past and tattooing. Again at this time, there is no obvious otherwise any other finding. SUMMARY OF FINDINGS: 1. A few small AVMs are unlikely to be the source of the GI bleeding or anemia. 2. An area at 23 minutes and 13 seconds of tattooing of submucosa, possibly from prior enteroscopy, otherwise normal capsule endoscopy examination. RECOMMENDATIONS: The patient needs to follow in the office for further workup of anemia. Karsten Gomez M.D. DR: Miladys JOB#: [id number] CC:
== END 2018-05-08 11:32 | disposition home or self-care (01) ==
LOC: PAN 11:00
DX: K64.9 Unspecified hemorrhoids (principal); D50.9 Iron deficiency anemia, unspecified; K29.70 Gastritis, unspecified, without bleeding; D63.8 Anemia in other chronic diseases classified elsewhere

== ENCOUNTER 2018-06-21 14:12 | Outpatient (CLI) | payer MEDICARE, MEDICAID ==
[2018-06-21 14:26] VITALS: BP 135/62
--- NOTE | 2018-06-21 14:35 | GI Progress Note ---
Assessment/Plan Problems: (1) Hemorrhoids ICD Codes: K64.9 - Unspecified hemorrhoids SNOMED: 85707222 (2) Iron deficiency anemia ICD Codes: D50.9 - Iron deficiency anemia, unspecified SNOMED: 69364104 (3) Gastritis ICD Codes: K29.70 - Gastritis, unspecified, without bleeding SNOMED: 3419564 (4) Anemia of chronic disease ICD Codes: D63.8 - Anemia in other chronic diseases classified elsewhere SNOMED: 303942884 (5) Esophagitis ICD Codes: K20.9 - Esophagitis, unspecified SNOMED: 97518565 (6) Iron deficiency ICD Codes: E61.1 - Iron deficiency SNOMED: 42183701 Status: stable Status Narrative Discussed with Dr. Gomez. Assessment/Plan SBCE reviewed >> unremarkable RTC prn The patient was seen and examined at bedside and all new and available data was reviewed in the patients chart. I agree with the above findings, impression and plan. (Patient seen earlier today. Signature stamp does not reflect patient encounter time.). - Karsten Gomez MD Subjective Gastrointestinal/Abdominal: Reports: no symptoms Objective Last 24 Hour Vital Signs Date Time Temp Pulse Resp B/P (MAP) Pulse Ox O2 Delivery O2 Flow Rate FiO2 06/21/18 14:26 97.6 83 16 135/62 100 97.6 General Appearance: WD/WN, no apparent distress, alert Cardiovascular: normal rate Respiratory/Chest: normal breath sounds, no respiratory distress Abdominal Exam: normal bowel sounds, non tender, soft Extremities: normal range of motion, non-tender Opal Ellington IMMUNOLOGY SPECIALIST Jun 21, 2018 14:35
[2018-06-21] MEDS ORDERED: MELATONIN3 MG ORAL (14:38)
[2018-06-21] MEDS ORDERED: Mylanta PO (14:38)
[2018-06-21] MEDS ORDERED: ACETAMINOPHEN325 M1 ORAL (14:38)
[2018-06-21] MEDS ORDERED: DUONEB 0.5-3(2.53 ML HHN (14:38)
[2018-06-21] MEDS ORDERED: SPIRIVA18 MCG INH (14:38)
[2018-06-21] MEDS ORDERED: ARTIFICIAL TEAR15 ML BOTH EYES (14:38)
[2018-06-21] MEDS ORDERED: NITROSTAT0.4 M1 SL (14:38)
[2018-06-21] MEDS ORDERED: DIVALPROEX PO (14:38)
== END 2018-06-21 14:42 | disposition home or self-care (01) ==
LOC: PAN 14:12
DX: K64.9 Unspecified hemorrhoids (principal); D50.9 Iron deficiency anemia, unspecified; K29.70 Gastritis, unspecified, without bleeding; D63.8 Anemia in other chronic diseases classified elsewhere; K20.9 Esophagitis, unspecified; E61.1 Iron deficiency
CPT/HCPCS: G0463

== ENCOUNTER 2018-07-19 21:14 | Inpatient (IN) | payer MEDICARE, MEDICAID ==
[~2018-07-19] VITALS: Ht 157.5 cm; Wt 52.2 kg
[~2018-07-19 21:14] MED LIST changes: +ACETAMINOPHEN325 M1 ORAL; +ARTIFICIAL TEAR15 ML BOTH EYES; +DIVALPROEX PO; +DUONEB 0.5-3(2.53 ML HHN; +MELATONIN3 MG ORAL; +Mylanta PO; +NITROSTAT0.4 M1 SL
[2018-07-19] MEDS ORDERED: Sodium Chloride 500ML 500 ML IV ONE (21:28)
[2018-07-19 21:35] VITALS: BP 150/85
--- NOTE | 2018-07-19 22:07 | Emergency Room Report ---
History of Present Illness General Chief Complaint: Abnormal Labs Source: Patient, EMS Present Illness HPI Patient presents from nursing facility with reports of elevated troponin Patient herself has some confusion regarding why she was here When asked regarding her presentation she reports that she thinks she might have passed out At this time denies any chest pain or shortness of breath and eyes any back or flank pain denies any vomiting or diarrhea Contact was made with this the nursing facility They do confirm that the patient had a syncopal episode prior to the blood work being obtained Allergies: Coded Allergies: LEVOFLOXACIN (Verified Allergy, Unknown, 02/22/17) PENICILLINS (Verified Allergy, Unknown, 02/22/17) SULFA (SULFONAMIDE ANTIBIOTICS) (Verified Allergy, Unknown, 02/22/17) Patient History Past Medical History: see triage record Pertinent Family History: none Now: No Reviewed Nursing Documentation: PMH: Agreed; PSxH: Agreed Nursing Documentation-PMH Past Medical History: No History, Except For Hx Hypertension: Yes Hx COPD: Yes Hx Cancer: No Hx Gastrointestinal Problems: Yes - GERD, Gastrotitis Hx Neurological Problems: No Review of Systems All Other Systems: negative except mentioned in HPI Physical Exam Vital Signs Date Time Temp Pulse Resp B/P (MAP) Pulse Ox O2 Delivery O2 Flow Rate FiO2 07/19/18 21:12 98.0 103 20 150/85 98 Nasal Cannula 3.0 98.1 Sp02 EP Interpretation: reviewed, normal General Appearance: no apparent distress Head: normocephalic, atraumatic Eyes: bilateral eye PERRL, bilateral eye EOMI ENT: hearing grossly normal, normal pharynx Neck: supple, thyroid normal, no meningismus Respiratory: crackles - Bilateral lobes mildly tachypneic initially Cardiovascular #1: regular rate, rhythm, no edema Gastrointestinal: non tender, soft Musculoskeletal: normal inspection Neurologic: alert, responsive Skin: normal color, no rash Lymphatic: no adenopathy Medical Decision Making Diagnostic Impression: Primary Impression: Syncope ER Course Patient is a fairly complex patient with multiple differential to consideration including but not limited to cardiac cardiopulmonary and vascular emergencies patient's EKG is normal X-ray does not show any acute pathology Patient has blood work obtained, troponin is mildly elevated And patient admitted for further inpatient care Labs Test 07/19/18 22:14 White Blood Count 5.5 K/UL (4.8-10.8) Red Blood Count 3.74 M/UL (4.20-5.40) Hemoglobin 10.5 G/DL (12.0-16.0) Hematocrit 32.9 % (37.0-47.0) Mean Corpuscular Volume 88 FL (80-99) Mean Corpuscular Hemoglobin 28.1 PG (27.0-31.0) Mean Corpuscular Hemoglobin Concent 31.9 G/DL (32.0-36.0) Red Cell Distribution Width 16.0 % (11.6-14.8) Platelet Count 248 K/UL (150-450) Mean Platelet Volume 5.4 FL (6.5-10.1) Neutrophils (%) (Auto) 48.4 % (45.0-75.0) Lymphocytes (%) (Auto) 33.0 % (20.0-45.0) Monocytes (%) (Auto) 13.1 % (1.0-10.0) Eosinophils (%) (Auto) 3.7 % (0.0-3.0) Basophils (%) (Auto) 1.8 % (0.0-2.0) Sodium Level 136 MMOL/L (136-145) Potassium Level 4.2 MMOL/L (3.5-5.1) Chloride Level 101 MMOL/L (98-107) Carbon Dioxide Level 30 MMOL/L (21-32) Anion Gap 5 mmol/L (5-15) Blood Urea Nitrogen 27 mg/dL (7-18) Creatinine 1.0 MG/DL (0.55-1.30) Estimat Glomerular Filtration Rate mL/min (>60) Glucose Level 106 MG/DL (74-106) Calcium Level 8.9 MG/DL (8.5-10.1) Total Bilirubin 0.4 MG/DL (0.2-1.0) Aspartate Amino Transf (AST/SGOT) 25 U/L (15-37) Alanine Aminotransferase (ALT/SGPT) 14 U/L (12-78) Alkaline Phosphatase 100 U/L (46-116) Total Creatine Kinase 81 U/L (26-308) Creatine Kinase MB 1.2 NG/ML (0.0-3.6) Creatine Kinase MB Relative Index 1.4 Troponin I 0.044 ng/mL (0.000-0.056) Pro-B-Type Natriuretic Peptide 1647 pg/mL (0-125) Total Protein 8.2 G/DL (6.4-8.2) Albumin 2.9 G/DL (3.4-5.0) Globulin 5.3 g/dL Albumin/Globulin Ratio 0.5 (1.0-2.7) EKG Diagnostic Results Rate: normal Rhythm: NSR ST Segments: no acute changes Rhythm Strip Diag. Results EP Interpretation: yes Rate: 66 Rhythm: NSR Chest X-Ray Diagnostic Results Chest X-Ray Diagnostic Results : Chest X-Ray Ordered: Yes # of Views/Limited/Complete: 1 View Indication: Chest Pain EP Interpretation: Yes Interpretation: no consolidation, no effusion, no pneumothorax Impression: No acute disease Electronically Signed by: Boogie Kumar DO Last Vital Signs Date Time Temp Pulse Resp B/P (MAP) Pulse Ox O2 Delivery O2 Flow Rate FiO2 07/19/18 21:12 98.0 103 20 150/85 98 Nasal Cannula 3.0 98.1 Status: improved Disposition: ADMITTED INPATIENT Condition: Serious Referrals: Zaida Alberts MD (PCP) Boogie Kumar DO Jul 19, 2018 22:07
[2018-07-19 22:22] LABS: BASOPHILS % (AUTO) 1.8 % (0.0-2.0); EOSINOPHILS % (AUTO) 3.7 % (0.0-3.0); HEMATOCRIT 32.9 % (37.0-47.0); HEMOGLOBIN 10.5 G/DL (12.0-16.0); MEAN CORPUSCULAR VOLUME 88 FL (80-99); MONOCYTES % (AUTO) 13.1 % (1.0-10.0); NEUTROPHILS % (AUTO) 48.4 % (45.0-75.0); PLATELET COUNT 248 K/UL (150-450); RED BLOOD COUNT 3.74 M/UL (4.20-5.40); WHITE BLOOD COUNT 5.5 K/UL (4.8-10.8)
[2018-07-19 22:38] LABS: ANION GAP 5 mmol/L (5-15); BLOOD UREA NITROGEN 27 mg/dL (7-18); CALCIUM 8.9 MG/DL (8.5-10.1); CARBON DIOXIDE 30 MMOL/L (21-32); CHLORIDE 101 MMOL/L (98-107); POTASSIUM 4.2 MMOL/L (3.5-5.1); SODIUM 136 MMOL/L (136-145)
[2018-07-19 22:39] VITALS: BP 161/82
[2018-07-19 22:45] LABS: ALANINE AMINOTRANSFERASE 14 U/L (12-78); ALBUMIN 2.9 G/DL (3.4-5.0); ALBUMIN/GLOBULIN RATIO 0.5 (1.0-2.7); ALKALINE PHOSPHATASE 100 U/L (46-116); ASPARTATE AMINO TRANSFERASE 25 U/L (15-37); BILIRUBIN,TOTAL 0.4 MG/DL (0.2-1.0); CKMB 1.2 NG/ML (0.0-3.6); CREATINE KINASE 81 U/L (26-308)
[2018-07-19 23:52] VITALS: BP 144/63
[2018-07-20] VITALS: BP 152/87
[2018-07-20] MEDS ORDERED: Nitroglycerin Subl 0.4mg tab SL PRN (01:15)
[2018-07-20] MEDS ORDERED: Artificial Tears 1.4% Op Soln BOTH EYES PRN (01:15)
[2018-07-20] MEDS ORDERED: Milk of Magnesia 30ml Ud ORAL PRN (01:15)
[2018-07-20] MEDS ORDERED: Docusate 100mg cap ORAL PRN (01:15)
[2018-07-20 04:00] VITALS: BP 136/72
[2018-07-20] MEDS: dilTIAZem HCl 60mg tab ORAL SCH ×3 (06:08→20:48)
--- NOTE | 2018-07-20 06:12 | Consultation ---
Consult Note Consult Note HEMATOLOGY/ONCOLOGY CONSULTATION CONSULTING PHYSICIAN: Cleveland Guan M.D. DOS: 07/20/2018 REQUESTING PHYSICIANS: 1. William Lazar M.D. 2. Zaida Alberts M.D. REASON FOR CONSULTATION: Evaluation of lung mass. Anemia IDENTIFICATION DATA: Dear Dr. Thomas and Dr. Alberts, The patient is a pleasant 78-year-old female with past medical history significant for schizophrenia as well as left buttock and perineal abscess hx of rx with ID antibiotics on last admission, at this time presents to the hospital complaining of confusion, ams and elevated trop from SNF. She has multiple drug allergies. Ultrasound showed perineum and buttocks bscess. She has been started on broad-spectrum antibiotics on this admission, noted to have a 3 x 4 cm mass in the lungs and was anemic on last admission. Hematology/ Oncology Service was consulted for potential evaluation and treatment and further care. PAST MEDICAL HISTORY: hypertension, COPD, GERD, dementia, and bipolar. PAST SURGICAL HISTORY: None reported. MEDICATIONS: Aspirin, diltiazem, valproic acid, ferrous sulfate ALLERGIES: Levofloxacin, penicillin, and sulfa. SOCIAL HISTORY: She lives in a long-term. No alcohol, tobacco, or illicit drug use. REVIEW OF SYSTEMS: CONSTITUTIONAL: No fevers, chills, or night sweats. SKIN: No rashes, bumps, or itching. HEENT: No headache, hearing or vision changes. BREASTS: No lumps, pain, or discharge. PULMONARY: No cough, sputum, or shortness of breath. GASTROINTESTINAL: No nausea, vomiting, or diarrhea. GENITOURINARY: No dysuria, frequency, or urgency. MUSCULOSKELETAL: No joint swelling, muscle pain, or trauma. NEURO: Confusion at times ++ PHYSICAL EXAMINATION: VITAL SIGNS: Reviewed. GENERAL: No distress. Laboratory Tests Test 07/19/18 22:14 White Blood Count 5.5 K/UL (4.8-10.8) Red Blood Count 3.74 M/UL (4.20-5.40) L Hemoglobin 10.5 G/DL (12.0-16.0) L Hematocrit 32.9 % (37.0-47.0) L Mean Corpuscular Volume 88 FL (80-99) Mean Corpuscular Hemoglobin 28.1 PG (27.0-31.0) Mean Corpuscular Hemoglobin Concent 31.9 G/DL (32.0-36.0) L Red Cell Distribution Width 16.0 % (11.6-14.8) H Platelet Count 248 K/UL (150-450) Mean Platelet Volume 5.4 FL (6.5-10.1) L Neutrophils (%) (Auto) 48.4 % (45.0-75.0) Lymphocytes (%) (Auto) 33.0 % (20.0-45.0) Monocytes (%) (Auto) 13.1 % (1.0-10.0) H Eosinophils (%) (Auto) 3.7 % (0.0-3.0) H Basophils (%) (Auto) 1.8 % (0.0-2.0) Sodium Level 136 MMOL/L (136-145) Potassium Level 4.2 MMOL/L (3.5-5.1) Chloride Level 101 MMOL/L (98-107) Carbon Dioxide Level 30 MMOL/L (21-32) Anion Gap 5 mmol/L (5-15) Blood Urea Nitrogen 27 mg/dL (7-18) H Creatinine 1.0 MG/DL (0.55-1.30) Estimat Glomerular Filtration Rate mL/min (>60) Glucose Level 106 MG/DL (74-106) Calcium Level 8.9 MG/DL (8.5-10.1) Total Bilirubin 0.4 MG/DL (0.2-1.0) Aspartate Amino Transf (AST/SGOT) 25 U/L (15-37) Alanine Aminotransferase (ALT/SGPT) 14 U/L (12-78) Alkaline Phosphatase 100 U/L (46-116) Total Creatine Kinase 81 U/L (26-308) Creatine Kinase MB 1.2 NG/ML (0.0-3.6) Creatine Kinase MB Relative Index 1.4 Troponin I 0.044 ng/mL (0.000-0.056) Pro-B-Type Natriuretic Peptide 1647 pg/mL (0-125) H Total Protein 8.2 G/DL (6.4-8.2) Albumin 2.9 G/DL (3.4-5.0) L Globulin 5.3 g/dL Albumin/Globulin Ratio 0.5 (1.0-2.7) L PULMONARY: Decreased breath sounds. CARDIOVASCULAR: Regular rate. No S3 or S4. ABDOMEN: Soft, nontender, and nondistended. EXTREMITIES: No cyanosis, swelling, or edema noted. Assessment/Plan #. A 3.4 x 3 x 3 spiculated left lung mass abutting the pleural superior surface , highly suspicious for malignancy. --> this was noted on the last scan from 12/2017 when I was on the case --> reimage with a new CT scan #. Anemia of chronic disease. --> Continue to closely monitor for improvement. --> Currently stable. Hemoglobin at approximately 10 to 11. --> Blood transfusion not required at this time #. Bed bugs noted ==> may need permetharin if any evidence of scabies --> consider ID consult as needed #. Right buttocks abscess resolved. improved on antibiotics, broad spectrum. --> Monitor per surgical team. #. Bipolar disorder. Psychiatry Service evaluation as needed #. Multiple antibiotic allergies have been noted. Greatly appreciate consultation Cleveland Guan MD Jul 20, 2018 06:12
[2018-07-20] MEDS ORDERED: Isovue-300 100ml vial INJ PRN (06:15)
[2018-07-20] MEDS: Albuterol/Ipratropium 3ml neb HHN SCH ×3 (07:40→19:12)
[2018-07-20 07:54] LABS: BASOPHILS % (AUTO) 2.4 % (0.0-2.0); EOSINOPHILS % (AUTO) 3.2 % (0.0-3.0); HEMATOCRIT 31.1 % (37.0-47.0); HEMOGLOBIN 9.8 G/DL (12.0-16.0); LYMPHOCYTES % (AUTO) 33.1 % (20.0-45.0); MEAN CORPUSCULAR VOLUME 86 FL (80-99); NEUTROPHILS % (AUTO) 49.3 % (45.0-75.0); PLATELET COUNT 310 K/UL (150-450); RED BLOOD COUNT 3.61 M/UL (4.20-5.40); RED CELL DISTRIBUTION WIDTH 16.3 % (11.6-14.8); WHITE BLOOD COUNT 6.1 K/UL (4.8-10.8)
[2018-07-20 08:00] VITALS: BP 130/65
[2018-07-20 08:09] LABS: ANION GAP 4 mmol/L (5-15); BLOOD UREA NITROGEN 21 mg/dL (7-18); CALCIUM 8.6 MG/DL (8.5-10.1); CARBON DIOXIDE 29 MMOL/L (21-32); CHLORIDE 105 MMOL/L (98-107); CREATININE 0.8 MG/DL (0.55-1.30); POTASSIUM 4.1 MMOL/L (3.5-5.1); SODIUM 138 MMOL/L (136-145)
--- NOTE | 2018-07-20 09:04 | Diagnostic Imaging Report ---
Indication: Chest pain Technique: One view of the chest Comparison: 01/13/2018 Findings: Again demonstrated is a left apical lung mass, appearing essentially unchanged allowing for technical differences. The lungs and pleural spaces are otherwise clear. Heart size is normal. Focal prominence in the aortopulmonary window region could indicate lymphadenopathy. Impression: No acute process Left upper lobe lung mass, previously demonstrated to represent a squamous cell carcinoma on biopsy. Suspect aortopulmonary window lymphadenopathy
--- NOTE | 2018-07-20 09:36 | Diagnostic Imaging Report ---
Clinical Indication: Left lung mass Technique: IV administration nonionic contrast. Spiral acquisition obtained through the chest. Multiplanar reconstructions generated. Total dose length product 737.95 mGycm. CTDIvol(s) 18.69 mGy. Dose reduction achieved using automated exposure control Comparison: 01/09/2018 Findings: Interim increase in size of previously demonstrated left apical lung mass, currently 4.4 cm AP by 3.6 cm transverse by 4 cm craniocaudad, previously 3.4 x 2.4 x 2.9. There is also some tissue extending from the main mass toward the hilum along the bronchovascular bundle. There is a 5 mm nodule at the right lung base which appears unchanged. Tiny subpleural right upper lobe nodule previously described is again demonstrated, appears unchanged. Previously demonstrated left costophrenic sulcus nodule is barely visible currently, certainly not increased in size. Linear opacities at the right lung base probably representing areas of atelectasis and scarring. No infiltrates. No other masses are demonstrated. Left hilar adenopathy appears unchanged. There is slightly increased aortopulmonary window lymphadenopathy. The heart size is normal. There is trace pericardial fluid anteriorly. This is slightly increased from the prior exam. No axillary or chest wall mass or adenopathy. Again demonstrated is a 10 mm right lower pole thyroid nodule. No axillary or chest wall mass or adenopathy demonstrated. The included lung apices demonstrate stable bilateral adrenal fullness without discrete nodule. The gallbladder is surgically absent. The bones demonstrate degenerative spondylosis changes Impression: Increased size of previously demonstrated left apical lung mass, as described, since 01/09/2018. This has been biopsied previously, found to represent a squamous cell carcinoma Left hilar and mediastinal lymphadenopathy, slightly increased from prior exam Scattered small pulmonary nodules bilaterally, as detailed above, unchanged compared most likely postinflammatory in nature Slightly increased trace anterior pericardial fluid Stable right lower pole thyroid nodule Other findings as noted, including degenerative spondylosis, prior cholecystectomy The CT scanner at [facility] is accredited by the [employer] and the scans are performed using protocols designed to limit radiation exposure to as low as reasonably achievable to attain images of sufficient resolution adequate for diagnostic evaluation.
[2018-07-20] MEDS: Sucralfate 1gm tab ORAL SCH ×3 (10:37→17:35)
[2018-07-20] MEDS: Aspirin EC 81mg tab ORAL SCH (10:37)
[2018-07-20 12:00] VITALS: BP 130/65
--- NOTE | 2018-07-20 14:06 | History and Physical ---
History of Present Illness General Date patient seen: Jul 20, 2018 Time patient seen: 14:06 Reason for Hospitalization: possible syncopal episode, elevated troponin Present Illness HPI 78y/o female with pmh of HTN, HLD, GERD, COPD, bipolar d/o, dementia, squamous cell carcinoma of lung who presents with possible syncopal episode and elevated troponin. Pt poor historian. She does not remember what happened but thinks she passed out while standing or walking. She denies hitting her head. Per reports, troponin at [facility] was mildly elevated. Denies f/c, n/v, d/c, chest pain, SOB, abd pain, dysuria. PMH: as above FMH: [place] SH: resides at [facility], denies current T/E/D Allergies: Coded Allergies: LEVOFLOXACIN (Verified Allergy, Unknown, 02/22/17) PENICILLINS (Verified Allergy, Unknown, 02/22/17) SULFA (SULFONAMIDE ANTIBIOTICS) (Verified Allergy, Unknown, 02/22/17) Medication History Scheduled Aspirin* (Aspir 81*), 81 MG ORAL DAILY, (Reported) Atorvastatin Calcium* (Atorvastatin Calcium*), 80 MG ORAL BEDTIME, (Reported) Dextran 70/Hypromellose (Artificial Tears Eye Drops*), 2 DROP BOTH EYES PRN, ( Reported) Diltiazem Hcl* (Cardizem*), 60 MG ORAL EVERY 8 HOURS, (Reported) Divalproex Sodium (Depakote), 250 MG PO TID, (Reported) Ferrous Sulfate (Ferrous Sulfate), 325 MG ORAL BID Ipratropium/Albuterol Sulfate (DuoNeb 0.5-3(2.5)mg/3ml), 3 ML HHN Q6HR, ( Reported) Pantoprazole* (Pantoprazole*), 40 MG ORAL DAILY, (Reported) Pravastatin Sod (Pravastatin Sod), 40 MG ORAL QHS, (Reported) Sucralfate* (Carafate*), 1 GM ORAL THREE TIMES A DAY, (Reported) Tiotropium [place]* (Spiriva*), 2 PUFF INH DAILY, (Reported) Tiotropium [place]* (Spiriva*), 2 PUFF INH DAILY, (Reported) [Devalproex Sodium Dr], 250 MG PO TID, (Reported) [Mylanta ], 30 ML PO Q8HR, (Reported) Scheduled PRN Acetaminophen* (Acetaminophen 325MG Tablet*), 650 MG ORAL Q6H PRN for Pain Scale (3-5), (Reported) Clonidine Hcl* (Catapres*), 0.1 MG ORAL EVERY 6 HOURS PRN for For High Blood Pressure, (Reported) Docusate Sodium* (Docusate Sodium*), 100 MG ORAL DAILY PRN for Constipation, ( Reported) Guaifenesin (Mucinex), 600 MG PO Q12HR PRN for congestion, (Reported) Loratadine (Claritin), 10 MG ORAL DAILY PRN for Itching, (Reported) Magnesium Hydroxide* (Milk Of Magnesia*), 30 ML ORAL DAILY PRN for Constipation, (Reported) Melatonin (Melatonin), 3 MG ORAL BEDTIME PRN for Insomnia, (Reported) Nitroglycerin (Nitrostat), 0.4 MG SL Q5M X3 DOSES PRN for CHEST PAIN, (Reported) Patient History History Provided By: Patient, Medical Record, PMD Healthcare decision maker Resuscitation status Do Not Resuscitate Advanced Directive on File No Family History Family History: Patient reports no known family medical history. Review of Systems Constitutional: Reports: no symptoms Eye: Reports: no symptoms ENT: Reports: no symptoms Respiratory: Reports: no symptoms Cardiovascular: Reports: no symptoms Gastrointestinal: Reports: no symptoms Genitourinary: Reports: no symptoms Musculoskeletal: Reports: no symptoms Skin: Reports: no symptoms Psychiatric: Reports: no symptoms Neurological: Reports: syncope Endocrine: Reports: no symptoms Hematologic/Lymphatic: Reports: no symptoms Physical Exam Physical Exam Narrative General: alert, cooperative, no distress, appears stated age Head: normocephalic, without obvious abnormality, atraumatic Eyes: conjunctivae/corneas clear. PERRL, EOM's intact Throat: lips, mucosa, and tongue normal. MMM Neck: supple, symmetrical, trachea midline, and no JVD Lungs: clear to auscultation bilaterally Heart: regular rate and rhythm, S1, S2 normal, no murmur, click, rub or gallop Abdomen: soft, non-tender, non-distended, bowel sounds normal; no masses or organomegaly Extremities: extremities normal, atraumatic, no cyanosis or edema Pulses: 2+ and symmetric Skin: skin color, texture, turgor normal; no rashes or lesions Neurologic: grossly normal, no focal deficits Last 24 Hour Vital Signs Date Time Temp Pulse Resp B/P (MAP) Pulse Ox O2 Delivery O2 Flow Rate FiO2 07/20/18 12:57 82 20 100 Nasal Cannula 3.0 07/20/18 12:45 82 20 98 Nasal Cannula 3.0 07/20/18 09:25 74 18 97 Nasal Cannula 07/20/18 09:22 75 18 97 Nasal Cannula 3.0 07/20/18 07:51 77 18 100 Nasal Cannula 3.0 07/20/18 07:41 76 18 98 Nasal Cannula 3.0 07/20/18 07:40 Nasal Cannula 3.0 07/20/18 07:39 98 Nasal Cannula 3.0 07/20/18 06:08 82 130/60 07/20/18 04:00 98.2 86 22 136/72 (93) 96 98.2 07/20/18 03:45 80 07/20/18 02:06 Nasal Cannula 3.0 07/20/18 01:35 97 Nasal Cannula 3.0 32 07/20/18 01:35 Nasal Cannula 3.0 32 07/20/18 01:29 76 18 Nasal Cannula 3.0 32 07/20/18 00:45 103 07/20/18 00:00 98.3 103 25 152/87 (108) 98 98.3 07/19/18 23:52 98.1 82 24 144/63 100 Nasal Cannula 3.0 98.1 07/19/18 23:52 98.1 82 24 144/63 100 Nasal Cannula 3.0 07/19/18 22:39 81 22 161/82 100 Nasal Cannula 3.0 07/19/18 21:35 98.1 20 150/85 98 Nasal Cannula 3.0 98.1 07/19/18 21:12 98.0 103 20 150/85 98 Nasal Cannula 3.0 98.1 Intake and Output 07/19/18 07/20/18 19:00 07:00 Intake Total 240 ml Balance 240 ml Intake Oral 240 ml # Voids 5 # Bowel Movements 3 Laboratory Tests Test 07/19/18 22:14 07/20/18 06:45 07/20/18 12:05 White Blood Count 5.5 K/UL (4.8-10.8) 6.1 K/UL (4.8-10.8) Red Blood Count 3.74 M/UL (4.20-5.40) L 3.61 M/UL (4.20-5.40) L Hemoglobin 10.5 G/DL (12.0-16.0) L 9.8 G/DL (12.0-16.0) L Hematocrit 32.9 % (37.0-47.0) L 31.1 % (37.0-47.0) L Mean Corpuscular Volume 88 FL (80-99) 86 FL (80-99) Mean Corpuscular Hemoglobin 28.1 PG (27.0-31.0) 27.0 PG (27.0-31.0) Mean Corpuscular Hemoglobin Concent 31.9 G/DL (32.0-36.0) L 31.4 G/DL (32.0-36.0) L Red Cell Distribution Width 16.0 % (11.6-14.8) H 16.3 % (11.6-14.8) H Platelet Count 248 K/UL (150-450) 310 K/UL (150-450) Mean Platelet Volume 5.4 FL (6.5-10.1) L 5.9 FL (6.5-10.1) L Neutrophils (%) (Auto) 48.4 % (45.0-75.0) 49.3 % (45.0-75.0) Lymphocytes (%) (Auto) 33.0 % (20.0-45.0) 33.1 % (20.0-45.0) Monocytes (%) (Auto) 13.1 % (1.0-10.0) H 12.0 % (1.0-10.0) H Eosinophils (%) (Auto) 3.7 % (0.0-3.0) H 3.2 % (0.0-3.0) H Basophils (%) (Auto) 1.8 % (0.0-2.0) 2.4 % (0.0-2.0) H Sodium Level 136 MMOL/L (136-145) 138 MMOL/L (136-145) Potassium Level 4.2 MMOL/L (3.5-5.1) 4.1 MMOL/L (3.5-5.1) Chloride Level 101 MMOL/L (98-107) 105 MMOL/L (98-107) Carbon Dioxide Level 30 MMOL/L (21-32) 29 MMOL/L (21-32) Anion Gap 5 mmol/L (5-15) 4 mmol/L (5-15) L Blood Urea Nitrogen 27 mg/dL (7-18) H 21 mg/dL (7-18) H Creatinine 1.0 MG/DL (0.55-1.30) 0.8 MG/DL (0.55-1.30) Estimat Glomerular Filtration Rate mL/min (>60) mL/min (>60) Glucose Level 106 MG/DL (74-106) 92 MG/DL (74-106) Calcium Level 8.9 MG/DL (8.5-10.1) 8.6 MG/DL (8.5-10.1) Total Bilirubin 0.4 MG/DL (0.2-1.0) Aspartate Amino Transf (AST/SGOT) 25 U/L (15-37) Alanine Aminotransferase (ALT/SGPT) 14 U/L (12-78) Alkaline Phosphatase 100 U/L (46-116) Total Creatine Kinase 81 U/L (26-308) Creatine Kinase MB 1.2 NG/ML (0.0-3.6) Creatine Kinase MB Relative Index 1.4 Troponin I 0.044 ng/mL (0.000-0.056) 0.098 ng/mL (0.000-0.056) 0.084 ng/mL (0.000-0.056) Pro-B-Type Natriuretic Peptide 1647 pg/mL (0-125) H Total Protein 8.2 G/DL (6.4-8.2) Albumin 2.9 G/DL (3.4-5.0) L Globulin 5.3 g/dL Albumin/Globulin Ratio 0.5 (1.0-2.7) L Ferritin 34 NG/ML (8-388) Microbiology Date/Time Source Procedure Growth Status 07/19/18 22:33 Rectal Mucosa Received Height (Feet): 5 Height (Inches): 2.00 Weight (Pounds): 115 Medications Current Medications Medications (Trade) Dose Ordered Sig/Oralia Route PRN Reason Start Time Stop Time Status Last Admin Dose Admin Acetaminophen (Tylenol) 650 mg Q6H PRN ORAL Pain Scale (3-5) 07/20/18 01:15 08/19/18 01:14 Al Hydroxide/Mg Hydroxide (Mylanta) 30 ml Q8HR PRN ORAL Upset Stomach 07/20/18 01:15 08/19/18 01:14 Albuterol/ Ipratropium (Albuterol/ Ipratropium) 3 ml Q6HR HHN 07/20/18 06:00 07/25/18 05:59 07/20/18 12:45 Artificial Tears (Akwa-Tears) 2 drop Q4H PRN BOTH EYES Dry Eyes 07/20/18 01:15 08/19/18 01:14 Aspirin (Ecotrin) 81 mg DAILY ORAL 07/20/18 09:00 08/19/18 08:59 07/20/18 10:37 Atorvastatin Calcium (Lipitor) 80 mg BEDTIME ORAL 07/20/18 21:00 08/19/18 20:59 Clonidine HCl (Catapres Tab) 0.1 mg Q6H PRN ORAL For High Blood Pressure 07/20/18 01:15 08/19/18 01:14 Diltiazem HCl (Cardizem) 60 mg EVERY 8 HOURS ORAL 07/20/18 06:00 08/19/18 05:59 07/20/18 06:08 Docusate Sodium (Colace) 100 mg DAILY PRN ORAL Constipation 07/20/18 01:15 08/19/18 01:14 Ferrous Sulfate (Feosol) 325 mg BID ORAL 07/20/18 09:00 08/19/18 08:59 07/20/18 10:38 Iopamidol (Isovue-300 100ml) 100 ml NOW PRN INJ Radiology Procedure 07/20/18 06:15 07/22/18 06:10 Loratadine (Claritin 10mg) 10 mg DAILY PRN ORAL itching 07/20/18 01:15 08/19/18 01:14 Magnesium Hydroxide (Mom) 30 ml DAILY PRN ORAL Constipation 07/20/18 01:15 08/19/18 01:14 Nitroglycerin (Ntg) 0.4 mg Q5M PRN SL Chest Pain 07/20/18 01:15 08/19/18 01:14 Pantoprazole (Protonix) 40 mg DAILY ORAL 07/20/18 09:00 08/19/18 08:59 07/20/18 10:38 Sucralfate (Carafate) 1 gm THREE TIMES A DAY ORAL 07/20/18 09:00 08/19/18 08:59 07/20/18 10:37 Tiotropium [place] (Spiriva Inhaler) 2 puff DAILY INH 07/20/18 09:00 08/19/18 08:59 07/20/18 09:22 Assessment/Plan Problem List: (1) Syncope ICD Codes: R55 - Syncope and collapse SNOMED: 351096132 (2) Elevated troponin ICD Codes: R74.8 - Abnormal levels of other serum enzymes SNOMED: 297010464, 793967417, 676259766 (3) Squamous cell carcinoma of lung ICD Codes: C34.90 - Malignant neoplasm of unspecified part of unspecified bronchus or lung SNOMED: 716092723, 462236091 (4) HTN (hypertension) ICD Codes: I10 - Essential (primary) hypertension SNOMED: 87535104 (5) HLD (hyperlipidemia) ICD Codes: E78.5 - Hyperlipidemia, unspecified SNOMED: 69435327 (6) Dementia ICD Codes: F03.90 - Unspecified dementia without behavioral disturbance SNOMED: 38942618 (7) Bipolar disorder ICD Codes: F31.9 - Bipolar disorder, unspecified SNOMED: 74260726 (8) Anemia of chronic disease ICD Codes: D63.8 - Anemia in other chronic diseases classified elsewhere SNOMED: 665040554 (9) COPD (chronic obstructive pulmonary disease) ICD Codes: J44.9 - Chronic obstructive pulmonary disease, unspecified SNOMED: 69311208 Status: stable Assessment/Plan # Syncope - unclear history but possibly 2/2 orthostasis vs vasovagal episode - Cardiology consulted - Check TTE - Tele # Elevated troponin - possibly NSTEMI type 2 demand ischemia - Cardiology consulted - Check TTE - Trend Trop/EKG - ASA, statin # COPD - Cont home inhalers # Squamous cell carcinoma of lung - Heme/onc consulted - F/u repeat CT chest per heme/onc - Outpt f/u # HTN - Cont home BP meds # Dementia # Bipolar d/o - Psych consulted - Cont psych meds DVT Prophylaxis: SCD, HSQ Code Status: DNAR per [facility] Classification Declaration: Based on this initial evaluation, and depending on the patient's clinical course, I anticipate that this patient will require hospitalization for 1-3 days for syncope, elevated troponin, and close respiratory/hemodynamic monitoring. Disposition: Once the patient is stable to leave the hospital, I anticipate the patient will likely be discharged to the following environment: back to SNF ( [facility]) I spent 68 minutes on this patient's case, and 35 minutes were dedicated to counseling and/or care coordination. Discussed with patient/family, nursing staff, SW/CM, cardiology regarding clinical status, treatment course, and disposition planning. Time of note may not reflect time of encounter. William Lazar M.D. Jul 20, 2018 14:06
--- NOTE | 2018-07-20 15:21 | Consultation ---
History of Present Illness General Date patient seen: Jul 20, 2018 Chief Complaint: Abnormal Labs Present Illness HPI 8 yo female with hx of mmp presents from nursing facility with reports of elevated troponin.Patient pw confusion and is a poor historian. the pt has impairment of memory concentration and attention. the pt has waxing and waning of consciousness. Allergies: Coded Allergies: LEVOFLOXACIN (Verified Allergy, Unknown, 02/22/17) PENICILLINS (Verified Allergy, Unknown, 02/22/17) SULFA (SULFONAMIDE ANTIBIOTICS) (Verified Allergy, Unknown, 02/22/17) Medication History Scheduled Aspirin* (Aspir 81*), 81 MG ORAL DAILY, (Reported) Atorvastatin Calcium* (Atorvastatin Calcium*), 80 MG ORAL BEDTIME, (Reported) Dextran 70/Hypromellose (Artificial Tears Eye Drops*), 2 DROP BOTH EYES PRN, ( Reported) Diltiazem Hcl* (Cardizem*), 60 MG ORAL EVERY 8 HOURS, (Reported) Divalproex Sodium (Depakote), 250 MG PO TID, (Reported) Ferrous Sulfate (Ferrous Sulfate), 325 MG ORAL BID Ipratropium/Albuterol Sulfate (DuoNeb 0.5-3(2.5)mg/3ml), 3 ML HHN Q6HR, ( Reported) Pantoprazole* (Pantoprazole*), 40 MG ORAL DAILY, (Reported) Pravastatin Sod (Pravastatin Sod), 40 MG ORAL QHS, (Reported) Sucralfate* (Carafate*), 1 GM ORAL THREE TIMES A DAY, (Reported) Tiotropium [place]* (Spiriva*), 2 PUFF INH DAILY, (Reported) Tiotropium [place]* (Spiriva*), 2 PUFF INH DAILY, (Reported) [Devalproex Sodium Dr], 250 MG PO TID, (Reported) [Mylanta ], 30 ML PO Q8HR, (Reported) Scheduled PRN Acetaminophen* (Acetaminophen 325MG Tablet*), 650 MG ORAL Q6H PRN for Pain Scale (3-5), (Reported) Clonidine Hcl* (Catapres*), 0.1 MG ORAL EVERY 6 HOURS PRN for For High Blood Pressure, (Reported) Docusate Sodium* (Docusate Sodium*), 100 MG ORAL DAILY PRN for Constipation, ( Reported) Guaifenesin (Mucinex), 600 MG PO Q12HR PRN for congestion, (Reported) Loratadine (Claritin), 10 MG ORAL DAILY PRN for Itching, (Reported) Magnesium Hydroxide* (Milk Of Magnesia*), 30 ML ORAL DAILY PRN for Constipation, (Reported) Melatonin (Melatonin), 3 MG ORAL BEDTIME PRN for Insomnia, (Reported) Nitroglycerin (Nitrostat), 0.4 MG SL Q5M X3 DOSES PRN for CHEST PAIN, (Reported) Patient History Limited by: medical condition History Provided By: Patient, Medical Record Healthcare decision maker Resuscitation status Do Not Resuscitate Advanced Directive on File No Past Medical/Surgical History Past Medical/Surgical History: (1) COPD (chronic obstructive pulmonary disease) (2) Advanced dementia (3) Lung mass (4) HTN (hypertension) (5) CHF (congestive heart failure) (6) GERD (gastroesophageal reflux disease) (7) HLD (hyperlipidemia) (8) Severe anemia (9) Acute on chronic anemia (10) Bipolar disorder (11) Dementia (12) Small left apical pneumothorax (13) Pneumothorax after biopsy (14) Esophagitis (15) Iron deficiency (16) Anemia of chronic disease (17) Gastritis (18) Iron deficiency anemia (19) Hemorrhoids (20) Syncope (21) Alteration in lab values Review of Systems Psychiatric: Reports: prior hx, anxiety, depressed feelings Physical Exam General Appearance: no apparent distress, alert, confused Last 24 Hour Vital Signs Date Time Temp Pulse Resp B/P (MAP) Pulse Ox O2 Delivery O2 Flow Rate FiO2 07/20/18 14:11 82 130/65 07/20/18 12:57 82 20 100 Nasal Cannula 3.0 07/20/18 12:45 82 20 98 Nasal Cannula 3.0 07/20/18 12:00 73 07/20/18 12:00 98.1 81 20 130/65 (86) 96 98.1 07/20/18 09:25 74 18 97 Nasal Cannula 07/20/18 09:22 75 18 97 Nasal Cannula 3.0 07/20/18 08:00 84 07/20/18 07:51 77 18 100 Nasal Cannula 3.0 07/20/18 07:41 76 18 98 Nasal Cannula 3.0 07/20/18 07:40 Nasal Cannula 3.0 07/20/18 07:39 98 Nasal Cannula 3.0 07/20/18 06:08 82 130/60 07/20/18 04:00 98.2 86 22 136/72 (93) 96 98.2 07/20/18 03:45 80 07/20/18 02:06 Nasal Cannula 3.0 07/20/18 01:35 97 Nasal Cannula 3.0 32 07/20/18 01:35 Nasal Cannula 3.0 32 07/20/18 01:29 76 18 Nasal Cannula 3.0 32 07/20/18 00:45 103 07/20/18 00:00 98.3 103 25 152/87 (108) 98 98.3 07/19/18 23:52 98.1 82 24 144/63 100 Nasal Cannula 3.0 98.1 07/19/18 23:52 98.1 82 24 144/63 100 Nasal Cannula 3.0 07/19/18 22:39 81 22 161/82 100 Nasal Cannula 3.0 07/19/18 21:35 98.1 20 150/85 98 Nasal Cannula 3.0 98.1 07/19/18 21:12 98.0 103 20 150/85 98 Nasal Cannula 3.0 98.1 Intake and Output 07/19/18 07/20/18 19:00 07:00 Intake Total 240 ml Balance 240 ml Intake Oral 240 ml # Voids 5 # Bowel Movements 3 Laboratory Tests Test 07/19/18 22:14 07/20/18 06:45 07/20/18 12:05 White Blood Count 5.5 K/UL (4.8-10.8) 6.1 K/UL (4.8-10.8) Red Blood Count 3.74 M/UL (4.20-5.40) L 3.61 M/UL (4.20-5.40) L Hemoglobin 10.5 G/DL (12.0-16.0) L 9.8 G/DL (12.0-16.0) L Hematocrit 32.9 % (37.0-47.0) L 31.1 % (37.0-47.0) L Mean Corpuscular Volume 88 FL (80-99) 86 FL (80-99) Mean Corpuscular Hemoglobin 28.1 PG (27.0-31.0) 27.0 PG (27.0-31.0) Mean Corpuscular Hemoglobin Concent 31.9 G/DL (32.0-36.0) L 31.4 G/DL (32.0-36.0) L Red Cell Distribution Width 16.0 % (11.6-14.8) H 16.3 % (11.6-14.8) H Platelet Count 248 K/UL (150-450) 310 K/UL (150-450) Mean Platelet Volume 5.4 FL (6.5-10.1) L 5.9 FL (6.5-10.1) L Neutrophils (%) (Auto) 48.4 % (45.0-75.0) 49.3 % (45.0-75.0) Lymphocytes (%) (Auto) 33.0 % (20.0-45.0) 33.1 % (20.0-45.0) Monocytes (%) (Auto) 13.1 % (1.0-10.0) H 12.0 % (1.0-10.0) H Eosinophils (%) (Auto) 3.7 % (0.0-3.0) H 3.2 % (0.0-3.0) H Basophils (%) (Auto) 1.8 % (0.0-2.0) 2.4 % (0.0-2.0) H Sodium Level 136 MMOL/L (136-145) 138 MMOL/L (136-145) Potassium Level 4.2 MMOL/L (3.5-5.1) 4.1 MMOL/L (3.5-5.1) Chloride Level 101 MMOL/L (98-107) 105 MMOL/L (98-107) Carbon Dioxide Level 30 MMOL/L (21-32) 29 MMOL/L (21-32) Anion Gap 5 mmol/L (5-15) 4 mmol/L (5-15) L Blood Urea Nitrogen 27 mg/dL (7-18) H 21 mg/dL (7-18) H Creatinine 1.0 MG/DL (0.55-1.30) 0.8 MG/DL (0.55-1.30) Estimat Glomerular Filtration Rate mL/min (>60) mL/min (>60) Glucose Level 106 MG/DL (74-106) 92 MG/DL (74-106) Calcium Level 8.9 MG/DL (8.5-10.1) 8.6 MG/DL (8.5-10.1) Total Bilirubin 0.4 MG/DL (0.2-1.0) Aspartate Amino Transf (AST/SGOT) 25 U/L (15-37) Alanine Aminotransferase (ALT/SGPT) 14 U/L (12-78) Alkaline Phosphatase 100 U/L (46-116) Total Creatine Kinase 81 U/L (26-308) Creatine Kinase MB 1.2 NG/ML (0.0-3.6) Creatine Kinase MB Relative Index 1.4 Troponin I 0.044 ng/mL (0.000-0.056) 0.098 ng/mL (0.000-0.056) 0.084 ng/mL (0.000-0.056) Pro-B-Type Natriuretic Peptide 1647 pg/mL (0-125) H Total Protein 8.2 G/DL (6.4-8.2) Albumin 2.9 G/DL (3.4-5.0) L Globulin 5.3 g/dL Albumin/Globulin Ratio 0.5 (1.0-2.7) L Ferritin 34 NG/ML (8-388) Microbiology Date/Time Source Procedure Growth Status 07/19/18 22:33 Rectal Mucosa Received Height (Feet): 5 Height (Inches): 2.00 Weight (Pounds): 115 Medications Current Medications Medications (Trade) Dose Ordered Sig/Oralia Route PRN Reason Start Time Stop Time Status Last Admin Dose Admin Acetaminophen (Tylenol) 650 mg Q6H PRN ORAL Pain Scale (3-5) 07/20/18 01:15 08/19/18 01:14 Al Hydroxide/Mg Hydroxide (Mylanta) 30 ml Q8HR PRN ORAL Upset Stomach 07/20/18 01:15 08/19/18 01:14 Albuterol/ Ipratropium (Albuterol/ Ipratropium) 3 ml Q6HR HHN 07/20/18 06:00 07/25/18 05:59 07/20/18 12:45 Artificial Tears (Akwa-Tears) 2 drop Q4H PRN BOTH EYES Dry Eyes 07/20/18 01:15 08/19/18 01:14 Aspirin (Ecotrin) 81 mg DAILY ORAL 07/20/18 09:00 08/19/18 08:59 07/20/18 10:37 Atorvastatin Calcium (Lipitor) 80 mg BEDTIME ORAL 07/20/18 21:00 08/19/18 20:59 Clonidine HCl (Catapres Tab) 0.1 mg Q6H PRN ORAL For High Blood Pressure 07/20/18 01:15 08/19/18 01:14 Diltiazem HCl (Cardizem) 60 mg EVERY 8 HOURS ORAL 07/20/18 06:00 08/19/18 05:59 07/20/18 14:11 Docusate Sodium (Colace) 100 mg DAILY PRN ORAL Constipation 07/20/18 01:15 08/19/18 01:14 Ferrous Sulfate (Feosol) 325 mg BID ORAL 07/20/18 09:00 08/19/18 08:59 07/20/18 10:38 Iopamidol (Isovue-300 100ml) 100 ml NOW PRN INJ Radiology Procedure 07/20/18 06:15 07/22/18 06:10 Loratadine (Claritin 10mg) 10 mg DAILY PRN ORAL itching 07/20/18 01:15 08/19/18 01:14 Magnesium Hydroxide (Mom) 30 ml DAILY PRN ORAL Constipation 07/20/18 01:15 08/19/18 01:14 Nitroglycerin (Ntg) 0.4 mg Q5M PRN SL Chest Pain 07/20/18 01:15 08/19/18 01:14 Pantoprazole (Protonix) 40 mg DAILY ORAL 07/20/18 09:00 08/19/18 08:59 07/20/18 10:38 Sucralfate (Carafate) 1 gm THREE TIMES A DAY ORAL 07/20/18 09:00 08/19/18 08:59 07/20/18 14:11 Tiotropium Dana (Spiriva Inhaler) 2 puff DAILY INH 07/20/18 09:00 08/19/18 08:59 07/20/18 09:22 Assessment/Plan Problem List: (1) Bipolar disorder ICD Codes: F31.9 - Bipolar disorder, unspecified SNOMED: 01412542 (2) Dementia ICD Codes: F03.90 - Unspecified dementia without behavioral disturbance SNOMED: 22546063 Assessment/Plan Depakote 250mg tid provided ro/Mar Kim MD Jul 20, 2018 15:21
[2018-07-20 16:00] VITALS: BP 121/56
--- NOTE | 2018-07-20 17:26 | Consultation ---
History of Present Illness General Date patient seen: Jul 20, 2018 Time patient seen: 17:19 Chief Complaint: Abnormal Labs Present Illness HPI 78 year old female Pt BIBA from [facility] due to elevated troponin level. She currently denies pain. Troponin mildly elevated, no chest pain, Patient unable to give history. Chest x ray wtih Left upper lobe lung mass , previously demonstrated to represent a squamous cell carcinoma on biopsy. Allergies: Coded Allergies: LEVOFLOXACIN (Verified Allergy, Unknown, 02/22/17) PENICILLINS (Verified Allergy, Unknown, 02/22/17) SULFA (SULFONAMIDE ANTIBIOTICS) (Verified Allergy, Unknown, 02/22/17) Medication History Scheduled Aspirin* (Aspir 81*), 81 MG ORAL DAILY, (Reported) Atorvastatin Calcium* (Atorvastatin Calcium*), 80 MG ORAL BEDTIME, (Reported) Dextran 70/Hypromellose (Artificial Tears Eye Drops*), 2 DROP BOTH EYES PRN, ( Reported) Diltiazem Hcl* (Cardizem*), 60 MG ORAL EVERY 8 HOURS, (Reported) Divalproex Sodium (Depakote), 250 MG PO TID, (Reported) Ferrous Sulfate (Ferrous Sulfate), 325 MG ORAL BID Ipratropium/Albuterol Sulfate (DuoNeb 0.5-3(2.5)mg/3ml), 3 ML HHN Q6HR, ( Reported) Pantoprazole* (Pantoprazole*), 40 MG ORAL DAILY, (Reported) Pravastatin Sod (Pravastatin Sod), 40 MG ORAL QHS, (Reported) Sucralfate* (Carafate*), 1 GM ORAL THREE TIMES A DAY, (Reported) Tiotropium [place]* (Spiriva*), 2 PUFF INH DAILY, (Reported) Tiotropium [place]* (Spiriva*), 2 PUFF INH DAILY, (Reported) [Devalproex Sodium Dr], 250 MG PO TID, (Reported) [Mylanta ], 30 ML PO Q8HR, (Reported) Scheduled PRN Acetaminophen* (Acetaminophen 325MG Tablet*), 650 MG ORAL Q6H PRN for Pain Scale (3-5), (Reported) Clonidine Hcl* (Catapres*), 0.1 MG ORAL EVERY 6 HOURS PRN for For High Blood Pressure, (Reported) Docusate Sodium* (Docusate Sodium*), 100 MG ORAL DAILY PRN for Constipation, ( Reported) Guaifenesin (Mucinex), 600 MG PO Q12HR PRN for congestion, (Reported) Loratadine (Claritin), 10 MG ORAL DAILY PRN for Itching, (Reported) Magnesium Hydroxide* (Milk Of Magnesia*), 30 ML ORAL DAILY PRN for Constipation, (Reported) Melatonin (Melatonin), 3 MG ORAL BEDTIME PRN for Insomnia, (Reported) Nitroglycerin (Nitrostat), 0.4 MG SL Q5M X3 DOSES PRN for CHEST PAIN, (Reported) Patient History Healthcare decision maker Resuscitation status Do Not Resuscitate Advanced Directive on File No Review of Systems Constitutional: Reports: no symptoms Eye: Reports: no symptoms ENT: Reports: no symptoms Respiratory: Reports: no symptoms Cardiovascular: Reports: no symptoms Gastrointestinal: Reports: no symptoms Genitourinary: Reports: no symptoms Musculoskeletal: Reports: no symptoms Skin: Reports: no symptoms Psychiatric: Reports: no symptoms Neurological: Reports: no symptoms Endocrine: Reports: no symptoms Hematologic/Lymphatic: Reports: no symptoms Physical Exam General Appearance: no apparent distress, lethargic, confused Lines, tubes and drains: peripheral HEENT: normocephalic, atraumatic, anicteric, mucous membranes moist, PERRL Neck: non-tender, normal alignment, supple, normal inspection Respiratory/Chest: chest wall non-tender, lungs clear, normal breath sounds, no respiratory distress, no accessory muscle use Cardiovascular/Chest: normal peripheral pulses, normal rate, regular rhythm, regularly irregular, no JVD Abdomen: normal bowel sounds, non tender, soft, no organomegaly, no mass Extremities: normal range of motion, non-tender, normal inspection, no calf tenderness Skin Exam: normal pigmentation, warm/dry, cyanotic 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, 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 affect Last 24 Hour Vital Signs Date Time Temp Pulse Resp B/P (MAP) Pulse Ox O2 Delivery O2 Flow Rate FiO2 07/20/18 14:11 82 130/65 07/20/18 12:57 82 20 100 Nasal Cannula 3.0 07/20/18 12:45 82 20 98 Nasal Cannula 3.0 07/20/18 12:00 73 07/20/18 12:00 98.1 81 20 130/65 (86) 96 98.1 07/20/18 09:25 74 18 97 Nasal Cannula 07/20/18 09:22 75 18 97 Nasal Cannula 3.0 07/20/18 08:00 84 07/20/18 07:51 77 18 100 Nasal Cannula 3.0 07/20/18 07:41 76 18 98 Nasal Cannula 3.0 07/20/18 07:40 Nasal Cannula 3.0 07/20/18 07:39 98 Nasal Cannula 3.0 07/20/18 06:08 82 130/60 07/20/18 04:00 98.2 86 22 136/72 (93) 96 98.2 07/20/18 03:45 80 07/20/18 02:06 Nasal Cannula 3.0 07/20/18 01:35 97 Nasal Cannula 3.0 32 07/20/18 01:35 Nasal Cannula 3.0 32 07/20/18 01:29 76 18 Nasal Cannula 3.0 32 07/20/18 00:45 103 07/20/18 00:00 98.3 103 25 152/87 (108) 98 98.3 07/19/18 23:52 98.1 82 24 144/63 100 Nasal Cannula 3.0 98.1 07/19/18 23:52 98.1 82 24 144/63 100 Nasal Cannula 3.0 07/19/18 22:39 81 22 161/82 100 Nasal Cannula 3.0 07/19/18 21:35 98.1 20 150/85 98 Nasal Cannula 3.0 98.1 07/19/18 21:12 98.0 103 20 150/85 98 Nasal Cannula 3.0 98.1 Intake and Output 07/19/18 07/20/18 19:00 07:00 Intake Total 240 ml Balance 240 ml Intake Oral 240 ml # Voids 5 # Bowel Movements 3 Laboratory Tests Test 07/19/18 22:14 07/20/18 06:45 07/20/18 12:05 White Blood Count 5.5 K/UL (4.8-10.8) 6.1 K/UL (4.8-10.8) Red Blood Count 3.74 M/UL (4.20-5.40) L 3.61 M/UL (4.20-5.40) L Hemoglobin 10.5 G/DL (12.0-16.0) L 9.8 G/DL (12.0-16.0) L Hematocrit 32.9 % (37.0-47.0) L 31.1 % (37.0-47.0) L Mean Corpuscular Volume 88 FL (80-99) 86 FL (80-99) Mean Corpuscular Hemoglobin 28.1 PG (27.0-31.0) 27.0 PG (27.0-31.0) Mean Corpuscular Hemoglobin Concent 31.9 G/DL (32.0-36.0) L 31.4 G/DL (32.0-36.0) L Red Cell Distribution Width 16.0 % (11.6-14.8) H 16.3 % (11.6-14.8) H Platelet Count 248 K/UL (150-450) 310 K/UL (150-450) Mean Platelet Volume 5.4 FL (6.5-10.1) L 5.9 FL (6.5-10.1) L Neutrophils (%) (Auto) 48.4 % (45.0-75.0) 49.3 % (45.0-75.0) Lymphocytes (%) (Auto) 33.0 % (20.0-45.0) 33.1 % (20.0-45.0) Monocytes (%) (Auto) 13.1 % (1.0-10.0) H 12.0 % (1.0-10.0) H Eosinophils (%) (Auto) 3.7 % (0.0-3.0) H 3.2 % (0.0-3.0) H Basophils (%) (Auto) 1.8 % (0.0-2.0) 2.4 % (0.0-2.0) H Sodium Level 136 MMOL/L (136-145) 138 MMOL/L (136-145) Potassium Level 4.2 MMOL/L (3.5-5.1) 4.1 MMOL/L (3.5-5.1) Chloride Level 101 MMOL/L (98-107) 105 MMOL/L (98-107) Carbon Dioxide Level 30 MMOL/L (21-32) 29 MMOL/L (21-32) Anion Gap 5 mmol/L (5-15) 4 mmol/L (5-15) L Blood Urea Nitrogen 27 mg/dL (7-18) H 21 mg/dL (7-18) H Creatinine 1.0 MG/DL (0.55-1.30) 0.8 MG/DL (0.55-1.30) Estimat Glomerular Filtration Rate mL/min (>60) mL/min (>60) Glucose Level 106 MG/DL (74-106) 92 MG/DL (74-106) Calcium Level 8.9 MG/DL (8.5-10.1) 8.6 MG/DL (8.5-10.1) Total Bilirubin 0.4 MG/DL (0.2-1.0) Aspartate Amino Transf (AST/SGOT) 25 U/L (15-37) Alanine Aminotransferase (ALT/SGPT) 14 U/L (12-78) Alkaline Phosphatase 100 U/L (46-116) Total Creatine Kinase 81 U/L (26-308) Creatine Kinase MB 1.2 NG/ML (0.0-3.6) Creatine Kinase MB Relative Index 1.4 Troponin I 0.044 ng/mL (0.000-0.056) 0.098 ng/mL (0.000-0.056) 0.084 ng/mL (0.000-0.056) Pro-B-Type Natriuretic Peptide 1647 pg/mL (0-125) H Total Protein 8.2 G/DL (6.4-8.2) Albumin 2.9 G/DL (3.4-5.0) L Globulin 5.3 g/dL Albumin/Globulin Ratio 0.5 (1.0-2.7) L Ferritin 34 NG/ML (8-388) Microbiology Date/Time Source Procedure Growth Status 07/19/18 22:33 Rectal Mucosa Received Height (Feet): 5 Height (Inches): 2.00 Weight (Pounds): 115 Medications Current Medications Medications (Trade) Dose Ordered Sig/Oralia Route PRN Reason Start Time Stop Time Status Last Admin Dose Admin Acetaminophen (Tylenol) 650 mg Q6H PRN ORAL Pain Scale (3-5) 07/20/18 01:15 08/19/18 01:14 Al Hydroxide/Mg Hydroxide (Mylanta) 30 ml Q8HR PRN ORAL Upset Stomach 07/20/18 01:15 08/19/18 01:14 Albuterol/ Ipratropium (Albuterol/ Ipratropium) 3 ml Q6HR HHN 07/20/18 06:00 07/25/18 05:59 07/20/18 12:45 Artificial Tears (Akwa-Tears) 2 drop Q4H PRN BOTH EYES Dry Eyes 07/20/18 01:15 08/19/18 01:14 Aspirin (Ecotrin) 81 mg DAILY ORAL 07/20/18 09:00 08/19/18 08:59 07/20/18 10:37 Atorvastatin Calcium (Lipitor) 80 mg BEDTIME ORAL 07/20/18 21:00 08/19/18 20:59 Clonidine HCl (Catapres Tab) 0.1 mg Q6H PRN ORAL For High Blood Pressure 07/20/18 01:15 08/19/18 01:14 Diltiazem HCl (Cardizem) 60 mg EVERY 8 HOURS ORAL 07/20/18 06:00 08/19/18 05:59 07/20/18 14:11 Docusate Sodium (Colace) 100 mg DAILY PRN ORAL Constipation 07/20/18 01:15 08/19/18 01:14 Ferrous Sulfate (Feosol) 325 mg BID ORAL 07/20/18 09:00 08/19/18 08:59 07/20/18 10:38 Iopamidol (Isovue-300 100ml) 100 ml NOW PRN INJ Radiology Procedure 07/20/18 06:15 07/22/18 06:10 Loratadine (Claritin 10mg) 10 mg DAILY PRN ORAL itching 07/20/18 01:15 08/19/18 01:14 Magnesium Hydroxide (Mom) 30 ml DAILY PRN ORAL Constipation 07/20/18 01:15 08/19/18 01:14 Nitroglycerin (Ntg) 0.4 mg Q5M PRN SL Chest Pain 07/20/18 01:15 08/19/18 01:14 Pantoprazole (Protonix) 40 mg DAILY ORAL 07/20/18 09:00 08/19/18 08:59 07/20/18 10:38 Sucralfate (Carafate) 1 gm THREE TIMES A DAY ORAL 07/20/18 09:00 08/19/18 08:59 07/20/18 14:11 Tiotropium [place] (Spiriva Inhaler) 2 puff DAILY INH 07/20/18 09:00 08/19/18 08:59 07/20/18 09:22 Assessment/Plan Status: stable Assessment/Plan Assessment: 1) COPD (chronic obstructive pulmonary disease) (2) Advanced dementia (3) Lung mass (4) HTN (hypertension) (5) CHF (congestive heart failure) (6) GERD (gastroesophageal reflux disease) (7) HLD (hyperlipidemia) (8) Severe anemia (9) Acute on chronic anemia (10) Bipolar disorder (11) Dementia (12) Small left apical pneumothorax (13) Pneumothorax after biopsy (14) Esophagitis (15) Iron deficiency (16) Anemia of chronic disease (17) Gastritis (18) Iron deficiency anemia (19) Hemorrhoids (20) Syncope (21) Alteration in lab values Plan: -Serial EKG/Troponin -Echocardiogram -Defer cardiac cath at this time -Nitro prn chest pain -Aspirin -Statin -IF troponin continues to rise then 48hr heparin gtt for conservative management -Consider hospice if no consideration of working up/treating lung cancer Link Ballard MD Jul 20, 2018 17:26
[2018-07-20 20:00] VITALS: BP 125/64
[2018-07-20] MEDS: Atorvastatin 80mg tab ORAL SCH (20:48)
[2018-07-21] VITALS (7 sets, daily range): BP systolic 118–143; BP diastolic 66–90
[2018-07-21] MEDS: Albuterol/Ipratropium 3ml neb HHN SCH ×3 (00:06→13:28)
[2018-07-21] MEDS: dilTIAZem HCl 60mg tab ORAL SCH ×3 (06:35→20:54)
[2018-07-21 07:42] LABS: BASOPHILS % (AUTO) 0.4 % (0.0-2.0); EOSINOPHILS % (AUTO) 2.3 % (0.0-3.0); HEMATOCRIT 30.8 % (37.0-47.0); HEMOGLOBIN 9.6 G/DL (12.0-16.0); LYMPHOCYTES % (AUTO) 21.3 % (20.0-45.0); MEAN CORPUSCULAR VOLUME 85 FL (80-99); MONOCYTES % (AUTO) 14.6 % (1.0-10.0); NEUTROPHILS % (AUTO) 61.3 % (45.0-75.0); PLATELET COUNT 320 K/UL (150-450); RED BLOOD COUNT 3.61 M/UL (4.20-5.40); RED CELL DISTRIBUTION WIDTH 16.4 % (11.6-14.8); WHITE BLOOD COUNT 5.3 K/UL (4.8-10.8)
[2018-07-21] MEDS: Aspirin EC 81mg tab ORAL SCH (08:06)
[2018-07-21] MEDS: Sucralfate 1gm tab ORAL SCH ×3 (08:06→17:33)
[2018-07-21 08:07] LABS: ANION GAP 5 mmol/L (5-15); BLOOD UREA NITROGEN 16 mg/dL (7-18); CALCIUM 9.3 MG/DL (8.5-10.1); CARBON DIOXIDE 32 MMOL/L (21-32); CHLORIDE 103 MMOL/L (98-107); CREATININE 0.9 MG/DL (0.55-1.30); POTASSIUM 3.7 MMOL/L (3.5-5.1); SODIUM 139 MMOL/L (136-145)
--- NOTE | 2018-07-21 10:02 | General Progress Note ---
Assessment/Plan Assessment/Plan Assessment/Plan #. 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 Anemia of chronic disease. --> Continue to closely monitor for improvement. --> Currently stable. Hemoglobin at approximately 10 to 11. --> Blood transfusion not required at this time #. Bed bugs noted ==> may need permetharin if any evidence of scabies --> consider ID consult as needed #. Right buttocks abscess resolved. improved on antibiotics, broad spectrum. --> Monitor per surgical team. #. Bipolar disorder. Psychiatry Service evaluation as needed #. Multiple antibiotic allergies have been noted. Greatly appreciate consultation Subjective Constitutional: Denies: no symptoms, chills, diaphoresis, fever, malaise, weakness, other HEENT: Denies: no symptoms, eye pain, blurred vision, tearing, double vision, ear pain, ear discharge, nose pain, nose congestion, throat pain, throat swelling, mouth pain, mouth swelling, other Cardiovascular: Denies: no symptoms, chest pain, edema, irregular heart rate, lightheadedness, palpitations, syncope, other Respiratory: Denies: no symptoms, cough, orthopnea, shortness of breath, SOB with excertion, SOB at rest, sputum, stridor, wheezing, other Genitourinary: Denies: no symptoms, burning, discharge, frequency, flank pain, hematuria, incontinence, pain, urgency, other Neurologic/Psychiatric: Denies: no symptoms, anxiety, depressed, emotional problems, headache, numbness, paresthesia, pre-existing deficit, seizure, tingling, tremors, weakness, other Endocrine: Denies: no symptoms, excessive sweating, flushing, intolerance to cold, intolerance to heat, increased hunger, increased thirst, increased urine, unexplained weight gain, unexplained weight loss, other Hematologic/Lymphatic: Denies: no symptoms, anemia, easy bleeding, easy bruising, other Allergies: Coded Allergies: LEVOFLOXACIN (Verified Allergy, Unknown, 02/22/17) PENICILLINS (Verified Allergy, Unknown, 02/22/17) SULFA (SULFONAMIDE ANTIBIOTICS) (Verified Allergy, Unknown, 02/22/17) Subjective breathing better, expiratory wheezes still addible Objective Last 24 Hour Vital Signs Date Time Temp Pulse Resp B/P (MAP) Pulse Ox O2 Delivery O2 Flow Rate FiO2 07/21/18 09:42 84 18 97 Nasal Cannula 3.0 28 07/21/18 09:39 84 18 98 Nasal Cannula 3.0 07/21/18 09:00 Nasal Cannula 3.0 07/21/18 08:01 96.6 82 18 143/77 (99) 99 96.6 07/21/18 08:00 96.6 82 18 120/68 (85) 99 96.6 07/21/18 07:39 87 18 99 Nasal Cannula 3.0 32 07/21/18 07:32 Nasal Cannula 3.0 32 07/21/18 07:31 98 Nasal Cannula 3.0 32 07/21/18 07:30 89 20 98 Nasal Cannula 3.0 32 07/21/18 06:35 83 118/76 07/21/18 04:00 83 07/21/18 04:00 97.9 92 20 118/76 (90) 99 97.9 07/21/18 00:27 75 20 99 Nasal Cannula 3.0 32 07/21/18 00:08 74 20 98 Nasal Cannula 3.0 32 07/21/18 00:00 97.6 64 18 134/69 (90) 95 97.6 07/21/18 00:00 89 07/20/18 21:00 Nasal Cannula 3.0 07/20/18 20:48 72 121/56 07/20/18 20:00 97.9 83 22 125/64 (84) 99 97.9 07/20/18 20:00 84 07/20/18 19:29 72 20 99 Nasal Cannula 3.0 32 07/20/18 19:16 98 Nasal Cannula 3.0 32 07/20/18 19:16 Nasal Cannula 3.0 32 07/20/18 19:13 70 20 99 Nasal Cannula 3.0 32 07/20/18 16:00 88 07/20/18 16:00 98.4 96 18 121/56 (77) 100 98.4 07/20/18 14:11 82 130/65 07/20/18 12:57 82 20 100 Nasal Cannula 3.0 07/20/18 12:45 82 20 98 Nasal Cannula 3.0 07/20/18 12:00 73 07/20/18 12:00 98.1 81 20 130/65 (86) 96 98.1 Intake and Output 07/20/18 07/21/18 19:00 07:00 Intake Total 560 ml Balance 560 ml Intake Oral 560 ml # Voids 4 2 # Bowel Movements 3 Laboratory Tests 07/20/18 12:05: Troponin I 0.084H 07/21/18 06:40: White Blood Count 5.3, Red Blood Count 3.61L, Hemoglobin 9.6L, Hematocrit 30.8L , Mean Corpuscular Volume 85, Mean Corpuscular Hemoglobin 26.7L, Mean Corpuscular Hemoglobin Concent 31.2L, Red Cell Distribution Width 16.4H, Platelet Count 320, Mean Platelet Volume 6.1L, Neutrophils (%) (Auto) 61.3, Lymphocytes (%) (Auto) 21.3, Monocytes (%) (Auto) 14.6H, Eosinophils (%) (Auto) 2.3, Basophils (%) (Auto) 0.4, Sodium Level 139, Potassium Level 3.7, Chloride Level 103, Carbon Dioxide Level 32, Anion Gap 5, Blood Urea Nitrogen 16, Creatinine 0.9, Estimat Glomerular Filtration Rate , Glucose Level 91, Calcium Level 9.3, Magnesium Level 2.1 Height (Feet): 5 Height (Inches): 2.00 Weight (Pounds): 115 General Appearance: no apparent distress EENT: TMs normal Neck: supple Cardiovascular: regular rhythm Respiratory/Chest: expiratory wheezing Abdomen: non tender Extremities: normal inspection Edema: 1+ Leg (L), 1+ Leg (R) Edema: trace edema Neurologic: oriented x 3 Skin: warm/dry [place] Guan MD Jul 21, 2018 10:02
--- NOTE | 2018-07-21 15:22 | Cardiology Progress Note ---
Assessment/Plan Status: stable Assessment/Plan Assessment: 1) COPD (chronic obstructive pulmonary disease) (2) Advanced dementia (3) Lung mass (4) HTN (hypertension) (5) CHF (congestive heart failure) (6) GERD (gastroesophageal reflux disease) (7) HLD (hyperlipidemia) (8) Severe anemia (9) Acute on chronic anemia (10) Bipolar disorder (11) Dementia (12) Small left apical pneumothorax (13) Pneumothorax after biopsy (14) Esophagitis (15) Iron deficiency (16) Anemia of chronic disease (17) Gastritis (18) Iron deficiency anemia (19) Hemorrhoids (20) Syncope (21) Alteration in lab values Plan: -Serial EKG/Troponin -Echocardiogram -Defer cardiac cath at this time -Nitro prn chest pain -Aspirin -Statin -IF troponin continues to rise then 48hr heparin gtt for conservative management -Consider hospice if no consideration of working up/treating lung cancer Subjective Cardiovascular: Reports: no symptoms Respiratory: Reports: no symptoms Gastrointestinal/Abdominal: Reports: no symptoms Genitourinary: Reports: no symptoms Subjective No acute events ,stable on 2 liters, no CP, vitals stable, troponin flat Objective Last 24 Hour Vital Signs Date Time Temp Pulse Resp B/P (MAP) Pulse Ox O2 Delivery O2 Flow Rate FiO2 07/21/18 13:50 95 18 100 Nasal Cannula 2.0 28 07/21/18 13:28 94 20 98 Nasal Cannula 2.0 28 07/21/18 13:01 96 133/68 07/21/18 12:00 97.9 96 18 133/68 (89) 97 97.9 07/21/18 12:00 83 07/21/18 09:42 84 18 97 Nasal Cannula 3.0 28 07/21/18 09:39 84 18 98 Nasal Cannula 3.0 07/21/18 09:00 Nasal Cannula 3.0 07/21/18 08:01 96.6 82 18 143/77 (99) 99 96.6 07/21/18 08:00 84 07/21/18 08:00 96.6 82 18 120/68 (85) 99 96.6 07/21/18 07:39 87 18 99 Nasal Cannula 3.0 32 07/21/18 07:32 Nasal Cannula 3.0 32 07/21/18 07:31 98 Nasal Cannula 3.0 32 07/21/18 07:30 89 20 98 Nasal Cannula 3.0 32 07/21/18 06:35 83 118/76 07/21/18 04:00 83 07/21/18 04:00 97.9 92 20 118/76 (90) 99 97.9 07/21/18 00:27 75 20 99 Nasal Cannula 3.0 32 07/21/18 00:08 74 20 98 Nasal Cannula 3.0 32 07/21/18 00:00 97.6 64 18 134/69 (90) 95 97.6 07/21/18 00:00 89 07/20/18 21:00 Nasal Cannula 3.0 07/20/18 20:48 72 121/56 07/20/18 20:00 97.9 83 22 125/64 (84) 99 97.9 07/20/18 20:00 84 07/20/18 19:29 72 20 99 Nasal Cannula 3.0 32 07/20/18 19:16 98 Nasal Cannula 3.0 32 07/20/18 19:16 Nasal Cannula 3.0 32 07/20/18 19:13 70 20 99 Nasal Cannula 3.0 32 07/20/18 16:00 88 07/20/18 16:00 98.4 96 18 121/56 (77) 100 98.4 General Appearance: no apparent distress, alert EENT: PERRL/EOMI, normal ENT inspection, TMs normal, pharynx normal Neck: non-tender, normal alignment, supple, normal inspection, no JVD Rhythm: NSR Cardiovascular: normal peripheral pulses, normal rate, regular rhythm Respiratory/Chest: chest wall non-tender, lungs clear Abdomen: normal bowel sounds, non tender, soft, no organomegaly, no mass Extremities: normal range of motion, non-tender, normal inspection, no calf tenderness 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5-10.1) L Neutrophils (%) (Auto) 61.3 % (45.0-75.0) Lymphocytes (%) (Auto) 21.3 % (20.0-45.0) Monocytes (%) (Auto) 14.6 % (1.0-10.0) H Eosinophils (%) (Auto) 2.3 % (0.0-3.0) Basophils (%) (Auto) 0.4 % (0.0-2.0) Sodium Level 139 MMOL/L (136-145) Potassium Level 3.7 MMOL/L (3.5-5.1) Chloride Level 103 MMOL/L (98-107) Carbon Dioxide Level 32 MMOL/L (21-32) Anion Gap 5 mmol/L (5-15) Blood Urea Nitrogen 16 mg/dL (7-18) Creatinine 0.9 MG/DL (0.55-1.30) Estimat Glomerular Filtration Rate mL/min (>60) Glucose Level 91 MG/DL (74-106) Calcium Level 9.3 MG/DL (8.5-10.1) Magnesium Level 2.1 MG/DL (1.8-2.4) Microbiology Date/Time Source Procedure Growth Status 07/19/18 22:33 Nasal Nares Left MRSA Culture - Final NO METHICILLIN RESISTANT STAPH AUREUS... Complete 07/19/18 22:33 Rectal Mucosa Received Link Ballard MD Jul 21, 2018 15:22
--- NOTE | 2018-07-21 18:25 | General Progress Note ---
Assessment/Plan Assessment/Plan Syncope, demand ischemia, trops trending down, continue ASA, statin. TTE Pending. Cardiology following COPD, not in exacerbation, continue supplemental oxyge and inhaled bronchodilators HTN, Cont home BP meds Bipolar and dementia, Psych consulted Subjective Date patient seen: Jul 21, 2018 Time patient seen: 18:20 ROS Limited/Unobtainable: No Constitutional: Denies: fever Cardiovascular: Denies: chest pain Respiratory: Denies: cough Gastrointestinal/Abdominal: Denies: abdominal pain Hematologic/Lymphatic: Denies: easy bleeding Allergies: Coded Allergies: LEVOFLOXACIN (Verified Allergy, Unknown, 02/22/17) PENICILLINS (Verified Allergy, Unknown, 02/22/17) SULFA (SULFONAMIDE ANTIBIOTICS) (Verified Allergy, Unknown, 02/22/17) Subjective Medicine followup for syncope and demand ischemia. No new complaints. No chest pain or dyspnea. Objective Last 24 Hour Vital Signs Date Time Temp Pulse Resp B/P (MAP) Pulse Ox O2 Delivery O2 Flow Rate FiO2 07/21/18 16:00 97.2 99 18 138/90 (106) 100 97.2 07/21/18 16:00 109 07/21/18 13:50 95 18 100 Nasal Cannula 2.0 28 07/21/18 13:28 94 20 98 Nasal Cannula 2.0 28 07/21/18 13:01 96 133/68 07/21/18 12:00 97.9 96 18 133/68 (89) 97 97.9 07/21/18 12:00 83 07/21/18 09:42 84 18 97 Nasal Cannula 3.0 28 07/21/18 09:39 84 18 98 Nasal Cannula 3.0 07/21/18 09:00 Nasal Cannula 3.0 07/21/18 08:01 96.6 82 18 143/77 (99) 99 96.6 07/21/18 08:00 84 07/21/18 08:00 96.6 82 18 120/68 (85) 99 96.6 07/21/18 07:39 87 18 99 Nasal Cannula 3.0 32 07/21/18 07:32 Nasal Cannula 3.0 32 07/21/18 07:31 98 Nasal Cannula 3.0 32 07/21/18 07:30 89 20 98 Nasal Cannula 3.0 32 07/21/18 06:35 83 118/76 07/21/18 04:00 83 07/21/18 04:00 97.9 92 20 118/76 (90) 99 97.9 07/21/18 00:27 75 20 99 Nasal Cannula 3.0 32 07/21/18 00:08 74 20 98 Nasal Cannula 3.0 32 07/21/18 00:00 97.6 64 18 134/69 (90) 95 97.6 07/21/18 00:00 89 07/20/18 21:00 Nasal Cannula 3.0 07/20/18 20:48 72 121/56 07/20/18 20:00 97.9 83 22 125/64 (84) 99 97.9 07/20/18 20:00 84 07/20/18 19:29 72 20 99 Nasal Cannula 3.0 32 07/20/18 19:16 98 Nasal Cannula 3.0 32 07/20/18 19:16 Nasal Cannula 3.0 32 07/20/18 19:13 70 20 99 Nasal Cannula 3.0 32 Intake and Output 07/20/18 07/21/18 19:00 07:00 Intake Total 560 ml Balance 560 ml Intake Oral 560 ml # Voids 4 2 # Bowel Movements 3 Laboratory Tests 07/21/18 06:40: White Blood Count 5.3, Red Blood Count 3.61L, Hemoglobin 9.6L, Hematocrit 30.8L , Mean Corpuscular Volume 85, Mean Corpuscular Hemoglobin 26.7L, Mean Corpuscular Hemoglobin Concent 31.2L, Red Cell Distribution Width 16.4H, Platelet Count 320, Mean Platelet Volume 6.1L, Neutrophils (%) (Auto) 61.3, Lymphocytes (%) (Auto) 21.3, Monocytes (%) (Auto) 14.6H, Eosinophils (%) (Auto) 2.3, Basophils (%) (Auto) 0.4, Sodium Level 139, Potassium Level 3.7, Chloride Level 103, Carbon Dioxide Level 32, Anion Gap 5, Blood Urea Nitrogen 16, Creatinine 0.9, Estimat Glomerular Filtration Rate , Glucose Level 91, Calcium Level 9.3, Magnesium Level 2.1 Height (Feet): 5 Height (Inches): 2.00 Weight (Pounds): 115 General Appearance: no apparent distress, alert Cardiovascular: normal rate, regular rhythm Respiratory/Chest: chest wall non-tender, lungs clear Abdomen: normal bowel sounds, non tender Som Chowdary MD Jul 21, 2018 18:25
[2018-07-21] MEDS: Atorvastatin 80mg tab ORAL SCH (20:54)
[2018-07-22] VITALS: BP 129/82
[2018-07-22 04:00] VITALS: BP 132/74
[2018-07-22] MEDS: dilTIAZem HCl 60mg tab ORAL SCH ×2 (06:17→13:15)
[2018-07-22] MEDS: Albuterol/Ipratropium 3ml neb HHN SCH ×4 (08:13→13:21)
[2018-07-22 08:24] VITALS: BP 149/66
[2018-07-22] MEDS: Sucralfate 1gm tab ORAL SCH ×2 (08:25→12:12)
[2018-07-22] MEDS: Aspirin EC 81mg tab ORAL SCH (08:26)
[2018-07-22 11:32] VITALS: BP 144/65
[2018-07-22 13:15] VITALS: BP 144/65
--- NOTE | 2018-07-22 14:01 | General Progress Note ---
Assessment/Plan Assessment/Plan Assessment/Recs: #. 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 Anemia of chronic disease. --> Continue to closely monitor for improvement. --> Currently stable. Hemoglobin at approximately 10 to 11. --> Blood transfusion not required at this time #. Bed bugs noted ==> may need permetharin if any evidence of scabies --> s/p permetharin, id eval prn #. Right buttocks abscess resolved. improved on antibiotics, broad spectrum. --> Monitor per surgical team. #. Bipolar disorder. Psychiatry Service consultation as needed #. Multiple antibiotic allergies have been noted. Greatly appreciate consultation Subjective Constitutional: Denies: no symptoms, chills, diaphoresis, fever, malaise, weakness, other Cardiovascular: Denies: no symptoms, chest pain, edema, irregular heart rate, lightheadedness, palpitations, syncope, other Respiratory: Denies: no symptoms, cough, orthopnea, shortness of breath, SOB with excertion, SOB at rest, sputum, stridor, wheezing, other Gastrointestinal/Abdominal: Denies: no symptoms, abdomen distended, abdominal pain, black stools, tarry stools, blood in stool, constipated, diarrhea, difficulty swallowing, nausea, poor appetite, poor fluid intake, rectal bleeding , vomiting, other Genitourinary: Denies: no symptoms, burning, discharge, frequency, flank pain, hematuria, incontinence, pain, urgency, other Neurologic/Psychiatric: Denies: no symptoms, anxiety, depressed, emotional problems, headache, numbness, paresthesia, pre-existing deficit, seizure, tingling, tremors, weakness, other Endocrine: Denies: no symptoms, excessive sweating, flushing, intolerance to cold, intolerance to heat, increased hunger, increased thirst, increased urine, unexplained weight gain, unexplained weight loss, other Hematologic/Lymphatic: Denies: no symptoms, anemia, easy bleeding, easy bruising, other Allergies: Coded Allergies: LEVOFLOXACIN (Verified Allergy, Unknown, 02/22/17) PENICILLINS (Verified Allergy, Unknown, 02/22/17) SULFA (SULFONAMIDE ANTIBIOTICS) (Verified Allergy, Unknown, 02/22/17) Subjective breathing better, continues to have expiratory wheezes still audible at this time Objective Last 24 Hour Vital Signs Date Time Temp Pulse Resp B/P (MAP) Pulse Ox O2 Delivery O2 Flow Rate FiO2 07/22/18 13:29 89 18 99 Nasal Cannula 2.0 28 07/22/18 13:21 95 18 97 Nasal Cannula 2.0 28 07/22/18 13:15 85 144/65 07/22/18 12:00 85 07/22/18 11:32 98.4 90 29 144/65 (91) 98 98.4 07/22/18 09:34 89 18 98 Nasal Cannula 3.0 32 07/22/18 09:34 88 18 98 Nasal Cannula 3.0 32 07/22/18 08:24 97.9 91 18 149/66 (93) 95 97.9 07/22/18 08:21 92 18 99 Nasal Cannula 2.0 28 07/22/18 08:14 98 Nasal Cannula 3.0 32 07/22/18 08:14 89 20 98 Nasal Cannula 2.0 28 07/22/18 08:14 Nasal Cannula 3.0 32 07/22/18 08:00 95 07/22/18 07:53 Nasal Cannula 3.0 07/22/18 06:17 88 129/82 07/22/18 04:00 79 07/22/18 04:00 96.6 87 16 132/74 (93) 99 96.6 07/22/18 00:00 88 07/22/18 00:00 98.2 72 18 129/82 (98) 95 98.2 07/21/18 21:00 Nasal Cannula 3.0 07/21/18 20:54 109 138/90 07/21/18 20:00 82 07/21/18 20:00 97.9 82 20 141/66 (91) 97 97.9 07/21/18 16:00 97.2 99 18 138/90 (106) 100 97.2 07/21/18 16:00 109 Intake and Output 07/21/18 07/22/18 19:00 07:00 Intake Total 730 ml 240 ml Output Total 600 ml Balance 130 ml 240 ml Intake Oral 730 ml 240 ml Output Urine Total 600 ml # Bowel Movements 1 Height (Feet): 5 Height (Inches): 2.00 Weight (Pounds): 115 General Appearance: alert EENT: TMs normal Neck: supple Cardiovascular: regular rhythm Respiratory/Chest: normal breath sounds Abdomen: non tender Extremities: non-tender Edema: 1+ Leg (L), 1+ Leg (R) Edema: mild edema Neurologic: alert Skin: warm/dry Cleveland Guan MD Jul 22, 2018 14:01
--- NOTE | 2018-07-22 14:36 | Discharge Summary ---
Discharge Summary Hospital Course Date of Admission Jul 19, 2018 at 22:38 Date of Discharge 07/22/18 Admitting Diagnosis elevated troponin Reason for Hospitalization: Syncope, demand ischemia, dementia HPI Sangita Pereira is a 78 year old female who was admitted on Jul 19, 2018 at 22 :38 for Elevated Troponin Consultations Cardiology, Psychiatry, Oncology Hospital Course Patient presented with a syncopal episode mildly elevated troponin levels, admitted to the medical service, telemetry unit, serial cardiac enzymes were checked and she was seen by Cardiology, felt not to have ACS, plan to continue ASA and statin. TTE was unremarkable and she is ambulating independently. Of note, she had a CT chest with contrast showing increase in size of lung mass, known history of SCC, will need to followup with Oncology as an outpatient to see if she would benefit from chemotherapy or initiation of hospice care. Discharge Discharge Disposition Patient was discharged to SNF/Subacute Facility(03) Som Chowdary MD Jul 22, 2018 14:36
[2018-07-22] MEDS ORDERED: Albuterol/Ipratropium 3ml neb HHN SCH (19:00)
--- NOTE | 2018-07-25 13:37 | Cardiology Report ---
APPROVED REPORT EXAM: Two-dimensional and M-mode echocardiogram with Doppler and color Doppler. INDICATION Chest Pain M-Mode DIMENSIONS IVSd1.3 (0.7-1.1cm)Left Atrium (MM)3.4 (1.6-4.0cm) LVDd4.2 (3.5-5.6cm)Aortic Root2.6 (2.0-3.7cm) PWd1.6 (0.7-1.1cm)Aortic Cusp Exc.1.1 (1.5-2.0cm) IVSs1.4 cm LVDs2.8 (2.5-4.0cm) PWs2.0 cm Normal left ventricular chamber size, systolic function and wall motio however [place] inferior wall endocaardium is not adequately visualized Left ventricular ejection fraction estimated to be 55-60%. Moderate left ventricular hypertrophy by 2-D. No evidence of pericardial effusion. Mild left atrial enlargement . Right cardiac chamber sizes are within normal limits . Focal aortic valve sclerosis with reduced cusp excursion,suggestive moderate aortic stenosis . Heavily Thickened mitral valve leaflets Mitral annulus and aortic root calcification. Pulmonic valve not well visualized. Normal tricuspid valve structure. IVC at normal size with physiologic collapse. A color flow and spectral Doppler study was performed and revealed: Mild aortic regurgitation. Peak aortic valve gradient of 42 mm Hg and a mean of 19 mmHg. Aortic valve area 1.0 cm2 calculated by continuity equation. Peak mitral valve gradient of 7 mm Hg and a mean of 3 mmHg. Mild to moderate mitral regurgitation. Mitral diastolic velocities suggest reduced left ventricular relaxation c/w mild LV diastolic dysfunction (Grade I ). Mild tricuspid regurgitation. Tricuspid systolic velocities suggests peak right ventricular systolic pressure of 60mmHg, consistent with severe pulmonary hypertension .
--- NOTE | 2018-07-27 14:10 | Discharge Summary ---
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 Bed bugs s/p permetharin Right buttocks abscess resolved. --I have been assigned to complete the DC summary, I was not involved in the patient management-MARNIE Israel--- Marlen Mai NP Jul 27, 2018 14:10
--- NOTE | 2018-07-27 15:55 | Cardiology Report ---
APPROVED REPORT EKG Measurement Heart [id number] Sinus rhythm with occasional premature ventricular complexes Otherwise normal ECG
== END 2018-07-22 16:01 | DRG 311 ==
LOC: EDBD 21:14 → EMR 21:43 → 2E 22:38 → EDBEDREQ 23:13
DX: I24.8 Other forms of acute ischemic heart disease (principal); C34.90 Malignant neoplasm of unspecified part of unspecified bronchus or lung; L02.31 Cutaneous abscess of buttock; R55 Syncope and collapse; R59.1 Generalized enlarged lymph nodes; I10 Essential (primary) hypertension; E78.5 Hyperlipidemia, unspecified; K21.9 Gastro-esophageal reflux disease without esophagitis; J44.9 Chronic obstructive pulmonary disease, unspecified; F31.9 Bipolar disorder, unspecified; Z88.1 Allergy status to other antibiotic agents; Z88.0 Allergy status to penicillin; Z88.2 Allergy status to sulfonamides; R74.8 Abnormal levels of other serum enzymes; F03.90 Unspecified dementia, unspecified severity, without behavioral disturbance, psychotic disturbance, mood disturbance, and anxiety; D63.8 Anemia in other chronic diseases classified elsewhere; Z66 Do not resuscitate; T14.8XXA Other injury of unspecified body region, initial encounter; W57.XXXA Bitten or stung by nonvenomous insect and other nonvenomous arthropods, initial encounter; Y92.122 Bedroom in nursing home as the place of occurrence of the external cause
CPT/HCPCS: 36415; 71045; 71260; 80048; 80053; 82550; 82553; 82728; 83735; 83880; 84484; 85025; 87081; 93005; 93306; 94640; 94664; 94760; 99285; J2405; J7620